=== PATIENT | male | born 1965 | race American Indian/Alaskan Native ===

== ENCOUNTER 2020-08-05 07:06 | Emergency (ER) | payer SELFPAY ==
[2020-08-05 09:08] LABS: Basophils % (Auto) 0.8 % (0.0-1.8); Eosinophils # (Auto) 0.3 K/mm3 (0.0-0.4); Eosinophils % (Auto) 5.3 % (0.0-4.3); Hematocrit 32.5 % (35.5-45.6); Hemoglobin 11.1 gm/dl (11.8-15.2); Lymphocytes # (Auto) 1.7 K/mm3 (1.2-5.4); Lymphocytes % (Auto) 33.7 % (13.4-35.0); Mean Corpuscular HGB Conc 34 % (32-34); Monocytes # (Auto) 0.8 K/mm3 (0.0-0.8); Monocytes % (Auto) 15.2 % (0.0-7.3); Platelet Count 218 K/mm3 (140-440); Red Blood Count 4.79 M/mm3 (3.65-5.03); Red Cell Distribution Width 16.7 % (13.2-15.2)
[2020-08-05 09:18] LABS: Mean Corpuscular Volume 68 fl (84-94)
[2020-08-05 09:27] LABS: Albumin 2.9 g/dL (3.9-5)
--- NOTE | 2020-08-05 09:40 | Emergency Department Report ---
ED General Adult HPI - General Chief complaint: Dizziness Stated complaint: HIGH BLOOD PRESSURE;ASTHMA Time Seen by Provider: 08/05/20 09:22 Source: patient Mode of arrival: Ambulatory Limitations: No Limitations - History of Present Illness Initial comments: This is a 55-year old man who is here as he states primarily to have his asthma medicine and blood pressure medicine written. He has been out of these medicines for some time. He does not have a primary care physician at this time. He tells me he would like a work excuse for last week. He states that his asthma is not bothering him now nor is he having any difficulty in breathing. Apparently he expressed "apprehension about taking blood pressure medications". The patient asked me how long it would take to get his lab results. He appeared to be very anxious to leave. -: Gradual, week(s) ([place] weak for a week) - Related Data Allergies Allergy/AdvReac Type Severity Reaction Status Date / Time No Known Allergies Allergy Unverified 08/05/20 07:09 ED Review of Systems ROS: Stated complaint: HIGH BLOOD PRESSURE;ASTHMA Other details as noted in HPI ED Past Medical Hx - Past Medical History Hx Hypertension: Yes Hx Asthma: Yes - Surgical History Past Surgical History?: No - Social History Smoking Status: Current Every Day Smoker Substance Use Type: None ED Physical Exam - General Limitations: No Limitations ED Course Vital Signs 08/05/20 08/05/20 07:09 09:14 Temperature 97.9 F Pulse Rate 111 H Respiratory 20 18 Rate Blood Pressure 173/108 O2 Sat by Pulse 96 99 Oximetry - Reevaluation(s) Reevaluation #1: Patient was found to have an elevated creatinine, BUN, low sodium and elevated troponin. He was a bit anemic. The implications of these tests were explained to him. I ordered medication for his blood pressure and to initiate IV fluids. I explained to the patient that admission is strongly recommended in lieu of his multiple laboratory abnormalities. He was told that his troponin was elevated specifically and that this may be secondary to a heart problem. The risk of multiple on stabilized medical conditions was explained to the patient. Despite this, he stated that he wanted to leave. Indeed, even when I explained to him that I would need some time for the nurse to bring him his paperwork as we had just ran a cardiac arrest, he simply left without treatment and signed out AMA. He did not even accept referral to the local primary care clinic. He did once again asked the nurse for a work excuse for 1 week. 08/05/20 10:10 08/05/20 10:13 Patient denied any chest pain pressure or episodic shortness of breath, diaphoresis or anything specifically consistent with acute coronary syndrome. Reevaluation #2: It should be noted that the patient was fully mentally competent to refuse medical care and treatment. 08/05/20 10:14 ED Medical Decision Making - Lab Data Result diagrams: 08/05/20 08:26 08/05/20 08:26 Laboratory Results - last 24 hr 08/05/20 08/05/20 08:26 08:26 WBC 5.1 RBC 4.79 Hgb 11.1 L Hct 32.5 L MCV 68 L MCH 23 L MCHC 34 RDW 16.7 H Plt Count 218 Lymph % (Auto) 33.7 Sherman % (Auto) 15.2 H Eos % (Auto) 5.3 H Baso % (Auto) 0.8 Lymph # (Auto) 1.7 Sherman # (Auto) 0.8 Eos # (Auto) 0.3 Baso # (Auto) 0.0 Seg Neutrophils % 45.0 Seg Neutrophils # 2.3 Sodium 129 L Potassium 3.6 Chloride 97.0 L Carbon Dioxide 24 Anion Gap 12 BUN 42 H Creatinine 2.5 H Estimated GFR 32 BUN/Creatinine Ratio 17 Glucose 119 H Calcium 9.0 Total Bilirubin 0.40 AST 108 H ALT 98 H Alkaline Phosphatase 130 H Troponin T 0.132 H* Total Protein 9.3 H Albumin 2.9 L Albumin/Globulin Ratio 0.5 - EKG Data -: EKG Interpreted by Me EKG shows normal: sinus rhythm, axis, intervals, QRS complexes, ST-T waves Rate: normal - EKG Data Interpretation: nonspecific ST-T wave abhishek, other (Motion artifact. J-point elevation. Intraventricular conduction delay.) Critical care attestation.: If time is entered above; I have spent that time in minutes in the direct care of this critically ill patient, excluding procedure time. ED Disposition Clinical Impression: Uncontrolled hypertension, Hyponatremia, Renal insufficiency, Elevated troponin Disposition: DC-07 LEFT AGAINST MED ADVICE Is pt being admited?: No Does the pt Need Aspirin: No Condition: Stable Instructions: Hypertension (ED) Referrals: PRIMARY CARE, [Primary Care Provider] - 3-5 Days Forms: AMA Form, Work/School Release Form(ED) Time of Disposition: 10:16
[2020-08-05] MEDS ORDERED: SODIUM CHLORIDE 0.9% 1000 ML 1,000 ML IV ONE (09:43)
[2020-08-05] MEDS ORDERED: NITROGLYCERIN 2% OINT 1 GM TP ONE (09:43)
[2020-08-05 09:45] LABS: Chol/HDL Ratio 7.44 %
[2020-08-05 11:03] LABS: Creatine Kinase MB 10.4 ng/mL (0.0-4.0)
[2020-08-05 11:57] VITALS: BP 146/104
== END 2020-08-05 09:55 | disposition left against medical advice (07) ==
LOC: ED 07:06
DX: I10 Essential (primary) hypertension (principal); E87.1 Hypo-osmolality and hyponatremia; N28.9 Disorder of kidney and ureter, unspecified; R74.8 Abnormal levels of other serum enzymes; E11.9 Type 2 diabetes mellitus without complications; Z79.899 Other long term (current) drug therapy
CPT/HCPCS: 36415; 80053; 80061; 82550; 82553; 83735; 83880; 84484; 85025; 93005; 99283

== ENCOUNTER 2021-04-01 11:29 | Inpatient (IN) | payer SELFPAY ==
[2021-04-01] MEDS ORDERED: ASPIRIN 81 MG TAB CHEW PO ONE (12:12)
--- NOTE | 2021-04-01 12:17 | Emergency Department Report ---
ED Shortness of Breath HPI - General Chief Complaint: Dyspnea/Respdistress Stated Complaint: CHEST ACHE/SOB Time Seen by Provider: 04/01/21 12:03 Source: patient Mode of arrival: Ambulatory Limitations: No Limitations - History of Present Illness Initial Comments: Patient presents with shortness of breath. He states that for the last 3 weeks, he has had exertional dyspnea. He has to stop multiple times when walking from his home to the store. He states that he has been so short of breath he has not really left his house. He gets short of breath when he gets up and walks from the bedroom to the bathroom. Over the last couple of days it has gotten worse. He decided to come here for evaluation. Patient states that he had had similar symptoms back in July. He came here. He states that the physician that he saw scared him and he did not come back. Patient states that he has not followed up since that time. He is not having chest pain. He has had a cough but that seems to be minimal. He states that he has been wheezing at home as well. He actually does describe orthopnea in addition and describes PND as well. He has not noticed significant edema in the feet. - Related Data Allergies Allergy/AdvReac Type Severity Reaction Status Date / Time No Known Allergies Allergy Unverified 08/05/20 07:09 ED Review of Systems ROS: Stated complaint: CHEST ACHE/SOB Other details as noted in HPI Comment: All other systems reviewed and negative Constitutional: denies: fever Eyes: denies: eye pain ENT: denies: throat pain Respiratory: no symptoms reported Cardiovascular: other ( He does report occasional palpitations.). denies: chest pain Endocrine: denies: unexplained weight loss Gastrointestinal: denies: abdominal pain Genitourinary: denies: dysuria Musculoskeletal: denies: back pain Skin: denies: rash Neurological: denies: headache Hematological/Lymphatic: denies: easy bruising ED Past Medical Hx - Past Medical History Previous Medical History?: Yes Hx Hypertension: Yes Hx Asthma: Yes - Surgical History Past Surgical History?: No - Family History Family history: hypertension - Social History Smoking Status: Current Every Day Smoker Substance Use Type: Alcohol, Marijuana, Other ( We discussed tobacco cessation x3 minutes) ED Physical Exam - General Limitations: No Limitations ( pulse ox was noted and normal. Patient is not hypoxic.) General appearance: alert, in no apparent distress - Head Head exam: Present: atraumatic, normocephalic, normal inspection - Eye Eye exam: Present: normal appearance, EOMI. Absent: scleral icterus - ENT ENT exam: Present: normal exam, normal external ear exam - Neck Neck exam: Absent: meningismus - Respiratory Respiratory exam: Present: rales ( Bibasilar). Absent: respiratory distress - Cardiovascular Cardiovascular Exam: Present: tachycardia, irregular rhythm - GI/Abdominal GI/Abdominal exam: Present: soft. Absent: tenderness - Extremities Exam Extremities exam: Present: normal capillary refill. Absent: pedal edema - Back Exam Back exam: Absent: CVA tenderness (R), CVA tenderness (L) - Neurological Exam Neurological exam: Present: alert, oriented X3, CN II-XII intact, reflexes normal. Absent: motor sensory deficit - Psychiatric Psychiatric exam: Present: normal affect, anxious - Skin Skin exam: Present: warm, dry ED Course Vital Signs 04/01/21 11:49 Temperature 97.6 F Pulse Rate 116 H Respiratory 22 Rate Blood Pressure 153/124 O2 Sat by Pulse 99 Oximetry - Reevaluation(s) Reevaluation #1: 04/01/21 12:17 IV labs were ordered. EKG has been ordered. Reevaluation #2: 04/01/21 13:19 Labs have been noted. These have been discussed with the patient. I do believe admission is indicated. Dr. Pate agrees. He will admit. Bed has been requested. ED Medical Decision Making - Lab Data Result diagrams: 04/01/21 12:04 04/01/21 12:04 - EKG Data -: EKG Interpreted by Me Rate: tachycardia - EKG Data 04/01/21 13:19 EKG shows a sinus tachycardia 122 with occasional ectopy. These are PVCs. QRS is normal at 89. QT corrected is normal at 1475. There is no ST elevation suggest STEMI. There is no ST depression suggestive of ischemia. There is no old EKG currently for comparison. - Medical Decision Making Patient presented secondary to exertional dyspnea. He does have evidence of NSTEMI with congestive heart failure. He does not have STEMI. There is no pulse deficit suggestive of aortic dissection. He does not have pneumonia or pneumothorax radiographically. Patient was admitted for further management. He is currently pain-free and resting. Critical Care Time: No Critical care attestation.: If time is entered above; I have spent that time in minutes in the direct care of this critically ill patient, excluding procedure time. ED Disposition Clinical Impression: NSTEMI (non-ST elevated myocardial infarction), Exertional dyspnea, Acute kidney injury Disposition: 09 ADMITTED INPATIENT Is pt being admited?: Yes Does the pt Need Aspirin: No Condition: Stable Referrals: PRIMARY CARE, [Primary Care Provider] - 3-5 Days
--- NOTE | 2021-04-01 12:42 | XRay Report ---
CHEST 1 VIEW INDICATION / CLINICAL INFORMATION: chest pain. COMPARISON: None available. FINDINGS: SUPPORT DEVICES: None. HEART / MEDIASTINUM: No significant abnormality. LUNGS / PLEURA: Airspace opacity involving the medial basilar region of the right lung. Left lung is clear. No pneumothorax. ADDITIONAL FINDINGS: No significant additional findings. IMPRESSION: Focal pneumonia involving the right basilar lung. Signer Name: Marquise Mariscal MD Signed: 04/01/2021 12:38 PM Workstation Name: [id number]
[2021-04-01 12:46] LABS: Hematocrit 31.4 % (35.5-45.6); Mean Corpuscular HGB Conc 32 % (32-34); Platelet Count 205 K/mm3 (140-440); Red Blood Count 4.56 M/mm3 (3.65-5.03); Red Cell Distribution Width 18.6 % (13.2-15.2)
[2021-04-01 12:51] LABS: Albumin 3.3 g/dL (3.9-5)
[2021-04-01 13:01] LABS: Mean Corpuscular Volume 69 fl (84-94)
[2021-04-01 13:20] LABS: Chol/HDL Ratio 4.85 %
[2021-04-01 16:46] LABS: Band Neutrophils # (Manual) 0.3 K/mm3; Total Cells Counted 100
[2021-04-01 16:47] LABS: Target Cells Few
[2021-04-01 16:48] LABS: Anisocytosis 2+; Hypochromasia 2+
[2021-04-01] MEDS ORDERED: ACETAMINOPHEN 325 MG TAB PO PRN ×2 (17:45→18:38)
[2021-04-01] MEDS ORDERED: ONDANSETRON 4 MG/2 ML INJ IV PRN ×2 (17:45→18:38)
--- NOTE | 2021-04-01 17:45 | History and Physical Report ---
History of Present Illness Date of examination: 04/01/21 Date of admission: 04/01/21 14:58 Chief complaint: Shortness of breath and chest pain for 1 week History of present illness: 55-year-old male with history of tension comes in for exertional dyspnea. Duration. Patient has to stop multiple times from home to the patient and discharged on regular walking to the bathroom. Also chest pain intermittent he gets short of breath and walk Lungs. Patient states that he had similar symptoms back pain.. Patient was evaluated in the emergency room and was sent home. Patient also stated in using and has orthopnea. Patient has class IV NYHA symptoms. Also intermittent chest pain. His ultrasound. No diaphoresis. No palpitations. No radiation. ED course evaluation and IV Lasix was given. - Past Medical History --Previous Medical History?: Yes --Hypertension: Yes --Asthma: Yes - Surgical History --Past Surgical History?: No - Family History --Hypertension - Social History --Smoking Status: Current Every Day Smoker --Substance Use Type: Alcohol, Marijuana, Other ( We discussed tobacco cessation x3 minutes) -Review of Systems ROS: Stated complaint: CHEST ACHE/SOB Other details as noted in HPI Comment: All other systems reviewed and negative Constitutional: denies: fever Eyes: denies: eye pain ENT: denies: throat pain Respiratory: no symptoms reported Cardiovascular: other ( He does report occasional palpitations.). denies: chest pain Endocrine: denies: unexplained weight loss Gastrointestinal: denies: abdominal pain Genitourinary: denies: dysuria Musculoskeletal: denies: back pain Skin: denies: rash Neurological: denies: headache Hematological/Lymphatic: denies: easy bruising Medications and Allergies Allergies Allergy/AdvReac Type Severity Reaction Status Date / Time No Known Allergies Allergy Verified 04/01/21 18:43 Home Medications Medication Instructions Recorded Confirmed Last Taken Type No Known Home Medications [No 04/01/21 04/01/21 Unknown History Reported Home Medications] Active Meds: Active Medications Pseudoephedrine/Acetam/Chlorphenir (Guaifenesin/Codeine 100-10mg Oral Liqd 5 Ml) 10 ml PO Q4H PRN PRN Reason: Cough Exam - Constitutional Vitals: Temp Pulse Resp BP Pulse Ox 97.6 F 116 H 13 173/112 97 04/01/21 11:49 04/01/21 15:45 04/01/21 15:45 04/01/21 15:45 04/01/21 15:51 General appearance: Present: mild distress, well-nourished - EENT Eyes: Present: PERRL ENT: hearing intact, clear oral mucosa - Neck Neck: Present: supple, normal ROM - Respiratory Respiratory effort: normal Respiratory: bilateral: CTA - Cardiovascular Heart rate: 120 (pvc's) Rhythm: regular Heart Sounds: Present: S1 & S2. Absent: rub, click - Extremities Extremities: no ischemia, pulses symmetrical, No edema Extremity abnormal: other (Mild ankle swelling present.) Peripheral Pulses: within normal limits - Abdominal General gastrointestinal: Present: soft, non-tender, non-distended, normal bowel sounds Male genitourinary: Present: normal - Integumentary Integumentary: Present: clear, warm, dry - Musculoskeletal Musculoskeletal: gait normal, strength equal bilaterally - Psychiatric Psychiatric: appropriate mood/affect, intact judgment & insight - Neurologic Neurologic: CNII-XII intact, moves all extremities - Allied Health Allied health notes reviewed: nursing, case management HEART Score - HEART Score History: Highly suspicious Age: 45-65 Risk factors: 1-2 risk factors Troponin: Troponin T 0.379 ng/mL (0.00-0.029) H* 04/01/21 12:04 Troponin: 1-3x normal limit - Critical Actions Critical Actions: 4-6 pts:12-16.6% risk of adverse cardiac event. Should be admitted Results - Labs CBC & Chem 7: 04/02/21 05:32 04/02/21 05:32 Labs: Laboratory Last Values WBC 6.1 K/mm3 (4.5-11.0) 04/01/21 12:04 RBC 4.56 M/mm3 (3.65-5.03) 04/01/21 12:04 Hgb 10.0 gm/dl (11.8-15.2) L 04/01/21 12:04 Hct 31.4 % (35.5-45.6) L 04/01/21 12:04 MCV 69 fl (84-94) L 04/01/21 12:04 MCH 22 pg (28-32) L 04/01/21 12:04 MCHC 32 % (32-34) 04/01/21 12:04 RDW 18.6 % (13.2-15.2) H 04/01/21 12:04 Plt Count 205 K/mm3 (140-440) 04/01/21 12:04 Lymph % (Auto) Tankroom Tender 04/01/21 12:04 [place] % (Auto) [place]room Tender 04/01/21 12:04 Eos % (Auto) [place]room Tender 04/01/21 12:04 Baso % (Auto) [place] Tender 04/01/21 12:04 Lymph # (Auto) [place] Tender 04/01/21 12:04 [place] # (Auto) [place]room Tender 04/01/21 12:04 Eos # (Auto) [place]room Tender 04/01/21 12:04 Baso # (Auto) [place]room Tender 04/01/21 12:04 Add Manual Diff Complete 04/01/21 12:04 Total Counted 100 04/01/21 12:04 Seg Neutrophils % Tankroom Tender 04/01/21 12:04 Seg Neuts % (Manual) 41.0 % (40.0-70.0) 04/01/21 12:04 Band Neutrophils % 5.0 % 04/01/21 12:04 Lymphocytes % (Manual) 29.0 % (13.4-35.0) 04/01/21 12:04 Monocytes % (Manual) 12.0 % (0.0-7.3) H 04/01/21 12:04 Eosinophils % (Manual) 12.0 % (0.0-4.3) H 04/01/21 12:04 Basophils % (Manual) 1.0 % (0.0-1.8) 04/01/21 12:04 Nucleated RBC % Not Reportable 04/01/21 12:04 Seg Neutrophils # [place]room Tender 04/01/21 12:04 Seg Neutrophils # Man 2.5 K/mm3 (1.8-7.7) 04/01/21 12:04 Band Neutrophils # 0.3 K/mm3 04/01/21 12:04 Lymphocytes # (Manual) 1.8 K/mm3 (1.2-5.4) 04/01/21 12:04 Abs React Lymphs (Man) 0.0 K/mm3 04/01/21 12:04 Monocytes # (Manual) 0.7 K/mm3 (0.0-0.8) 04/01/21 12:04 Eosinophils # (Manual) 0.7 K/mm3 (0.0-0.4) H 04/01/21 12:04 Basophils # (Manual) 0.1 K/mm3 (0.0-0.1) 04/01/21 12:04 Metamyelocytes # 0.0 K/mm3 04/01/21 12:04 Myelocytes # 0.0 K/mm3 04/01/21 12:04 Promyelocytes # 0.0 K/mm3 04/01/21 12:04 Blast Cells # 0.0 K/mm3 04/01/21 12:04 WBC Morphology Not Reportable 04/01/21 12:04 WBC Morphology TNR 04/01/21 12:04 Hypersegmented Neuts Not Reportable 04/01/21 12:04 Hyposegmented Neuts Not Reportable 04/01/21 12:04 Hypogranular Neuts Not Reportable 04/01/21 12:04 Smudge Cells Not Reportable 04/01/21 12:04 Toxic Granulation Not Reportable 04/01/21 12:04 Toxic Vacuolation Not Reportable 04/01/21 12:04 Dohle Bodies Not Reportable 04/01/21 12:04 Pelger-Huet Anomaly Not Reportable 04/01/21 12:04 Marianne Rods Not Reportable 04/01/21 12:04 Platelet Estimate Not Reportable 04/01/21 12:04 Clumped Platelets Not Reportable 04/01/21 12:04 Plt Clumps, EDTA Not Reportable 04/01/21 12:04 Large Platelets Not Reportable 04/01/21 12:04 Giant Platelets Not Reportable 04/01/21 12:04 Platelet Satelliting Not Reportable 04/01/21 12:04 Plt Morphology Comment Not Reportable 04/01/21 12:04 RBC Morphology Not Reportable 04/01/21 12:04 Dimorphic RBCs Not Reportable 04/01/21 12:04 Polychromasia Not Reportable 04/01/21 12:04 Hypochromasia 2+ 04/01/21 12:04 Poikilocytosis Not Reportable 04/01/21 12:04 Anisocytosis 2+ 04/01/21 12:04 Microcytosis 2+ 04/01/21 12:04 Macrocytosis Not Reportable 04/01/21 12:04 Spherocytes Not Reportable 04/01/21 12:04 Pappenheimer Bodies Not Reportable 04/01/21 12:04 Sickle Cells Not Reportable 04/01/21 12:04 Target Cells Few 04/01/21 12:04 Tear Drop Cells Not Reportable 04/01/21 12:04 Ovalocytes Not Reportable 04/01/21 12:04 Helmet Cells Not Reportable 04/01/21 12:04 [place] Bodies Not Reportable 04/01/21 12:04 Fouke Rings Not Reportable 04/01/21 12:04 Carrie Cells Not Reportable 04/01/21 12:04 Bite Cells Not Reportable 04/01/21 12:04 Crenated Cell Not Reportable 04/01/21 12:04 Elliptocytes Not Reportable 04/01/21 12:04 Acanthocytes (Spur) Not Reportable 04/01/21 12:04 Rouleaux Not Reportable 04/01/21 12:04 Hemoglobin C Crystals Not Reportable 04/01/21 12:04 Schistocytes Not Reportable 04/01/21 12:04 Malaria parasites Not Reportable 04/01/21 12:04 Maurisio Bodies Not Reportable 04/01/21 12:04 Hem Pathologist Commnt No 04/01/21 12:04 Sodium 131 mmol/L (137-145) L 04/01/21 12:04 Potassium 4.1 mmol/L (3.6-5.0) 04/01/21 12:04 Chloride 101.8 mmol/L (98-107) 04/01/21 12:04 Carbon Dioxide 16 mmol/L (22-30) L 04/01/21 12:04 Anion Gap 17 mmol/L 04/01/21 12:04 BUN 52 mg/dL (9-20) H 04/01/21 12:04 Creatinine 4.6 mg/dL (0.8-1.3) H 04/01/21 12:04 Estimated GFR 16 ml/min 04/01/21 12:04 BUN/Creatinine Ratio 11 % 04/01/21 12:04 Glucose 102 mg/dL (75-100) H 04/01/21 12:04 Calcium 9.0 mg/dL (8.4-10.2) 04/01/21 12:04 Total Bilirubin 1.10 mg/dL (0.1-1.2) 04/01/21 12:04 AST 26 units/L (5-40) 04/01/21 12:04 ALT 20 units/L (7-56) 04/01/21 12:04 Alkaline Phosphatase 106 units/L (35-129) 04/01/21 12:04 Troponin T 0.379 ng/mL (0.00-0.029) H* 04/01/21 12:04 NT-Pro-B Natriuret Pep 94866 pg/mL (0-900) H 04/01/21 12:04 Total Protein 9.6 g/dL (6.3-8.2) H 04/01/21 12:04 Albumin 3.3 g/dL (3.9-5) L 04/01/21 12:04 Albumin/Globulin Ratio 0.5 % 04/01/21 12:04 Triglycerides 126 mg/dL (2-149) 04/01/21 12:04 Cholesterol 131 mg/dL (50-199) 04/01/21 12:04 LDL Cholesterol Direct 74 mg/dL (50-130) 04/01/21 12:04 HDL Cholesterol 27 mg/dL (40-59) L 04/01/21 12:04 Cholesterol/HDL Ratio 4.85 % 04/01/21 12:04 Short CBC 04/01/21 Range/Units 12:04 WBC 6.1 (4.5-11.0) K/mm3 Hgb 10.0 L (11.8-15.2) gm/dl Hct 31.4 L (35.5-45.6) % Plt Count 205 (140-440) K/mm3 BMP 04/01/21 12:04 Sodium 131 L Potassium 4.1 Chloride 101.8 Carbon Dioxide 16 L BUN 52 H Creatinine 4.6 H Glucose 102 H Calcium 9.0 Cardiac Enzymes 04/01/21 Range/Units 12:04 Troponin T 0.379 H* (0.00-0.029) ng/mL Liver Function 04/01/21 Range/Units 12:04 Total Bilirubin 1.10 (0.1-1.2) mg/dL AST 26 (5-40) units/L ALT 20 (7-56) units/L Alkaline Phosphatase 106 (35-129) units/L Albumin 3.3 L (3.9-5) g/dL Short CBC 04/01/21 04/02/21 Range/Units 12:04 05:32 WBC 6.1 4.6 (4.5-11.0) K/mm3 Hgb 10.0 L 10.1 L (11.8-15.2) gm/dl Hct 31.4 L 31.3 L (35.5-45.6) % Plt Count 205 192 (140-440) K/mm3 BMP 04/01/21 04/02/21 12:04 05:32 Sodium 131 L 134 L Potassium 4.1 4.5 Chloride 101.8 103.8 Carbon Dioxide 16 L 17 L BUN 52 H 54 H Creatinine 4.6 H 4.7 H Glucose 102 H 93 Calcium 9.0 9.2 Cardiac Enzymes 04/01/21 04/01/21 Range/Units 12:04 19:39 Troponin T 0.379 H* 0.379 H* (0.00-0.029) ng/mL Liver Function 04/01/21 04/02/21 Range/Units 12:04 05:32 Total Bilirubin 1.10 1.00 (0.1-1.2) mg/dL AST 26 28 (5-40) units/L ALT 20 20 (7-56) units/L Alkaline Phosphatase 106 109 (35-129) units/L Albumin 3.3 L 3.4 L (3.9-5) g/dL - Imaging and Cardiology EKG: report reviewed (Sinus tachycardia, frequent PVCs, no acute ST-T wave changes) Assessment and Plan Advance Directives: Yes (Full code) VTE prophylaxis?: Chemical Plan of care discussed with patient/family: Yes - Patient Problems (1) NSTEMI (non-ST elevated myocardial infarction) Current Visit: Yes Status: Acute Plan to address problem: In favor of troponin leak and CHF IV heparin drip was not started Defer to cardiology (2) Hypertensive emergency Current Visit: Yes Status: Acute Plan to address problem: Patient initiated on multiple antihypertensive dose and IV hydralazine. Cardene drip if necessary. (3) Acute exacerbation of CHF (congestive heart failure) Current Visit: Yes Status: Acute Qualifiers: Heart failure type: diastolic Qualified Code(s): I50.33 - Acute on chronic diastolic (congestive) heart failure Plan to address problem: Patient initiated on IV Lasix and potassium. Echocardiogram for ejection fraction. Cardiology consult requested. (4) Acute coronary syndrome Current Visit: Yes Status: Acute Plan to address problem: Troponins are elevated Possible troponin leak We will get Lexiscan. No heparin drip. (5) Acute kidney injury Current Visit: Yes Status: Acute Plan to address problem: Will defer to nephrology. Patient is on IV Lasix which may increase his creatinine levels (6) Ventricular premature complexes Current Visit: Yes Status: Acute (7) Anemia Current Visit: Yes Status: Chronic Qualifiers: Anemia type: iron deficiency Plan to address problem: Microcytic anemia We will check iron levels folic acid and B12 levels Can be secondary to CKD (8) Hyponatremia Current Visit: Yes Status: Acute Plan to address problem: Mild (9) Malnutrition Current Visit: Yes Status: Chronic Qualifiers: Protein-calorie malnutrition severity: mild Plan to address problem: Dietary supplements initiated (10) DVT prophylaxis Current Visit: Yes Status: Acute Plan to address problem: IV heparin and GI prophylaxis. (11) Premature ventricular contractions (PVCs) (VPCs) Current Visit: Yes Status: Acute Plan to address problem: Will defer to cardiology
[2021-04-01] MEDS ORDERED: METOCLOPRAMIDE 10 MG/2 ML INJ IV PRN (18:25)
[2021-04-01] MEDS ORDERED: oxyCODONE /ACETAMINOPHEN 5-325MG TAB PO PRN (18:25)
[2021-04-01] MEDS ORDERED: FUROSEMIDE 40 MG/4 ML INJ IV ONE (21:14)
[2021-04-01] MEDS: POTASSIUM CHLORIDE ER 20 MEQ TAB PO SCH (21:19)
[2021-04-01] MEDS: HEPARIN 5,000 UNIT/1 ML VIAL SUB-Q SCH (23:31)
[2021-04-01] MEDS: FAMOTIDINE 20 MG TAB PO SCH (23:32)
[2021-04-02 05:49] LABS: Hematocrit 31.3 % (35.5-45.6); Hemoglobin 10.1 gm/dl (11.8-15.2); Mean Corpuscular HGB Conc 32 % (32-34); Platelet Count 192 K/mm3 (140-440); Red Blood Count 4.52 M/mm3 (3.65-5.03); Red Cell Distribution Width 18.2 % (13.2-15.2)
[2021-04-02 05:56] LABS: Mean Corpuscular Volume 69 fl (84-94)
[2021-04-02] MEDS ORDERED: FUROSEMIDE 40 MG/4 ML INJ IV SCH ×2 (06:00→14:00)
[2021-04-02 06:14] LABS: Albumin 3.4 g/dL (3.9-5); Calcium 9.2 mg/dL (8.4-10.2)
[2021-04-02] MEDS: POTASSIUM CHLORIDE ER 20 MEQ TAB PO SCH (06:38)
[2021-04-02 07:13] LABS: Band Neutrophils # (Manual) 0.5 K/mm3; Myelocytes # (Manual) 0.1 K/mm3; Total Cells Counted 100
[2021-04-02 07:28] LABS: Target Cells 2+
[2021-04-02 07:29] LABS: Schistocytes Rare; Spherocytes 1+
[2021-04-02 07:30] LABS: Anisocytosis 2+; Hypochromasia 2+; Platelet Estimate Consistent w Auto; Poikilocytosis 2+
[2021-04-02 08:21] LABS: % Iron Saturation 11.15 %
--- NOTE | 2021-04-02 09:43 | Consultation ---
History of Present Illness - Reason for Consult Consult date: 04/02/21 acute renal failure, chronic renal failure - History of Present Illness 55 year old M with hx of CKD admitted with SHOB worse on exertion. Pt has also had orthopnea and chest pain. He currently denies diaphoresis or palpitations. He has been found to have ROMAN on CKD. His CXR is also congested and he has been given lasix in the ER. ROS: As in HPI otherwise 12 point review of systems -ve . Medications and Allergies Allergies Allergy/AdvReac Type Severity Reaction Status Date / Time No Known Allergies Allergy Verified 04/01/21 18:43 Home Medications Medication Instructions Recorded Confirmed Last Taken Type No Known Home Medications [No 04/01/21 04/01/21 Unknown History Reported Home Medications] Active Meds: Active Medications Acetaminophen (Acetaminophen 325 Mg Tab) 650 mg PO Q4H PRN PRN Reason: Pain MILD(1-3)/Fever >100.5/GRANDE Famotidine (Famotidine 20 Mg Tab) 20 mg PO BID ON LICENSE OF [facility] Last Admin: 04/01/21 23:32 Dose: 20 mg Documented by: Furosemide (Furosemide 40 Mg/4 Ml Inj) 40 mg IV 0600,1800 ON LICENSE OF [facility] Last Admin: 04/02/21 06:38 Dose: 40 mg Documented by: Heparin Sodium (Porcine) (Heparin 5,000 Unit/1 Ml Vial) 5,000 unit SUB-Q Q12HR ON LICENSE OF [facility] Last Admin: 04/01/21 23:31 Dose: 5,000 unit Documented by: Hydromorphone HCl (Hydromorphone 1 Mg/1 Ml Inj) 0.5 mg IV Q3H PRN PRN Reason: Pain , Severe (7-10) Metoclopramide HCl (Metoclopramide 10 Mg/2 Ml Inj) 10 mg IV Q6H PRN PRN Reason: Nausea And Vomiting Ondansetron HCl (Ondansetron 4 Mg/2 Ml Inj) 4 mg IV Q8H PRN PRN Reason: Nausea And Vomiting Oxycodone/Acetaminophen (Oxycodone /Acetaminophen 5-325mg Tab) 1 tab PO Q6H PRN PRN Reason: Pain, Moderate (4-6) Potassium Chloride (Potassium Chloride Er 20 Meq Tab) 20 meq PO Q12H ON LICENSE OF [facility] Last Admin: 04/02/21 06:38 Dose: 20 meq Documented by: Pseudoephedrine/Acetam/Chlorphenir (Guaifenesin/Codeine 100-10mg Oral Liqd 5 Ml) 10 ml PO Q4H PRN PRN Reason: Cough Sodium Chloride (Sodium Chloride 0.9% 10 Ml Flush Syringe) 10 ml IV BID [facility] Last Admin: 04/02/21 01:12 Dose: 10 ml Documented by: Sodium Chloride (Sodium Chloride 0.9% 10 Ml Flush Syringe) 10 ml IV PRN PRN PRN Reason: LINE FLUSH Exam - Vital Signs Vital signs: Vital Signs Temp Pulse Resp BP Pulse Ox 97.6 F 116 H 22 153/124 99 04/01/21 11:49 04/01/21 11:49 04/01/21 11:49 04/01/21 11:49 04/01/21 11:49 - Physical Exam Narrative exam: General appearance: Present: mild distress, well-nourished - EENT Eyes: Present: PERRL ENT: hearing intact, clear oral mucosa - Neck Neck: Present: supple, normal ROM - Respiratory Respiratory effort: normal Respiratory: bilateral: CTA - Cardiovascular Heart rate: 120 (pvc's) Rhythm: regular Heart Sounds: Present: S1 & S2. Absent: rub, click - Extremities Extremities: no ischemia, pulses symmetrical, No edema Extremity abnormal: other (Mild ankle swelling present.) Peripheral Pulses: within normal limits - Abdominal General gastrointestinal: Present: soft, non-tender, non-distended, normal bowel sounds Male genitourinary: Present: normal - Integumentary Integumentary: Present: clear, warm, dry - Musculoskeletal Musculoskeletal: gait normal, strength equal bilaterally - Psychiatric Psychiatric: appropriate mood/affect, intact judgment & insight - Neurologic Neurologic: CNII-XII intact, moves all extremities - Allied Health Allied health notes reviewed: nursing, case management Results - Lab Results 04/02/21 05:32 04/02/21 05:32 Most recent lab results Calcium 9.2 mg/dL (8.4-10.2) 04/02/21 05:32 Assessment and Plan Acute Kidney injury on top of CKD: Chest pain: Elevated troponin: HTN: Anemia: -Check Urine studies, CK level, Renal US -CXR congested. Inc lasix to 40 mg TID IV -Stop KCL, he is at risk for hyperkalemia due to renal disease, check repeat BMP for K, Low K diet -Check Bladder Scan -Strict I/Os -Renally dose all meds -Avoid Nephrotoxic meds -Check PTH
--- NOTE | 2021-04-02 10:22 | XRay Report ---
CHEST 1 VIEW 04/02/2021 9:08 AM INDICATION / CLINICAL INFORMATION: congestion. COMPARISON: 04/01/21 FINDINGS: SUPPORT DEVICES: None. HEART / MEDIASTINUM: Heart is mildly enlarged but stable. LUNGS / PLEURA: Right basilar airspace disease is unchanged. No pneumothorax. ADDITIONAL FINDINGS: No significant additional findings. IMPRESSION: 1. No significant change. Signer Name: Shayne Logan MD Signed: 04/02/2021 10:18 AM Workstation Name: [id number]
[2021-04-02] MEDS: FAMOTIDINE 20 MG TAB PO SCH ×2 (12:11→22:33)
[2021-04-02] MEDS: HEPARIN 5,000 UNIT/1 ML VIAL SUB-Q SCH ×2 (12:12→22:36)
--- NOTE | 2021-04-02 12:12 | Consultation ---
History of Present Illness Consult date: 04/02/21 Consult reason: elevated troponin History of present illness: 55-year-old male with past medical history of CKD, hypertension, and asthma is admitted with exertional dyspnea. He was noted to have elevated troponin for which cardiology was consulted. He was previously seen in the ED at this facility in July 2020 and found to have elevated creatinine (2.5) and troponin elevation (0.132). Unfortunately, he left AMA. He has since been lost to follow-up and notes that he has not seen any doctors during that time. He presents today with worsening dyspnea on exertion over the last 1 month. He notes he is unable to walk more than one half block. He reports worsening abdominal swelling but no significant leg swelling. No chest pain. Past History Past Medical History: anemia, hypertension Medications and Allergies Allergies Allergy/AdvReac Type Severity Reaction Status Date / Time No Known Allergies Allergy Verified 04/01/21 18:43 Home Medications Medication Instructions Recorded Confirmed Last Taken Type No Known Home Medications [No 04/01/21 04/01/21 Unknown History Reported Home Medications] Active Meds: Active Medications Acetaminophen (Acetaminophen 325 Mg Tab) 650 mg PO Q4H PRN PRN Reason: Pain MILD(1-3)/Fever >100.5/GRANDE Famotidine (Famotidine 20 Mg Tab) 20 mg PO BID [facility] Last Admin: 04/01/21 23:32 Dose: 20 mg Documented by: Furosemide (Furosemide 40 Mg/4 Ml Inj) 40 mg IV 0600,1800 [facility] Last Admin: 04/02/21 06:38 Dose: 40 mg Documented by: Heparin Sodium (Porcine) (Heparin 5,000 Unit/1 Ml Vial) 5,000 unit SUB-Q Q12HR [facility] Last Admin: 04/01/21 23:31 Dose: 5,000 unit Documented by: Hydromorphone HCl (Hydromorphone 1 Mg/1 Ml Inj) 0.5 mg IV Q3H PRN PRN Reason: Pain , Severe (7-10) Metoclopramide HCl (Metoclopramide 10 Mg/2 Ml Inj) 10 mg IV Q6H PRN PRN Reason: Nausea And Vomiting Ondansetron HCl (Ondansetron 4 Mg/2 Ml Inj) 4 mg IV Q8H PRN PRN Reason: Nausea And Vomiting Oxycodone/Acetaminophen (Oxycodone /Acetaminophen 5-325mg Tab) 1 tab PO Q6H PRN PRN Reason: Pain, Moderate (4-6) Potassium Chloride (Potassium Chloride Er 20 Meq Tab) 20 meq PO Q12H [facility] Last Admin: 04/02/21 06:38 Dose: 20 meq Documented by: Pseudoephedrine/Acetam/Chlorphenir (Guaifenesin/Codeine 100-10mg Oral Liqd 5 Ml) 10 ml PO Q4H PRN PRN Reason: Cough Sodium Chloride (Sodium Chloride 0.9% 10 Ml Flush Syringe) 10 ml IV BID [facility] Last Admin: 04/02/21 01:12 Dose: 10 ml Documented by: Sodium Chloride (Sodium Chloride 0.9% 10 Ml Flush Syringe) 10 ml IV PRN PRN PRN Reason: LINE FLUSH Review of Systems All systems: negative Cardiovascular: shortness of breath, dyspnea on exertion, decreased exercise tolerance, no chest pain Respiratory: shortness of breath Physical Examination Vital Signs Temp Pulse Resp BP Pulse Ox 97.6 F 116 H 22 153/124 99 04/01/21 11:49 04/01/21 11:49 04/01/21 11:49 04/01/21 11:49 04/01/21 11:49 Narrative exam: Gen-NAD, comfortable Neck-supple, no JVD CV-regular rhythm, tachycardic no murmurs Lungs-CTAB, on room air Abd-soft/nt/nd Ext-warm to touch, no edema Neuro-alert and oriented, no gross focal deficits Psych-affect normal Results 04/02/21 05:32 04/02/21 05:32 Cardiac Enzymes 04/01/21 04/01/21 04/01/21 Range/Units 12:04 12:04 12:04 WBC 6.1 (4.5-11.0) K/mm3 RBC 4.56 (3.65-5.03) M/mm3 Hgb 10.0 L (11.8-15.2) gm/dl Hct 31.4 L (35.5-45.6) % MCV 69 L (84-94) fl MCH 22 L (28-32) pg MCHC 32 (32-34) % RDW 18.6 H (13.2-15.2) % Plt Count 205 (140-440) K/mm3 Lymph % (Auto) Dentist Private [facility] Teller % (Auto) Dentist Private [facility] Eos % (Auto) [facility]ist [facility] Baso % (Auto) Dentist Private [facility] Lymph # (Auto) Dentist Private [facility] Teller # (Auto) Dentist Private [facility] Eos # (Auto) Dentist Private [facility] Baso # (Auto) Dentist Private [facility] Add Manual Diff Complete Total Counted 100 Seg Neutrophils % Dentist Private [facility] Seg Neuts % (Manual) 41.0 (40.0-70.0) % Band Neutrophils % 5.0 % Lymphocytes % (Manual) 29.0 (13.4-35.0) % Monocytes % (Manual) 12.0 H (0.0-7.3) % Eosinophils % (Manual) 12.0 H (0.0-4.3) % Basophils % (Manual) 1.0 (0.0-1.8) % Metamyelocytes % % Myelocytes % % Nucleated RBC % Not Reportable Seg Neutrophils # Dentist Private Practice Seg Neutrophils # Man 2.5 (1.8-7.7) K/mm3 Band Neutrophils # 0.3 K/mm3 Lymphocytes # (Manual) 1.8 (1.2-5.4) K/mm3 Abs React Lymphs (Man) 0.0 K/mm3 Monocytes # (Manual) 0.7 (0.0-0.8) K/mm3 Eosinophils # (Manual) 0.7 H (0.0-0.4) K/mm3 Basophils # (Manual) 0.1 (0.0-0.1) K/mm3 Metamyelocytes # 0.0 K/mm3 Myelocytes # 0.0 K/mm3 Promyelocytes # 0.0 K/mm3 Blast Cells # 0.0 K/mm3 WBC Morphology Not Reportable TNR Hypersegmented Neuts Not Reportable Hyposegmented Neuts Not Reportable Hypogranular Neuts Not Reportable Smudge Cells Not Reportable Toxic Granulation Not Reportable Toxic Vacuolation Not Reportable Dohle Bodies Not Reportable Pelger-Huet Anomaly Not Reportable Marianne Rods Not Reportable Platelet Estimate Not Reportable Clumped Platelets Not Reportable Plt Clumps, EDTA Not Reportable Large Platelets Not Reportable Giant Platelets Not Reportable Platelet Satelliting Not Reportable Plt Morphology Comment Not Reportable RBC Morphology Not Reportable Dimorphic RBCs Not Reportable Polychromasia Not Reportable Hypochromasia 2+ Poikilocytosis Not Reportable Anisocytosis 2+ Microcytosis 2+ Macrocytosis Not Reportable Spherocytes Not Reportable Pappenheimer Bodies Not Reportable Sickle Cells Not Reportable Target Cells Few Tear Drop Cells Not Reportable Ovalocytes Not Reportable Helmet Cells Not Reportable [place]app[place] Bodies Not Reportable [place] Rings Not Reportable Carrie Cells Not Reportable Bite Cells Not Reportable Crenated Cell Not Reportable Elliptocytes Not Reportable Acanthocytes (Spur) Not Reportable Rouleaux Not Reportable Hemoglobin C Crystals Not Reportable Schistocytes Not Reportable Malaria parasites Not Reportable Maurisio Bodies Not Reportable Hem Pathologist Commnt No Sodium 131 L (137-145) mmol/L Potassium 4.1 (3.6-5.0) mmol/L Chloride 101.8 (98-107) mmol/L Carbon Dioxide 16 L (22-30) mmol/L Anion Gap 17 mmol/L BUN 52 H (9-20) mg/dL Creatinine 4.6 H (0.8-1.3) mg/dL Estimated GFR 16 ml/min BUN/Creatinine Ratio 11 % Glucose 102 H (75-100) mg/dL Hemoglobin A1c (4-6) % Calcium 9.0 (8.4-10.2) mg/dL Iron (49-181) ug/dL TIBC (250-450) mcg/dL % Saturation % Transferrin (180-329) mg/dl Total Bilirubin 1.10 (0.1-1.2) mg/dL AST 26 (5-40) units/L ALT 20 (7-56) units/L Alkaline Phosphatase 106 (35-129) units/L Total Creatine Kinase (55-170) units/L Troponin T 0.379 H* (0.00-0.029) ng/mL NT-Pro-B Natriuret Pep 08960 H (0-900) pg/mL Total Protein 9.6 H (6.3-8.2) g/dL Albumin 3.3 L (3.9-5) g/dL Albumin/Globulin Ratio 0.5 % Triglycerides 126 (2-149) mg/dL Cholesterol 131 (50-199) mg/dL LDL Cholesterol Direct 74 (50-130) mg/dL HDL Cholesterol 27 L (40-59) mg/dL Cholesterol/HDL Ratio 4.85 % Vitamin B12 (211-911) pg/mL 09/25/21 09/25/21 09/26/21 Range/Units 19:39 19:39 05:32 WBC 4.6 (4.5-11.0) K/mm3 RBC 4.52 (3.65-5.03) M/mm3 Hgb 10.1 L (11.8-15.2) gm/dl Hct 31.3 L (35.5-45.6) % MCV 69 L (84-94) fl MCH 22 L (28-32) pg MCHC 32 (32-34) % RDW 18.2 H (13.2-15.2) % Plt Count 192 (140-440) K/mm3 Lymph % (Auto) Dentist Private Practice Teller % (Auto) Eos % (Auto) Baso % (Auto) Lymph # (Auto) Teller # (Auto) Eos # (Auto) Baso # (Auto) Add Manual Diff Complete Total Counted 100 Seg Neutrophils % Dentist Private Practice Seg Neuts % (Manual) 22.0 L (40.0-70.0) % Band Neutrophils % 10.0 % Lymphocytes % (Manual) 36.0 H (13.4-35.0) % Monocytes % (Manual) 4.0 (0.0-7.3) % Eosinophils % (Manual) 22.0 H (0.0-4.3) % Basophils % (Manual) 3.0 H (0.0-1.8) % Metamyelocytes % 1.0 % Myelocytes % 2.0 % Nucleated RBC % Not Reportable Seg Neutrophils # Seg Neutrophils # Man 1.0 L (1.8-7.7) K/mm3 Band Neutrophils # 0.5 K/mm3 Lymphocytes # (Manual) 1.7 (1.2-5.4) K/mm3 Abs React Lymphs (Man) 0.0 K/mm3 Monocytes # (Manual) 0.2 (0.0-0.8) K/mm3 Eosinophils # (Manual) 1.0 H (0.0-0.4) K/mm3 Basophils # (Manual) 0.1 (0.0-0.1) K/mm3 Metamyelocytes # 0.0 K/mm3 Myelocytes # 0.1 K/mm3 Promyelocytes # 0.0 K/mm3 Blast Cells # 0.0 K/mm3 WBC Morphology Not Reportable Hypersegmented Neuts Not Reportable Hyposegmented Neuts Not Reportable Hypogranular Neuts Not Reportable Smudge Cells Not Reportable Toxic Granulation Not Reportable Toxic Vacuolation Not Reportable Dohle Bodies Not Reportable Pelger-Huet Anomaly 2+ Marianne Rods Not Reportable Platelet Estimate Consistent w auto Clumped Platelets Not Reportable Plt Clumps, EDTA Not Reportable Large Platelets Not Reportable Giant Platelets Not Reportable Platelet Satelliting Not Reportable Plt Morphology Comment Not Reportable RBC Morphology Not Reportable Dimorphic RBCs Not Reportable Polychromasia Not Reportable Hypochromasia 2+ Poikilocytosis 2+ Anisocytosis 2+ Microcytosis 2+ Macrocytosis Not Reportable Spherocytes 1+ Pappenheimer Bodies Not Reportable Sickle Cells Not Reportable Target Cells 2+ Tear Drop Cells Not Reportable Ovalocytes Not Reportable Helmet Cells Not Reportable [place]app[place] Bodies Not Reportable [place] Rings Not Reportable [place] Cells Not Reportable Bite Cells Not Reportable Crenated Cell Not Reportable Elliptocytes Not Reportable Acanthocytes (Spur) Not Reportable Rouleaux Not Reportable Hemoglobin C Crystals Not Reportable Schistocytes Rare Malaria parasites Not Reportable Maurisio Bodies Not Reportable Hem Pathologist Commnt No Sodium (137-145) mmol/L Potassium (3.6-5.0) mmol/L Chloride (98-107) mmol/L Carbon Dioxide (22-30) mmol/L Anion Gap mmol/L BUN (9-20) mg/dL Creatinine (0.8-1.3) mg/dL Estimated GFR ml/min BUN/Creatinine Ratio % Glucose (75-100) mg/dL Hemoglobin A1c 5.6 (4-6) % Calcium (8.4-10.2) mg/dL Iron (49-181) ug/dL TIBC (250-450) mcg/dL % Saturation % Transferrin (180-329) mg/dl Total Bilirubin (0.1-1.2) mg/dL AST (5-40) units/L ALT (7-56) units/L Alkaline Phosphatase (35-129) units/L Total Creatine Kinase (55-170) units/L Troponin T 0.379 H* (0.00-0.029) ng/mL NT-Pro-B Natriuret Pep (0-900) pg/mL Total Protein (6.3-8.2) g/dL Albumin (3.9-5) g/dL Albumin/Globulin Ratio % Triglycerides (2-149) mg/dL Cholesterol (50-199) mg/dL LDL Cholesterol Direct (50-130) mg/dL HDL Cholesterol (40-59) mg/dL Cholesterol/HDL Ratio % Vitamin B12 (211-911) pg/mL 04/02/21 04/02/21 04/02/21 Range/Units 05:32 05:32 06:50 WBC (4.5-11.0) K/mm3 RBC (3.65-5.03) M/mm3 Hgb (11.8-15.2) gm/dl Hct (35.5-45.6) % MCV (84-94) fl MCH (28-32) pg MCHC (32-34) % RDW (13.2-15.2) % Plt Count (140-440) K/mm3 Lymph % (Auto) Teller % (Auto) Eos % (Auto) Baso % (Auto) Lymph # (Auto) Teller # (Auto) Eos # (Auto) Baso # (Auto) Add Manual Diff Total Counted Seg Neutrophils % Seg Neuts % (Manual) (40.0-70.0) % Band Neutrophils % % Lymphocytes % (Manual) (13.4-35.0) % Monocytes % (Manual) (0.0-7.3) % Eosinophils % (Manual) (0.0-4.3) % Basophils % (Manual) (0.0-1.8) % Metamyelocytes % % Myelocytes % % Nucleated RBC % Seg Neutrophils # Seg Neutrophils # Man (1.8-7.7) K/mm3 Band Neutrophils # K/mm3 Lymphocytes # (Manual) (1.2-5.4) K/mm3 Abs React Lymphs (Man) K/mm3 Monocytes # (Manual) (0.0-0.8) K/mm3 Eosinophils # (Manual) (0.0-0.4) K/mm3 Basophils # (Manual) (0.0-0.1) K/mm3 Metamyelocytes # K/mm3 Myelocytes # K/mm3 Promyelocytes # K/mm3 Blast Cells # K/mm3 WBC Morphology Hypersegmented Neuts Hyposegmented Neuts Hypogranular Neuts Smudge Cells Toxic Granulation Toxic Vacuolation Dohle Bodies Pelger-Huet Anomaly Marianne Rods Platelet Estimate Clumped Platelets Plt Clumps, EDTA Large Platelets Giant Platelets Platelet Satelliting Plt Morphology Comment RBC Morphology Dimorphic RBCs Polychromasia Hypochromasia Poikilocytosis Anisocytosis Microcytosis Macrocytosis Spherocytes Pappenheimer Bodies Sickle Cells Target Cells Tear Drop Cells Ovalocytes Helmet Cells [place]app[place] Bodies [place] Rings [place] Cells Bite Cells Crenated Cell Elliptocytes Acanthocytes (Spur) Rouleaux Hemoglobin C Crystals Schistocytes Malaria parasites Maurisio Bodies Hem Pathologist Commnt Sodium 134 L (137-145) mmol/L Potassium 4.5 (3.6-5.0) mmol/L Chloride 103.8 (98-107) mmol/L Carbon Dioxide 17 L (22-30) mmol/L Anion Gap 18 mmol/L BUN 54 H (9-20) mg/dL Creatinine 4.7 H (0.8-1.3) mg/dL Estimated GFR 16 ml/min BUN/Creatinine Ratio 11 % Glucose 93 (75-100) mg/dL Hemoglobin A1c (4-6) % Calcium 9.2 (8.4-10.2) mg/dL Iron 31 L (49-181) ug/dL TIBC 278 (250-450) mcg/dL % Saturation 11.15 % Transferrin 232 (180-329) mg/dl Total Bilirubin 1.00 (0.1-1.2) mg/dL AST 28 (5-40) units/L ALT 20 (7-56) units/L Alkaline Phosphatase 109 (35-129) units/L Total Creatine Kinase (55-170) units/L Troponin T 0.385 H* (0.00-0.029) ng/mL NT-Pro-B Natriuret Pep (0-900) pg/mL Total Protein 9.4 H (6.3-8.2) g/dL Albumin 3.4 L (3.9-5) g/dL Albumin/Globulin Ratio 0.6 % Triglycerides (2-149) mg/dL Cholesterol (50-199) mg/dL LDL Cholesterol Direct (50-130) mg/dL HDL Cholesterol (40-59) mg/dL Cholesterol/HDL Ratio % Vitamin B12 (211-911) pg/mL 04/02/21 04/02/21 04/02/21 Range/Units 06:50 09:57 09:57 WBC (4.5-11.0) K/mm3 RBC (3.65-5.03) M/mm3 Hgb (11.8-15.2) gm/dl Hct (35.5-45.6) % MCV (84-94) fl MCH (28-32) pg MCHC (32-34) % RDW (13.2-15.2) % Plt Count (140-440) K/mm3 Lymph % (Auto) Teller % (Auto) Eos % (Auto) Baso % (Auto) Lymph # (Auto) Teller # (Auto) Eos # (Auto) Baso # (Auto) Add Manual Diff Total Counted Seg Neutrophils % Seg Neuts % (Manual) (40.0-70.0) % Band Neutrophils % % Lymphocytes % (Manual) (13.4-35.0) % Monocytes % (Manual) (0.0-7.3) % Eosinophils % (Manual) (0.0-4.3) % Basophils % (Manual) (0.0-1.8) % Metamyelocytes % % Myelocytes % % Nucleated RBC % Seg Neutrophils # Seg Neutrophils # Man (1.8-7.7) K/mm3 Band Neutrophils # K/mm3 Lymphocytes # (Manual) (1.2-5.4) K/mm3 Abs React Lymphs (Man) K/mm3 Monocytes # (Manual) (0.0-0.8) K/mm3 Eosinophils # (Manual) (0.0-0.4) K/mm3 Basophils # (Manual) (0.0-0.1) K/mm3 Metamyelocytes # K/mm3 Myelocytes # K/mm3 Promyelocytes # K/mm3 Blast Cells # K/mm3 WBC Morphology Hypersegmented Neuts Hyposegmented Neuts Hypogranular Neuts Smudge Cells Toxic Granulation Toxic Vacuolation Dohle Bodies Pelger-Huet Anomaly Marianne Rods Platelet Estimate Clumped Platelets Plt Clumps, EDTA Large Platelets Giant Platelets Platelet Satelliting Plt Morphology Comment RBC Morphology Dimorphic RBCs Polychromasia Hypochromasia Poikilocytosis Anisocytosis Microcytosis Macrocytosis Spherocytes Pappenheimer Bodies Sickle Cells Target Cells Tear Drop Cells Ovalocytes Helmet Cells [place]app[place] Bodies [place] Rings Carrie Cells Bite Cells Crenated Cell Elliptocytes Acanthocytes (Spur) Rouleaux Hemoglobin C Crystals Schistocytes Malaria parasites Maurisio Bodies Hem Pathologist Commnt Sodium (137-145) mmol/L Potassium (3.6-5.0) mmol/L Chloride (98-107) mmol/L Carbon Dioxide (22-30) mmol/L Anion Gap mmol/L BUN (9-20) mg/dL Creatinine (0.8-1.3) mg/dL Estimated GFR ml/min BUN/Creatinine Ratio % Glucose (75-100) mg/dL Hemoglobin A1c (4-6) % Calcium (8.4-10.2) mg/dL Iron (49-181) ug/dL TIBC (250-450) mcg/dL % Saturation % Transferrin (180-329) mg/dl Total Bilirubin (0.1-1.2) mg/dL AST (5-40) units/L ALT (7-56) units/L Alkaline Phosphatase (35-129) units/L Total Creatine Kinase 248 H (55-170) units/L Troponin T (0.00-0.029) ng/mL NT-Pro-B Natriuret Pep 40952 H (0-900) pg/mL Total Protein (6.3-8.2) g/dL Albumin (3.9-5) g/dL Albumin/Globulin Ratio % Triglycerides (2-149) mg/dL Cholesterol (50-199) mg/dL LDL Cholesterol Direct (50-130) mg/dL HDL Cholesterol (40-59) mg/dL Cholesterol/HDL Ratio % Vitamin B12 384.0 (211-911) pg/mL Lipids 04/01/21 Range/Units 12:04 Triglycerides 126 (2-149) mg/dL Cholesterol 131 (50-199) mg/dL HDL Cholesterol 27 L (40-59) mg/dL Cholesterol/HDL Ratio 4.85 % CBC 04/01/21 04/02/21 Range/Units 12:04 05:32 WBC 6.1 4.6 (4.5-11.0) K/mm3 RBC 4.56 4.52 (3.65-5.03) M/mm3 Hgb 10.0 L 10.1 L (11.8-15.2) gm/dl Hct 31.4 L 31.3 L (35.5-45.6) % Plt Count 205 192 (140-440) K/mm3 Lymph # (Auto) Dentist Private Practice Teller # (Auto) Dentist Private Practice Eos # (Auto) Dentist Private [facility] Baso # (Auto) Dentist Private Practice Comprehensive Metabolic Panel 04/01/21 04/02/21 Range/Units 12:04 05:32 Sodium 131 L 134 L (137-145) mmol/L Potassium 4.1 4.5 (3.6-5.0) mmol/L Chloride 101.8 103.8 (98-107) mmol/L Carbon Dioxide 16 L 17 L (22-30) mmol/L BUN 52 H 54 H (9-20) mg/dL Creatinine 4.6 H 4.7 H (0.8-1.3) mg/dL Glucose 102 H 93 (75-100) mg/dL Calcium 9.0 9.2 (8.4-10.2) mg/dL AST 26 28 (5-40) units/L ALT 20 20 (7-56) units/L Alkaline Phosphatase 106 109 (35-129) units/L Total Protein 9.6 H 9.4 H (6.3-8.2) g/dL Albumin 3.3 L 3.4 L (3.9-5) g/dL 04/01/2021 EKGsinus tachycardia at 122 bpm, right axis deviation, occasional PVC, possible anteroseptal NE Assessment and Plan #Elevated troponin, likely NSTEMI type II in setting of renal dysfunction and elevated blood pressure #ROMAN on CKD #Hypertension #Anemia #Noncompliance No need to further check troponin. We will obtain echo for further evaluation of cardiac status. Pending findings, will consider further cardiac work-up. IV diuresis per nephrology.
[2021-04-02 14:32] LABS: Creatinine,Urine 54.8 mg/dL (0.1-20.0)
[2021-04-02 14:45] LABS: Protein/Creatinine Ratio,Urine TNR
[2021-04-02 14:53] LABS: Bilirubin,Urine NEG (Negative); Blood,Urine MOD (Negative); Color,Urine Yellow (Yellow); Mucus,Urine FEW /HPF; Urobilinogen,Urine < 2.0 mg/dL (<2.0)
[2021-04-02 16:04] LABS: Calcium 9.2 mg/dL (8.4-10.2)
--- NOTE | 2021-04-02 16:57 | Progress Note ---
Assessment and Plan Assessment and plan: 55-year-old male with past medical history of CKD, hypertension, and asthma is admitted with exertional dyspnea. #NSTEMI #Acute coronary syndrome -Troponin 0.37, 0.37, 0.38; likely type II troponin leak. No need to continue trending troponins -IV heparin drip not started in ED -Status post IV Lasix 40 mg x 1, ASA 325 mg x 1 -Cardiology consulted; appreciate recs -Lexiscan (stress test) ordered; pending results. Will likely be performed on 04/03/2021. #Likely acute on chronic heart failure exacerbation -Pro [id number] -Chest x-ray (04/01/2021) revealing cephalization and increased interstitial markings consistent with likely pulmonary edema -Pending TTE; therefore, unable to determine if heart failure is systolic versus diastolic -Status post IV Lasix 40 mg x 1 in the ED; continue IV Lasix 40 mg twice daily -Ordering strict I's/O, daily weights, and fluid restriction of 1.5 L/day #ROMAN versus ROMAN on CKD -Creatinine 4.7 (baseline unknown) -Less likely to be prerenal given BUN to creatinine ratio and more likely to be secondary to chronic disease (uncontrolled hypertension) -Nephrology consulted; appreciate recs -Renally dosing medications and avoiding nephrotoxic drugs -Pending urine electrolytes, renal ultrasound, and bladder scan -We will continue to monitor #Tachycardia -HR 120+ -Patient endorses prolonged history of tachycardia -Pending TSH -Less likely to be secondary to depleted volume status -We will continue to monitor #Ventricular premature complexes -Likely secondary to acute heart failure exacerbation and will likely improve with further diuresis -Continue to monitor #Uncontrolled hypertension -Patient endorses being aware of hypertension approximately 2 years ago but currently does not follow-up with PCP -Unsure of home medications -Starting metoprolol tartrate 25 mg twice daily and nifedipine 30 mg daily. Unable to start ALBERTO inhibitor or ARB in the setting of acute renal failure. -Will continue to monitor #Nongap metabolic acidosis -Bicarb 17 -Possible etiology of acute renal failure -We will continue to monitor #Microcytic anemia -Hemoglobin 10 -Pending iron studies and ferritin and vitamin B12 and folic acid -Could possibly be secondary to CKD #Hyponatremia-resolved -Na 134 #Mild protein calorie malnutrition -Dietary supplements initiated -Consulted nutrition; pending recs #DVT prophylaxis -Continue subcutaneous heparin 5000 units every 8 hours #Tobacco dependence -Counseled patient about the importance of smoking cessation given current medical conditions. Patient expressed understanding. -Time: +15 minutes Disposition Plan: Continue medical management Total Time Spent with Patient (Minutes): 45 History Interval history: No acute events overnight Hospitalist Physical - Constitutional Vitals: Temp Pulse Resp BP Pulse Ox 98.2 F 120 H 17 130/102 99 04/02/21 13:00 04/02/21 15:45 04/02/21 15:45 04/02/21 15:45 04/02/21 15:45 General appearance: Present: mild distress, well-nourished - EENT Eyes: Present: PERRL, EOM intact ENT: hearing intact, clear oral mucosa, dentition normal - Neck Neck: Present: supple, normal ROM - Respiratory Respiratory effort: normal Respiratory: bilateral: diminished - Cardiovascular Heart rate: 124 Rhythm: regular Heart Sounds: Present: S1 & S2 - Extremities Extremities: no ischemia, pulses intact, pulses symmetrical, No edema, normal temperature, normal color Peripheral Pulses: within normal limits - Abdominal General gastrointestinal: soft, non-tender, non-distended, normal bowel sounds - Integumentary Integumentary: Present: clear, warm, dry - Psychiatric Psychiatric: appropriate mood/affect, intact judgment & insight, memory intact, cooperative - Neurologic Neurologic: CNII-XII intact, moves all extremities - Allied Health Allied health notes reviewed: nursing HEART Score - HEART Score Age: 45-65 Risk factors: 1-2 risk factors Troponin: Troponin T 0.385 ng/mL (0.00-0.029) H* 04/02/21 05:32 Troponin: 1-3x normal limit - Critical Actions Critical Actions: 4-6 pts:12-16.6% risk of adverse cardiac event. Should be admitted Results - Labs CBC & Chem 7: 04/02/21 05:32 04/02/21 14:44 Labs: Laboratory Last Values WBC 4.6 K/mm3 (4.5-11.0) 04/02/21 05:32 RBC 4.52 M/mm3 (3.65-5.03) 04/02/21 05:32 Hgb 10.1 gm/dl (11.8-15.2) L 04/02/21 05:32 Hct 31.3 % (35.5-45.6) L 04/02/21 05:32 MCV 69 fl (84-94) L 04/02/21 05:32 MCH 22 pg (28-32) L 04/02/21 05:32 MCHC 32 % (32-34) 04/02/21 05:32 RDW 18.2 % (13.2-15.2) H 04/02/21 05:32 Plt Count 192 K/mm3 (140-440) 04/02/21 05:32 Lymph % (Auto) Shoe Cementer 04/02/21 05:32 Jones % (Auto) Shoe Cementer 04/01/21 12:04 Eos % (Auto) Shoe Cementer 04/01/21 12:04 Baso % (Auto) Shoe Cementer 04/01/21 12:04 Lymph # (Auto) Shoe Cementer 04/01/21 12:04 Jones # (Auto) Shoe Cementer 04/01/21 12:04 Eos # (Auto) Shoe Cementer 04/01/21 12:04 Baso # (Auto) Shoe Cementer 04/01/21 12:04 Add Manual Diff Complete 04/02/21 05:32 Total Counted 100 04/02/21 05:32 Seg Neutrophils % Shoe Cementer 04/02/21 05:32 Seg Neuts % (Manual) 22.0 % (40.0-70.0) L 04/02/21 05:32 Band Neutrophils % 10.0 % 04/02/21 05:32 Lymphocytes % (Manual) 36.0 % (13.4-35.0) H 04/02/21 05:32 Monocytes % (Manual) 4.0 % (0.0-7.3) 04/02/21 05:32 Eosinophils % (Manual) 22.0 % (0.0-4.3) H 04/02/21 05:32 Basophils % (Manual) 3.0 % (0.0-1.8) H 04/02/21 05:32 Metamyelocytes % 1.0 % 04/02/21 05:32 Myelocytes % 2.0 % 04/02/21 05:32 Nucleated RBC % Not Reportable 04/02/21 05:32 Seg Neutrophils # Shoe Cementer 04/01/21 12:04 Seg Neutrophils # Man 1.0 K/mm3 (1.8-7.7) L 04/02/21 05:32 Band Neutrophils # 0.5 K/mm3 04/02/21 05:32 Lymphocytes # (Manual) 1.7 K/mm3 (1.2-5.4) 04/02/21 05:32 Abs React Lymphs (Man) 0.0 K/mm3 04/02/21 05:32 Monocytes # (Manual) 0.2 K/mm3 (0.0-0.8) 04/02/21 05:32 Eosinophils # (Manual) 1.0 K/mm3 (0.0-0.4) H 04/02/21 05:32 Basophils # (Manual) 0.1 K/mm3 (0.0-0.1) 04/02/21 05:32 Metamyelocytes # 0.0 K/mm3 04/02/21 05:32 Myelocytes # 0.1 K/mm3 04/02/21 05:32 Promyelocytes # 0.0 K/mm3 04/02/21 05:32 Blast Cells # 0.0 K/mm3 04/02/21 05:32 WBC Morphology Not Reportable 04/02/21 05:32 Hypersegmented Neuts Not Reportable 04/02/21 05:32 Hyposegmented Neuts Not Reportable 04/02/21 05:32 Hypogranular Neuts Not Reportable 04/02/21 05:32 Smudge Cells Not Reportable 04/02/21 05:32 Toxic Granulation Not Reportable 04/02/21 05:32 Toxic Vacuolation Not Reportable 04/02/21 05:32 Dohle Bodies Not Reportable 04/02/21 05:32 Pelger-Huet Anomaly 2+ 04/02/21 05:32 Marianne Rods Not Reportable 04/02/21 05:32 Platelet Estimate Consistent w auto 04/02/21 05:32 Clumped Platelets Not Reportable 04/02/21 05:32 Plt Clumps, EDTA Not Reportable 04/02/21 05:32 Large Platelets Not Reportable 04/02/21 05:32 Giant Platelets Not Reportable 04/02/21 05:32 Platelet Satelliting Not Reportable 04/02/21 05:32 Plt Morphology Comment Not Reportable 04/02/21 05:32 RBC Morphology Not Reportable 04/02/21 05:32 Dimorphic RBCs Not Reportable 04/02/21 05:32 Polychromasia Not Reportable 04/02/21 05:32 Hypochromasia 2+ 04/02/21 05:32 Poikilocytosis 2+ 04/02/21 05:32 Anisocytosis 2+ 04/02/21 05:32 Microcytosis 2+ 04/02/21 05:32 Macrocytosis Not Reportable 04/02/21 05:32 Spherocytes 1+ 04/02/21 05:32 Pappenheimer Bodies Not Reportable 04/02/21 05:32 Sickle Cells Not Reportable 04/02/21 05:32 Target Cells 2+ 04/02/21 05:32 Tear Drop Cells Not Reportable 04/02/21 05:32 Ovalocytes Not Reportable 04/02/21 05:32 Helmet Cells Not Reportable 04/02/21 05:32 [place] Bodies Not Reportable 04/02/21 05:32 [place] Rings Not Reportable 04/02/21 05:32 Carrie Cells Not Reportable 04/02/21 05:32 Bite Cells Not Reportable 04/02/21 05:32 Crenated Cell Not Reportable 04/02/21 05:32 Elliptocytes Not Reportable 04/02/21 05:32 Acanthocytes (Spur) Not Reportable 04/02/21 05:32 Rouleaux Not Reportable 04/02/21 05:32 Hemoglobin C Crystals Not Reportable 04/02/21 05:32 Schistocytes Rare 04/02/21 05:32 Malaria parasites Not Reportable 04/02/21 05:32 Maurisio Bodies Not Reportable 04/02/21 05:32 Hem Pathologist Commnt No 04/02/21 05:32 Sodium 133 mmol/L (137-145) L 04/02/21 14:44 Potassium 4.5 mmol/L (3.6-5.0) 04/02/21 14:44 Chloride 103.8 mmol/L (98-107) 04/02/21 14:44 Carbon Dioxide 17 mmol/L (22-30) L 04/02/21 14:44 Anion Gap 17 mmol/L 04/02/21 14:44 BUN 56 mg/dL (9-20) H 04/02/21 14:44 Creatinine 5.0 mg/dL (0.8-1.3) H 04/02/21 14:44 Estimated GFR 15 ml/min 04/02/21 14:44 BUN/Creatinine Ratio 11 % 04/02/21 14:44 Glucose 121 mg/dL (75-100) H 04/02/21 14:44 Hemoglobin A1c 5.6 % (4-6) 04/01/21 19:39 Calcium 9.2 mg/dL (8.4-10.2) 04/02/21 14:44 Iron 31 ug/dL (49-181) L 04/02/21 06:50 TIBC 278 mcg/dL (250-450) 04/02/21 06:50 % Saturation 11.15 % 04/02/21 06:50 Transferrin 232 mg/dl (180-329) 04/02/21 06:50 Total Bilirubin 1.00 mg/dL (0.1-1.2) 04/02/21 05:32 AST 28 units/L (5-40) 04/02/21 05:32 ALT 20 units/L (7-56) 04/02/21 05:32 Alkaline Phosphatase 109 units/L (35-129) 04/02/21 05:32 Total Creatine Kinase 248 units/L (55-170) H 04/02/21 09:57 Troponin T 0.385 ng/mL (0.00-0.029) H* 04/02/21 05:32 NT-Pro-B Natriuret Pep 65365 pg/mL (0-900) H 04/02/21 09:57 Total Protein 9.4 g/dL (6.3-8.2) H 04/02/21 05:32 Albumin 3.4 g/dL (3.9-5) L 04/02/21 05:32 Albumin/Globulin Ratio 0.6 % 04/02/21 05:32 Triglycerides 126 mg/dL (2-149) 04/01/21 12:04 Cholesterol 131 mg/dL (50-199) 04/01/21 12:04 LDL Cholesterol Direct 74 mg/dL (50-130) 04/01/21 12:04 HDL Cholesterol 27 mg/dL (40-59) L 04/01/21 12:04 Cholesterol/HDL Ratio 4.85 % 04/01/21 12:04 Vitamin B12 384.0 pg/mL (211-911) 04/02/21 06:50 Urine Color Yellow (Yellow) 04/02/21 14:03 Urine Turbidity Clear (Clear) 04/02/21 14:03 Urine pH 5.0 (5.0-7.0) 04/02/21 14:03 Ur Specific [place] 1.008 (1.003-1.030) 04/02/21 14:03 Urine Protein 30 mg/dl mg/dL (Negative) 04/02/21 14:03 Urine Glucose (UA) Neg mg/dL (Negative) 04/02/21 14:03 Urine Ketones Neg mg/dL (Negative) 04/02/21 14:03 Urine Blood Mod (Negative) 04/02/21 14:03 Urine Nitrite Neg (Negative) 04/02/21 14:03 Urine Bilirubin Neg (Negative) 04/02/21 14:03 Urine Urobilinogen < 2.0 mg/dL (<2.0) 04/02/21 14:03 Ur Leukocyte Esterase Neg (Negative) 04/02/21 14:03 Urine WBC (Auto) 1.0 /HPF (0.0-6.0) 04/02/21 14:03 Urine RBC (Auto) 1.0 /HPF (0.0-6.0) 04/02/21 14:03 U Epithel Cells (Auto) < 1.0 /HPF (0-13.0) 04/02/21 14:03 Urine Mucus Few /HPF 04/02/21 14:03 Urine Eosinophils None seen (None Seen) 04/02/21 14:03 Urine Creatinine 54.8 mg/dL (0.1-20.0) H 04/02/21 14:03 Protein/Creatinin Ratio TNR 04/02/21 14:03 Urine Sodium 96 mmol/L 04/02/21 14:03 Urine Total Protein TNR 04/02/21 14:03 Active Medications - Current Medications Current Medications: Generic Name Dose Route Start Last Admin Trade Name Freq PRN Reason Stop Dose Admin Acetaminophen 650 mg 04/01/21 18:38 Acetaminophen 325 Mg Tab PO Q4H PRN Pain MILD(1-3)/Fever >100.5/GRANDE Famotidine 20 mg 04/01/21 22:00 04/02/21 12:11 Famotidine 20 Mg Tab PO 20 mg BID KOLBY Administration Furosemide 40 mg 04/02/21 22:00 Furosemide 40 Mg/4 Ml Inj IV BID KOLBY Heparin Sodium (Porcine) 5,000 unit 04/01/21 22:00 04/02/21 12:12 Heparin 5,000 Unit/1 Ml Vial SUB-Q Not Given Q12HR [facility] Hydromorphone HCl 0.5 mg 04/01/21 18:25 Hydromorphone 1 Mg/1 Ml Inj IV Q3H PRN Pain , Severe (7-10) Metoclopramide HCl 10 mg 04/01/21 18:25 Metoclopramide 10 Mg/2 Ml Inj IV Q6H PRN Nausea And Vomiting Metoprolol Succinate 25 mg 04/02/21 17:00 Metoprolol Succinate Xl 25 Mg Tab PO QDAY [facility] Nifedipine 30 mg 04/02/21 17:00 Nifedipine Xl 30 Mg Tab PO QDAY [facility] Ondansetron HCl 4 mg 04/01/21 18:38 Ondansetron 4 Mg/2 Ml Inj IV Q8H PRN Nausea And Vomiting Oxycodone/Acetaminophen 1 tab 04/01/21 18:25 Oxycodone /Acetaminophen 5-325mg Tab PO Q6H PRN Pain, Moderate (4-6) Pseudoephedrine/Acetam/Chlorphenir 10 ml 04/01/21 15:49 Guaifenesin/Codeine 100-10mg Oral Liqd 5 Ml PO Q4H PRN Cough Sodium Chloride 10 ml 04/01/21 22:00 04/02/21 12:12 Sodium Chloride 0.9% 10 Ml Flush Syringe IV 10 ml BID KOLBY Administration Sodium Chloride 10 ml 04/01/21 17:45 Sodium Chloride 0.9% 10 Ml Flush Syringe IV PRN PRN LINE FLUSH
[2021-04-02] MEDS ORDERED: METOPROLOL SUCCINATE XL 25 MG TAB PO SCH (17:00)
[2021-04-02] MEDS: METOPROLOL TARTRATE 25 MG TAB PO SCH ×2 (17:08→22:33)
[2021-04-02] MEDS: NIFEdipine XL 30 MG TAB PO SCH (18:27)
[2021-04-02] MEDS: SODIUM BICARBONATE 650 MG TAB PO SCH (22:32)
[2021-04-02] MEDS: FUROSEMIDE 40 MG/4 ML INJ IV SCH (22:33)
[2021-04-02] MEDS: guaiFENesin/CODEINE 100-10MG ORAL LIQD 5 ML PO PRN (23:26)
[2021-04-03 04:48] LABS: Hematocrit 33.3 % (35.5-45.6); Hemoglobin 10.9 gm/dl (11.8-15.2); Mean Corpuscular HGB Conc 33 % (32-34); Mean Corpuscular Volume 69 fl (84-94); Platelet Count 198 K/mm3 (140-440); Red Blood Count 4.81 M/mm3 (3.65-5.03); Red Cell Distribution Width 18.5 % (13.2-15.2)
[2021-04-03 04:55] LABS: Calcium 8.9 mg/dL (8.4-10.2)
[2021-04-03 06:27] LABS: Chloride, Urine 78.5 mmolL (110-250)
[2021-04-03 06:35] LABS: Anisocytosis 1+; Band Neutrophils # (Manual) 0.1 K/mm3; Hypochromasia 2+; Platelet Estimate Consistent w Auto; Total Cells Counted 100
[2021-04-03] MEDS ORDERED: REGADENOSON 0.4 MG/5 ML INJ IV ONE (07:40)
[2021-04-03] MEDS ORDERED: METOCLOPRAMIDE 10 MG/2 ML INJ IV PRN (08:00)
--- NOTE | 2021-04-03 10:32 | Progress Note ---
Assessment and Plan Assessment: Acute Kidney injury on top of CKD: Chest pain: Elevated troponin: Hypertension: Anemia: Hyperkalemia Met. Acidosis Plan: -Renal labs reviewed. Serum creatinine 5.2 today, yesterday's was 5.0, UOP 2400 ml -Serum creatinine was 2.5 on 08/05/20 -On Lasix 40 mg IV BID, will decrease frequency to daily -Urine lytes reviewed, no urine eosinophils -Urine protein and protein/creatinine ratio-pending -Will order GN work-up -Renal ultrasound reviewed-Medical renal Disease. Left simple renal cyst. No Hydronephrosis. -Hyperkalemia- was on potassium supplements, Lokelma 10 gram po x 1 today -Met. Acidosis- On Sodium Bicarbonate 650 mg po TID -May need HD if renal function continue to worsen -Renally dose all medications -Avoid nephrotoxic agents -Strict I/O's daily -Obtain daily weights -Plan of care reviewed by Dr. Santana Subjective Date of service: 04/03/21 Principal diagnosis: CHF, CKD Interval history: Patient seen lying in bed. Reviewed renal labs. Objective - Vital Signs Vital signs: Vital Signs - 12hr 04/02/21 04/02/21 04/02/21 22:33 23:01 23:31 Pulse Rate 110 H 108 H 104 H Pulse Rate [ From Monitor] Respiratory 18 17 Rate Blood Pressure 128/93 132/93 132/93 O2 Sat by Pulse 89 97 Oximetry 04/03/21 04/03/21 04/03/21 00:01 00:31 01:01 Pulse Rate 96 H 100 H 100 H Pulse Rate [ From Monitor] Respiratory 20 19 28 H Rate Blood Pressure 125/94 125/94 O2 Sat by Pulse 99 95 97 Oximetry 04/03/21 04/03/21 04/03/21 01:31 02:00 02:31 Pulse Rate 100 H 102 H 98 H Pulse Rate [ 102 H From Monitor] Respiratory 30 H 22 Rate Blood Pressure 111/91 115/83 115/83 O2 Sat by Pulse 99 99 91 Oximetry 04/03/21 04/03/21 04/03/21 03:01 03:31 04:01 Pulse Rate 100 H 98 H 98 H Pulse Rate [ From Monitor] Respiratory Rate Blood Pressure 115/83 115/83 117/86 O2 Sat by Pulse 98 84 83 L Oximetry 09/04/03/21 04/03/21 04:31 04:45 05:01 Pulse Rate 99 H 99 H 97 H Pulse Rate [ From Monitor] Respiratory Rate Blood Pressure 117/86 117/86 117/86 O2 Sat by Pulse 98 Oximetry 04/03/21 04/03/21 04/03/21 05:23 05:30 05:46 Pulse Rate 98 H 98 H Pulse Rate [ From Monitor] Respiratory 25 H 31 H Rate Blood Pressure 117/86 117/86 118/92 O2 Sat by Pulse 97 98 94 Oximetry 04/03/21 04/03/21 04/03/21 06:00 06:16 06:30 Pulse Rate 98 H 96 H 97 H Pulse Rate [ From Monitor] Respiratory 26 H 18 21 Rate Blood Pressure 118/92 118/92 118/92 O2 Sat by Pulse 95 86 99 Oximetry 04/03/21 04/03/21 07:00 07:20 Pulse Rate 96 H Pulse Rate [ From Monitor] Respiratory 32 H 16 Rate Blood Pressure 124/91 O2 Sat by Pulse 98 100 Oximetry - General Appearance General appearance: well-developed, appears stated age EENT: ATNC, PERRL, hearing intact, vision intact Neck: no JVD, supple Respiratory: Present: Decreased Breath Sounds Cardiology: S1S2 Gastrointestinal: normoactive bowel sounds Integumentary: warm and dry Neurologic: alert and oriented x3 Musculoskeletal: other (No edema) - Lab 04/03/21 04:03 04/03/21 04:03 Most recent lab results Calcium 8.9 mg/dL (8.4-10.2) 04/03/21 04:03 Phosphorus 5.60 mg/dL (2.5-4.5) H 04/03/21 04:03 Magnesium 2.20 mg/dL (1.7-2.3) 04/03/21 04:03 Urine Creatinine 54.8 mg/dL (0.1-20.0) H 04/02/21 14:03 Urine Sodium 58 mmol/L 04/03/21 05:25 Urine Total Protein TNR 04/02/21 14:03 Medications & Allergies - Medications Allergies/Adverse Reactions: Allergies No Known Allergies Allergy (Verified 04/01/21 18:43) Home Medications: Home Medications Medication Instructions Recorded Confirmed Last Taken Type EPINEPHrine [Primatene Mist] 11.7 gm IH QDAY 04/03/21 04/03/21 Unknown History Active Medications: Generic Name Dose Route Start Last Admin Trade Name Freq PRN Reason Stop Dose Admin Acetaminophen 650 mg 04/01/21 18:38 Acetaminophen 325 Mg Tab PO Q4H PRN Pain MILD(1-3)/Fever >100.5/GRANDE Docusate Sodium 100 mg 04/03/21 10:00 Docusate Sodium 100 Mg Cap PO BID [facility] Famotidine 10 mg 04/03/21 10:00 Famotidine 10 Mg Tab PO BID [facility] Furosemide 40 mg 04/02/21 22:00 04/02/21 22:33 Furosemide 40 Mg/4 Ml Inj IV 40 mg BID [facility] Administration Heparin Sodium (Porcine) 5,000 unit 04/01/21 22:00 04/02/21 22:36 Heparin 5,000 Unit/1 Ml Vial SUB-Q Not Given Q12HR [facility] Hydromorphone HCl 0.5 mg 04/01/21 18:25 Hydromorphone 1 Mg/1 Ml Inj IV Q3H PRN Pain , Severe (7-10) Metoclopramide HCl 5 mg 04/03/21 08:00 Metoclopramide 10 Mg/2 Ml Inj IV Q6H PRN Nausea And Vomiting Metoprolol Tartrate 25 mg 04/02/21 17:06 04/02/21 22:33 Metoprolol Tartrate 25 Mg Tab PO 25 mg BID [facility] Administration Nifedipine 30 mg 04/02/21 17:00 04/02/21 18:27 Nifedipine Xl 30 Mg Tab PO 30 mg QDAY [facility] Administration Ondansetron HCl 4 mg 04/01/21 18:38 Ondansetron 4 Mg/2 Ml Inj IV Q8H PRN Nausea And Vomiting Oxycodone/Acetaminophen 1 tab 04/01/21 18:25 Oxycodone /Acetaminophen 5-325mg Tab PO Q6H PRN Pain, Moderate (4-6) Pseudoephedrine/Acetam/Chlorphenir 10 ml 04/01/21 15:49 04/02/21 23:26 Guaifenesin/Codeine 100-10mg Oral Liqd 5 Ml PO 10 ml Q4H PRN Administration Cough Senna/Docusate Sodium 1 tab 04/03/21 22:00 Sennosides/Docusate Sodium 8.6/50 Mg Tab PO QHS KOLBY Sodium Bicarbonate 650 mg 04/02/21 20:00 04/02/21 22:32 Sodium Bicarbonate 650 Mg Tab PO 650 mg TID KOLBY Administration Sodium Chloride 10 ml 04/01/21 22:00 04/02/21 22:33 Sodium Chloride 0.9% 10 Ml Flush Syringe IV 10 ml BID KOLBY Administration Sodium Chloride 10 ml 04/01/21 17:45 Sodium Chloride 0.9% 10 Ml Flush Syringe IV PRN PRN LINE FLUSH
--- NOTE | 2021-04-03 10:37 | Electrocardiograph Report ---
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
[2021-04-03] MEDS ORDERED: FAMOTIDINE 20 MG/2 ML INJ IV ONE (10:41)
--- NOTE | 2021-04-03 10:47 | Ultrasound Report ---
ULTRASOUND RENAL INDICATION / CLINICAL INFORMATION: aminah. COMPARISON: None available. FINDINGS: RIGHT KIDNEY: Length = 10.8 cm. - Echogenicity: Increased. - Cortical Thickness: Normal. - Hydronephrosis: None. - Cyst / Mass: None. - Stones: None seen. LEFT KIDNEY: Length = 10.0 cm. - Echogenicity: Increased. - Cortical Thickness: Normal. - Hydronephrosis: None. - Cyst / Mass: Simple appearing lower pole cyst measuring 1.6 x 1.8 x 1.9 cm. - Stones: None seen. URINARY BLADDER: No significant abnormality. FREE FLUID: Mild ascites noted. ADDITIONAL FINDINGS: Incidental finding of a right pleural effusion. IMPRESSION: 1. Increased cortical echogenicity bilaterally, characteristic of medical renal disease. 2. Left renal cyst. Scribed by: Maddi Leggett RDMS, RVT Scribed: 04/03/2021 9:36 AM I have reviewed the images, agree with this report, and edited this report as needed. Signer Name: Jeronimo Bell MD Signed: 04/03/2021 10:42 AM Workstation Name: [id number]
[2021-04-03] MEDS: METOPROLOL TARTRATE 25 MG TAB PO SCH ×2 (10:48→23:12)
[2021-04-03] MEDS: FUROSEMIDE 40 MG/4 ML INJ IV SCH (10:48)
[2021-04-03] MEDS: DOCUSATE SODIUM 100 MG CAP PO SCH ×2 (10:48→22:00)
[2021-04-03] MEDS: SODIUM BICARBONATE 650 MG TAB PO SCH ×3 (10:48→21:34)
[2021-04-03] MEDS: HEPARIN 5,000 UNIT/1 ML VIAL SUB-Q SCH ×2 (10:54→22:00)
[2021-04-03] MEDS: NIFEdipine XL 30 MG TAB PO SCH (10:59)
[2021-04-03] MEDS: FAMOTIDINE 10 MG TAB PO SCH ×2 (10:59→22:00)
[2021-04-03] MEDS ORDERED: SODIUM POLYSTYRENE 15 GM/60 ML ORAL LIQD PO NR (12:30)
--- NOTE | 2021-04-03 13:59 | Progress Note ---
Assessment and Plan Assessment and plan: 55-year-old male with past medical history of CKD, hypertension, and asthma is admitted with exertional dyspnea. #NSTEMI #Acute coronary syndrome -Troponin 0.37, 0.37, 0.38; likely type II troponin leak. No need to continue trending troponins -IV heparin drip not started in ED -Status post IV Lasix 40 mg x 1, ASA 325 mg x 1 -Cardiology consulted; appreciate recs #Likely acute on chronic heart failure exacerbation-improving -Pro [id number] -Chest x-ray (04/01/2021) revealing cephalization and increased interstitial markings consistent with likely pulmonary edema -Pending TTE; therefore, unable to determine if heart failure is systolic versus diastolic -Status post IV Lasix 40 mg x 1 in the ED; continue IV Lasix 40 mg twice daily -Ordering strict I's/O, daily weights, and fluid restriction of 1.5 L/day #ROMAN versus ROMAN on CKD-worsening -Creatinine 5.2 (baseline unknown) -Less likely to be prerenal given BUN to creatinine ratio and more likely to be secondary to chronic disease (uncontrolled hypertension) -Nephrology consulted; appreciate recs -Pending urine electrolytes; renal ultrasound consistent with chronic kidney disease and bladder scan negative. -Decreasing IV Lasix 40 mg twice daily to daily. Consider transition to p.o. on 04/04/2021 -Renally dosing medications and avoiding nephrotoxic drugs -We will continue to monitor #Tachycardia-resolved -HR 120+ -Patient endorses prolonged history of tachycardia -Pending TSH -Less likely to be secondary to depleted volume status -We will continue to monitor #Ventricular premature complexes-improving -Likely secondary to acute heart failure exacerbation and will likely improve with further diuresis -Continue to monitor #Uncontrolled hypertension-resolved -Patient endorses being aware of hypertension approximately 2 years ago but currently does not follow-up with PCP -Unsure of home medications -Continue metoprolol tartrate 25 mg twice daily and nifedipine 30 mg daily. Unable to start ALBERTO inhibitor or ARB in the setting of acute renal failure. -Will continue to monitor #[place]ong[place] metabolic acidosis -Bicarb 19 -Possible etiology of acute renal failure -We will continue to monitor #Microcytic anemia -Hemoglobin 10 -Pending iron studies and ferritin and vitamin B12 and folic acid -Could possibly be secondary to CKD #Hyponatremia -Na 130, continue to monitor #Mild protein calorie malnutrition -Dietary supplements initiated -Consulted nutrition; pending recs #DVT prophylaxis -Continue subcutaneous heparin 5000 units every 8 hours #Tobacco dependence -Counseled patient about the importance of smoking cessation given current medical conditions. Patient expressed understanding. -Time: +15 minutes Disposition Plan: Continue medical management Total Time Spent with Patient (Minutes): 35 History Interval history: No acute events overnight. Hospitalist Physical - Constitutional Vitals: Temp Pulse Resp BP Pulse Ox 98.2 F 96 H 16 125/93 100 04/02/21 13:00 04/03/21 10:48 04/03/21 07:20 04/03/21 10:51 04/03/21 07:20 General appearance: Present: mild distress, well-nourished - EENT Eyes: Present: PERRL, EOM intact ENT: hearing intact, clear oral mucosa, dentition normal - Neck Neck: Present: supple, normal ROM - Respiratory Respiratory effort: normal Respiratory: negative: diminished, rales, rhonchi - Cardiovascular Rhythm: regular Heart Sounds: Present: S1 & S2 - Extremities Extremities: no ischemia, pulses intact, pulses symmetrical, No edema, normal temperature, normal color Peripheral Pulses: within normal limits - Abdominal General gastrointestinal: soft, non-tender, non-distended, normal bowel sounds - Integumentary Integumentary: Present: clear, warm, dry - Psychiatric Psychiatric: appropriate mood/affect, intact judgment & insight, memory intact, cooperative - Neurologic Neurologic: CNII-XII intact, moves all extremities - Allied Health Allied health notes reviewed: nursing HEART Score - HEART Score Age: 45-65 Risk factors: 1-2 risk factors Troponin: Troponin T 0.385 ng/mL (0.00-0.029) H* 04/02/21 05:32 Troponin: 1-3x normal limit - Critical Actions Critical Actions: 4-6 pts:12-16.6% risk of adverse cardiac event. Should be admitted Results - Labs CBC & Chem 7: 04/03/21 04:03 04/03/21 04:03 Labs: Laboratory Last Values WBC 5.6 K/mm3 (4.5-11.0) 04/03/21 04:03 RBC 4.81 M/mm3 (3.65-5.03) 04/03/21 04:03 Hgb 10.9 gm/dl (11.8-15.2) L 04/03/21 04:03 Hct 33.3 % (35.5-45.6) L 04/03/21 04:03 MCV 69 fl (84-94) L 04/03/21 04:03 MCH 23 pg (28-32) L 04/03/21 04:03 MCHC 33 % (32-34) 04/03/21 04:03 RDW 18.5 % (13.2-15.2) H 04/03/21 04:03 Plt Count 198 K/mm3 (140-440) 04/03/21 04:03 Lymph % (Auto) Community Service Coordinator 04/03/21 04:03 Burnett % (Auto) Community Service Coordinator 04/01/21 12:04 Eos % (Auto) Community Service Coordinator 04/01/21 12:04 Baso % (Auto) Community Service Coordinator 04/01/21 12:04 Lymph # (Auto) Community Service Coordinator 04/01/21 12:04 Burnett # (Auto) Community Service Coordinator 04/01/21 12:04 Eos # (Auto) Community Service Coordinator 04/01/21 12:04 Baso # (Auto) Community Service Coordinator 04/01/21 12:04 Add Manual Diff Complete 04/03/21 04:03 Total Counted 100 04/03/21 04:03 Seg Neutrophils % Community Service Coordinator 04/03/21 04:03 Seg Neuts % (Manual) 35.0 % (40.0-70.0) L 04/03/21 04:03 Band Neutrophils % 2.0 % 04/03/21 04:03 Lymphocytes % (Manual) 44.0 % (13.4-35.0) H 04/03/21 04:03 Monocytes % (Manual) 11.0 % (0.0-7.3) H 04/03/21 04:03 Eosinophils % (Manual) 6.0 % (0.0-4.3) H 04/03/21 04:03 Basophils % (Manual) 1.0 % (0.0-1.8) 04/03/21 04:03 Metamyelocytes % 1.0 % 04/03/21 04:03 Myelocytes % 2.0 % 04/02/21 05:32 Nucleated RBC % Not Reportable 04/03/21 04:03 Seg Neutrophils # Community Service Coordinator 04/01/21 12:04 Seg Neutrophils # Man 2.0 K/mm3 (1.8-7.7) 04/03/21 04:03 Band Neutrophils # 0.1 K/mm3 04/03/21 04:03 Lymphocytes # (Manual) 2.5 K/mm3 (1.2-5.4) 04/03/21 04:03 Abs React Lymphs (Man) 0.0 K/mm3 04/03/21 04:03 Monocytes # (Manual) 0.6 K/mm3 (0.0-0.8) 04/03/21 04:03 Eosinophils # (Manual) 0.3 K/mm3 (0.0-0.4) 04/03/21 04:03 Basophils # (Manual) 0.1 K/mm3 (0.0-0.1) 04/03/21 04:03 Metamyelocytes # 0.1 K/mm3 04/03/21 04:03 Myelocytes # 0.0 K/mm3 04/03/21 04:03 Promyelocytes # 0.0 K/mm3 04/03/21 04:03 Blast Cells # 0.0 K/mm3 04/03/21 04:03 WBC Morphology Not Reportable 04/03/21 04:03 Hypersegmented Neuts Not Reportable 04/03/21 04:03 Hyposegmented Neuts Not Reportable 04/03/21 04:03 Hypogranular Neuts Not Reportable 04/03/21 04:03 Smudge Cells Not Reportable 04/03/21 04:03 Toxic Granulation Not Reportable 04/03/21 04:03 Toxic Vacuolation Not Reportable 04/03/21 04:03 Dohle Bodies Not Reportable 04/03/21 04:03 Pelger-Huet Anomaly Not Reportable 04/03/21 04:03 Marianne Rods Not Reportable 04/03/21 04:03 Platelet Estimate Consistent w auto 04/03/21 04:03 Clumped Platelets Not Reportable 04/03/21 04:03 Plt Clumps, EDTA Not Reportable 04/03/21 04:03 Large Platelets Not Reportable 04/03/21 04:03 Giant Platelets Not Reportable 04/03/21 04:03 Platelet Satelliting Not Reportable 04/03/21 04:03 Plt Morphology Comment Not Reportable 04/03/21 04:03 RBC Morphology Not Reportable 04/03/21 04:03 Dimorphic RBCs Not Reportable 04/03/21 04:03 Polychromasia Not Reportable 04/03/21 04:03 Hypochromasia 2+ 04/03/21 04:03 Poikilocytosis Not Reportable 04/03/21 04:03 Anisocytosis 1+ 04/03/21 04:03 Microcytosis 1+ 04/03/21 04:03 Macrocytosis Not Reportable 04/03/21 04:03 Spherocytes Not Reportable 04/03/21 04:03 Pappenheimer Bodies Not Reportable 04/03/21 04:03 Sickle Cells Not Reportable 04/03/21 04:03 Target Cells Not Reportable 04/03/21 04:03 Tear Drop Cells Not Reportable 04/03/21 04:03 Ovalocytes Not Reportable 04/03/21 04:03 Helmet Cells Not Reportable 04/03/21 04:03 [place] Bodies Not Reportable 04/03/21 04:03 [place] Rings Not Reportable 04/03/21 04:03 [place] Cells Not Reportable 04/03/21 04:03 Bite Cells Not Reportable 04/03/21 04:03 Crenated Cell Not Reportable 04/03/21 04:03 Elliptocytes Not Reportable 04/03/21 04:03 Acanthocytes (Spur) Not Reportable 04/03/21 04:03 Rouleaux Not Reportable 04/03/21 04:03 Hemoglobin C Crystals Not Reportable 04/03/21 04:03 Schistocytes Not Reportable 04/03/21 04:03 Malaria parasites Not Reportable 04/03/21 04:03 Mauris[place] Bodies Not Reportable 04/03/21 04:03 Hem Pathologist Commnt No 04/03/21 04:03 Sodium 130 mmol/L (137-145) L 04/03/21 04:03 Potassium 5.5 mmol/L (3.6-5.0) H D 04/03/21 04:03 Chloride 100.5 mmol/L (98-107) 04/03/21 04:03 Carbon Dioxide 19 mmol/L (22-30) L 04/03/21 04:03 Anion Gap 16 mmol/L 04/03/21 04:03 BUN 60 mg/dL (9-20) H 04/03/21 04:03 Creatinine 5.2 mg/dL (0.8-1.3) H 04/03/21 04:03 Estimated GFR 14 ml/min 04/03/21 04:03 BUN/Creatinine Ratio 12 % 04/03/21 04:03 Glucose 113 mg/dL (75-100) H 04/03/21 04:03 Hemoglobin A1c 5.6 % (4-6) 04/01/21 19:39 Calcium 8.9 mg/dL (8.4-10.2) 04/03/21 04:03 Phosphorus 5.60 mg/dL (2.5-4.5) H 04/03/21 04:03 Magnesium 2.20 mg/dL (1.7-2.3) 04/03/21 04:03 Iron 31 ug/dL (49-181) L 04/02/21 06:50 TIBC 278 mcg/dL (250-450) 04/02/21 06:50 % Saturation 11.15 % 04/02/21 06:50 Transferrin 232 mg/dl (180-329) 04/02/21 06:50 Total Bilirubin 1.00 mg/dL (0.1-1.2) 04/02/21 05:32 AST 28 units/L (5-40) 04/02/21 05:32 ALT 20 units/L (7-56) 04/02/21 05:32 Alkaline Phosphatase 109 units/L (35-129) 04/02/21 05:32 Total Creatine Kinase 248 units/L (55-170) H 04/02/21 09:57 Troponin T 0.385 ng/mL (0.00-0.029) H* 04/02/21 05:32 NT-Pro-B Natriuret Pep 63872 pg/mL (0-900) H 04/02/21 09:57 Total Protein 9.4 g/dL (6.3-8.2) H 04/02/21 05:32 Albumin 3.4 g/dL (3.9-5) L 04/02/21 05:32 Albumin/Globulin Ratio 0.6 % 04/02/21 05:32 Triglycerides 126 mg/dL (2-149) 04/01/21 12:04 Cholesterol 131 mg/dL (50-199) 04/01/21 12:04 LDL Cholesterol Direct 74 mg/dL (50-130) 04/01/21 12:04 HDL Cholesterol 27 mg/dL (40-59) L 04/01/21 12:04 Cholesterol/HDL Ratio 4.85 % 04/01/21 12:04 Vitamin B12 384.0 pg/mL (211-911) 04/02/21 06:50 PTH Intact 129.4 pg/mL (15-65) H 04/03/21 04:03 Urine Color Yellow (Yellow) 04/02/21 14:03 Urine Turbidity Clear (Clear) 04/02/21 14:03 Urine pH 5.0 (5.0-7.0) 04/02/21 14:03 Ur Specific [place] 1.008 (1.003-1.030) 04/02/21 14:03 Urine Protein 30 mg/dl mg/dL (Negative) 04/02/21 14:03 Urine Glucose (UA) Neg mg/dL (Negative) 04/02/21 14:03 Urine Ketones Neg mg/dL (Negative) 04/02/21 14:03 Urine Blood Mod (Negative) 04/02/21 14:03 Urine Nitrite Neg (Negative) 04/02/21 14:03 Urine Bilirubin Neg (Negative) 04/02/21 14:03 Urine Urobilinogen < 2.0 mg/dL (<2.0) 04/02/21 14:03 Ur Leukocyte Esterase Neg (Negative) 04/02/21 14:03 Urine WBC (Auto) 1.0 /HPF (0.0-6.0) 04/02/21 14:03 Urine RBC (Auto) 1.0 /HPF (0.0-6.0) 04/02/21 14:03 U Epithel Cells (Auto) < 1.0 /HPF (0-13.0) 04/02/21 14:03 Urine Mucus Few /HPF 04/02/21 14:03 Urine Eosinophils None seen (None Seen) 04/02/21 14:03 Urine Osmolality 305 Mosm/kg 04/03/21 05:25 Urine Creatinine 54.8 mg/dL (0.1-20.0) H 04/02/21 14:03 Protein/Creatinin Ratio TNR 04/02/21 14:03 Urine Sodium 58 mmol/L 04/03/21 05:25 Urine Potassium 45.63 mmol/L 04/03/21 05:25 Urine Chloride 78.5 mmolL (110-250) L 04/03/21 05:25 Urine Total Protein TNR 04/02/21 14:03 Dang/IV: Voiding Method Urinal Active Medications - Current Medications Current Medications: Generic Name Dose Route Start Last Admin Trade Name Freq PRN Reason Stop Dose Admin Acetaminophen 650 mg 04/01/21 18:38 Acetaminophen 325 Mg Tab PO Q4H PRN Pain MILD(1-3)/Fever >100.5/GRANDE Docusate Sodium 100 mg 04/03/21 10:00 04/03/21 10:48 Docusate Sodium 100 Mg Cap PO 100 mg BID KOLBY Administration Famotidine 10 mg 04/03/21 10:00 04/03/21 10:59 Famotidine 10 Mg Tab PO 10 mg BID KOLBY Administration Furosemide 40 mg 04/04/21 10:00 Furosemide 40 Mg/4 Ml Inj IV DAILY KOLBY Heparin Sodium (Porcine) 5,000 unit 04/01/21 22:00 04/03/21 10:54 Heparin 5,000 Unit/1 Ml Vial SUB-Q Not Given Q12HR KOLBY Hydromorphone HCl 0.5 mg 04/01/21 18:25 Hydromorphone 1 Mg/1 Ml Inj IV Q3H PRN Pain , Severe (7-10) Metoclopramide HCl 5 mg 04/03/21 08:00 Metoclopramide 10 Mg/2 Ml Inj IV Q6H PRN Nausea And Vomiting Metoprolol Tartrate 25 mg 04/02/21 17:06 04/03/21 10:48 Metoprolol Tartrate 25 Mg Tab PO 25 mg BID KOLBY Administration Nifedipine 30 mg 04/02/21 17:00 04/03/21 10:59 Nifedipine Xl 30 Mg Tab PO 30 mg QDAY KOLBY Administration Ondansetron HCl 4 mg 04/01/21 18:38 Ondansetron 4 Mg/2 Ml Inj IV Q8H PRN Nausea And Vomiting Oxycodone/Acetaminophen 1 tab 04/01/21 18:25 Oxycodone /Acetaminophen 5-325mg Tab PO Q6H PRN Pain, Moderate (4-6) Pseudoephedrine/Acetam/Chlorphenir 10 ml 04/01/21 15:49 04/02/21 23:26 Guaifenesin/Codeine 100-10mg Oral Liqd 5 Ml PO 10 ml Q4H PRN Administration Cough Senna/Docusate Sodium 1 tab 04/03/21 22:00 Sennosides/Docusate Sodium 8.6/50 Mg Tab PO QHS KOLBY Sodium Bicarbonate 650 mg 04/02/21 20:00 04/03/21 10:48 Sodium Bicarbonate 650 Mg Tab PO 650 mg TID KOLBY Administration Sodium Chloride 10 ml 04/01/21 22:00 04/03/21 10:59 Sodium Chloride 0.9% 10 Ml Flush Syringe IV 10 ml BID KOLBY Administration Sodium Chloride 10 ml 04/01/21 17:45 Sodium Chloride 0.9% 10 Ml Flush Syringe IV PRN PRN LINE FLUSH Sodium Polystyrene Sulfonate 15 gm 04/03/21 12:30 04/03/21 13:00 Sodium Polystyrene 15 Gm/60 Ml Oral Liqd PO 04/03/21 14:00 15 gm ONCE@1230 NR Administration
--- NOTE | 2021-04-03 14:10 | Progress Note ---
Assessment and Plan - Patient Problems (1) Pneumonia Current Visit: Yes Status: Acute Plan to address problem: Patient admitted with cough and shortness of breath, right lower lobe infiltrate. In addition to management of apparent pneumonia, it would be prudent to obtain a COVID-19 test on the patient. (2) Cardiomegaly Current Visit: Yes Status: Acute Plan to address problem: Cardiomegaly on chest x-ray, will likely represent an underlying cardiomyopathy, we will obtain an echocardiogram for assessment of left ventricular chamber size and systolic function. Further evaluation and management will depend on LV function. He will need ischemic evaluation eventually, but I will cancel the stress test at this time due to the patient's acute pneumonia and end-stage renal failure which are undergoing further evaluation and management at this time. Subjective Date of service: 04/03/21 Principal diagnosis: CHF, CKD Interval history: 55-year-old man admitted to the hospital with cough and shortness of breath, chest x-ray shows a right lower lobe infiltrate. Incidental findings on this admission include worsening renal failure with a creatinine of 5.2, and a marked cardiomegaly on his chest x-ray. There is no interstitial edema or heart failure exacerbation. There is no lower extremity edema. The patient denies any prior cardiac history or prior cardiac work-up. He has not seen a doctor in the outpatient in several years. EKG on this presentation was a sinus tachycardia, occasional PVCs, no acute ST or T wave abnormalities. Objective Vital Signs Pulse Pulse Resp BP Pulse Ox 04/03/21 13:00 115/89 74 L 04/03/21 12:00 98 H 25 H 115/89 100 04/03/21 11:00 94 H 24 125/93 98 04/03/21 10:51 125/93 04/03/21 10:48 96 H 125/93 04/03/21 08:00 98 H 30 H 119/87 96 04/03/21 07:20 16 100 04/03/21 07:00 96 H 32 H 124/91 98 04/03/21 06:30 97 H 21 118/92 99 04/03/21 06:16 96 H 18 118/92 86 04/03/21 06:00 98 H 26 H 118/92 95 04/03/21 05:46 98 H 31 H 118/92 94 04/03/21 05:30 98 H 25 H 117/86 98 04/03/21 05:23 117/86 97 04/03/21 05:01 97 H 117/86 04/03/21 04:45 99 H 117/86 04/03/21 04:31 99 H 117/86 98 04/03/21 04:01 98 H 117/86 83 L 04/03/21 03:31 98 H 115/83 84 04/03/21 03:01 100 H 115/83 98 04/03/21 02:31 98 H 115/83 91 04/03/21 02:00 102 H 102 H 22 115/83 99 04/03/21 01:31 100 H 30 H 111/91 99 04/03/21 01:01 100 H 28 H 97 04/03/21 00:31 100 H 19 125/94 95 04/03/21 00:01 96 H 20 125/94 99 04/02/21 23:31 104 H 17 132/93 97 04/02/21 23:01 108 H 18 132/93 89 04/02/21 22:33 110 H 128/93 04/02/21 22:30 128/93 100 04/02/21 22:01 123/83 98 04/02/21 21:31 137/106 98 04/02/21 21:01 137/106 84 04/02/21 20:33 137/106 97 04/02/21 20:31 137/106 98 04/02/21 20:01 112 H 15 137/106 96 04/02/21 19:31 114 H 32 H 134/91 100 04/02/21 19:01 113 H 17 134/91 100 04/02/21 18:01 116 H 26 H 120/100 98 04/02/21 17:31 117 H 29 H 132/97 98 04/02/21 17:15 116 H 21 125/101 100 04/02/21 17:05 118 H 125/101 04/02/21 17:01 118 H 29 H 132/97 73 L 04/02/21 16:45 120 H 17 132/97 97 04/02/21 16:31 117 H 26 H 98 04/02/21 16:15 116 H 25 H 98 04/02/21 16:01 118 H 21 130/102 99 04/02/21 15:45 120 H 17 130/102 99 04/02/21 15:01 121 H 29 H 100 04/02/21 14:11 21 97 - Physical Examination General: No Apparent Distress Neck: Positive: neck supple Cardiac: Positive: Reg Rate and Rhythm Lungs: Positive: Decreased Breath Sounds Neuro: Positive: Grossly Intact Abdomen: Positive: Soft Skin: Positive: Clear Extremities: Absent: edema - Labs and Meds CBC 04/03/21 Range/Units 04:03 WBC 5.6 (4.5-11.0) K/mm3 RBC 4.81 (3.65-5.03) M/mm3 Hgb 10.9 L (11.8-15.2) gm/dl Hct 33.3 L (35.5-45.6) % Plt Count 198 (140-440) K/mm3 Comprehensive Metabolic Panel 04/02/21 04/03/21 Range/Units 14:44 04:03 Sodium 133 L 130 L (137-145) mmol/L Potassium 4.5 5.5 H D (3.6-5.0) mmol/L Chloride 103.8 100.5 (98-107) mmol/L Carbon Dioxide 17 L 19 L (22-30) mmol/L BUN 56 H 60 H (9-20) mg/dL Creatinine 5.0 H 5.2 H (0.8-1.3) mg/dL Glucose 121 H 113 H (75-100) mg/dL Calcium 9.2 8.9 (8.4-10.2) mg/dL - Imaging and Cardiology EKG: report reviewed (Sinus tachycardia, frequent PVCs, no acute ST-T wave changes)
[2021-04-03] MEDS: SENNOSIDES/DOCUSATE SODIUM 8.6/50 MG TAB PO SCH (22:00)
[2021-04-03] MEDS: guaiFENesin/CODEINE 100-10MG ORAL LIQD 5 ML PO PRN (23:12)
[2021-04-04 06:20] LABS: Hematocrit 32.8 % (35.5-45.6); Hemoglobin 10.6 gm/dl (11.8-15.2); Mean Corpuscular HGB Conc 32 % (32-34); Platelet Count 214 K/mm3 (140-440); Red Blood Count 4.79 M/mm3 (3.65-5.03); Red Cell Distribution Width 18.6 % (13.2-15.2)
[2021-04-04 06:29] LABS: Mean Corpuscular Volume 69 fl (84-94)
[2021-04-04 07:46] LABS: Hepatitis C Virus Antibody Non-Reactive (NonReactive)
[2021-04-04 08:01] LABS: Hepatitis B Surface Antigen Nonreactive (Negative)
--- NOTE | 2021-04-04 08:19 | Progress Note ---
Assessment and Plan Assessment and plan: #Acute on chronic heart failure exacerbation -ELLIOTT showed LVEF of 15% with four-chamber dilated cardiomyopathy -We will hold Lasix 40 IV twice daily, per nephrology recommendations -Strict I/Os, daily weights, fluid restriction of 1.5 L/day #Acute kidney injury versus CKD -Creatinine increased to 5.8 (unknown baseline) -Nephrology consulted recs appreciated -BELTRAN consistent with CKD -Renally adjust medications #NSTEMI -Troponin peaked 0.38, likely type II troponin leak -Cardiology following #Tachycardia -Improved #Hypertension uncontrolled -Resolved #Nong[place] metabolic -Improving, bicarbonate 21 -Likely secondary to acute renal failure -We will continue to monitor #Microcytic anemia -hemoglobin stable at 10.6 -Likely secondary to chronic disease #Hyponatremia -Sodium 133 today -Likely secondary to heart failure #Mild protein calorie malnutrition -Nutrition consult #DVT prophylaxis -SQH 3 times daily Disposition Plan: Home pending improvement Total Time Spent with Patient (Minutes): 20 minutes History Interval history: No acute events overnight. Patient reports improvement in shortness of breath admission. Endorses frequent urination. Hospitalist Physical - Physical exam Narrative exam: GENERAL: Well-developed well-nourished. Lying in bed in no acute distress. CHEST/LUNGS: CTAB on room air HEART/CARDIOVASCULAR: RRR. No murmur, rubs or gallops appreciated. ABDOMEN: +BS. NT/ND. SKIN: No rashes noted. NEURO: No focal motor deficit. Follows all commands and is ambulatory. EXTREMITIES: No cyanosis, clubbing or edema. PSYCH: Cooperative. - Constitutional Vitals: Temp Pulse Resp BP Pulse Ox 98.0 F 91 H 18 105/82 93 04/04/21 07:41 04/04/21 07:41 04/04/21 07:41 04/04/21 07:41 04/04/21 07:41 General appearance: Present: mild distress, well-nourished HEART Score - HEART Score Age: 45-65 Risk factors: 1-2 risk factors Troponin: Troponin T 0.385 ng/mL (0.00-0.029) H* 04/02/21 05:32 Troponin: 1-3x normal limit - Critical Actions Critical Actions: 4-6 pts:12-16.6% risk of adverse cardiac event. Should be admitted Results - Labs CBC & Chem 7: 04/04/21 05:49 04/04/21 05:49 Labs: Laboratory Last Values WBC 5.7 K/mm3 (4.5-11.0) 04/04/21 05:49 RBC 4.79 M/mm3 (3.65-5.03) 04/04/21 05:49 Hgb 10.6 gm/dl (11.8-15.2) L 04/04/21 05:49 Hct 32.8 % (35.5-45.6) L 04/04/21 05:49 MCV 69 fl (84-94) L 04/04/21 05:49 MCH 22 pg (28-32) L 04/04/21 05:49 MCHC 32 % (32-34) 04/04/21 05:49 RDW 18.6 % (13.2-15.2) H 04/04/21 05:49 Plt Count 214 K/mm3 (140-440) 04/04/21 05:49 Lymph % (Auto) Talent Director 04/04/21 05:49 [place] % (Auto) Talent Director 04/01/21 12:04 Eos % (Auto) Talent Director 04/01/21 12:04 Baso % (Auto) Talent Director 04/01/21 12:04 Lymph # (Auto) Talent Director 04/01/21 12:04 [place] # (Auto) Talent Director 04/01/21 12:04 Eos # (Auto) Talent Director 04/01/21 12:04 Baso # (Auto) Talent Director 04/01/21 12:04 Add Manual Diff Complete 04/03/21 04:03 Total Counted 100 04/03/21 04:03 Seg Neutrophils % Talent Director 04/04/21 05:49 Seg Neuts % (Manual) 35.0 % (40.0-70.0) L 04/03/21 04:03 Band Neutrophils % 2.0 % 04/03/21 04:03 Lymphocytes % (Manual) 44.0 % (13.4-35.0) H 04/03/21 04:03 Monocytes % (Manual) 11.0 % (0.0-7.3) H 04/03/21 04:03 Eosinophils % (Manual) 6.0 % (0.0-4.3) H 04/03/21 04:03 Basophils % (Manual) 1.0 % (0.0-1.8) 04/03/21 04:03 Metamyelocytes % 1.0 % 04/03/21 04:03 Myelocytes % 2.0 % 04/02/21 05:32 Nucleated RBC % Not Reportable 04/03/21 04:03 Seg Neutrophils # Talent Director 04/01/21 12:04 Seg Neutrophils # Man 2.0 K/mm3 (1.8-7.7) 04/03/21 04:03 Band Neutrophils # 0.1 K/mm3 04/03/21 04:03 Lymphocytes # (Manual) 2.5 K/mm3 (1.2-5.4) 04/03/21 04:03 Abs React Lymphs (Man) 0.0 K/mm3 04/03/21 04:03 Monocytes # (Manual) 0.6 K/mm3 (0.0-0.8) 04/03/21 04:03 Eosinophils # (Manual) 0.3 K/mm3 (0.0-0.4) 04/03/21 04:03 Basophils # (Manual) 0.1 K/mm3 (0.0-0.1) 04/03/21 04:03 Metamyelocytes # 0.1 K/mm3 04/03/21 04:03 Myelocytes # 0.0 K/mm3 04/03/21 04:03 Promyelocytes # 0.0 K/mm3 04/03/21 04:03 Blast Cells # 0.0 K/mm3 04/03/21 04:03 WBC Morphology Not Reportable 04/03/21 04:03 Hypersegmented Neuts Not Reportable 04/03/21 04:03 Hyposegmented Neuts Not Reportable 04/03/21 04:03 Hypogranular Neuts Not Reportable 04/03/21 04:03 Smudge Cells Not Reportable 04/03/21 04:03 Toxic Granulation Not Reportable 04/03/21 04:03 Toxic Vacuolation Not Reportable 04/03/21 04:03 Dohle Bodies Not Reportable 04/03/21 04:03 Pelger-Huet Anomaly Not Reportable 04/03/21 04:03 Marianne Rods Not Reportable 04/03/21 04:03 Platelet Estimate Consistent w auto 04/03/21 04:03 Clumped Platelets Not Reportable 04/03/21 04:03 Plt Clumps, EDTA Not Reportable 04/03/21 04:03 Large Platelets Not Reportable 04/03/21 04:03 Giant Platelets Not Reportable 04/03/21 04:03 Platelet Satelliting Not Reportable 04/03/21 04:03 Plt Morphology Comment Not Reportable 04/03/21 04:03 RBC Morphology Not Reportable 04/03/21 04:03 Dimorphic RBCs Not Reportable 04/03/21 04:03 Polychromasia Not Reportable 04/03/21 04:03 Hypochromasia 2+ 04/03/21 04:03 Poikilocytosis Not Reportable 04/03/21 04:03 Anisocytosis 1+ 04/03/21 04:03 Microcytosis 1+ 04/03/21 04:03 Macrocytosis Not Reportable 04/03/21 04:03 Spherocytes Not Reportable 04/03/21 04:03 Pappenheimer Bodies Not Reportable 04/03/21 04:03 Sickle Cells Not Reportable 04/03/21 04:03 Target Cells Not Reportable 04/03/21 04:03 Tear Drop Cells Not Reportable 04/03/21 04:03 Ovalocytes Not Reportable 04/03/21 04:03 Helmet Cells Not Reportable 04/03/21 04:03 Sapp-Manzanita Bodies Not Reportable 04/03/21 04:03 [place] Rings Not Reportable 04/03/21 04:03 Carrie Cells Not Reportable 04/03/21 04:03 Bite Cells Not Reportable 04/03/21 04:03 Crenated Cell Not Reportable 04/03/21 04:03 Elliptocytes Not Reportable 04/03/21 04:03 Acanthocytes (Spur) Not Reportable 04/03/21 04:03 Rouleaux Not Reportable 04/03/21 04:03 Hemoglobin C Crystals Not Reportable 04/03/21 04:03 Schistocytes Not Reportable 04/03/21 04:03 Malaria parasites Not Reportable 04/03/21 04:03 Maurisio Bodies Not Reportable 04/03/21 04:03 Hem Pathologist Commnt No 04/03/21 04:03 Sodium 133 mmol/L (137-145) L 04/04/21 05:49 Potassium 4.5 mmol/L (3.6-5.0) 04/04/21 05:49 Chloride 100.6 mmol/L (98-107) 04/04/21 05:49 Carbon Dioxide 21 mmol/L (22-30) L 04/04/21 05:49 Anion Gap 16 mmol/L 04/04/21 05:49 BUN 75 mg/dL (9-20) H 04/04/21 05:49 Creatinine 5.8 mg/dL (0.8-1.3) H 04/04/21 05:49 Estimated GFR 12 ml/min 04/04/21 05:49 BUN/Creatinine Ratio 13 % 04/04/21 05:49 Glucose 102 mg/dL (75-100) H 04/04/21 05:49 Hemoglobin A1c 5.6 % (4-6) 04/01/21 19:39 Calcium 9.0 mg/dL (8.4-10.2) 04/04/21 05:49 Phosphorus 6.00 mg/dL (2.5-4.5) H 04/04/21 05:49 Magnesium 2.00 mg/dL (1.7-2.3) 04/04/21 05:49 Iron 31 ug/dL (49-181) L 04/02/21 06:50 TIBC 278 mcg/dL (250-450) 04/02/21 06:50 % Saturation 11.15 % 04/02/21 06:50 Transferrin 232 mg/dl (180-329) 04/02/21 06:50 Total Bilirubin 1.00 mg/dL (0.1-1.2) 04/02/21 05:32 AST 28 units/L (5-40) 04/02/21 05:32 ALT 20 units/L (7-56) 04/02/21 05:32 Alkaline Phosphatase 109 units/L (35-129) 04/02/21 05:32 Total Creatine Kinase 248 units/L (55-170) H 04/02/21 09:57 Troponin T 0.385 ng/mL (0.00-0.029) H* 04/02/21 05:32 NT-Pro-B Natriuret Pep 17243 pg/mL (0-900) H 04/02/21 09:57 Total Protein 9.4 g/dL (6.3-8.2) H 04/02/21 05:32 Albumin 3.4 g/dL (3.9-5) L 04/02/21 05:32 Albumin/Globulin Ratio 0.6 % 04/02/21 05:32 Triglycerides 126 mg/dL (2-149) 04/01/21 12:04 Cholesterol 131 mg/dL (50-199) 04/01/21 12:04 LDL Cholesterol Direct 74 mg/dL (50-130) 04/01/21 12:04 HDL Cholesterol 27 mg/dL (40-59) L 04/01/21 12:04 Cholesterol/HDL Ratio 4.85 % 04/01/21 12:04 Vitamin B12 384.0 pg/mL (211-911) 04/02/21 06:50 PTH Intact 129.4 pg/mL (15-65) H 04/03/21 04:03 Urine Color Yellow (Yellow) 04/02/21 14:03 Urine Turbidity Clear (Clear) 04/02/21 14:03 Urine pH 5.0 (5.0-7.0) 04/02/21 14:03 Ur Specific [place] 1.008 (1.003-1.030) 04/02/21 14:03 Urine Protein 30 mg/dl mg/dL (Negative) 04/02/21 14:03 Urine Glucose (UA) Neg mg/dL (Negative) 04/02/21 14:03 Urine Ketones Neg mg/dL (Negative) 04/02/21 14:03 Urine Blood Mod (Negative) 04/02/21 14:03 Urine Nitrite Neg (Negative) 04/02/21 14:03 Urine Bilirubin Neg (Negative) 04/02/21 14:03 Urine Urobilinogen < 2.0 mg/dL (<2.0) 04/02/21 14:03 Ur Leukocyte Esterase Neg (Negative) 04/02/21 14:03 Urine WBC (Auto) 1.0 /HPF (0.0-6.0) 04/02/21 14:03 Urine RBC (Auto) 1.0 /HPF (0.0-6.0) 04/02/21 14:03 U Epithel Cells (Auto) < 1.0 /HPF (0-13.0) 04/02/21 14:03 Urine Mucus Few /HPF 04/02/21 14:03 Urine Eosinophils None seen (None Seen) 04/02/21 14:03 Urine Osmolality 305 Mosm/kg 04/03/21 05:25 Urine Creatinine 54.8 mg/dL (0.1-20.0) H 04/02/21 14:03 Protein/Creatinin Ratio TNR 04/02/21 14:03 Urine Sodium 58 mmol/L 04/03/21 05:25 Urine Potassium 45.63 mmol/L 04/03/21 05:25 Urine Chloride 78.5 mmolL (110-250) L 04/03/21 05:25 Urine Total Protein TNR 04/02/21 14:03 Hepatitis A IgM Ab Non-reactive (NonReactive) 04/04/21 05:49 Hep Bs Antigen Nonreactive (Negative) 04/04/21 05:49 Hep B Core IgM Ab Non-reactive (NonReactive) 04/04/21 05:49 Hepatitis C Antibody Non-reactive (NonReactive) 04/04/21 05:49 Dang/IV: Voiding Method Toilet Active Medications - Current Medications Current Medications: Generic Name Dose Route Start Last Admin Trade Name Freq PRN Reason Stop Dose Admin Acetaminophen 650 mg 04/01/21 18:38 Acetaminophen 325 Mg Tab PO Q4H PRN Pain MILD(1-3)/Fever >100.5/GRANDE Docusate Sodium 100 mg 04/03/21 10:00 04/03/21 22:00 Docusate Sodium 100 Mg Cap PO Not Given BID KOLBY Famotidine 10 mg 04/03/21 10:00 04/03/21 22:00 Famotidine 10 Mg Tab PO Not Given BID KOLBY Furosemide 40 mg 04/04/21 10:00 Furosemide 40 Mg/4 Ml Inj IV DAILY [facility] Heparin Sodium (Porcine) 5,000 unit 04/01/21 22:00 04/03/21 22:00 Heparin 5,000 Unit/1 Ml Vial SUB-Q Not Given Q12HR KOLBY Hydromorphone HCl 0.5 mg 04/01/21 18:25 Hydromorphone 1 Mg/1 Ml Inj IV Q3H PRN Pain , Severe (7-10) Metoclopramide HCl 5 mg 04/03/21 08:00 Metoclopramide 10 Mg/2 Ml Inj IV Q6H PRN Nausea And Vomiting Metoprolol Tartrate 25 mg 04/02/21 17:06 04/03/21 23:12 Metoprolol Tartrate 25 Mg Tab PO 25 mg BID [facility] Administration Nifedipine 30 mg 04/02/21 17:00 04/03/21 10:59 Nifedipine Xl 30 Mg Tab PO 30 mg QDAY KOLBY Administration Ondansetron HCl 4 mg 04/01/21 18:38 Ondansetron 4 Mg/2 Ml Inj IV Q8H PRN Nausea And Vomiting Oxycodone/Acetaminophen 1 tab 04/01/21 18:25 Oxycodone /Acetaminophen 5-325mg Tab PO Q6H PRN Pain, Moderate (4-6) Pseudoephedrine/Acetam/Chlorphenir 10 ml 04/01/21 15:49 04/03/21 23:12 Guaifenesin/Codeine 100-10mg Oral Liqd 5 Ml PO 10 ml Q4H PRN Administration Cough Senna/Docusate Sodium 1 tab 04/03/21 22:00 04/03/21 22:00 Sennosides/Docusate Sodium 8.6/50 Mg Tab PO Not Given QHS KOLBY Sodium Bicarbonate 650 mg 04/02/21 20:00 04/03/21 21:34 Sodium Bicarbonate 650 Mg Tab PO Not Given TID KOLBY Sodium Chloride 10 ml 04/01/21 22:00 04/03/21 23:12 Sodium Chloride 0.9% 10 Ml Flush Syringe IV 10 ml BID KOLBY Administration Sodium Chloride 10 ml 04/01/21 17:45 Sodium Chloride 0.9% 10 Ml Flush Syringe IV PRN PRN LINE FLUSH
[2021-04-04] MEDS ORDERED: FUROSEMIDE 40 MG/4 ML INJ IV SCH (10:00)
--- NOTE | 2021-04-04 10:09 | Progress Note ---
Assessment and Plan Elevated troponin, in setting of renal dysfunction Pneumonia CKD Hypertension Noncompliance Cardiomegaly on chest x-ray, will likely represent an underlying cardiomyopathy. Recommendations: Obtain an echocardiogram for assessment of left ventricular chamber size and systolic function. Further evaluation and management will depend on LV function. Subjective Date of service: 04/04/21 Principal diagnosis: CHF, CKD Interval history: Still with cough and active wheezing. No distress noted. Objective Vital Signs Temp Pulse Pulse Resp BP BP Pulse Ox 04/04/21 07:41 98.0 F 91 H 18 105/82 93 04/04/21 03:42 97.8 F 91 H 18 112/86 94 04/04/21 02:49 97 H 18 98 04/03/21 23:40 98.3 F 93 H 18 119/93 98 04/03/21 23:12 92 H 131/93 04/03/21 23:00 97 H 04/03/21 20:37 98.8 F 92 H 16 131/93 100 04/03/21 20:30 131/93 04/03/21 13:00 115/89 74 L 04/03/21 12:00 98 H 25 H 115/89 100 04/03/21 11:00 94 H 24 125/93 98 04/03/21 10:51 125/93 04/03/21 10:48 96 H 125/93 - Physical Examination General: No Apparent Distress HEENT: Positive: PERRL Neck: Positive: neck supple Cardiac: Positive: Reg Rate and Rhythm Lungs: Positive: Decreased Breath Sounds, Wheezes Neuro: Positive: Grossly Intact Extremities: Absent: edema - Labs and Meds CBC 04/04/21 Range/Units 05:49 WBC 5.7 (4.5-11.0) K/mm3 RBC 4.79 (3.65-5.03) M/mm3 Hgb 10.6 L (11.8-15.2) gm/dl Hct 32.8 L (35.5-45.6) % Plt Count 214 (140-440) K/mm3 Comprehensive Metabolic Panel 04/04/21 Range/Units 05:49 Sodium 133 L (137-145) mmol/L Potassium 4.5 (3.6-5.0) mmol/L Chloride 100.6 (98-107) mmol/L Carbon Dioxide 21 L (22-30) mmol/L BUN 75 H (9-20) mg/dL Creatinine 5.8 H (0.8-1.3) mg/dL Glucose 102 H (75-100) mg/dL Calcium 9.0 (8.4-10.2) mg/dL
[2021-04-04] MEDS: HEPARIN 5,000 UNIT/1 ML VIAL SUB-Q SCH ×2 (10:17→22:47)
[2021-04-04] MEDS: FAMOTIDINE 10 MG TAB PO SCH ×2 (10:32→22:44)
[2021-04-04] MEDS: NIFEdipine XL 30 MG TAB PO SCH (10:33)
[2021-04-04] MEDS: METOPROLOL TARTRATE 25 MG TAB PO SCH ×2 (10:33→22:44)
[2021-04-04] MEDS: DOCUSATE SODIUM 100 MG CAP PO SCH ×2 (10:35→22:45)
[2021-04-04] MEDS: SODIUM BICARBONATE 650 MG TAB PO SCH ×3 (10:51→22:44)
--- NOTE | 2021-04-04 11:10 | Progress Note ---
Assessment and Plan Acute Kidney injury on top of CKD: Chest pain: Elevated troponin: Hypertension: Anemia: Hyperkalemia Met. Acidosis Plan: -cont to have rising Cr but with good UOP, no indication for WIRE SPOOLER -will hold lasix for now -Serum creatinine was 2.5 on 08/05/20 -Urine lytes reviewed, no urine eosinophils -Urine protein and protein/creatinine ratio-pending -Will order GN work-up -Renal ultrasound reviewed-Medical renal Disease. Left simple renal cyst. No Hydronephrosis. -Hyperkalemia- y -Met. Acidosis-resolved -May need HD if renal function continue to worsen, likely within 24-48 hours -Renally dose all medications -Avoid nephrotoxic agents -Strict I/O's daily -Obtain daily weights Subjective Date of service: 04/04/21 Principal diagnosis: CHF, CKD Interval history: no acute distress, making urine Objective - Vital Signs Vital signs: Vital Signs - 12hr 04/03/21 04/03/21 04/04/21 23:12 23:40 02:49 Temperature 98.3 F Pulse Rate 92 H 93 H Pulse Rate [ 97 H From Monitor] Respiratory 18 18 Rate Blood Pressure 131/93 119/93 O2 Sat by Pulse 98 98 Oximetry 04/04/21 04/04/21 04/04/21 03:42 07:41 10:33 Temperature 97.8 F 98.0 F Pulse Rate 91 H 91 H 93 H Pulse Rate [ From Monitor] Respiratory 18 18 Rate Blood Pressure 112/86 105/82 O2 Sat by Pulse 94 93 Oximetry - Lab 04/04/21 05:49 04/06/21 05:13 Most recent lab results Calcium 9.0 mg/dL (8.4-10.2) 04/04/21 05:49 Phosphorus 6.00 mg/dL (2.5-4.5) H 04/04/21 05:49 Magnesium 2.00 mg/dL (1.7-2.3) 04/04/21 05:49 Urine Creatinine 54.8 mg/dL (0.1-20.0) H 04/02/21 14:03 Urine Sodium 58 mmol/L 04/03/21 05:25 Urine Total Protein TNR 04/02/21 14:03 Medications & Allergies - Medications Allergies/Adverse Reactions: Allergies No Known Allergies Allergy (Verified 04/01/21 18:43) Home Medications: Home Medications Medication Instructions Recorded Confirmed Last Taken Type EPINEPHrine [Primatene Mist] 11.7 gm IH QDAY 04/03/21 04/03/21 Unknown History Active Medications: Generic Name Dose Route Start Last Admin Trade Name Freq PRN Reason Stop Dose Admin Acetaminophen 650 mg 04/01/21 18:38 Acetaminophen 325 Mg Tab PO Q4H PRN Pain MILD(1-3)/Fever >100.5/GRANDE Docusate Sodium 100 mg 04/03/21 10:00 04/04/21 10:35 Docusate Sodium 100 Mg Cap PO 100 mg BID KOLBY Administration Famotidine 10 mg 04/03/21 10:00 04/04/21 10:32 Famotidine 10 Mg Tab PO 10 mg BID KOLBY Administration Heparin Sodium (Porcine) 5,000 unit 04/01/21 22:00 04/04/21 10:17 Heparin 5,000 Unit/1 Ml Vial SUB-Q Not Given Q12HR KOLBY Hydromorphone HCl 0.5 mg 04/01/21 18:25 Hydromorphone 1 Mg/1 Ml Inj IV Q3H PRN Pain , Severe (7-10) Metoclopramide HCl 5 mg 04/03/21 08:00 Metoclopramide 10 Mg/2 Ml Inj IV Q6H PRN Nausea And Vomiting Metoprolol Tartrate 25 mg 04/02/21 17:06 04/04/21 10:33 Metoprolol Tartrate 25 Mg Tab PO 25 mg BID KOLBY Administration Nifedipine 30 mg 04/02/21 17:00 04/04/21 10:33 Nifedipine Xl 30 Mg Tab PO 30 mg QDAY KOLBY Administration Ondansetron HCl 4 mg 04/01/21 18:38 Ondansetron 4 Mg/2 Ml Inj IV Q8H PRN Nausea And Vomiting Oxycodone/Acetaminophen 1 tab 04/01/21 18:25 Oxycodone /Acetaminophen 5-325mg Tab PO Q6H PRN Pain, Moderate (4-6) Pseudoephedrine/Acetam/Chlorphenir 10 ml 04/01/21 15:49 04/03/21 23:12 Guaifenesin/Codeine 100-10mg Oral Liqd 5 Ml PO 10 ml Q4H PRN Administration Cough Senna/Docusate Sodium 1 tab 04/03/21 22:00 04/03/21 22:00 Sennosides/Docusate Sodium 8.6/50 Mg Tab PO Not Given QHS KOLBY Sodium Bicarbonate 650 mg 04/02/21 20:00 04/04/21 10:51 Sodium Bicarbonate 650 Mg Tab PO 650 mg TID KOLBY Administration Sodium Chloride 10 ml 04/01/21 22:00 04/04/21 10:36 Sodium Chloride 0.9% 10 Ml Flush Syringe IV 10 ml BID KOLBY Administration Sodium Chloride 10 ml 04/01/21 17:45 Sodium Chloride 0.9% 10 Ml Flush Syringe IV PRN PRN LINE FLUSH
[2021-04-04 12:22] LABS: Anisocytosis 1+; Band Neutrophils # (Manual) 0.1 K/mm3; Hypochromasia 1+; Platelet Estimate Consistent w Auto; Total Cells Counted 100
[2021-04-04] MEDS: SENNOSIDES/DOCUSATE SODIUM 8.6/50 MG TAB PO SCH (22:52)
[2021-04-05 09:55] LABS: Calcium 8.3 mg/dL (8.4-10.2)
[2021-04-05] MEDS: METOPROLOL TARTRATE 25 MG TAB PO SCH (11:00)
[2021-04-05] MEDS: NIFEdipine XL 30 MG TAB PO SCH (11:03)
[2021-04-05] MEDS: DOCUSATE SODIUM 100 MG CAP PO SCH ×2 (11:03→21:30)
[2021-04-05] MEDS: HEPARIN 5,000 UNIT/1 ML VIAL SUB-Q SCH ×2 (11:03→21:31)
[2021-04-05] MEDS: FAMOTIDINE 10 MG TAB PO SCH ×2 (11:03→21:30)
[2021-04-05] MEDS: guaiFENesin/CODEINE 100-10MG ORAL LIQD 5 ML PO PRN ×2 (11:06→17:22)
--- NOTE | 2021-04-05 12:01 | Progress Note ---
Assessment and Plan Dilated cardiomyopathy, uncertain duration an echo shows 4 chamber dilated cardiomyopathy with severe dilation of the right heart chambers, EG 15%. Elevated troponin, in setting of renal dysfunction Pneumonia CKD Hypertension Noncompliance Recommendations: Low sodium diet and fluid restriction. Medical therapy for dilated cardiomyopathy and systolic heart failure as tolerated. Further non-invasive ischemic evaluation with a Lexiscan will be done before discharge. Subjective Date of service: 04/05/21 Principal diagnosis: CHF, CKD Interval history: No interval cardiac changes. No distress noted. Objective Vital Signs Temp Pulse Pulse Resp BP Pulse Ox 04/05/21 08:02 98.9 F 89 18 107/78 96 04/05/21 03:37 98.0 F 85 16 109/77 93 04/04/21 23:35 96 04/04/21 22:41 97.6 F 89 16 107/73 92 04/04/21 20:50 89 04/04/21 19:16 97.5 F L 92 H 18 112/87 98 04/04/21 16:34 97.6 F 90 18 113/77 95 04/04/21 15:00 91 H 97 H 18 98 - Physical Examination General: No Apparent Distress HEENT: Positive: PERRL Neck: Positive: neck supple Cardiac: Positive: Reg Rate and Rhythm Lungs: Positive: Decreased Breath Sounds, Wheezes Neuro: Positive: Grossly Intact Extremities: Absent: edema - Labs and Meds Comprehensive Metabolic Panel 04/05/21 Range/Units 09:11 Sodium 133 L (137-145) mmol/L Potassium 3.4 L D (3.6-5.0) mmol/L Chloride 99.1 (98-107) mmol/L Carbon Dioxide 23 (22-30) mmol/L BUN 71 H (9-20) mg/dL Creatinine 5.2 H (0.8-1.3) mg/dL Glucose 115 H (75-100) mg/dL Calcium 8.3 L (8.4-10.2) mg/dL
--- NOTE | 2021-04-05 12:08 | Progress Note ---
Assessment and Plan Assessment: Acute Kidney injury on top of CKD: Chest pain: Elevated troponin: Hypertension: Anemia: Hyperkalemia, Resolved Met. Acidosis, Improving Hypokalemia, Mild Plan: -Renal labs reviewed. Serum creatinine 5.2 today with GFR 14 ml/min, so far no significant improvement in renal function -Had long discussion with patient today about our recommendation for he modialysis initiation given his advanced renal renal failure with no recovery so far coupled with CHF exacerbation requiring dependency on diuretics for volume control. LVEF is 15%. Risks and benefits of hemodialysis were also explained to patient along with procedural logistics to include perm-catheter placement. -Patient states he wants to think about it and that we should give him until Saturday to make a decision and states this is overwhelming for him. Reassurance provided and also advised patient that we will recheck with him tomorrow for a decision, also informed him that should he need dialysis upon discharge we will need to get social work professor involved to make outpatient HD arrangements as soon as possible. -Will restart Lasix 40 mg IV daily -Urine lytes reviewed, no urine eosinophils -Urine protein and protein/creatinine ratio-pending -GN [id number] -Hepatitis panel-negative -Renal ultrasound reviewed-Medical renal Disease. Left simple renal cyst. No Hydronephrosis. -Met. Acidosis, Improving- On Sodium Bicarbonate 650 mg po TID -Potassium level was high on 04/03/21 and was treated, now mildly low at 3.4, monitor in light of advanced renal disease -Renally dose all medications -Avoid nephrotoxic agents -Strict I/O's daily -Obtain daily weights -Plan of care reviewed by Dr. Santana Subjective Date of service: 03/27/21 Principal diagnosis: CHF, CKD Interval history: Patient seen lying in bed. Reviewed renal labs. Discussed hemodialysis recommendation with patient today. He states he wants to think about it and that i should given him until Saturday to make a decision. Informed patient that he needs dialysis as soon as possible and that we will recheck with him tomorrow for a decision. Objective - Vital Signs Vital signs: Vital Signs - 12hr 04/05/21 04/05/21 03:37 08:02 Temperature 98.0 F 98.9 F Pulse Rate 85 89 Respiratory 16 18 Rate Blood Pressure 109/77 107/78 O2 Sat by Pulse 93 96 Oximetry - General Appearance General appearance: well-developed, appears stated age EENT: ATNC Neck: no JVD, supple Respiratory: Present: Decreased Breath Sounds Cardiology: S1S2 Gastrointestinal: normoactive bowel sounds Integumentary: warm and dry Neurologic: alert and oriented x3 Musculoskeletal: other (mild edema to BLE) - Lab 04/04/21 05:49 04/05/21 09:11 Most recent lab results Calcium 8.3 mg/dL (8.4-10.2) L 04/05/21 09:11 Phosphorus 6.00 mg/dL (2.5-4.5) H 04/04/21 05:49 Magnesium 2.00 mg/dL (1.7-2.3) 04/04/21 05:49 Urine Creatinine 54.8 mg/dL (0.1-20.0) H 04/02/21 14:03 Urine Sodium 58 mmol/L 04/03/21 05:25 Urine Total Protein TNR 04/02/21 14:03 Medications & Allergies - Medications Allergies/Adverse Reactions: Allergies No Known Allergies Allergy (Verified 04/01/21 18:43) Home Medications: Home Medications Medication Instructions Recorded Confirmed Last Taken Type EPINEPHrine [Primatene Mist] 11.7 gm IH QDAY 04/03/21 04/03/21 Unknown History Active Medications: Generic Name Dose Route Start Last Admin Trade Name Freq PRN Reason Stop Dose Admin Acetaminophen 650 mg 04/01/21 18:38 Acetaminophen 325 Mg Tab PO Q4H PRN Pain MILD(1-3)/Fever >100.5/GRANDE Docusate Sodium 100 mg 04/03/21 10:00 04/05/21 11:03 Docusate Sodium 100 Mg Cap PO 100 mg BID KOLBY Administration Famotidine 10 mg 04/03/21 10:00 04/05/21 11:03 Famotidine 10 Mg Tab PO 10 mg BID KOLBY Administration Heparin Sodium (Porcine) 5,000 unit 04/01/21 22:00 04/05/21 11:03 Heparin 5,000 Unit/1 Ml Vial SUB-Q Not Given Q12HR KOLBY Hydromorphone HCl 0.5 mg 04/01/21 18:25 Hydromorphone 1 Mg/1 Ml Inj IV Q3H PRN Pain , Severe (7-10) Metoclopramide HCl 5 mg 04/03/21 08:00 Metoclopramide 10 Mg/2 Ml Inj IV Q6H PRN Nausea And Vomiting Metoprolol Tartrate 25 mg 04/02/21 17:06 04/04/21 22:44 Metoprolol Tartrate 25 Mg Tab PO 25 mg BID KOLBY Administration Nifedipine 30 mg 04/02/21 17:00 04/05/21 11:03 Nifedipine Xl 30 Mg Tab PO 30 mg QDAY KOLBY Administration Ondansetron HCl 4 mg 04/01/21 18:38 Ondansetron 4 Mg/2 Ml Inj IV Q8H PRN Nausea And Vomiting Oxycodone/Acetaminophen 1 tab 04/01/21 18:25 04/05/21 11:02 Oxycodone /Acetaminophen 5-325mg Tab PO 1 tab Q6H PRN Administration Pain, Moderate (4-6) Pseudoephedrine/Acetam/Chlorphenir 10 ml 04/01/21 15:49 04/05/21 11:06 Guaifenesin/Codeine 100-10mg Oral Liqd 5 Ml PO 10 ml Q4H PRN Administration Cough Senna/Docusate Sodium 1 tab 04/03/21 22:00 04/04/21 22:52 Sennosides/Docusate Sodium 8.6/50 Mg Tab PO Not Given QHS KOLBY Sodium Bicarbonate 650 mg 04/02/21 20:00 04/04/21 22:44 Sodium Bicarbonate 650 Mg Tab PO 650 mg TID KOLBY Administration Sodium Chloride 10 ml 04/01/21 22:00 04/04/21 22:52 Sodium Chloride 0.9% 10 Ml Flush Syringe IV 10 ml BID KOLBY Administration Sodium Chloride 10 ml 04/01/21 17:45 Sodium Chloride 0.9% 10 Ml Flush Syringe IV PRN PRN LINE FLUSH
[2021-04-05] MEDS: SODIUM BICARBONATE 650 MG TAB PO SCH ×2 (13:57→19:53)
--- NOTE | 2021-04-05 14:51 | Progress Note ---
Assessment and Plan Assessment and plan: #Acute on chronic heart failure exacerbation -ELLIOTT showed LVEF of 15% with four-chamber dilated cardiomyopathy -continue to hold lasix -Strict I/Os, daily weights, fluid restriction of 1.5 L/day -stress test tomorrow per Cardiology #Acute kidney injury versus CKD -Creatinine 5.4 (unknown baseline) -Nephrology following, recs appreciated -BELTRAN consistent with CKD -Renally adjust medications -Nephrology discussed with patient possibility for need for hemodialysis, contemplative at this time #NSTEMI -Troponin peaked 0.38, likely type II troponin leak -Cardiology following #Tachycardia -Improved #Hypertension uncontrolled -Resolved #[place]ong[place] metabolic acidosis -Likely secondary to acute renal failure -We will continue to monitor #Microcytic anemia -hemoglobin stable -Likely secondary to chronic disease #Hyponatremia -Likely secondary to heart failure #Mild protein calorie malnutrition -Nutrition consult #DVT prophylaxis -SQH 3 times daily Disposition Plan: Continued medical management Total Time Spent with Patient (Minutes): 20 minutes History Interval history: No acute events overnight. Patient reports improvement in shortness of breath admission. Endorses frequent urination. Hospitalist Physical - Physical exam Narrative exam: GENERAL: Well-developed well-nourished. Lying in bed in no acute distress. CHEST/LUNGS: CTAB on room air HEART/CARDIOVASCULAR: RRR. No murmur, rubs or gallops appreciated. ABDOMEN: +BS. NT/ND. SKIN: No rashes noted. NEURO: No focal motor deficit. Follows all commands and is ambulatory. EXTREMITIES: No cyanosis, clubbing or edema. PSYCH: Cooperative. - Constitutional Vitals: Temp Pulse Resp BP Pulse Ox 98.9 F 89 18 107/78 96 04/05/21 08:02 04/05/21 08:02 04/05/21 08:02 04/05/21 08:02 04/05/21 08:02 General appearance: Present: mild distress, well-nourished HEART Score - HEART Score Age: 45-65 Risk factors: 1-2 risk factors Troponin: Troponin T 0.385 ng/mL (0.00-0.029) H* 04/02/21 05:32 Troponin: 1-3x normal limit - Critical Actions Critical Actions: 4-6 pts:12-16.6% risk of adverse cardiac event. Should be admitted Results - Labs CBC & Chem 7: 04/04/21 05:49 04/05/21 09:11 Labs: Laboratory Last Values WBC 5.7 K/mm3 (4.5-11.0) 04/04/21 05:49 RBC 4.79 M/mm3 (3.65-5.03) 04/04/21 05:49 Hgb 10.6 gm/dl (11.8-15.2) L 04/04/21 05:49 Hct 32.8 % (35.5-45.6) L 04/04/21 05:49 MCV 69 fl (84-94) L 04/04/21 05:49 MCH 22 pg (28-32) L 04/04/21 05:49 MCHC 32 % (32-34) 04/04/21 05:49 RDW 18.6 % (13.2-15.2) H 04/04/21 05:49 Plt Count 214 K/mm3 (140-440) 04/04/21 05:49 Lymph % (Auto) Photoengraving Helper 04/04/21 05:49 [place] % (Auto) Photoengraving Helper 04/01/21 12:04 Eos % (Auto) [employer]engraving Helper 04/01/21 12:04 Baso % (Auto) [employer]engraving Helper 04/01/21 12:04 Lymph # (Auto) [employer]engraving Helper 04/01/21 12:04 [place] # (Auto) Photoengraving Helper 04/01/21 12:04 Eos # (Auto) Photoengraving Helper 04/01/21 12:04 Baso # (Auto) Photoengraving Helper 04/01/21 12:04 Add Manual Diff Complete 04/04/21 05:49 Total Counted 100 04/04/21 05:49 Seg Neutrophils % Photoengraving Helper 04/04/21 05:49 Seg Neuts % (Manual) 36.0 % (40.0-70.0) L 04/04/21 05:49 Band Neutrophils % 1.0 % 04/04/21 05:49 Lymphocytes % (Manual) 44.0 % (13.4-35.0) H 04/04/21 05:49 Reactive Lymphs % (Man) 2.0 % 04/04/21 05:49 Monocytes % (Manual) 7.0 % (0.0-7.3) 04/04/21 05:49 Eosinophils % (Manual) 10.0 % (0.0-4.3) H 04/04/21 05:49 Basophils % (Manual) 1.0 % (0.0-1.8) 04/03/21 04:03 Metamyelocytes % 1.0 % 04/03/21 04:03 Myelocytes % 2.0 % 04/02/21 05:32 Nucleated RBC % 1.0 % (0.0-0.9) H 04/04/21 05:49 Seg Neutrophils # Photoengraving Helper 04/01/21 12:04 Seg Neutrophils # Man 2.1 K/mm3 (1.8-7.7) 04/04/21 05:49 Band Neutrophils # 0.1 K/mm3 04/04/21 05:49 Lymphocytes # (Manual) 2.5 K/mm3 (1.2-5.4) 04/04/21 05:49 Abs React Lymphs (Man) 0.1 K/mm3 04/04/21 05:49 Monocytes # (Manual) 0.4 K/mm3 (0.0-0.8) 04/04/21 05:49 Eosinophils # (Manual) 0.6 K/mm3 (0.0-0.4) H 04/04/21 05:49 Basophils # (Manual) 0.0 K/mm3 (0.0-0.1) 04/04/21 05:49 Metamyelocytes # 0.0 K/mm3 04/04/21 05:49 Myelocytes # 0.0 K/mm3 04/04/21 05:49 Promyelocytes # 0.0 K/mm3 04/04/21 05:49 Blast Cells # 0.0 K/mm3 04/04/21 05:49 WBC Morphology Not Reportable 04/04/21 05:49 Hypersegmented Neuts Not Reportable 04/04/21 05:49 Hyposegmented Neuts Not Reportable 04/04/21 05:49 Hypogranular Neuts Not Reportable 04/04/21 05:49 Smudge Cells Not Reportable 04/04/21 05:49 Toxic Granulation Not Reportable 04/04/21 05:49 Toxic Vacuolation Not Reportable 04/04/21 05:49 Dohle Bodies Not Reportable 04/04/21 05:49 Pelger-Huet Anomaly Not Reportable 04/04/21 05:49 Marianne Rods Not Reportable 04/04/21 05:49 Platelet Estimate Consistent w auto 04/04/21 05:49 Clumped Platelets Not Reportable 04/04/21 05:49 Plt Clumps, EDTA Not Reportable 04/04/21 05:49 Large Platelets Not Reportable 04/04/21 05:49 Giant Platelets Not Reportable 04/04/21 05:49 Platelet Satelliting Not Reportable 04/04/21 05:49 Plt Morphology Comment Not Reportable 04/04/21 05:49 RBC Morphology Not Reportable 04/04/21 05:49 Dimorphic RBCs Not Reportable 04/04/21 05:49 Polychromasia Not Reportable 04/04/21 05:49 Hypochromasia 1+ 04/04/21 05:49 Poikilocytosis Not Reportable 04/04/21 05:49 Anisocytosis 1+ 04/04/21 05:49 Microcytosis Not Reportable 04/04/21 05:49 Macrocytosis Not Reportable 04/04/21 05:49 Spherocytes Not Reportable 04/04/21 05:49 Pappenheimer Bodies Not Reportable 04/04/21 05:49 Sickle Cells Not Reportable 04/04/21 05:49 Target Cells Not Reportable 04/04/21 05:49 Tear Drop Cells Not Reportable 04/04/21 05:49 Ovalocytes Not Reportable 04/04/21 05:49 Helmet Cells Not Reportable 04/04/21 05:49 Sapp-[place] Bodies Not Reportable 04/04/21 05:49 [place] Rings Not Reportable 04/04/21 05:49 [place] Cells Not Reportable 04/04/21 05:49 Bite Cells Not Reportable 04/04/21 05:49 Crenated Cell Not Reportable 04/04/21 05:49 Elliptocytes Not Reportable 04/04/21 05:49 Acanthocytes (Spur) Not Reportable 04/04/21 05:49 Rouleaux Not Reportable 04/04/21 05:49 Hemoglobin C Crystals Not Reportable 04/04/21 05:49 Schistocytes Not Reportable 04/04/21 05:49 Malaria parasites Not Reportable 04/04/21 05:49 Maurisio Bodies Not Reportable 04/04/21 05:49 Hem Pathologist Commnt No 04/04/21 05:49 Sodium 133 mmol/L (137-145) L 04/05/21 09:11 Potassium 3.4 mmol/L (3.6-5.0) L D 04/05/21 09:11 Chloride 99.1 mmol/L (98-107) 04/05/21 09:11 Carbon Dioxide 23 mmol/L (22-30) 04/05/21 09:11 Anion Gap 14 mmol/L 04/05/21 09:11 BUN 71 mg/dL (9-20) H 04/05/21 09:11 Creatinine 5.2 mg/dL (0.8-1.3) H 04/05/21 09:11 Estimated GFR 14 ml/min 04/05/21 09:11 BUN/Creatinine Ratio 14 % 04/05/21 09:11 Glucose 115 mg/dL (75-100) H 04/05/21 09:11 Hemoglobin A1c 5.6 % (4-6) 04/01/21 19:39 Calcium 8.3 mg/dL (8.4-10.2) L 04/05/21 09:11 Phosphorus 6.00 mg/dL (2.5-4.5) H 04/04/21 05:49 Magnesium 2.00 mg/dL (1.7-2.3) 04/04/21 05:49 Iron 31 ug/dL (49-181) L 04/02/21 06:50 TIBC 278 mcg/dL (250-450) 04/02/21 06:50 % Saturation 11.15 % 04/02/21 06:50 Transferrin 232 mg/dl (180-329) 04/02/21 06:50 Total Bilirubin 1.00 mg/dL (0.1-1.2) 04/02/21 05:32 AST 28 units/L (5-40) 04/02/21 05:32 ALT 20 units/L (7-56) 04/02/21 05:32 Alkaline Phosphatase 109 units/L (35-129) 04/02/21 05:32 Total Creatine Kinase 248 units/L (55-170) H 04/02/21 09:57 Troponin T 0.385 ng/mL (0.00-0.029) H* 04/02/21 05:32 NT-Pro-B Natriuret Pep 71991 pg/mL (0-900) H 04/02/21 09:57 Total Protein 9.4 g/dL (6.3-8.2) H 04/02/21 05:32 Albumin 3.4 g/dL (3.9-5) L 04/02/21 05:32 Albumin/Globulin Ratio 0.6 % 04/02/21 05:32 Triglycerides 126 mg/dL (2-149) 04/01/21 12:04 Cholesterol 131 mg/dL (50-199) 04/01/21 12:04 LDL Cholesterol Direct 74 mg/dL (50-130) 04/01/21 12:04 HDL Cholesterol 27 mg/dL (40-59) L 04/01/21 12:04 Cholesterol/HDL Ratio 4.85 % 04/01/21 12:04 Vitamin B12 384.0 pg/mL (211-911) 04/02/21 06:50 PTH Intact 129.4 pg/mL (15-65) H 04/03/21 04:03 Urine Color Yellow (Yellow) 04/02/21 14:03 Urine Turbidity Clear (Clear) 04/02/21 14:03 Urine pH 5.0 (5.0-7.0) 04/02/21 14:03 Ur Specific [place] 1.008 (1.003-1.030) 04/02/21 14:03 Urine Protein 30 mg/dl mg/dL (Negative) 04/02/21 14:03 Urine Glucose (UA) Neg mg/dL (Negative) 04/02/21 14:03 Urine Ketones Neg mg/dL (Negative) 04/02/21 14:03 Urine Blood Mod (Negative) 04/02/21 14:03 Urine Nitrite Neg (Negative) 04/02/21 14:03 Urine Bilirubin Neg (Negative) 04/02/21 14:03 Urine Urobilinogen < 2.0 mg/dL (<2.0) 04/02/21 14:03 Ur Leukocyte Esterase Neg (Negative) 04/02/21 14:03 Urine WBC (Auto) 1.0 /HPF (0.0-6.0) 04/02/21 14:03 Urine RBC (Auto) 1.0 /HPF (0.0-6.0) 04/02/21 14:03 U Epithel Cells (Auto) < 1.0 /HPF (0-13.0) 04/02/21 14:03 Urine Mucus Few /HPF 04/02/21 14:03 Urine Eosinophils None seen (None Seen) 04/02/21 14:03 Urine Osmolality 305 Mosm/kg 04/03/21 05:25 Urine Creatinine 54.8 mg/dL (0.1-20.0) H 04/02/21 14:03 Protein/Creatinin Ratio TNR 04/02/21 14:03 Urine Sodium 58 mmol/L 04/03/21 05:25 Urine Potassium 45.63 mmol/L 04/03/21 05:25 Urine Chloride 78.5 mmolL (110-250) L 04/03/21 05:25 Urine Total Protein TNR 04/02/21 14:03 Hepatitis A IgM Ab Non-reactive (NonReactive) 04/04/21 05:49 Hep Bs Antigen Nonreactive (Negative) 04/04/21 05:49 Hep B Core IgM Ab Non-reactive (NonReactive) 04/04/21 05:49 Hepatitis C Antibody Non-reactive (NonReactive) 04/04/21 05:49 Dang/IV: Voiding Method Toilet Active Medications - Current Medications Current Medications: Generic Name Dose Route Start Last Admin Trade Name Freq PRN Reason Stop Dose Admin Acetaminophen 650 mg 04/01/21 18:38 Acetaminophen 325 Mg Tab PO Q4H PRN Pain MILD(1-3)/Fever >100.5/GRANDE Aspirin 81 mg 04/05/21 15:00 Aspirin Ec 81 Mg Tab PO QDAY KOLBY Carvedilol 6.25 mg 04/05/21 15:00 Carvedilol 6.25 Mg Tab PO BID KOLBY Docusate Sodium 100 mg 04/03/21 10:00 04/05/21 11:03 Docusate Sodium 100 Mg Cap PO 100 mg BID KOLBY Administration Famotidine 10 mg 04/03/21 10:00 04/05/21 11:03 Famotidine 10 Mg Tab PO 10 mg BID KOLBY Administration Heparin Sodium (Porcine) 5,000 unit 04/01/21 22:00 04/05/21 11:03 Heparin 5,000 Unit/1 Ml Vial SUB-Q Not Given Q12HR KOLBY Hydromorphone HCl 0.5 mg 04/01/21 18:25 Hydromorphone 1 Mg/1 Ml Inj IV Q3H PRN Pain , Severe (7-10) Isosorbide Dinitrate/Hydralazine 1 each 04/05/21 14:30 Isosorb Dinit/Hydralazine 20-37.5mg Tab PO Q8HR KOLBY Metoclopramide HCl 5 mg 04/03/21 08:00 Metoclopramide 10 Mg/2 Ml Inj IV Q6H PRN Nausea And Vomiting Ondansetron HCl 4 mg 04/01/21 18:38 Ondansetron 4 Mg/2 Ml Inj IV Q8H PRN Nausea And Vomiting Oxycodone/Acetaminophen 1 tab 04/01/21 18:25 04/05/21 11:02 Oxycodone /Acetaminophen 5-325mg Tab PO 1 tab Q6H PRN Administration Pain, Moderate (4-6) Pseudoephedrine/Acetam/Chlorphenir 10 ml 04/01/21 15:49 04/05/21 11:06 Guaifenesin/Codeine 100-10mg Oral Liqd 5 Ml PO 10 ml Q4H PRN Administration Cough Senna/Docusate Sodium 1 tab 04/03/21 22:00 04/04/21 22:52 Sennosides/Docusate Sodium 8.6/50 Mg Tab PO Not Given QHS KOLBY Sodium Bicarbonate 650 mg 04/02/21 20:00 04/05/21 13:57 Sodium Bicarbonate 650 Mg Tab PO 650 mg TID KOLBY Administration Sodium Chloride 10 ml 04/01/21 22:00 04/05/21 13:56 Sodium Chloride 0.9% 10 Ml Flush Syringe IV 10 ml BID KOLBY Administration Sodium Chloride 10 ml 04/01/21 17:45 Sodium Chloride 0.9% 10 Ml Flush Syringe IV PRN PRN LINE FLUSH
[2021-04-05] MEDS ORDERED: POTASSIUM CHLORIDE ER 20 MEQ TAB PO NR (16:00)
[2021-04-05] MEDS: ASPIRIN EC 81 MG TAB PO SCH (17:16)
[2021-04-05] MEDS: ISOSORB DINIT/HYDRALAZINE 20-37.5MG TAB PO SCH ×2 (17:16→21:30)
[2021-04-05] MEDS: carvediloL 6.25 MG TAB PO SCH ×2 (17:17→21:30)
[2021-04-05] MEDS: SENNOSIDES/DOCUSATE SODIUM 8.6/50 MG TAB PO SCH (21:30)
[2021-04-06] MEDS: ISOSORB DINIT/HYDRALAZINE 20-37.5MG TAB PO SCH ×3 (05:09→21:13)
[2021-04-06 06:25] LABS: Calcium 8.4 mg/dL (8.4-10.2)
[2021-04-06] MEDS ORDERED: REGADENOSON 0.4 MG/5 ML INJ IV ONE ×2 (06:38→06:40)
--- NOTE | 2021-04-06 08:37 | Progress Note ---
Assessment and Plan Assessment and plan: #Acute on chronic heart failure exacerbation -ELLIOTT showed LVEF of 15% with four-chamber dilated cardiomyopathy -lasix 40mg IV qday started -Strict I/Os, daily weights, fluid restriction of 1.5 L/day -stress test tomorrow per Cardiology #Acute kidney injury versus CKD -Creatinine 5.0 (unknown baseline) -Nephrology following, recs appreciated -BELTRAN consistent with CKD -Renally adjust medications -Nephrology discussed with patient possibility for need for hemodialysis, contemplative at this time -If creatinine remains stable over the next day, will discharge home with nephrology follow-up #NSTEMI -Troponin peaked 0.38, likely type II troponin leak -Cardiology following #Tachycardia -Improved #Hypertension uncontrolled -Resolved #[place] metabolic acidosis -Likely secondary to acute renal failure -We will continue to monitor #Microcytic anemia -hemoglobin stable -Likely secondary to chronic disease #Hyponatremia -Likely secondary to heart failure #Mild protein calorie malnutrition -Nutrition consult #DVT prophylaxis -SQH 3 times daily Disposition Plan: Home after medical clearance Total Time Spent with Patient (Minutes): 20 minutes History Interval history: No acute events overnight. Patient returned from stress test. No complaints at this time. Hospitalist Physical - Physical exam Narrative exam: GENERAL: Well-developed well-nourished. Lying in bed in no acute distress. CHEST/LUNGS: CTAB on room air HEART/CARDIOVASCULAR: RRR. No murmur, rubs or gallops appreciated. ABDOMEN: +BS. NT/ND. EXTREMITIES: No cyanosis, clubbing or edema. PSYCH: Cooperative. - Constitutional Vitals: Temp Pulse Resp BP Pulse Ox 97.8 F 85 20 139/104 99 04/06/21 07:47 04/06/21 07:47 04/06/21 07:47 04/06/21 07:47 04/06/21 07:47 General appearance: Present: mild distress, well-nourished HEART Score - HEART Score Age: 45-65 Risk factors: 1-2 risk factors Troponin: Troponin T 0.385 ng/mL (0.00-0.029) H* 04/02/21 05:32 Troponin: 1-3x normal limit - Critical Actions Critical Actions: 4-6 pts:12-16.6% risk of adverse cardiac event. Should be admitted Results - Labs CBC & Chem 7: 04/04/21 05:49 04/06/21 05:13 Labs: Laboratory Last Values WBC 5.7 K/mm3 (4.5-11.0) 04/04/21 05:49 RBC 4.79 M/mm3 (3.65-5.03) 04/04/21 05:49 Hgb 10.6 gm/dl (11.8-15.2) L 04/04/21 05:49 Hct 32.8 % (35.5-45.6) L 04/04/21 05:49 MCV 69 fl (84-94) L 04/04/21 05:49 MCH 22 pg (28-32) L 04/04/21 05:49 MCHC 32 % (32-34) 04/04/21 05:49 RDW 18.6 % (13.2-15.2) H 04/04/21 05:49 Plt Count 214 K/mm3 (140-440) 04/04/21 05:49 Lymph % (Auto) Relocation Director 04/04/21 05:49 [place] % (Auto) Relocation Director 04/01/21 12:04 Eos % (Auto) Relocation Director 04/01/21 12:04 Baso % (Auto) Relocation Director 04/01/21 12:04 Lymph # (Auto) Relocation Director 04/01/21 12:04 [place] # (Auto) Relocation Director 04/01/21 12:04 Eos # (Auto) Relocation Director 04/01/21 12:04 Baso # (Auto) Relocation Director 04/01/21 12:04 Add Manual Diff Complete 04/04/21 05:49 Total Counted 100 04/04/21 05:49 Seg Neutrophils % Relocation Director 04/04/21 05:49 Seg Neuts % (Manual) 36.0 % (40.0-70.0) L 04/04/21 05:49 Band Neutrophils % 1.0 % 04/04/21 05:49 Lymphocytes % (Manual) 44.0 % (13.4-35.0) H 04/04/21 05:49 Reactive Lymphs % (Man) 2.0 % 04/04/21 05:49 Monocytes % (Manual) 7.0 % (0.0-7.3) 04/04/21 05:49 Eosinophils % (Manual) 10.0 % (0.0-4.3) H 04/04/21 05:49 Basophils % (Manual) 1.0 % (0.0-1.8) 04/03/21 04:03 Metamyelocytes % 1.0 % 04/03/21 04:03 Myelocytes % 2.0 % 04/02/21 05:32 Nucleated RBC % 1.0 % (0.0-0.9) H 04/04/21 05:49 Seg Neutrophils # Relocation Director 04/01/21 12:04 Seg Neutrophils # Man 2.1 K/mm3 (1.8-7.7) 04/04/21 05:49 Band Neutrophils # 0.1 K/mm3 04/04/21 05:49 Lymphocytes # (Manual) 2.5 K/mm3 (1.2-5.4) 04/04/21 05:49 Abs React Lymphs (Man) 0.1 K/mm3 04/04/21 05:49 Monocytes # (Manual) 0.4 K/mm3 (0.0-0.8) 04/04/21 05:49 Eosinophils # (Manual) 0.6 K/mm3 (0.0-0.4) H 04/04/21 05:49 Basophils # (Manual) 0.0 K/mm3 (0.0-0.1) 04/04/21 05:49 Metamyelocytes # 0.0 K/mm3 04/04/21 05:49 Myelocytes # 0.0 K/mm3 04/04/21 05:49 Promyelocytes # 0.0 K/mm3 04/04/21 05:49 Blast Cells # 0.0 K/mm3 04/04/21 05:49 WBC Morphology Not Reportable 04/04/21 05:49 Hypersegmented Neuts Not Reportable 04/04/21 05:49 Hyposegmented Neuts Not Reportable 04/04/21 05:49 Hypogranular Neuts Not Reportable 04/04/21 05:49 Smudge Cells Not Reportable 04/04/21 05:49 Toxic Granulation Not Reportable 04/04/21 05:49 Toxic Vacuolation Not Reportable 04/04/21 05:49 Dohle Bodies Not Reportable 04/04/21 05:49 Pelger-Huet Anomaly Not Reportable 04/04/21 05:49 Marianne Rods Not Reportable 04/04/21 05:49 Platelet Estimate Consistent w auto 04/04/21 05:49 Clumped Platelets Not Reportable 04/04/21 05:49 Plt Clumps, EDTA Not Reportable 04/04/21 05:49 Large Platelets Not Reportable 04/04/21 05:49 Giant Platelets Not Reportable 04/04/21 05:49 Platelet Satelliting Not Reportable 04/04/21 05:49 Plt Morphology Comment Not Reportable 04/04/21 05:49 RBC Morphology Not Reportable 04/04/21 05:49 Dimorphic RBCs Not Reportable 04/04/21 05:49 Polychromasia Not Reportable 04/04/21 05:49 Hypochromasia 1+ 04/04/21 05:49 Poikilocytosis Not Reportable 04/04/21 05:49 Anisocytosis 1+ 04/04/21 05:49 Microcytosis Not Reportable 04/04/21 05:49 Macrocytosis Not Reportable 04/04/21 05:49 Spherocytes Not Reportable 04/04/21 05:49 Pappenheimer Bodies Not Reportable 04/04/21 05:49 Sickle Cells Not Reportable 04/04/21 05:49 Target Cells Not Reportable 04/04/21 05:49 Tear Drop Cells Not Reportable 04/04/21 05:49 Ovalocytes Not Reportable 04/04/21 05:49 Helmet Cells Not Reportable 04/04/21 05:49 Sapp-[place] Bodies Not Reportable 04/04/21 05:49 [place] Rings Not Reportable 04/04/21 05:49 Max Cells Not Reportable 04/04/21 05:49 Bite Cells Not Reportable 04/04/21 05:49 Crenated Cell Not Reportable 04/04/21 05:49 Elliptocytes Not Reportable 04/04/21 05:49 Acanthocytes (Spur) Not Reportable 04/04/21 05:49 Rouleaux Not Reportable 04/04/21 05:49 Hemoglobin C Crystals Not Reportable 04/04/21 05:49 Schistocytes Not Reportable 04/04/21 05:49 Malaria parasites Not Reportable 04/04/21 05:49 Maurisio Bodies Not Reportable 04/04/21 05:49 Hem Pathologist Commnt No 04/04/21 05:49 Sodium 135 mmol/L (137-145) L 04/06/21 05:13 Potassium 3.9 mmol/L (3.6-5.0) 04/06/21 05:13 Chloride 103.3 mmol/L (98-107) 04/06/21 05:13 Carbon Dioxide 23 mmol/L (22-30) 04/06/21 05:13 Anion Gap 13 mmol/L 04/06/21 05:13 BUN 72 mg/dL (9-20) H 04/06/21 05:13 Creatinine 5.0 mg/dL (0.8-1.3) H 04/06/21 05:13 Estimated GFR 15 ml/min 04/06/21 05:13 BUN/Creatinine Ratio 14 % 04/06/21 05:13 Glucose 92 mg/dL (75-100) 04/06/21 05:13 Hemoglobin A1c 5.6 % (4-6) 04/01/21 19:39 Calcium 8.4 mg/dL (8.4-10.2) 04/06/21 05:13 Phosphorus 6.00 mg/dL (2.5-4.5) H 04/04/21 05:49 Magnesium 2.00 mg/dL (1.7-2.3) 04/04/21 05:49 Iron 31 ug/dL (49-181) L 04/02/21 06:50 TIBC 278 mcg/dL (250-450) 04/02/21 06:50 % Saturation 11.15 % 04/02/21 06:50 Transferrin 232 mg/dl (180-329) 04/02/21 06:50 Total Bilirubin 1.00 mg/dL (0.1-1.2) 04/02/21 05:32 AST 28 units/L (5-40) 04/02/21 05:32 ALT 20 units/L (7-56) 04/02/21 05:32 Alkaline Phosphatase 109 units/L (35-129) 04/02/21 05:32 Total Creatine Kinase 248 units/L (55-170) H 04/02/21 09:57 Troponin T 0.385 ng/mL (0.00-0.029) H* 04/02/21 05:32 NT-Pro-B Natriuret Pep 15011 pg/mL (0-900) H 04/02/21 09:57 Total Protein 9.4 g/dL (6.3-8.2) H 04/02/21 05:32 Albumin 3.4 g/dL (3.9-5) L 04/02/21 05:32 Albumin/Globulin Ratio 0.6 % 04/02/21 05:32 Triglycerides 126 mg/dL (2-149) 04/01/21 12:04 Cholesterol 131 mg/dL (50-199) 04/01/21 12:04 LDL Cholesterol Direct 74 mg/dL (50-130) 04/01/21 12:04 HDL Cholesterol 27 mg/dL (40-59) L 04/01/21 12:04 Cholesterol/HDL Ratio 4.85 % 04/01/21 12:04 Vitamin B12 384.0 pg/mL (211-911) 04/02/21 06:50 PTH Intact 129.4 pg/mL (15-65) H 04/03/21 04:03 Urine Color Yellow (Yellow) 04/02/21 14:03 Urine Turbidity Clear (Clear) 04/02/21 14:03 Urine pH 5.0 (5.0-7.0) 04/02/21 14:03 Ur Specific [place] 1.008 (1.003-1.030) 04/02/21 14:03 Urine Protein 30 mg/dl mg/dL (Negative) 04/02/21 14:03 Urine Glucose (UA) Neg mg/dL (Negative) 04/02/21 14:03 Urine Ketones Neg mg/dL (Negative) 04/02/21 14:03 Urine Blood Mod (Negative) 04/02/21 14:03 Urine Nitrite Neg (Negative) 04/02/21 14:03 Urine Bilirubin Neg (Negative) 04/02/21 14:03 Urine Urobilinogen < 2.0 mg/dL (<2.0) 04/02/21 14:03 Ur Leukocyte Esterase Neg (Negative) 04/02/21 14:03 Urine WBC (Auto) 1.0 /HPF (0.0-6.0) 04/02/21 14:03 Urine RBC (Auto) 1.0 /HPF (0.0-6.0) 04/02/21 14:03 U Epithel Cells (Auto) < 1.0 /HPF (0-13.0) 04/02/21 14:03 Urine Mucus Few /HPF 04/02/21 14:03 Urine Eosinophils None seen (None Seen) 04/02/21 14:03 Urine Osmolality 305 Mosm/kg 04/03/21 05:25 Urine Creatinine 54.8 mg/dL (0.1-20.0) H 04/02/21 14:03 Protein/Creatinin Ratio TNR 04/02/21 14:03 Urine Sodium 58 mmol/L 04/03/21 05:25 Urine Potassium 45.63 mmol/L 04/03/21 05:25 Urine Chloride 78.5 mmolL (110-250) L 04/03/21 05:25 Urine Total Protein TNR 04/02/21 14:03 Hepatitis A IgM Ab Non-reactive (NonReactive) 04/04/21 05:49 Hep Bs Antigen Nonreactive (Negative) 04/04/21 05:49 Hep B Core IgM Ab Non-reactive (NonReactive) 04/04/21 05:49 Hepatitis C Antibody Non-reactive (NonReactive) 04/04/21 05:49 Dang/IV: Voiding Method Toilet Active Medications - Current Medications Current Medications: Generic Name Dose Route Start Last Admin Trade Name Freq PRN Reason Stop Dose Admin Acetaminophen 650 mg 04/01/21 18:38 Acetaminophen 325 Mg Tab PO Q4H PRN Pain MILD(1-3)/Fever >100.5/GRANDE Aspirin 81 mg 04/05/21 15:00 04/05/21 17:16 Aspirin Ec 81 Mg Tab PO 81 mg QDAY KOLBY Administration Carvedilol 6.25 mg 04/05/21 15:00 04/05/21 21:30 Carvedilol 6.25 Mg Tab PO 6.25 mg BID KOLBY Administration Docusate Sodium 100 mg 04/03/21 10:00 04/05/21 21:30 Docusate Sodium 100 Mg Cap PO 100 mg BID KOLBY Administration Famotidine 10 mg 04/03/21 10:00 04/05/21 21:30 Famotidine 10 Mg Tab PO 10 mg BID KOLBY Administration Furosemide 40 mg 04/06/21 10:00 Furosemide 40 Mg/4 Ml Inj IV QDAY KOLBY Heparin Sodium (Porcine) 5,000 unit 04/01/21 22:00 04/05/21 21:31 Heparin 5,000 Unit/1 Ml Vial SUB-Q Not Given Q12HR KOLBY Hydromorphone HCl 0.5 mg 04/01/21 18:25 Hydromorphone 1 Mg/1 Ml Inj IV Q3H PRN Pain , Severe (7-10) Isosorbide Dinitrate/Hydralazine 1 each 04/05/21 14:30 04/06/21 05:09 Isosorb Dinit/Hydralazine 20-37.5mg Tab PO Not Given Q8HR KOLBY Metoclopramide HCl 5 mg 04/03/21 08:00 Metoclopramide 10 Mg/2 Ml Inj IV Q6H PRN Nausea And Vomiting Ondansetron HCl 4 mg 04/01/21 18:38 Ondansetron 4 Mg/2 Ml Inj IV Q8H PRN Nausea And Vomiting Oxycodone/Acetaminophen 1 tab 04/01/21 18:25 04/05/21 11:02 Oxycodone /Acetaminophen 5-325mg Tab PO 1 tab Q6H PRN Administration Pain, Moderate (4-6) Pseudoephedrine/Acetam/Chlorphenir 10 ml 04/01/21 15:49 04/05/21 17:22 Guaifenesin/Codeine 100-10mg Oral Liqd 5 Ml PO 10 ml Q4H PRN Administration Cough Senna/Docusate Sodium 1 tab 04/03/21 22:00 04/05/21 21:30 Sennosides/Docusate Sodium 8.6/50 Mg Tab PO 1 tab QHS KOLBY Administration Sodium Bicarbonate 650 mg 04/02/21 20:00 04/05/21 19:53 Sodium Bicarbonate 650 Mg Tab PO 650 mg TID KOLBY Administration Sodium Chloride 10 ml 04/01/21 22:00 04/05/21 21:31 Sodium Chloride 0.9% 10 Ml Flush Syringe IV 10 ml BID KOLBY Administration Sodium Chloride 10 ml 04/01/21 17:45 Sodium Chloride 0.9% 10 Ml Flush Syringe IV PRN PRN LINE FLUSH
--- NOTE | 2021-04-06 11:23 | Progress Note ---
Assessment and Plan Acute Kidney injury on top of CKD: Chest pain: Elevated troponin: Hypertension: Anemia: Hyperkalemia Met. Acidosis Plan: -stable Cr since yesterday, noted to hasve decreased UOP, but according to patient he has not been using the urinal and his urine output has been about the same -will check 24 hours Cr clearance -if remains stable by tomorrow, [facility] and to be followed as an outpatient -ordered GN work-up, peding -Renal ultrasound reviewed-Medical renal Disease. Left simple renal cyst. No Hydronephrosis. -Met. Acidosis-resolved -Renally dose all medications -Avoid nephrotoxic agents -Strict I/O's daily -Obtain daily weights Subjective Date of service: 04/06/21 Principal diagnosis: CHF, CKD Interval history: no acute distress, making urine, denies acute issues Objective - Vital Signs Vital signs: Vital Signs - 12hr 04/05/21 04/06/21 04/06/21 23:50 03:37 05:09 Temperature 98.6 F Pulse Rate 85 85 Respiratory 16 Rate Blood Pressure 91/51 91/51 O2 Sat by Pulse 94 98 Oximetry 04/06/21 07:47 Temperature 97.8 F Pulse Rate 85 Respiratory 20 Rate Blood Pressure 139/104 O2 Sat by Pulse 99 Oximetry - General Appearance General appearance: well-developed, well-nourished, appears stated age EENT: ATNC, PERRL, mucous membranes moist Neck: no JVD Respiratory: Present: Clear to Ascultation Cardiology: regular, S1S2 Gastrointestinal: normoactive bowel sounds Integumentary: no rash, warm and dry Neurologic: no focal deficit, no asterixis, alert and oriented x3 - Lab 04/04/21 05:49 04/06/21 05:13 Most recent lab results Calcium 8.4 mg/dL (8.4-10.2) 04/06/21 05:13 Phosphorus 6.00 mg/dL (2.5-4.5) H 04/04/21 05:49 Magnesium 2.00 mg/dL (1.7-2.3) 04/04/21 05:49 Urine Creatinine 54.8 mg/dL (0.1-20.0) H 04/02/21 14:03 Urine Sodium 58 mmol/L 04/03/21 05:25 Urine Total Protein TNR 04/02/21 14:03 Medications & Allergies - Medications Allergies/Adverse Reactions: Allergies No Known Allergies Allergy (Verified 04/01/21 18:43) Home Medications: Home Medications Medication Instructions Recorded Confirmed Last Taken Type EPINEPHrine [Primatene Mist] 11.7 gm IH QDAY 04/03/21 04/03/21 Unknown History Active Medications: Generic Name Dose Route Start Last Admin Trade Name Freq PRN Reason Stop Dose Admin Acetaminophen 650 mg 04/01/21 18:38 Acetaminophen 325 Mg Tab PO Q4H PRN Pain MILD(1-3)/Fever >100.5/GRANDE Aspirin 81 mg 04/05/21 15:00 04/05/21 17:16 Aspirin Ec 81 Mg Tab PO 81 mg QDAY KOLBY Administration Carvedilol 6.25 mg 04/05/21 15:00 04/05/21 21:30 Carvedilol 6.25 Mg Tab PO 6.25 mg BID KOLBY Administration Docusate Sodium 100 mg 04/03/21 10:00 04/05/21 21:30 Docusate Sodium 100 Mg Cap PO 100 mg BID KOLBY Administration Famotidine 10 mg 04/03/21 10:00 04/05/21 21:30 Famotidine 10 Mg Tab PO 10 mg BID KOLBY Administration Furosemide 40 mg 04/06/21 10:00 Furosemide 40 Mg/4 Ml Inj IV QDAY [facility] Heparin Sodium (Porcine) 5,000 unit 04/01/21 22:00 04/05/21 21:31 Heparin 5,000 Unit/1 Ml Vial SUB-Q Not Given Q12HR [facility] Hydromorphone HCl 0.5 mg 04/01/21 18:25 Hydromorphone 1 Mg/1 Ml Inj IV Q3H PRN Pain , Severe (7-10) Isosorbide Dinitrate/Hydralazine 1 each 04/05/21 14:30 04/06/21 05:09 Isosorb Dinit/Hydralazine 20-37.5mg Tab PO Not Given Q8HR [facility] Metoclopramide HCl 5 mg 04/03/21 08:00 Metoclopramide 10 Mg/2 Ml Inj IV Q6H PRN Nausea And Vomiting Ondansetron HCl 4 mg 04/01/21 18:38 Ondansetron 4 Mg/2 Ml Inj IV Q8H PRN Nausea And Vomiting Oxycodone/Acetaminophen 1 tab 04/01/21 18:25 04/05/21 11:02 Oxycodone /Acetaminophen 5-325mg Tab PO 1 tab Q6H PRN Administration Pain, Moderate (4-6) Pseudoephedrine/Acetam/Chlorphenir 10 ml 04/01/21 15:49 04/05/21 17:22 Guaifenesin/Codeine 100-10mg Oral Liqd 5 Ml PO 10 ml Q4H PRN Administration Cough Senna/Docusate Sodium 1 tab 04/03/21 22:00 04/05/21 21:30 Sennosides/Docusate Sodium 8.6/50 Mg Tab PO 1 tab QHS KOLBY Administration Sodium Bicarbonate 650 mg 04/02/21 20:00 04/05/21 19:53 Sodium Bicarbonate 650 Mg Tab PO 650 mg TID KOLBY Administration Sodium Chloride 10 ml 04/01/21 22:00 04/05/21 21:31 Sodium Chloride 0.9% 10 Ml Flush Syringe IV 10 ml BID KOLBY Administration Sodium Chloride 10 ml 04/01/21 17:45 Sodium Chloride 0.9% 10 Ml Flush Syringe IV PRN PRN LINE FLUSH
[2021-04-06] MEDS: ASPIRIN EC 81 MG TAB PO SCH (13:16)
[2021-04-06] MEDS: SODIUM BICARBONATE 650 MG TAB PO SCH ×3 (13:16→21:14)
[2021-04-06] MEDS: FUROSEMIDE 40 MG/4 ML INJ IV SCH (13:16)
[2021-04-06] MEDS: FAMOTIDINE 10 MG TAB PO SCH ×2 (13:16→21:14)
[2021-04-06] MEDS: HEPARIN 5,000 UNIT/1 ML VIAL SUB-Q SCH ×2 (13:17→22:34)
[2021-04-06] MEDS: carvediloL 6.25 MG TAB PO SCH ×2 (13:17→21:14)
[2021-04-06] MEDS: guaiFENesin/CODEINE 100-10MG ORAL LIQD 5 ML PO PRN ×2 (13:24→21:14)
[2021-04-06] MEDS: DOCUSATE SODIUM 100 MG CAP PO SCH ×2 (13:24→21:13)
--- NOTE | 2021-04-06 14:51 | Nuclear Medicine Report ---
APPROVED REPORT Exam: Nuclear Stress Test Indication: Chest pain Patient Location: [address] [place] [address] Room #: 476 Ht: 6 ft 1 in Wt: 168 lbs BSA: 2.00 m2 HR: 89 bpmBP: 145/112 mmHgBMI: 22.16 Stress Test Details Stress Test: Pharmacologic stress testing performed using 0.4 mg of regadenoson per 5 mL given IV over 10 seconds. Reason for pharmacologic stress test: physical limitation. HR Resting HR: 89 bpm Max HR Achieved: 97 bpm Max Heart Rate (APMHR): 164 bpm Target HR (85% APMHR): 139 bpm % of APMHR: 59 Recovery HR: 96 bpm BP Resting BP: 145/112 mmHg Max BP: 150/110 mmHg Recovery BP: 144/107 mmHg ECG Resting ECG: SINUS RHYTHM, MODERATE RIHGT AXIS DEVIATION, SEPTAL INFART Stress ECG: Sinus Rhythm ST Change: None Arrhythmia: None Recovery ECG: Sinus Rhythm Recovery ST Change: None Recovery Arrhythmia: None Clinical Reason for Termination: Completed protocol Stress Symptoms: None Stress ECG Conclusion No chest pain and no ST changes of ischemia with pharmacologic stress, myocardial perfusion images are pending for final test interpretation. NM EXAM: Myocardial Perfusion REST/STRESS Resting Data Rest SPECT myocardial perfusion imaging was performed in supine position 45 minutes following the intravenous injection of 10 mCi of Tc-99m Myoview. Time of rest injection: 0700 Pharmacologic Stress Pharmacologic stress test was performed by injecting Regadenoson 0.4 mg IV push followed by the intravenous injection of 28 mCi of Tc-99m Myoview. Time of stress injection: 1215 Gated Stress SPECT was performed 30 minutes after stress injection. The images were gated to evaluate regional wall motion and calculate left ventricular ejection fraction. Study Quality Study: excellent Lung Uptake: Normal Study Data TID = 1.08. Perfusion Wall Motion The left ventricle is moderately to severely dilated on both rest and stress images. There is severe, diffuse hypokinesis with left ventricular ejection fraction calculated at 19%. Nuclear Conclusion ECG Findings: negative for ischemia Clinical Findings: negative for ischemia Nuclear Findings: negative for ischemia Left Ventricular Function: abnormal Risk Study: moderate Study demonstrates a dilated cardiomyopathy, severe left ventricular systolic dysfunction, with a normal perfusion on rest and stress images. This appears suggestive of a nonischemic cardiomyopathy. Clinical correlation is recommended. Conclusion No chest pain and no ST changes of ischemia with pharmacologic stress, myocardial perfusion images are pending for final test interpretation.
--- NOTE | 2021-04-06 18:08 | Event Note ---
Date: 04/06/21 Patient completed a Lexiscan thallium stress test, which shows a severe dilated cardiomyopathy, but normal myocardial perfusion, suggestive of a nonischemic cardiomyopathy. Continue guideline directed medical therapy as previously outlined.
[2021-04-06] MEDS: SENNOSIDES/DOCUSATE SODIUM 8.6/50 MG TAB PO SCH (21:14)
[2021-04-06 23:31] LABS: ANA Screen, IFA Negative (Negative)
[2021-04-07 04:28] LABS: Albumin 3.2 g/dL (3.8-4.8)
[2021-04-07 06:22] LABS: Calcium 8.4 mg/dL (8.4-10.2)
[2021-04-07] MEDS: ISOSORB DINIT/HYDRALAZINE 20-37.5MG TAB PO SCH ×2 (06:35→15:56)
[2021-04-07] MEDS: HYDROmorphone 1 MG/1 ML INJ IV PRN ×2 (09:00→14:20)
[2021-04-07] MEDS: ASPIRIN EC 81 MG TAB PO SCH (09:42)
[2021-04-07] MEDS: SODIUM BICARBONATE 650 MG TAB PO SCH ×2 (09:42→15:57)
[2021-04-07] MEDS: carvediloL 6.25 MG TAB PO SCH (09:43)
[2021-04-07] MEDS: DOCUSATE SODIUM 100 MG CAP PO SCH (09:43)
[2021-04-07] MEDS: HEPARIN 5,000 UNIT/1 ML VIAL SUB-Q SCH ×2 (09:43→09:46)
[2021-04-07] MEDS: FUROSEMIDE 40 MG/4 ML INJ IV SCH (09:43)
[2021-04-07] MEDS: FAMOTIDINE 10 MG TAB PO SCH (09:43)
--- NOTE | 2021-04-07 10:28 | Progress Note ---
Assessment and Plan Acute Kidney injury on top of CKD: Chest pain: Elevated troponin: Hypertension: Anemia: Hyperkalemia Met. Acidosis Plan: -cont to ahve satble kidney function -no indication for HD, can be discharged from renal standpoint, he will be followd with labs as an outpatient -Renal ultrasound reviewed-Medical renal Disease. Left simple renal cyst. No Hydronephrosis. -Met. Acidosis-resolved -Renally dose all medications -Avoid nephrotoxic agents -Strict I/O's daily -Obtain daily weights Subjective Date of service: 04/07/21 Principal diagnosis: CHF, CKD Interval history: no overnight events Objective - Vital Signs Vital signs: Vital Signs - 12hr 04/06/21 04/07/21 04/07/21 23:53 03:42 06:35 Temperature 98.0 F 98.2 F Pulse Rate 91 H 90 90 Respiratory 18 18 Rate Blood Pressure 123/81 118/83 118/83 O2 Sat by Pulse 98 96 Oximetry - Lab 04/04/21 05:49 04/07/21 05:14 Most recent lab results Calcium 8.4 mg/dL (8.4-10.2) 04/07/21 05:14 Phosphorus 6.00 mg/dL (2.5-4.5) H 04/04/21 05:49 Magnesium 2.00 mg/dL (1.7-2.3) 04/04/21 05:49 Urine Creatinine 54.8 mg/dL (0.1-20.0) H 04/02/21 14:03 Urine Sodium 58 mmol/L 04/03/21 05:25 Urine Total Protein TNR 04/02/21 14:03 Medications & Allergies - Medications Allergies/Adverse Reactions: Allergies No Known Allergies Allergy (Verified 04/01/21 18:43) Home Medications: Home Medications Medication Instructions Recorded Confirmed Last Taken Type EPINEPHrine [Primatene Mist] 11.7 gm IH QDAY 04/03/21 04/03/21 Unknown History Active Medications: Generic Name Dose Route Start Last Admin Trade Name Freq PRN Reason Stop Dose Admin Acetaminophen 650 mg 04/01/21 18:38 Acetaminophen 325 Mg Tab PO Q4H PRN Pain MILD(1-3)/Fever >100.5/GRANDE Aspirin 81 mg 04/05/21 15:00 04/07/21 09:42 Aspirin Ec 81 Mg Tab PO 81 mg QDAY KOLBY Administration Carvedilol 6.25 mg 04/05/21 15:00 04/07/21 09:43 Carvedilol 6.25 Mg Tab PO 6.25 mg BID KOLBY Administration Docusate Sodium 100 mg 04/03/21 10:00 04/07/21 09:43 Docusate Sodium 100 Mg Cap PO 100 mg BID KOLBY Administration Famotidine 10 mg 04/03/21 10:00 04/07/21 09:43 Famotidine 10 Mg Tab PO 10 mg BID KOLBY Administration Furosemide 40 mg 04/06/21 10:00 04/07/21 09:43 Furosemide 40 Mg/4 Ml Inj IV 40 mg QDAY KOLBY Administration Heparin Sodium (Porcine) 5,000 unit 04/01/21 22:00 04/07/21 09:46 Heparin 5,000 Unit/1 Ml Vial SUB-Q Not Given Q12HR [facility] Hydromorphone HCl 0.5 mg 04/01/21 18:25 04/07/21 09:00 Hydromorphone 1 Mg/1 Ml Inj IV 0.5 mg Q3H PRN Administration Pain , Severe (7-10) Isosorbide Dinitrate/Hydralazine 1 each 04/05/21 14:30 04/07/21 06:35 Isosorb Dinit/Hydralazine 20-37.5mg Tab PO 1 each Q8HR KOLBY Administration Metoclopramide HCl 5 mg 04/03/21 08:00 Metoclopramide 10 Mg/2 Ml Inj IV Q6H PRN Nausea And Vomiting Ondansetron HCl 4 mg 04/01/21 18:38 Ondansetron 4 Mg/2 Ml Inj IV Q8H PRN Nausea And Vomiting Oxycodone/Acetaminophen 1 tab 04/01/21 18:25 04/05/21 11:02 Oxycodone /Acetaminophen 5-325mg Tab PO 1 tab Q6H PRN Administration Pain, Moderate (4-6) Pseudoephedrine/Acetam/Chlorphenir 10 ml 04/01/21 15:49 04/06/21 21:14 Guaifenesin/Codeine 100-10mg Oral Liqd 5 Ml PO 10 ml Q4H PRN Administration Cough Senna/Docusate Sodium 1 tab 04/03/21 22:00 04/06/21 21:14 Sennosides/Docusate Sodium 8.6/50 Mg Tab PO 1 tab QHS KOLBY Administration Sodium Bicarbonate 650 mg 04/02/21 20:00 04/07/21 09:42 Sodium Bicarbonate 650 Mg Tab PO 650 mg TID KOLBY Administration Sodium Chloride 10 ml 04/01/21 22:00 04/07/21 09:44 Sodium Chloride 0.9% 10 Ml Flush Syringe IV 10 ml BID KOLBY Administration Sodium Chloride 10 ml 04/01/21 17:45 Sodium Chloride 0.9% 10 Ml Flush Syringe IV PRN PRN LINE FLUSH
--- NOTE | 2021-04-07 12:10 | Discharge Summary ---
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 Adhere to a low-salt and fluid restricted diet. Follow-up with Nephrology and Cardiology outpatient. Assessment: Volume status improved. Patient maintaining stable renal function with a creatinine of 5.1. Found to have nonischemic cardiomyopathy. Will be discharged with prescriptions for goal-directed medical therapy. We will follow-up with cardiology outpatient. Follow up with: OSCAR MILLER MD [Primary Care Provider] - 7 Days DOMINIQUE SOTO MD [Staff Physician] - 14 Days MAG AUSTIN MD [Staff Physician] - 14 Days Prescriptions: Isosorb Dinit/Hydralazine [Bidil 20/37.5MG] 1 each PO TID 30 Days #90 tablet carvediloL [Coreg] 6.25 mg PO BID 30 Days #60 tablet Aspirin EC [Halfprin EC] 81 mg PO QDAY 30 Days #30 tablet Isosorbide Dinitrate [Isordil] 20 mg PO TID 30 Days #90 tablet Sodium Bicarbonate 650 mg PO TID 30 Days #90 tablet
[2021-04-07 12:56] VITALS: BP 144/105
[2021-04-07 17:13] LABS: Creatinine,Urine 50.8 mg/dL (0.1-20.0)
[2021-04-07 17:16] LABS: Creatinine 24 Hour,Urine 1.4 (0.8-2.8)
[2021-04-09 10:28] LABS: HIV-1 Antibody Differentiation SEE SCANNED RESULT; HIV-2 Antibody Differentiation SEE SCANNED RESULT
[2021-04-10 22:23] LABS: Myeloperoxidase Antibody <1.0 AI (<1.0)
== END 2021-04-07 19:11 | disposition home or self-care (01) | DRG 280 ==
LOC: ED 11:29 → 4A 14:58
PROVIDERS: ADMIT Internal Medicine; ATTEND Student in an Organized Health Care Education/Training Program
DX: I13.0 Hypertensive heart and chronic kidney disease with heart failure and stage 1 through stage 4 chronic kidney disease, or unspecified chronic kidney disease (principal); I50.33 Acute on chronic diastolic (congestive) heart failure; I21.A1 Myocardial infarction type 2; I16.1 Hypertensive emergency; E87.1 Hypo-osmolality and hyponatremia; E44.1 Mild protein-calorie malnutrition; E87.2 Acidosis; N17.9 Acute kidney failure, unspecified; D50.9 Iron deficiency anemia, unspecified; Z68.23 Body mass index [BMI] 23.0-23.9, adult; F17.200 Nicotine dependence, unspecified, uncomplicated; Z82.49 Family history of ischemic heart disease and other diseases of the circulatory system; D64.9 Anemia, unspecified; Z91.19 Patient's noncompliance with other medical treatment and regimen; E87.5 Hyperkalemia
CPT/HCPCS: 36415; 71045; 71046; 76770; 78452; 80048; 80053; 80061; 80074; 81001; 82436; 82550; 82570; 82607; 82747; 83036; 83520; 83550; 83735; 83880; 83935; 83970; 84100; 84133; 84165; 84300; 84484; 85007; 85025; 86021; 86038; 86160; 86162; 86225; 86689; 89050; 93005; 93017; 93306; G0378; A9502; J1170; J1644; J1940; J2785

== ENCOUNTER 2021-04-30 17:14 | Emergency (ER) | payer SELFPAY ==
[2021-04-30 17:43] VITALS: BP 158/118
--- NOTE | 2021-04-30 18:35 | Emergency Department Report ---
ED Shortness of Breath HPI - General Chief Complaint: Dyspnea/Respdistress Stated Complaint: SOB Time Seen by Provider: 04/30/21 17:50 Source: patient Mode of arrival: Ambulatory Limitations: No Limitations - History of Present Illness Initial Comments: Chief complaint: "Shortness of breath. I am a drinker." HPI: This is a 56-year-old male with recent diagnosis of congestive heart failure and chronic kidney disease who presents with shortness of breath. He was discharged after 1 week hospitalization on April 07. He has admittedly been noncompliant with fluid restriction. He has drank copious amount of beer for his birthday and 2 other social outings. He has been taking medication but not adhering to low-salt diet. He was scheduled to see specialist on Saturday. He did not keep this appointment. He denies any pain. He denies chest pain, headache, abdominal pain. He denies the leg swelling. He was referred to Dr. Austin business analyst consultant. And rattan worker Dr. Russ He is comfortable at rest. He has shortness of breath when laying flat and with exertion. Echocardiogram obtained 04/02/2021 revealed ejection fraction 15% MD Complaint: shortness of breath -: Gradual, days(s) (Several days) Severity: mild Consistency: intermittent Improves With: rest Worsens With: lying flat, exertion Known History Of: congestive heart failure Context: other (Noncompliance with fluid restriction) Associated Symptoms: denies other symptoms - Related Data Previous Rx's Medication Instructions Recorded Last Taken Type Aspirin EC [Halfprin EC] 81 mg PO QDAY 30 Days #30 tablet 04/07/21 Unknown Rx Furosemide [Lasix TAB] 40 mg PO QDAY 30 Days #30 tablet 04/07/21 Unknown Rx Isosorb Dinit/Hydralazine [Bidil 1 each PO TID 30 Days #90 tablet 04/07/21 Unknown Rx 20/37.5MG] Isosorbide Dinitrate [Isordil] 20 mg PO TID 30 Days #90 tablet 04/07/21 Unknown Rx Sodium Bicarbonate 650 mg PO TID 30 Days #90 tablet 04/07/21 Unknown Rx carvediloL [Coreg] 6.25 mg PO BID 30 Days #60 tablet 04/07/21 Unknown Rx hydrALAZINE [Apresoline TAB] 25 mg PO Q8HR 30 Days #90 tab 04/12/21 Unknown Rx Allergies Allergy/AdvReac Type Severity Reaction Status Date / Time No Known Allergies Allergy Verified 04/01/21 18:43 ED Review of Systems ROS: Stated complaint: SOB Other details as noted in HPI Comment: All other systems reviewed and negative Constitutional: denies: chills Respiratory: shortness of breath. denies: cough, wheezing Cardiovascular: denies: chest pain Gastrointestinal: denies: abdominal pain, nausea, vomiting ED Past Medical Hx - Past Medical History Previous Medical History?: Yes Hx Hypertension: Yes Hx Congestive Heart Failure: Yes Hx Diabetes: No Hx Asthma: Yes Hx COPD: No - Surgical History Past Surgical History?: No - Social History Smoking Status: Former Smoker Substance Use Type: Alcohol - Medications Home Medications: Home Medications Medication Instructions Recorded Confirmed Last Taken Type Aspirin EC [Halfprin EC] 81 mg PO QDAY 30 Days #30 tablet 04/07/21 Unknown Rx Furosemide [Lasix TAB] 40 mg PO QDAY 30 Days #30 tablet 04/07/21 Unknown Rx Isosorb Dinit/Hydralazine [Bidil 1 each PO TID 30 Days #90 tablet 04/07/21 Unknown Rx 20/37.5MG] Isosorbide Dinitrate [Isordil] 20 mg PO TID 30 Days #90 tablet 04/07/21 Unknown Rx Sodium Bicarbonate 650 mg PO TID 30 Days #90 tablet 04/07/21 Unknown Rx carvediloL [Coreg] 6.25 mg PO BID 30 Days #60 tablet 04/07/21 Unknown Rx hydrALAZINE [Apresoline TAB] 25 mg PO Q8HR 30 Days #90 tab 04/12/21 Unknown Rx ED Physical Exam - General Limitations: No Limitations General appearance: alert, in no apparent distress - Head Head exam: Present: atraumatic, normocephalic - Eye Eye exam: Present: normal appearance - ENT ENT exam: Present: mucous membranes moist - Neck Neck exam: Present: normal inspection, full ROM - Respiratory Respiratory exam: Present: normal lung sounds bilaterally. Absent: respiratory distress, wheezes, rales, rhonchi, stridor - Cardiovascular Cardiovascular Exam: Present: regular rate, normal rhythm, normal heart sounds. Absent: systolic murmur, diastolic murmur, rubs, gallop - GI/Abdominal GI/Abdominal exam: Present: soft, normal bowel sounds. Absent: distended, guarding, rebound - Rectal Rectal exam: Present: deferred - Extremities Exam Extremities exam: Present: normal inspection - Neurological Exam Neurological exam: Present: alert, oriented X3 - Psychiatric Psychiatric exam: Present: normal affect, normal mood - Skin Skin exam: Present: warm, dry, intact, normal color. Absent: rash ED Course Vital Signs 04/30/21 17:42 Temperature 98.5 F Pulse Rate 106 H Respiratory 20 Rate Blood Pressure 158/118 [Right] O2 Sat by Pulse 98 Oximetry ED Medical Decision Making - Radiology Data Radiology results: report reviewed Patient Name: TREVOR ALVAREZ Gender: Male Date of : 1965 Referring Provider: RANJANA VICENTE Organization: [facility] Accession Number: [id number] Requested Date: April 30, 2021 18:17 Report Status: Final Requested Procedure: 1 Procedure Description: XR chest routine 2V Modality: XR Findings Reporting MD: Garrett Posey Dictation Time: April 30, 2021 17:45 Dredge Pump Operator: Not available Sash Clamp Operator Date: CHEST 2 VIEWS INDICATION / CLINICAL INFORMATION: Shortness of breath history of CHF. COMPARISON: None available. FINDINGS: SUPPORT DEVICES: None. HEART / MEDIASTINUM: No significant abnormality. LUNGS / PLEURA: Mild chronic elevation right hemidiaphragm. Right lower lobe pulmonary nodule again noted. No significant pulmonary or pleural abnormality. No pneumothorax. ADDITIONAL FINDINGS: No significant additional findings. IMPRESSION: 1. Persistent right lower lobe pulmonary nodule. Recommend follow-up chest CT. 2. Chronic elevation right hemidiaphragm Signer Name: Garrett Posey MD - Medical Decision Making Mr. Alvarez is a 56-year-old male with new diagnosis of congestive heart failure. He did not quite understand that medical management would be optimized in the outpatient setting. He admittedly is noncompliant with fluid restriction however he is compliant with medication. I encouraged him to double his Lasix doses over the next 3 days. Encourage fluid restriction. Strongly encouraged to outpatient follow-up with both rattan worker Dr. Russ business analyst consultant Dr. Trudi Robledo No pulmonary edema seen on chest radiograph. Incidental lung nodule. Patient is aware. Critical care attestation.: If time is entered above; I have spent that time in minutes in the direct care of this critically ill patient, excluding procedure time. ED Disposition Clinical Impression: Lung nodule, Congestive heart failure Disposition: 01 HOME / SELF CARE / HOMELESS Is pt being admited?: No Does the pt Need Aspirin: No Instructions: Pulmonary Nodule, Heart Failure Action Plan, Heart Failure Exacerbation, Living With Heart Failure, Heart Failure Eating Plan Referrals: MAG AUSTIN MD [Staff Physician] - 3-5 Days DOMINIQUE RUSS MD [Staff Physician] - 3-5 Days
--- NOTE | 2021-04-30 18:49 | XRay Report ---
CHEST 2 VIEWS INDICATION / CLINICAL INFORMATION: Shortness of breath history of CHF. COMPARISON: None available. FINDINGS: SUPPORT DEVICES: None. HEART / MEDIASTINUM: No significant abnormality. LUNGS / PLEURA: Mild chronic elevation right hemidiaphragm. Right lower lobe pulmonary nodule again n oted. No significant pulmonary or pleural abnormality. No pneumothorax. ADDITIONAL FINDINGS: No significant additional findings. IMPRESSION: 1. Persistent right lower lobe pulmonary nodule. Recommend follow-up chest CT. 2. Chronic elevation right hemidiaphragm Signer Name: Garrett Posey MD Signed: 04/30/2021 6:45 PM Workstation Name: [id number]
== END 2021-04-30 21:33 | disposition home or self-care (01) ==
LOC: ED 17:14
DX: I11.0 Hypertensive heart disease with heart failure (principal); I50.9 Heart failure, unspecified; R91.1 Solitary pulmonary nodule; J45.909 Unspecified asthma, uncomplicated; Z79.899 Other long term (current) drug therapy
CPT/HCPCS: 71046; 99283

== ENCOUNTER 2021-06-16 09:08 | Inpatient (IN) | payer SELFPAY ==
[2021-06-16] MEDS ORDERED: ASPIRIN 81 MG TAB CHEW PO ONE (09:35)
--- NOTE | 2021-06-16 09:35 | Emergency Department Report ---
ED General Adult HPI - General Chief complaint: Dyspnea/Respdistress Stated complaint: Shortness of breath PUI?: No Time Seen by Provider: 06/16/21 09:30 Source: patient, EMS ( EMS documentation not available at time of chart dictation ), RN notes reviewed, old records reviewed Mode of arrival: Stretcher Limitations: Physical Limitation - History of Present Illness Initial comments: The patient is a 56-year-old gentleman, with a history of cardiomyopathy, EF of 15%, and renal insufficiency. 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 He presents to the ER with a complaint of painless shortness of breath. He reports that he has not taken his medications. In the emergency room, he is initially dyspneic, tripoding, markedly hypertensive, and diaphoretic. He denies physical pain. He is started on BiPAP, as well as nitroglycerin drip, and endorses marked improvement in symptoms. Denies travel, surgery, immobilization. -: Gradual, days(s) Severity scale (0 -10): 4 Consistency: constant Improves with: none Worsens with: other (Physical exertion. Laying flat.) - Related Data Previous Rx's Medication Instructions Recorded Last Taken Type Aspirin EC [Halfprin EC] 81 mg PO QDAY 30 Days #30 tablet 04/07/21 Unknown Rx Furosemide [Lasix TAB] 40 mg PO QDAY 30 Days #30 tablet 04/07/21 Unknown Rx Isosorb Dinit/Hydralazine [Bidil 1 each PO TID 30 Days #90 tablet 04/07/21 Unknown Rx 20/37.5MG] Isosorbide Dinitrate [Isordil] 20 mg PO TID 30 Days #90 tablet 04/07/21 Unknown Rx Sodium Bicarbonate 650 mg PO TID 30 Days #90 tablet 04/07/21 Unknown Rx carvediloL [Coreg] 6.25 mg PO BID 30 Days #60 tablet 04/07/21 Unknown Rx hydrALAZINE [Apresoline TAB] 25 mg PO Q8HR 30 Days #90 tab 04/12/21 Unknown Rx Allergies Allergy/AdvReac Type Severity Reaction Status Date / Time No Known Allergies Allergy Verified 04/01/21 18:43 ED Review of Systems ROS: Stated complaint: CHEST PAIN Other details as noted in HPI Comment: Unobtainable due to pts medical conditions Constitutional: malaise, weakness. denies: fever Eyes: denies: eye discharge Respiratory: shortness of breath Cardiovascular: orthopnea, edema. denies: chest pain Gastrointestinal: denies: nausea, vomiting, diarrhea Neurological: weakness Psychiatric: anxiety Hematological/Lymphatic: denies: easy bleeding ED Past Medical Hx - Past Medical History Hx Hypertension: Yes Hx Congestive Heart Failure: Yes Hx Diabetes: No Hx Asthma: Yes Hx COPD: No - Social History Smoking Status: Former Smoker Substance Use Type: Alcohol - Medications Home Medications: Home Medications Medication Instructions Recorded Confirmed Last Taken Type Aspirin EC [Halfprin EC] 81 mg PO QDAY 30 Days #30 tablet 04/07/21 Unknown Rx Furosemide [Lasix TAB] 40 mg PO QDAY 30 Days #30 tablet 04/07/21 Unknown Rx Isosorb Dinit/Hydralazine [Bidil 1 each PO TID 30 Days #90 tablet 04/07/21 Unknown Rx 20/37.5MG] Isosorbide Dinitrate [Isordil] 20 mg PO TID 30 Days #90 tablet 04/07/21 Unknown Rx Sodium Bicarbonate 650 mg PO TID 30 Days #90 tablet 04/07/21 Unknown Rx carvediloL [Coreg] 6.25 mg PO BID 30 Days #60 tablet 04/07/21 Unknown Rx hydrALAZINE [Apresoline TAB] 25 mg PO Q8HR 30 Days #90 tab 04/12/21 Unknown Rx ED Physical Exam - General Limitations: Physical Limitation General appearance: alert, anxious, in distress - Head Head exam: Present: atraumatic, normocephalic - Eye Eye exam: Present: normal appearance, EOMI. Absent: nystagmus - ENT ENT exam: Present: normal exam, normal orophraynx, mucous membranes moist, no rmal external ear exam - Neck Neck exam: Present: normal inspection, full ROM. Absent: tenderness, meningismus - Respiratory Respiratory exam: Present: respiratory distress, rales, accessory muscle use - Cardiovascular Cardiovascular Exam: Present: normal rhythm, tachycardia, normal heart sounds, JVD. Absent: bradycardia, irregular rhythm, systolic murmur, diastolic murmur, rubs, gallop - GI/Abdominal GI/Abdominal exam: Present: soft. Absent: distended, tenderness, guarding, rebound, rigid, pulsatile mass - Rectal Rectal exam: Present: deferred - Extremities Exam Extremities exam: Present: normal inspection, full ROM, pedal edema (3+ edema in the bilateral lower extremities), other (2+ pulses noted in the bilateral upper and lower extremities. There is no palpable cord. negative Homans sign. Muscular compartments are soft. The pelvis is stable.). Absent: calf tenderness - Back Exam Back exam: Present: normal inspection, full ROM. Absent: tenderness, CVA tenderness (R), CVA tenderness (L), paraspinal tenderness, vertebral tenderness - Neurological Exam Neurological exam: Present: alert, other (No facial droop. Tongue midline. Extraocular movements intact bilaterally. Facial sensation intact to light touch in V1, V2, V3 distribution bilaterally. 5 and a 5 strength in 4 extremities. Sensation intact to light touch in 4 extremities.). Absent: motor sensory deficit - Psychiatric Psychiatric exam: Present: anxious - Skin Skin exam: Present: warm, dry, intact, normal color. Absent: rash ED Course Vital Signs 06/16/21 06/16/21 06/16/21 09:32 09:33 09:46 Temperature 97.9 F Pulse Rate 117 H 115 H 127 H Respiratory 31 H 32 H 34 H Rate Blood Pressure 197/141 185/116 Blood Pressure 197/141 [Left] O2 Sat by Pulse 98 98 94 Oximetry 06/16/21 06/16/21 10:12 10:16 Temperature Pulse Rate Respiratory Rate Blood Pressure 185/116 185/116 Blood Pressure [Left] O2 Sat by Pulse 100 100 Oximetry - Reevaluation(s) Reevaluation #1: 06/16/21 11:05 Differential diagnosis, including but not limited to: Cardiorenal syndrome with renal failure, hyperkalemia, azotemia, metabolic acidosis, congestive heart failure, hypertensive emergency Assessment and plan: 56-year-old gentleman, who is tachypneic, diaphoretic, hypertensive and tachycardic, history and physical examination are suggestive of cardiorenal syndrome, with acute decompensated congestive heart failure, and hypertensive emergency. He is also found to have hyperkalemia. He felt much improved with initiation of BiPAP therapy, and nitroglycerin therapy. He denies physical pain to myself. He has a chronically elevated troponin, which is likely a type II troponin leak. Contacted nephrology on-call, Dr. Welch. Discussed history, physical, laboratory studies and imaging studies and overall clinical impression. The nephrology group will consultation, the anticipate the need for hemodialysis. He has requested critical care evaluation for possible hemodialysis catheter placement, and he also reports that he will discuss this with the critical care physician on-call. Patient is agreeable to admission hospitalization. We will discuss with the hospitalist physician to arrange admission to the intensive care unit. Reevaluation #2: 06/16/21 11:22 Hospital physician, Dr. Thrasher, to admit patient to the medical service. Critical care physician, Dr Casey to follow in consultation ED Medical Decision Making - Lab Data Result diagrams: 06/16/21 09:38 06/16/21 09:38 Vital Signs 06/16/21 06/16/21 06/16/21 09:32 09:33 09:46 Temperature 97.9 F Pulse Rate 117 H 115 H 127 H Respiratory 31 H 32 H 34 H Rate Blood Pressure 197/141 185/116 Blood Pressure 197/141 [Left] O2 Sat by Pulse 98 98 94 Oximetry 06/16/21 06/16/21 10:12 10:16 Temperature Pulse Rate Respiratory Rate Blood Pressure 185/116 185/116 Blood Pressure [Left] O2 Sat by Pulse 100 100 Oximetry Lab Results 06/16/21 06/16/21 06/16/21 Range/Units 09:38 09:38 09:38 PT 14.3 (12.2-14.9) Sec. INR 1.00 (0.87-1.13) Sodium 127 L (137-145) mmol/L Potassium 6.5 H* (3.6-5.0) mmol/L Chloride 97.7 L (98-107) mmol/L Carbon Dioxide 17 L (22-30) mmol/L Anion Gap 19 mmol/L BUN 69 H (9-20) mg/dL Creatinine 6.1 H (0.8-1.3) mg/dL Estimated GFR 12 ml/min BUN/Creatinine Ratio 11 % Glucose 152 H (75-100) mg/dL POC Glucose (70-105) mg/dL Calcium 9.1 (8.4-10.2) mg/dL Magnesium 2.00 (1.7-2.3) mg/dL Total Bilirubin 0.70 (0.1-1.2) mg/dL AST 36 (5-40) units/L ALT 21 (7-56) units/L Alkaline Phosphatase 84 (35-129) units/L Troponin T 0.601 H* (0.00-0.029) ng/mL NT-Pro-B Natriuret Pep 91445 H (0-900) pg/mL Total Protein 11.2 H (6.3-8.2) g/dL Albumin 3.8 L (3.9-5) g/dL Albumin/Globulin Ratio 0.5 % Triglycerides 222 H (2-149) mg/dL Cholesterol 179 (50-199) mg/dL LDL Cholesterol Direct 102 (50-130) mg/dL HDL Cholesterol 35 L (40-59) mg/dL Cholesterol/HDL Ratio 5.11 % 06/16/21 Range/Units 10:44 PT (12.2-14.9) Sec. INR (0.87-1.13) Sodium (137-145) mmol/L Potassium (3.6-5.0) mmol/L Chloride (98-107) mmol/L Carbon Dioxide (22-30) mmol/L Anion Gap mmol/L BUN (9-20) mg/dL Creatinine (0.8-1.3) mg/dL Estimated GFR ml/min BUN/Creatinine Ratio % Glucose (75-100) mg/dL POC Glucose 142 H (70-105) mg/dL Calcium (8.4-10.2) mg/dL Magnesium (1.7-2.3) mg/dL Total Bilirubin (0.1-1.2) mg/dL AST (5-40) units/L ALT (7-56) units/L Alkaline Phosphatase (35-129) units/L Troponin T (0.00-0.029) ng/mL NT-Pro-B Natriuret Pep (0-900) pg/mL Total Protein (6.3-8.2) g/dL Albumin (3.9-5) g/dL Albumin/Globulin Ratio % Triglycerides (2-149) mg/dL Cholesterol (50-199) mg/dL LDL Cholesterol Direct (50-130) mg/dL HDL Cholesterol (40-59) mg/dL Cholesterol/HDL Ratio % - EKG Data -: EKG Interpreted by [place] EKG shows normal: sinus rhythm - EKG Data Interpretation: unchanged when compared t (Appears unchanged when compared to prior EKG from April 2021) 06/16/21 11:04 The EKG is interpreted at 10: 07 Sinus rhythm, tachycardia, QTC 459 ms. Motion artifact, or R wave progression. Abnormal EKG. Not a STEMI. - Radiology Data Radiology results: pending, report reviewed, image reviewed CHEST 1 VIEW 06/16/2021 9:42 AM INDICATION / CLINICAL INFORMATION: Dyspnea. COMPARISON: 04/30/21 FINDINGS: SUPPORT DEVICES: None. HEART / MEDIASTINUM: Mild cardiomegaly. LUNGS / PLEURA: Mild perihilar interstitial edema with Donita B-lines in the lung bases. No pneumothorax. ADDITIONAL FINDINGS: Right lung base nodule on the previous study is in a different location and may represent nipple shadow. IMPRESSION: 1. Mild congestive heart failure. Signer Name: Shayne Logan MD Signed: 06/16/2021 9:05 AM Workstation Name: [id number] Critical Care Time: Yes Critical care time in (mins) excluding proc time.: 45 Critical care attestation.: If time is entered above; I have spent that time in minutes in the direct care of this critically ill patient, excluding procedure time. ED Disposition Clinical Impression: Hypertensive emergency, Cardiorenal syndrome with renal failure, Hyperkalemia, Metabolic acidosis Disposition: ADMITTED INPATIENT Is pt being admited?: Yes Does the pt Need Aspirin: Yes Condition: Critical Instructions: Hypertension (ED) Referrals: PRIMARY CARE, [Primary Care Provider] - 3-5 Days
--- NOTE | 2021-06-16 10:10 | XRay Report ---
CHEST 1 VIEW 06/16/2021 9:42 AM INDICATION / CLINICAL INFORMATION: Dyspnea. COMPARISON: 04/30/21 FINDINGS: SUPPORT DEVICES: None. HEART / MEDIASTINUM: Mild cardiomegaly. LUNGS / PLEURA: Mild perihilar interstitial edema with Donita B-lines in the lung bases. No pneumotho rax. ADDITIONAL FINDINGS: Right lung base nodule on the previous study is in a different location and may represent nipple shadow. IMPRESSION: 1. Mild congestive heart failure. Signer Name: Shayne Logan MD Signed: 06/16/2021 10:05 AM Workstation Name: [id number]
[2021-06-16 10:22] LABS: Albumin 3.8 g/dL (3.9-5); Calcium 9.1 mg/dL (8.4-10.2)
[2021-06-16] MEDS: NITROGLYCERIN DRIP 50 MG/250 ML BOTTLE IV SCH ×2 (10:26→21:13)
[2021-06-16] MEDS ORDERED: SODIUM BICARB 8.4% 50 MEQ/50 ML SYRINGE IV ONE (10:37)
[2021-06-16] MEDS ORDERED: DEXTROSE 50% IN WATER (25GM) 50 ML SYRINGE IV ONE (10:37)
[2021-06-16] MEDS ORDERED: FUROSEMIDE 100 MG/10 ML INJ IV ONE (10:37)
[2021-06-16] MEDS ORDERED: DEXTROSE 50% IN WATER (25GM) 50 ML SYRINGE IV PRN (10:37)
[2021-06-16 10:39] LABS: Chol/HDL Ratio 5.11 %
[2021-06-16] MEDS: INSULIN REGULAR, HUMAN 100 UNITS/1 ML IV ONE ×2 (10:59→12:00)
[2021-06-16 11:14] LABS: Hemoglobin 11.2 gm/dl (11.8-15.2)
[2021-06-16 11:15] LABS: Hematocrit 36.2 % (35.5-45.6); Mean Corpuscular HGB Conc 31 % (32-34); Mean Corpuscular Volume 63 fl (84-94); Platelet Count 161 K/mm3 (140-440)
--- NOTE | 2021-06-16 12:18 | History and Physical Report ---
History of Present Illness Chief complaint: I am short of breath History of present illness: 56 YO Male with Systolic CHF(EF 15%), HTN, CKD, Medication Noncompliance, Asthma presents to ED for evaluation. Patient reports "I am short of breath". Patient speaks in short and incomplete sentences due to shortness of breath. Patient knowledges shortness of breath over the past 1 week with worsening symptoms over the past few days. EMS was notified and upon arrival the patient was found to be in distress and subsequently transported to [facility] for further care and evaluation of the aforementioned symptoms. The patient was seen and evaluated in the emergency department. All lab and imaging studies reviewed. The patient was found to be using accessory muscles to breathe, unable to speak in complete sentences, tripoding, with a pulse oximetry of 86% on room air which is consistent with acute hypoxemic respiratory failure. Patient also found to have clinical symptoms consistent with congestive heart failure, cardiorenal syndrome, acidosis, hyponatremia. Patient admitted to IMCU due to increased risk of worsening symptoms. Patient placed on supplemental oxygen with improvement in symptoms and was subsequently initiated on noninvasive positive pressure ventilation with mild improvement in symptoms. No reports of fever, chills, chest pain, palpitation, skin rash, recent ill contacts, and known exposure to COVID-19. Prior admission on 04/01/2021 reviewed. All medication listed at time of admission has been reconciled. Advanced care planning conducted in ED. Past History Past Medical History: heart failure, hypertension, renal failure, other (See HPI) Past Surgical History: No surgical history, Other (Reviewed) Social history: single. denies: smoking, alcohol abuse, prescription drug abuse Family history: diabetes, hypertension Medications and Allergies Allergies Allergy/AdvReac Type Severity Reaction Status Date / Time No Known Allergies Allergy Verified 04/01/21 18:43 Home Medications Medication Instructions Recorded Confirmed Last Taken Type Aspirin EC [Halfprin EC] 81 mg PO QDAY 30 Days #30 tablet 04/07/21 Unknown Rx Furosemide [Lasix TAB] 40 mg PO QDAY 30 Days #30 tablet 04/07/21 Unknown Rx Isosorb Dinit/Hydralazine [Bidil 1 each PO TID 30 Days #90 tablet 04/07/21 Unk nown Rx 20/37.5MG] Isosorbide Dinitrate [Isordil] 20 mg PO TID 30 Days #90 tablet 04/07/21 Unknown Rx Sodium Bicarbonate 650 mg PO TID 30 Days #90 tablet 04/07/21 Unknown Rx carvediloL [Coreg] 6.25 mg PO BID 30 Days #60 tablet 04/07/21 Unknown Rx hydrALAZINE [Apresoline TAB] 25 mg PO Q8HR 30 Days #90 tab 04/12/21 Unknown Rx Active Meds: Active Medications Dextrose (Dextrose 50% In Water (25gm) 50 Ml Syringe) 50 ml IV Q30MIN PRN; Protocol PRN Reason: Hypoglycemia Last Admin: 06/16/21 11:58 Dose: 50 ml Documented by: Nitroglycerin/Dextrose (Tridil Drip 50mg/250ml) 50 mg in 250 mls @ 3 mls/hr IV TITR KOLBY; Protocol Last Admin: 06/16/21 10:26 Dose: 100 mcg/min, 30 mls/hr Documented by: Review of Systems Ears, nose, mouth and throat: no ear pain, no tinnitis, no nose pain, no nasal discharge Cardiovascular: orthopnea, edema, dyspnea on exertion, paroxysmal nocturnal d yspnea, decreased exercise tolerance, no chest pain, no rapid/irregular heart beat, no syncope, no lightheadedness Respiratory: shortness of breath Gastrointestinal: no nausea, no vomiting, no constipation, no hematemesis Genitourinary Male: no hematuria, no flank pain, no urinary hesitancy Rectal: no pain, no incontinence, no bleeding Musculoskeletal: no neck stiffness, no shooting arm pain, no shooting leg pain Integumentary: no rash, no redness, no wounds, no boils Neurological: no paralysis, no parathesias, no tingling, no syncope Psychiatric: no anxiety, no change in sleep habits, no insomnia, no hypersomnia, no change in libido Endocrine: no cold intolerance, no heat intolerance, no excessive thirst, no polyuria, no nocturia, no excessive sweating Hematologic/Lymphatic: no easy bruising, no easy bleeding, no lymphedema Allergic/Immunologic: no allergic rhinitis, no wheezing Exam - Constitutional Vitals: Temp Pulse Resp BP Pulse Ox 97.9 F 127 H 34 H 185/116 100 06/16/21 09:33 06/16/21 09:46 06/16/21 09:46 06/16/21 10:16 06/16/21 10:16 General appearance: Present: severe distress - EENT Eyes: Present: PERRL ENT: hearing intact, clear oral mucosa - Neck Neck: Present: supple, masses or JVD - Respiratory Respiratory effort: labored, accessory muscle use, stridor Respiratory: bilateral: diminished, rhonchi - Cardiovascular Rhythm: other (Tachycardia) Heart Sounds: Present: S1 & S2. Absent: rub, click - Extremities Extremities: pulses symmetrical, No edema Peripheral Pulses: within normal limits - Abdominal General gastrointestinal: Present: soft, non-tender, non-distended, normal bowel sounds Male genitourinary: Present: normal - Integumentary Integumentary: Present: clear, warm, dry - Musculoskeletal Musculoskeletal: generalized weakness - Psychiatric Psychiatric: appropriate mood/affect, intact judgment & insight, agitated - Neurologic Neurologic: CNII-XII intact, moves all extremities HEART Score - HEART Score Troponin: Troponin T 0.601 ng/mL (0.00-0.029) H* 06/16/21 09:38 Results - Labs CBC & Chem 7: 06/16/21 15:40 06/16/21 15:40 Labs: Abnormal lab results 06/16/21 06/16/21 06/16/21 Range/Units 09:38 09:38 09:38 RBC 5.70 H (3.65-5.03) M/mm3 Hgb 11.2 L (11.8-15.2) gm/dl MCV 63 L (84-94) fl MCH 20 L (28-32) pg MCHC 31 L (32-34) % RDW 19.0 H (13.2-15.2) % Sodium 127 L (137-145) mmol/L Potassium 6.5 H* (3.6-5.0) mmol/L Chloride 97.7 L (98-107) mmol/L Carbon Dioxide 17 L (22-30) mmol/L BUN 69 H (9-20) mg/dL Creatinine 6.1 H (0.8-1.3) mg/dL Glucose 152 H (75-100) mg/dL POC Glucose (70-105) mg/dL Troponin T 0.601 H* (0.00-0.029) ng/mL NT-Pro-B Natriuret Pep 64813 H (0-900) pg/mL Total Protein 11.2 H (6.3-8.2) g/dL Albumin 3.8 L (3.9-5) g/dL Triglycerides 222 H (2-149) mg/dL HDL Cholesterol 35 L (40-59) mg/dL 06/16/21 Range/Units 10:44 RBC (3.65-5.03) M/mm3 Hgb (11.8-15.2) gm/dl MCV (84-94) fl MCH (28-32) pg MCHC (32-34) % RDW (13.2-15.2) % Sodium (137-145) mmol/L Potassium (3.6-5.0) mmol/L Chloride (98-107) mmol/L Carbon Dioxide (22-30) mmol/L BUN (9-20) mg/dL Creatinine (0.8-1.3) mg/dL Glucose (75-100) mg/dL POC Glucose 142 H (70-105) mg/dL Troponin T (0.00-0.029) ng/mL NT-Pro-B Natriuret Pep (0-900) pg/mL Total Protein (6.3-8.2) g/dL Albumin (3.9-5) g/dL Triglycerides (2-149) mg/dL HDL Cholesterol (40-59) mg/dL Assessment and Plan - Patient Problems (1) Acute hypoxemic respiratory failure Current Visit: Yes Status: Acute Plan to address problem: Chest x-ray, supplemental oxygen, pulse oximetry, nebulizer therapy, noninvasive positive pressure ventilation, supportive care. (2) Hyponatremia Current Visit: Yes Status: Acute Plan to address problem: IV fluid resuscitation therapy, repeat BMP, repeat BMP in a.m. (3) Malnutrition Current Visit: Yes Status: Acute Qualifiers: Malnutrition type: protein-calorie malnutrition Plan to address problem: Increase protein intake, supportive care, dietary supplementation. (4) Acute exacerbation of CHF (congestive heart failure) Current Visit: Yes Status: Acute Qualifiers: Heart failure type: systolic Qualified Code(s): I50.23 - Acute on chronic systolic (congestive) heart failure Plan to address problem: CHF protocol: Chest x-ray, supplemental oxygen, pulse oximetry, strict I's/O, monitor urine output every shift, daily weight, afterload reduction, blood pressure control, echocardiogram reviewed. Cardiology team consulted. (5) Cardiorenal syndrome with renal failure Current Visit: Yes Status: Acute Plan to address problem: Nephrology team consulted, continue medical management, supportive care, (6) Hypertensive emergency Current Visit: Yes Status: Acute Plan to address problem: Monitor blood pressure every shift, continue medical management, IV hydralazine every 6 hours as needed for systolic blood pressure in the nuclear 155 mmHg (7) Metabolic acidosis Current Visit: Yes Status: Acute Plan to address problem: IV fluid resuscitation therapy, repeat BMP in a.m., supportive care. (8) DVT prophylaxis Current Visit: Yes Status: Acute Plan to address problem: SCD to bilateral lower extremities while in bed (9) Advance care planning Current Visit: Yes Status: Acute Plan to address problem: Disease education conducted, care plan discussed, prognosis discussed, patient is full code, patient acknowledges understanding agreement with care plan, +30 minutes
[2021-06-16] MEDS ORDERED: HYDROmorphone 1 MG/1 ML INJ IV PRN (12:30)
[2021-06-16] MEDS ORDERED: ACETAMINOPHEN 325 MG TAB PO PRN (13:00)
--- NOTE | 2021-06-16 13:01 | Electrocardiograph Report ---
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
[2021-06-16] MEDS ORDERED: ISOSORBIDE DINITRATE 20 MG TAB PO SCH (14:00)
[2021-06-16] MEDS ORDERED: ISOSORB DINIT/HYDRALAZINE 20-37.5MG TAB PO SCH (14:00)
--- NOTE | 2021-06-16 14:15 | Event Note ---
Date: 06/16/21 Consulted for Vascath placement. I have discussed with offset printer and timing of vascath placement is being evaluated patient is making clean urine with diuretic challenge and is tolerating some time off BIPAP - follow serum K+ & correct - not a candidate for ICU acutely - please re-consult as needed
[2021-06-16] MEDS: SODIUM BICARBONATE 650 MG TAB PO SCH ×2 (14:20→21:36)
[2021-06-16 16:03] LABS: Basophils % (Auto) 0.6 % (0.0-1.8); Eosinophils % (Auto) 0.1 % (0.0-4.3); Hematocrit 33.7 % (35.5-45.6); Hemoglobin 10.4 gm/dl (11.8-15.2); Lymphocytes # (Auto) 1.6 K/mm3 (1.2-5.4); Lymphocytes % (Auto) 30.9 % (13.4-35.0); Mean Corpuscular HGB Conc 31 % (32-34); Monocytes # (Auto) 0.2 K/mm3 (0.0-0.8); Monocytes % (Auto) 3.7 % (0.0-7.3); Red Blood Count 5.43 M/mm3 (3.65-5.03); Red Cell Distribution Width 18.4 % (13.2-15.2)
[2021-06-16 16:16] LABS: Mean Corpuscular Volume 62 fl (84-94)
[2021-06-16 16:26] LABS: Albumin 3.6 g/dL (3.9-5); Calcium 9.2 mg/dL (8.4-10.2)
[2021-06-16 17:04] LABS: Band Neutrophils # (Manual) 0.8 K/mm3; Hypochromasia 2+; Myelocytes # (Manual) 0.4 K/mm3; Promyelocytes # (Manual) 0.2 K/mm3; Total Cells Counted 100
[2021-06-16 17:05] LABS: Anisocytosis 1+; Platelet Estimate Consistent w Auto
[2021-06-16 17:16] LABS: Platelet Count 151 K/mm3 (140-440)
--- NOTE | 2021-06-16 17:21 | Consultation ---
History of Present Illness - Reason for Consult Consult date: 06/16/21 chronic renal failure, hyperkalemia, metabolic acidosis - History of Present Illness The patient is a 56-year-old man with a history of cardiomyopathy, EF of 15%, and likely CKD who presents with dyspnea. 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 Was planning to see doctors after his insurance starts in 2021. Of note, he was admitted in March 2021 for similar concern, seen on consult by Rolo Kuhn, but did not follow up for CKD as noted due to lack of insurance. In ED, started on BiPAP, as well as nitroglycerin drip with improvement in symptoms. Notes good urine output after getting medicine. He denies edema. Denies uremic symptoms. Past History Past Medical History: diabetes, heart failure, hypertension, renal failure Past Surgical History: No surgical history Social history: no significant social history Family history: no significant family history Medications and Allergies Allergies Allergy/AdvReac Type Severity Reaction Status Date / Time No Known Allergies Allergy Verified 04/01/21 18:43 Home Medications Medication Instructions Recorded Confirmed Last Taken Type Aspirin EC [Halfprin EC] 81 mg PO QDAY 30 Days #30 tablet 04/07/21 Unknown Rx Furosemide [Lasix TAB] 40 mg PO QDAY 30 Days #30 tablet 04/07/21 Unknown Rx Isosorb Dinit/Hydralazine [Bidil 1 each PO TID 30 Days #90 tablet 04/07/21 Unknown Rx 20/37.5MG] Isosorbide Dinitrate [Isordil] 20 mg PO TID 30 Days #90 tablet 04/07/21 Unknown Rx Sodium Bicarbonate 650 mg PO TID 30 Days #90 tablet 04/07/21 Unknown Rx carvediloL [Coreg] 6.25 mg PO BID 30 Days #60 tablet 04/07/21 Unknown Rx hydrALAZINE [Apresoline TAB] 25 mg PO Q8HR 30 Days #90 tab 04/12/21 Unknown Rx Active Meds: Active Medications Acetaminophen (Acetaminophen 325 Mg Tab) 650 mg PO Q6H PRN PRN Reason: Pain MILD(1-3)/Fever >100.5/GRANDE Aspirin (Aspirin Ec 81 Mg Tab) 81 mg PO QDAY KOLBY Carvedilol (Carvedilol 6.25 Mg Tab) 6.25 mg PO BID KOLBY Dextrose (Dextrose 50% In Water (25gm) 50 Ml Syringe) 50 ml IV Q30MIN PRN; Protocol PRN Reason: Hypoglycemia Last Admin: 06/16/21 11:58 Dose: 50 ml Documented by: Furosemide (Furosemide 40 Mg/4 Ml Inj) 100 mg IV 0600,1800 KOLBY Hydromorphone HCl (Hydromorphone 1 Mg/1 Ml Inj) 0.5 mg IV Q8H PRN PRN Reason: Pain , Severe (7-10) Nitroglycerin/Dextrose (Tridil Drip 50mg/250ml) 50 mg in 250 mls @ 3 mls/hr IV TITR KOLBY; Protocol Last Admin: 06/16/21 10:26 Dose: 100 mcg/min, 30 mls/hr Documented by: Oxycodone/Acetaminophen (Oxycodone /Acetaminophen 5-325mg Tab) 1 tab PO Q16H PRN PRN Reason: Pain, Moderate (4-6) Sodium Bicarbonate (Sodium Bicarbonate 650 Mg Tab) 650 mg PO TID KOLBY Last Admin: 06/16/21 14:20 Dose: 650 mg Documented by: Sodium Chloride (Sodium Chloride 0.9% 10 Ml Flush Syringe) 10 ml IV BID KOLBY Sodium Chloride (Sodium Chloride 0.9% 10 Ml Flush Syringe) 10 ml IV PRN PRN PRN Reason: LINE FLUSH Sodium Polystyrene Sulfonate (Sodium Polystyrene 15 Gm/60 Ml Oral Liqd) 30 gm PO DAILY KOLBY Review of Systems All systems: negative (as per HPI) Exam - Vital Signs Vital signs: Vital Signs Pulse Resp BP Pulse Ox 117 H 31 H 197/141 98 06/16/21 09:32 06/16/21 09:32 06/16/21 09:32 06/16/21 09:32 - General Appearance General appearance: well-developed, well-nourished, appears stated age EENT: PERRL, mucous membranes moist Neck: Present: neck supple Respiratory: Decreased Breath Sounds Heart: regular, S1S2 Gastrointestinal: Present: normoactive bowel sounds Integumentary: no rash, warm and dry Neurologic: no focal deficit, no asterixis, alert and oriented x3, CN 3-12 intact Psychiatric: mood/affect appropriate Results - Lab Results 06/16/21 15:40 06/16/21 15:40 Most recent lab results Calcium 9.2 mg/dL (8.4-10.2) 06/16/21 15:40 Magnesium 2.00 mg/dL (1.7-2.3) 06/16/21 09:38 Assessment and Plan # ROMAN on CKD: suspect advanced CKD/ESKD at baseline with cardiorenal physiology. Prior creatinine around 5, now at 6.0-6.2. Reviewed prior workup with serologies, imaging, urine studies - continue aggressive diuretic challenge Lasix 100mg IV BID for now - given ROMAN workup in 03/2021, no need to recheck - avoid nephrotoxins - renally dose medications - strict Is/Os - save arm precautions - medical management for now, but suspect he will need to initiate renal replacement therapy this admission pending volume, hyperkalemia, acidosis # Hyperkalemia: lasix as above, start daily Kayexylate, NaHCO3 # Metabolic Acidosis: NaHCO3 po for now, consider HCO3 gtt if not improving # CHF: Bipap prn, diuretic challenge as noted, plan for dialysis if volume status not improving # Hyponatremia: likely in setting of volume overload, diurese as above # HTN: BP reasonable currently # Secondary Hyperparathyroidism in CKD: PTH in 03/2021 ~130, check phos (was 6.0 in 03/2021) # Anemia in CKD: microcytic anemia, iron panel reasonable in 03/2021, no immediate need for ESAs
[2021-06-16] MEDS: FUROSEMIDE 100 MG/10 ML INJ IV SCH (17:40)
[2021-06-16] MEDS ORDERED: FUROSEMIDE 40 MG/4 ML INJ IV SCH ×2 (18:00)
[2021-06-16] MEDS: carvediloL 6.25 MG TAB PO SCH (21:33)
[2021-06-16] MEDS: SODIUM POLYSTYRENE 15 GM/60 ML ORAL LIQD PO SCH (21:34)
[2021-06-17 04:46] LABS: Basophils % (Auto) 0.3 % (0.0-1.8); Lymphocytes # (Auto) 2.9 K/mm3 (1.2-5.4); Lymphocytes % (Auto) 48.7 % (13.4-35.0); Mean Corpuscular HGB Conc 30 % (32-34); Monocytes # (Auto) 0.6 K/mm3 (0.0-0.8); Red Blood Count 5.35 M/mm3 (3.65-5.03); Red Cell Distribution Width 18.3 % (13.2-15.2)
[2021-06-17 04:53] LABS: Hematocrit 33.1 % (35.5-45.6); Mean Corpuscular Volume 62 fl (84-94); Platelet Count 166 K/mm3 (140-440)
[2021-06-17 05:12] LABS: Albumin 3.7 g/dL (3.9-5); Calcium 9.1 mg/dL (8.4-10.2)
[2021-06-17] MEDS: FUROSEMIDE 100 MG/10 ML INJ IV SCH ×2 (07:21→17:13)
[2021-06-17] MEDS: ASPIRIN EC 81 MG TAB PO SCH (09:56)
[2021-06-17] MEDS: SODIUM POLYSTYRENE 15 GM/60 ML ORAL LIQD PO SCH (09:56)
[2021-06-17] MEDS: carvediloL 6.25 MG TAB PO SCH ×2 (09:56→22:45)
[2021-06-17] MEDS: SODIUM BICARBONATE 650 MG TAB PO SCH ×3 (09:56→22:45)
--- NOTE | 2021-06-17 12:24 | Progress Note ---
Assessment and Plan Assessment and plan: #Heart failure with reduced ejection fraction #Acute CHF exacerbation -EF 15% per TTE in March -NT proBNP 10,359 -will continue beta-teddy, currently on nitroglycerin drip isosorbide held -Continue Lasix 100 mg IV twice daily -Strict I's/O's, fluid restriction to less than 1.5 L #Acute hypoxic respiratory failure -Patient currently on BiPAP -CXR showed cardiomegaly and mild interstitial edema -Will wean to room air as tolerated -Continue diuresis #NSTEMI type II -Troponin 0.601, repeat ordered -EKG without acute ST changes -Likely secondary to ESRD #ROMAN on CKD -Baseline creatinine 5, 6.8 today -Likely secondary to vasomotor nephropathy/cardiorenal -Nephrology consulted, assistance appreciated -Patient does not want to proceed with hemodialysis at this time despite medcial need -Refused Vas-Cath placement -sodium bicarbonate for acidosis -will continue to monitor #Hypertension -will continue to monitor -will add hydralazine if continues to be elevated #Microcytic anemia -Baseline hemoglobin 10 -Likely secondary to ESRD -will transfuse for hemoglobin less than 7 #Hyponatremia -Likely hypervolemic hyponatremia secondary to CHF vs CKD -should improve with continued diuresis #Hyperkalemia -Improving -continue medical management -will continue to monitor Disposition Plan: continue medical management History Interval history: No acute events overnight. Patient reports shortness of breath with BiPAP removal. Wants to continue to use BiPAP. No complaints at this time. Hospitalist Physical - Physical exam Narrative exam: GENERAL: Well-developed well-nourished. Lying in bed, bed in no acute distress. HEENT: BiPAP in place. CHEST/LUNGS: Expiratory crackles bilaterally. HEART/CARDIOVASCULAR: Mild tachycardia. No murmur, rubs or gallops appreciated. ABDOMEN: +BS. NT/ND. NEURO: No focal motor deficit. Follows all commands. EXTREMITIES: No cyanosis, clubbing or edema. PSYCH: Cooperative. - Constitutional Vitals: Temp Pulse Resp BP Pulse Ox 98.2 F 109 H 24 155/107 97 06/17/21 08:00 06/17/21 12:00 06/17/21 12:00 06/17/21 12:00 06/17/21 12:00 General appearance: Present: severe distress HEART Score - HEART Score Troponin: Troponin T 0.601 ng/mL (0.00-0.029) H* 06/16/21 09:38 Results - Labs CBC & Chem 7: 06/17/21 03:52 06/17/21 03:52 Labs: Laboratory Last Values WBC 6.0 K/mm3 (4.5-11.0) 06/17/21 03:52 RBC 5.35 M/mm3 (3.65-5.03) H 06/17/21 03:52 Hgb 10.0 gm/dl (11.8-15.2) L 06/17/21 03:52 Hct 33.1 % (35.5-45.6) L 06/17/21 03:52 MCV 62 fl (84-94) L 06/17/21 03:52 MCH 19 pg (28-32) L 06/17/21 03:52 MCHC 30 % (32-34) L 06/17/21 03:52 RDW 18.3 % (13.2-15.2) H 06/17/21 03:52 Plt Count 166 K/mm3 (140-440) 06/17/21 03:52 Lymph % (Auto) 48.7 % (13.4-35.0) H 06/17/21 03:52 [place] % (Auto) 10.0 % (0.0-7.3) H 06/17/21 03:52 Eos % (Auto) 0.0 % (0.0-4.3) 06/17/21 03:52 Baso % (Auto) 0.3 % (0.0-1.8) 06/17/21 03:52 Lymph # (Auto) 2.9 K/mm3 (1.2-5.4) 06/17/21 03:52 [place] # (Auto) 0.6 K/mm3 (0.0-0.8) 06/17/21 03:52 Eos # (Auto) 0.0 K/mm3 (0.0-0.4) 06/17/21 03:52 Baso # (Auto) 0.0 K/mm3 (0.0-0.1) 06/17/21 03:52 Add Manual Diff Complete 06/16/21 09:38 Total Counted 100 06/16/21 09:38 Seg Neutrophils % 41.0 % (40.0-70.0) 06/17/21 03:52 Seg Neuts % (Manual) 48.0 % (40.0-70.0) 06/16/21 09:38 Band Neutrophils % 8.0 % 06/16/21 09:38 Lymphocytes % (Manual) 28.0 % (13.4-35.0) 06/16/21 09:38 Reactive Lymphs % (Man) 2.0 % 06/16/21 09:38 Monocytes % (Manual) 2.0 % (0.0-7.3) 06/16/21 09:38 Eosinophils % (Manual) 2.0 % (0.0-4.3) 06/16/21 09:38 Metamyelocytes % 4.0 % 06/16/21 09:38 Myelocytes % 4.0 % 06/16/21 09:38 Promyelocytes % 2.0 % 06/16/21 09:38 Nucleated RBC % Not Reportable 06/16/21 09:38 Seg Neutrophils # 2.4 K/mm3 (1.8-7.7) 06/17/21 03:52 Seg Neutrophils # Man 4.8 K/mm3 (1.8-7.7) 06/16/21 09:38 Band Neutrophils # 0.8 K/mm3 06/16/21 09:38 Lymphocytes # (Manual) 2.8 K/mm3 (1.2-5.4) 06/16/21 09:38 Abs React Lymphs (Man) 0.2 K/mm3 06/16/21 09:38 Monocytes # (Manual) 0.2 K/mm3 (0.0-0.8) 06/16/21 09:38 Eosinophils # (Manual) 0.2 K/mm3 (0.0-0.4) 06/16/21 09:38 Basophils # (Manual) 0.0 K/mm3 (0.0-0.1) 06/16/21 09:38 Metamyelocytes # 0.4 K/mm3 06/16/21 09:38 Myelocytes # 0.4 K/mm3 06/16/21 09:38 Promyelocytes # 0.2 K/mm3 06/16/21 09:38 Blast Cells # 0.0 K/mm3 06/16/21 09:38 WBC Morphology Not Reportable 06/16/21 09:38 Hypersegmented Neuts Not Reportable 06/16/21 09:38 Hyposegmented Neuts Not Reportable 06/16/21 09:38 Hypogranular Neuts Not Reportable 06/16/21 09:38 Smudge Cells Not Reportable 06/16/21 09:38 Toxic Granulation Not Reportable 06/16/21 09:38 Toxic Vacuolation Not Reportable 06/16/21 09:38 Dohle Bodies Not Reportable 06/16/21 09:38 Pelger-Huet Anomaly Not Reportable 06/16/21 09:38 Marianne Rods Not Reportable 06/16/21 09:38 Platelet Estimate Consistent w auto 06/16/21 09:38 Clumped Platelets Not Reportable 06/16/21 09:38 Plt Clumps, EDTA Not Reportable 06/16/21 09:38 Large Platelets Not Reportable 06/16/21 09:38 Giant Platelets Not Reportable 06/16/21 09:38 Platelet Satelliting Not Reportable 06/16/21 09:38 Plt Morphology Comment Not Reportable 06/16/21 09:38 RBC Morphology Not Reportable 06/16/21 09:38 Dimorphic RBCs Not Reportable 06/16/21 09:38 Polychromasia Not Reportable 06/16/21 09:38 Hypochromasia 2+ 06/16/21 09:38 Poikilocytosis Not Reportable 06/16/21 09:38 Anisocytosis 1+ 06/16/21 09:38 Microcytosis 2+ 06/16/21 09:38 Macrocytosis Not Reportable 06/16/21 09:38 Spherocytes Not Reportable 06/16/21 09:38 Pappenheimer Bodies Not Reportable 06/16/21 09:38 Sickle Cells Not Reportable 06/16/21 09:38 Target Cells Not Reportable 06/16/21 09:38 Tear Drop Cells Not Reportable 06/16/21 09:38 Ovalocytes Not Reportable 06/16/21 09:38 Helmet Cells Not Reportable 06/16/21 09:38 Sapp-Lathrop Bodies Not Reportable 06/16/21 09:38 Allen Rings Not Reportable 06/16/21 09:38 Buhl Cells Not Reportable 06/16/21 09:38 Bite Cells Not Reportable 06/16/21 09:38 Crenated Cell Not Reportable 06/16/21 09:38 Elliptocytes Not Reportable 06/16/21 09:38 Acanthocytes (Spur) Not Reportable 06/16/21 09:38 Rouleaux Not Reportable 06/16/21 09:38 Hemoglobin C Crystals Not Reportable 06/16/21 09:38 Schistocytes Not Reportable 06/16/21 09:38 Malaria parasites Not Reportable 06/16/21 09:38 Maurisio Bodies Not Reportable 06/16/21 09:38 Hem Pathologist Commnt No 06/16/21 09:38 PT 14.3 Sec. (12.2-14.9) 06/16/21 09:38 INR 1.00 (0.87-1.13) 06/16/21 09:38 Sodium 131 mmol/L (137-145) L 06/17/21 03:52 Potassium 5.3 mmol/L (3.6-5.0) H 06/17/21 03:52 Chloride 97.0 mmol/L (98-107) L 06/17/21 03:52 Carbon Dioxide 18 mmol/L (22-30) L 06/17/21 03:52 Anion Gap 21 mmol/L 06/17/21 03:52 BUN 83 mg/dL (9-20) H 06/17/21 03:52 Creatinine 6.8 mg/dL (0.8-1.3) H 06/17/21 03:52 Estimated GFR 10 ml/min 06/17/21 03:52 BUN/Creatinine Ratio 12 % 06/17/21 03:52 Glucose 128 mg/dL (75-100) H 06/17/21 03:52 POC Glucose 142 mg/dL (70-105) H 06/16/21 10:44 Calcium 9.1 mg/dL (8.4-10.2) 06/17/21 03:52 Magnesium 2.00 mg/dL (1.7-2.3) 06/16/21 09:38 Total Bilirubin 0.60 mg/dL (0.1-1.2) 06/17/21 03:52 AST 28 units/L (5-40) 06/17/21 03:52 ALT 16 units/L (7-56) 06/17/21 03:52 Alkaline Phosphatase 73 units/L (35-129) 06/17/21 03:52 Troponin T 0.601 ng/mL (0.00-0.029) H* 06/16/21 09:38 NT-Pro-B Natriuret Pep 53684 pg/mL (0-900) H 06/16/21 09:38 Total Protein 10.4 g/dL (6.3-8.2) H 06/17/21 03:52 Albumin 3.7 g/dL (3.9-5) L 06/17/21 03:52 Albumin/Globulin Ratio 0.6 % 06/17/21 03:52 Triglycerides 222 mg/dL (2-149) H 06/16/21 09:38 Cholesterol 179 mg/dL (50-199) 06/16/21 09:38 LDL Cholesterol Direct 102 mg/dL (50-130) 06/16/21 09:38 HDL Cholesterol 35 mg/dL (40-59) L 06/16/21 09:38 Cholesterol/HDL Ratio 5.11 % 06/16/21 09:38 Dang/IV: Voiding Method Urinal Active Medications - Current Medications Current Medications: Generic Name Dose Route Start Last Admin Trade Name Freq PRN Reason Stop Dose Admin Acetaminophen 650 mg 06/16/21 13:00 Acetaminophen 325 Mg Tab PO Q6H PRN Pain MILD(1-3)/Fever >100.5/GRANDE Aspirin 81 mg 06/17/21 10:00 06/17/21 09:56 Aspirin Ec 81 Mg Tab PO 81 mg QDAY KOLBY Administration Carvedilol 6.25 mg 06/16/21 22:00 06/17/21 09:56 Carvedilol 6.25 Mg Tab PO 6.25 mg BID KOLBY Administration Dextrose 50 ml 06/16/21 10:37 06/16/21 11:58 Dextrose 50% In Water (25gm) 50 Ml Syringe IV 50 ml Q30MIN PRN Administration Hypoglycemia Protocol Furosemide 100 mg 06/16/21 18:00 06/17/21 07:21 Furosemide 100 Mg/10 Ml Inj IV 100 mg 0600,1800 KOLBY Administration Hydromorphone HCl 0.5 mg 06/16/21 12:30 Hydromorphone 1 Mg/1 Ml Inj IV Q8H PRN Pain , Severe (7-10) Nitroglycerin/Dextrose 50 mg in 250 mls @ 3 mls/hr 06/16/21 10:00 06/17/21 07:28 Tridil Drip 50mg/250ml IV 0 mcg/min TITR KOLBY 0 mls/hr Titration Protocol 10 MCG/MIN Oxycodone/Acetaminophen 1 tab 06/16/21 13:00 Oxycodone /Acetaminophen 5-325mg Tab PO Q16H PRN Pain, Moderate (4-6) Sodium Bicarbonate 650 mg 06/16/21 14:00 06/17/21 09:56 Sodium Bicarbonate 650 Mg Tab PO 650 mg TID KOLBY Administration Sodium Chloride 10 ml 06/16/21 22:00 06/17/21 09:57 Sodium Chloride 0.9% 10 Ml Flush Syringe IV 10 ml BID KOLBY Administration Sodium Chloride 10 ml 06/16/21 12:30 Sodium Chloride 0.9% 10 Ml Flush Syringe IV PRN PRN LINE FLUSH Sodium Polystyrene Sulfonate 30 gm 06/16/21 18:00 06/17/21 09:56 Sodium Polystyrene 15 Gm/60 Ml Oral Liqd PO 30 gm DAILY KOLBY Administration Nutrition/Malnutrition Assess - Dietary Evaluation Nutrition/Malnutrition Findings: Nutrition Notes Start: 06/17/21 09:45 Freq: Status: Active Protocol: Document 06/17/21 09:45 FLOR (Rec: 06/17/21 09:51 FLOR [id number]) Nutrition Notes Need for Assessment generated from: supervisor doping,MST Initial or Follow up Assessment Current Diagnosis Acute Kidney Injury,CKD(stage I-IV),Hypertension,Heart Failure,Respiratory Failure Other Pertinent Diagnosis CHF exacerbation, Hypertensive emergency Current Diet NPO Labs/Tests Na 131 K 5.3 CO2 - 18 BUN 83 Cr 6.8 Pertinent Medications Lasix, Nitroglycerin gtt, Na bicarb, Kionex Height 6 ft 1 in Weight 70.3 kg [place] Body Weight (kg) 83.63 BMI 20.4 Weight Status Appropriate Subjective/Other Information Pt screened for malnutrition risk. Pt c/o PARIS upon admission. He has a hx of medication noncompliance; currently on BiPap support. He may need renal replacement therapy. Burn Absent Trauma Absent Minimum of two criteria No #1 Nutrition Diagnosis Inadequate oral intake Etiology PARIS As Evidenced by Signs and Symptoms pt NPO Is patient on ventilator? No Is Patient Ambulatory and/or Out of Bed No REE-([facility]-confined to bed) 1901.876 Calculation Used for Recommendations Paul Kelly Additional Notes Pro needs 0.6-1.2g/k-84g/ day Fluid needs 1-1.5L/day Nutrition Intervention Change Diet Order: Advance diet when medically feasible Goal #1 Diet advancement to meet nutrient needs Anticipated Discharge Needs: None identified at this time Follow-Up By: 06/19/21 Additional Comments F/U: diet advancement, MST assessment
[2021-06-17] MEDS ORDERED: SODIUM CHLORIDE 0.9% 100 ML IV PRN (12:29)
--- NOTE | 2021-06-17 12:29 | Progress Note ---
Assessment and Plan ROMAN on CKD: suspect advanced CKD/ESKD at baseline with cardiorenal physiology. Prior creatinine around 5, now at 6.0-6.2. Reviewed prior workup with serologies, imaging, urine studies -Inadequate response to Lasix challenge of 100 mg twice a day. Patient is currently on a BiPAP mask with 30% FiO2. Need to initiate renal replacement therapy. Discussed with patient at length . He has agreed to start dialysis. Discussed with ICU team regarding Vas-Cath placement. Initiate dialysis after access - avoid nephrotoxins - renally dose medications - strict Is/Os - save arm precautions # Hyperkalemia: Did improve some with medical therapy. Hopefully dialysis will correct the remainder of his hyperkalemia # Metabolic Acidosis: # CHF: Patient is currently on BiPAP. Remove fluid as tolerated with dialysis .inadequate response to large dose loop diuretic # Hyponatremia: likely in setting of volume overload, diurese as above # HTN: BP reasonable currently # Secondary Hyperparathyroidism in CKD: PTH in 03/2021 ~130, check phos (was 6.0 in 03/2021) # Anemia in CKD: microcytic anemia, iron panel reasonable in 03/2021, no immediate need for ESAs Subjective Date of service: 06/17/21 Interval history: Patient is currently on a BiPAP mask. Still having some shortness of breath. Oxygen saturation is 99%. Objective - Vital Signs Vital signs: Vital Signs - 12hr 06/17/21 06/17/21 06/17/21 00:30 00:40 00:50 Temperature Pulse Rate 99 H 111 H 103 H Pulse Rate [ From Monitor] Respiratory 27 H 30 H 28 H Rate Blood Pressure 179/121 145/109 137/103 O2 Sat by Pulse 98 98 98 Oximetry 06/17/21 06/17/21 06/17/21 01:00 01:10 01:20 Temperature Pulse Rate 107 H 108 H 107 H Pulse Rate [ From Monitor] Respiratory 26 H 25 H 26 H Rate Blood Pressure 143/93 143/93 138/88 O2 Sat by Pulse 98 97 Oximetry 06/17/21 06/17/21 06/17/21 01:30 01:40 01:50 Temperature Pulse Rate 109 H 111 H 111 H Pulse Rate [ From Monitor] Respiratory 28 H 23 26 H Rate Blood Pressure 135/84 135/84 130/93 O2 Sat by Pulse 97 98 98 Oximetry 06/17/21 06/17/21 06/17/21 02:00 02:10 02:20 Temperature Pulse Rate 105 H 99 H 99 H Pulse Rate [ From Monitor] Respiratory 25 H 28 H 25 H Rate Blood Pressure 126/84 126/84 143/73 O2 Sat by Pulse 99 98 97 Oximetry 06/17/21 06/17/21 06/17/21 02:30 02:40 02:50 Temperature Pulse Rate 103 H 103 H 109 H Pulse Rate [ From Monitor] Respiratory 28 H 25 H 24 Rate Blood Pressure 130/78 130/78 116/84 O2 Sat by Pulse 95 98 98 Oximetry 06/17/21 06/17/21 06/17/21 03:00 03:10 03:20 Temperature Pulse Rate 106 H 97 H 100 H Pulse Rate [ From Monitor] Respiratory 33 H 24 26 H Rate Blood Pressure 116/84 146/83 140/81 O2 Sat by Pulse 100 100 100 Oximetry 06/17/21 06/17/21 06/17/21 03:30 03:40 03:50 Temperature Pulse Rate 103 H 111 H 105 H Pulse Rate [ From Monitor] Respiratory 30 H 35 H 27 H Rate Blood Pressure 134/76 134/76 131/93 O2 Sat by Pulse 97 100 99 Oximetry 06/17/21 06/17/21 06/17/21 04:00 04:10 04:20 Temperature 98.3 F Pulse Rate 101 H 100 H 101 H Pulse Rate [ 109 H From Monitor] Respiratory 30 H 27 H 18 Rate Blood Pressure 132/99 132/99 140/99 O2 Sat by Pulse 99 100 98 Oximetry 06/17/21 06/17/21 06/17/21 04:30 04:40 04:50 Temperature Pulse Rate 100 H 103 H 101 H Pulse Rate [ From Monitor] Respiratory 23 26 H 20 Rate Blood Pressure 134/87 134/87 135/84 O2 Sat by Pulse 94 97 98 Oximetry 06/17/21 06/17/21 06/17/21 05:00 05:10 05:20 Temperature Pulse Rate 101 H 102 H 95 H Pulse Rate [ From Monitor] Respiratory 21 23 22 Rate Blood Pressure 135/84 109/65 133/83 O2 Sat by Pulse 99 98 98 Oximetry 06/17/21 06/17/21 06/17/21 05:30 05:40 05:50 Temperature Pulse Rate 97 H 97 H 94 H Pulse Rate [ From Monitor] Respiratory 28 H 24 22 Rate Blood Pressure 120/71 120/71 110/79 O2 Sat by Pulse 96 99 98 Oximetry 06/17/21 06/17/21 06/17/21 06:00 06:10 06:20 Temperature Pulse Rate 87 87 87 Pulse Rate [ From Monitor] Respiratory 22 22 22 Rate Blood Pressure 111/78 111/78 123/83 O2 Sat by Pulse 95 98 98 Oximetry 06/17/21 06/17/21 06/17/21 06:30 06:40 06:50 Temperature Pulse Rate 86 86 89 Pulse Rate [ From Monitor] Respiratory 21 24 Rate Blood Pressure 112/78 112/78 134/95 O2 Sat by Pulse 99 97 98 Oximetry 06/17/21 06/17/21 06/17/21 07:00 07:10 07:20 Temperature Pulse Rate 83 84 96 H Pulse Rate [ From Monitor] Respiratory 23 19 26 H Rate Blood Pressure 125/87 125/87 140/98 O2 Sat by Pulse 100 98 99 Oximetry 06/17/21 06/17/21 06/17/21 07:30 07:40 07:50 Temperature Pulse Rate 96 H 93 H 101 H Pulse Rate [ From Monitor] Respiratory 27 H 26 H 29 H Rate Blood Pressure 146/104 146/104 152/104 O2 Sat by Pulse 99 100 99 Oximetry 06/17/21 06/17/21 06/17/21 08:00 08:10 08:20 Temperature 98.2 F Pulse Rate 92 H 94 H 96 H Pulse Rate [ From Monitor] Respiratory 25 H 28 H 28 H Rate Blood Pressure 147/106 147/106 146/99 O2 Sat by Pulse 99 99 99 Oximetry 06/17/21 06/17/21 06/17/21 08:30 08:40 08:50 Temperature Pulse Rate 97 H 100 H 98 H Pulse Rate [ From Monitor] Respiratory 28 H 29 H 24 Rate Blood Pressure 154/110 154/110 149/112 O2 Sat by Pulse 99 100 98 Oximetry 06/17/21 06/17/21 06/17/21 09:00 09:10 09:20 Temperature Pulse Rate 100 H 98 H 101 H Pulse Rate [ From Monitor] Respiratory 28 H 29 H 29 H Rate Blood Pressure 153/103 153/103 162/112 O2 Sat by Pulse 96 100 99 Oximetry 06/17/21 06/17/21 06/17/21 09:30 09:34 09:40 Temperature Pulse Rate 104 H 101 H 106 H Pulse Rate [ From Monitor] Respiratory 26 H 27 H 28 H Rate Blood Pressure 160/112 160/112 160/112 O2 Sat by Pulse 98 99 99 Oximetry 06/17/21 06/17/21 06/17/21 09:50 09:56 10:00 Temperature Pulse Rate 99 H 100 H 99 H Pulse Rate [ From Monitor] Respiratory 27 H 21 Rate Blood Pressure 173/116 162/95 170/117 O2 Sat by Pulse 99 98 Oximetry 06/17/21 06/17/21 06/17/21 10:10 10:20 10:30 Temperature Pulse Rate 94 H 92 H 90 Pulse Rate [ From Monitor] Respiratory 25 H 22 23 Rate Blood Pressure 170/117 163/105 146/92 O2 Sat by Pulse 99 98 95 Oximetry 06/17/21 06/17/21 06/17/21 10:40 10:50 11:00 Temperature Pulse Rate 91 H 92 H 89 Pulse Rate [ From Monitor] Respiratory 22 22 22 Rate Blood Pressure 146/92 133/83 130/84 O2 Sat by Pulse 97 97 96 Oximetry 06/17/21 06/17/21 06/17/21 11:10 11:20 11:30 Temperature Pulse Rate 91 H 94 H 105 H Pulse Rate [ From Monitor] Respiratory 22 17 26 H Rate Blood Pressure 130/84 135/83 135/83 O2 Sat by Pulse 97 99 99 Oximetry 06/17/21 06/17/21 06/17/21 11:40 11:50 12:00 Temperature Pulse Rate 105 H 111 H 109 H Pulse Rate [ From Monitor] Respiratory 22 30 H 24 Rate Blood Pressure 167/134 167/134 155/107 O2 Sat by Pulse 98 100 97 Oximetry - General Appearance General appearance: well-developed, well-nourished, appears stated age EENT: PERRL, mucous membranes moist Neck: no JVD, no thyromegaly Respiratory: Present: Rales (Bibasal crackles) Cardiology: regular, normal heart rate Gastrointestinal: normal, normoactive bowel sounds Integumentary: no rash, other (No edema) - Lab 06/17/21 03:52 06/17/21 03:52 Most recent lab results Calcium 9.1 mg/dL (8.4-10.2) 06/17/21 03:52 Magnesium 2.00 mg/dL (1.7-2.3) 06/16/21 09:38 Medications & Allergies - Medications Allergies/Adverse Reactions: Allergies No Known Allergies Allergy (Verified 06/16/21 23:14) Home Medications: Home Medications Medication Instructions Recorded Confirmed Last Taken Type Aspirin EC [Halfprin EC] 81 mg PO QDAY 30 Days #30 tablet 04/07/21 06/17/21 Unknown Rx Furosemide [Lasix TAB] 40 mg PO QDAY 30 Days #30 tablet 04/07/21 06/17/21 Unknown Rx Isosorb Dinit/Hydralazine [Bidil 1 each PO TID 30 Days #90 tablet 04/07/21 06/17/21 Unknown Rx 20/37.5MG] Isosorbide Dinitrate [Isordil] 20 mg PO TID 30 Days #90 tablet 04/07/21 06/17/21 Unknown Rx Sodium Bicarbonate 650 mg PO TID 30 Days #90 tablet 04/07/21 06/17/21 Unknown Rx carvediloL [Coreg] 6.25 mg PO BID 30 Days #60 tablet 04/07/21 06/17/21 Unknown Rx hydrALAZINE [Apresoline TAB] 25 mg PO Q8HR 30 Days #90 tab 04/12/21 06/17/21 Unknown Rx Active Medications: Generic Name Dose Route Start Last Admin Trade Name Freq PRN Reason Stop Dose Admin Acetaminophen 650 mg 06/16/21 13:00 Acetaminophen 325 Mg Tab PO Q6H PRN Pain MILD(1-3)/Fever >100.5/GRANDE Aspirin 81 mg 06/17/21 10:00 06/17/21 09:56 Aspirin Ec 81 Mg Tab PO 81 mg QDAY KOLBY Administration Carvedilol 6.25 mg 06/16/21 22:00 06/17/21 09:56 Carvedilol 6.25 Mg Tab PO 6.25 mg BID KOLBY Administration Dextrose 50 ml 06/16/21 10:37 06/16/21 11:58 Dextrose 50% In Water (25gm) 50 Ml Syringe IV 50 ml Q30MIN PRN Administration Hypoglycemia Protocol Furosemide 100 mg 06/16/21 18:00 06/17/21 07:21 Furosemide 100 Mg/10 Ml Inj IV 100 mg 0600,1800 KOLBY Administration Hydromorphone HCl 0.5 mg 06/16/21 12:30 Hydromorphone 1 Mg/1 Ml Inj IV Q8H PRN Pain , Severe (7-10) Nitroglycerin/Dextrose 50 mg in 250 mls @ 3 mls/hr 06/16/21 10:00 06/17/21 07:28 Tridil Drip 50mg/250ml IV 0 mcg/min TITR KOLBY 0 mls/hr Titration Protocol 10 MCG/MIN Oxycodone/Acetaminophen 1 tab 06/16/21 13:00 Oxycodone /Acetaminophen 5-325mg Tab PO Q16H PRN Pain, Moderate (4-6) Sodium Bicarbonate 650 mg 06/16/21 14:00 06/17/21 09:56 Sodium Bicarbonate 650 Mg Tab PO 650 mg TID KOLBY Administration Sodium Chloride 10 ml 06/16/21 22:00 06/17/21 09:57 Sodium Chloride 0.9% 10 Ml Flush Syringe IV 10 ml BID KOLBY Administration Sodium Chloride 10 ml 06/16/21 12:30 Sodium Chloride 0.9% 10 Ml Flush Syringe IV PRN PRN LINE FLUSH Sodium Polystyrene Sulfonate 30 gm 06/16/21 18:00 06/17/21 09:56 Sodium Polystyrene 15 Gm/60 Ml Oral Liqd PO 30 gm DAILY KOLBY Administration
--- NOTE | 2021-06-17 12:52 | Event Note ---
Date: 06/17/[address] Vascath per ladies suit operator's request Patient states that he would rather wait and has decided against procedure at th is time - please re-consult as necessary
[2021-06-17 14:34] LABS: Hepatitis C Virus Antibody Non-Reactive (NonReactive)
[2021-06-17 14:38] LABS: Hepatitis B Surface Antigen Nonreactive (Negative)
[2021-06-18] MEDS: FUROSEMIDE 100 MG/10 ML INJ IV SCH ×2 (06:25→18:07)
[2021-06-18 08:12] LABS: Calcium 8.4 mg/dL (8.4-10.2)
[2021-06-18] MEDS ORDERED: hydrALAZINE 25 MG TAB PO SCH (09:00)
[2021-06-18] MEDS: SODIUM POLYSTYRENE 15 GM/60 ML ORAL LIQD PO SCH (09:57)
[2021-06-18] MEDS: ASPIRIN EC 81 MG TAB PO SCH (09:58)
[2021-06-18] MEDS: ISOSORB DINIT/HYDRALAZINE 20-37.5MG TAB PO SCH ×3 (09:58→22:16)
[2021-06-18] MEDS: carvediloL 6.25 MG TAB PO SCH ×2 (09:59→22:17)
[2021-06-18] MEDS: SODIUM BICARBONATE 650 MG TAB PO SCH ×3 (09:59→22:16)
--- NOTE | 2021-06-18 12:26 | Progress Note ---
Assessment and Plan Assessment and plan: #Heart failure with reduced ejection fraction #Acute CHF exacerbation -EF 15% per TTE in March -NT proBNP 10,359 -will continue beta-teddy, nitro drip d/c -bidil restarted -Continue Lasix 100 mg IV twice daily -Strict I's/O's, fluid restriction to less than 1.5 L #Acute hypoxic respiratory failure -Patient currently on BiPAP, will wean to NC; BiPAP at night -CXR showed cardiomegaly and mild interstitial edema -Continue diuresis #NSTEMI type II -Troponin 0.601 -> 0.5 -EKG without acute ST changes -Likely secondary to ESRD #ROMAN on CKD -Baseline creatinine 5, 7.1 today -Likely secondary to vasomotor nephropathy/cardiorenal -Nephrology consulted, assistance appreciated -Patient does not want to proceed with hemodialysis at this time despite medical need -Refused Vas-Cath placement -sodium bicarbonate for acidosis -will continue to monitor #Hypertension -will continue to monitor -will add hydralazine if continues to be elevated #Microcytic anemia -Baseline hemoglobin 10 -Likely secondary to ESRD -will transfuse for hemoglobin less than 7 #Hyponatremia -Likely hypervolemic hyponatremia secondary to CHF vs CKD -should improve with continued diuresis #Hyperkalemia -Improving -continue medical management -will continue to monitor Disposition Plan: continue medical management History Interval history: No acute events overnight. Discussed the need for HD to patient. Continues to decline at this moment. Wants to continue to use BiPAP. No complaints at this time. Hospitalist Physical - Physical exam Narrative exam: GENERAL: Well-developed well-nourished. Lying in bed, bed in no acute distress. HEENT: BiPAP in place. CHEST/LUNGS: Expiratory crackles bilaterally. HEART/CARDIOVASCULAR: RRR. No murmur, rubs or gallops appreciated. ABDOMEN: +BS. NT/ND. NEURO: No focal motor deficit. Follows all commands. EXTREMITIES: No cyanosis, clubbing or edema. PSYCH: Cooperative. - Constitutional Vitals: Temp Pulse Resp BP Pulse Ox 98.4 F 96 H 20 130/96 99 06/18/21 08:47 06/18/21 09:59 06/18/21 08:47 06/18/21 08:47 06/18/21 08:47 General appearance: Present: severe distress HEART Score - HEART Score Troponin: Troponin T 0.562 ng/mL (0.00-0.029) H* 06/17/21 13:58 Results - Labs CBC & Chem 7: 06/17/21 03:52 06/18/21 06:57 Labs: Laboratory Last Values WBC 6.0 K/mm3 (4.5-11.0) 06/17/21 03:52 RBC 5.35 M/mm3 (3.65-5.03) H 06/17/21 03:52 Hgb 10.0 gm/dl (11.8-15.2) L 06/17/21 03:52 Hct 33.1 % (35.5-45.6) L 06/17/21 03:52 MCV 62 fl (84-94) L 06/17/21 03:52 MCH 19 pg (28-32) L 06/17/21 03:52 MCHC 30 % (32-34) L 06/17/21 03:52 RDW 18.3 % (13.2-15.2) H 06/17/21 03:52 Plt Count 166 K/mm3 (140-440) 06/17/21 03:52 Lymph % (Auto) 48.7 % (13.4-35.0) H 06/17/21 03:52 Andrew % (Auto) 10.0 % (0.0-7.3) H 06/17/21 03:52 Eos % (Auto) 0.0 % (0.0-4.3) 06/17/21 03:52 Baso % (Auto) 0.3 % (0.0-1.8) 06/17/21 03:52 Lymph # (Auto) 2.9 K/mm3 (1.2-5.4) 06/17/21 03:52 Andrew # (Auto) 0.6 K/mm3 (0.0-0.8) 06/17/21 03:52 Eos # (Auto) 0.0 K/mm3 (0.0-0.4) 06/17/21 03:52 Baso # (Auto) 0.0 K/mm3 (0.0-0.1) 06/17/21 03:52 Add Manual Diff Complete 06/16/21 09:38 Total Counted 100 06/16/21 09:38 Seg Neutrophils % 41.0 % (40.0-70.0) 06/17/21 03:52 Seg Neuts % (Manual) 48.0 % (40.0-70.0) 06/16/21 09:38 Band Neutrophils % 8.0 % 06/16/21 09:38 Lymphocytes % (Manual) 28.0 % (13.4-35.0) 06/16/21 09:38 Reactive Lymphs % (Man) 2.0 % 06/16/21 09:38 Monocytes % (Manual) 2.0 % (0.0-7.3) 06/16/21 09:38 Eosinophils % (Manual) 2.0 % (0.0-4.3) 06/16/21 09:38 Metamyelocytes % 4.0 % 06/16/21 09:38 Myelocytes % 4.0 % 06/16/21 09:38 Promyelocytes % 2.0 % 06/16/21 09:38 Nucleated RBC % Not Reportable 06/16/21 09:38 Seg Neutrophils # 2.4 K/mm3 (1.8-7.7) 06/17/21 03:52 Seg Neutrophils # Man 4.8 K/mm3 (1.8-7.7) 06/16/21 09:38 Band Neutrophils # 0.8 K/mm3 06/16/21 09:38 Lymphocytes # (Manual) 2.8 K/mm3 (1.2-5.4) 06/16/21 09:38 Abs React Lymphs (Man) 0.2 K/mm3 06/16/21 09:38 Monocytes # (Manual) 0.2 K/mm3 (0.0-0.8) 06/16/21 09:38 Eosinophils # (Manual) 0.2 K/mm3 (0.0-0.4) 06/16/21 09:38 Basophils # (Manual) 0.0 K/mm3 (0.0-0.1) 06/16/21 09:38 Metamyelocytes # 0.4 K/mm3 06/16/21 09:38 Myelocytes # 0.4 K/mm3 06/16/21 09:38 Promyelocytes # 0.2 K/mm3 06/16/21 09:38 Blast Cells # 0.0 K/mm3 06/16/21 09:38 WBC Morphology Not Reportable 06/16/21 09:38 Hypersegmented Neuts Not Reportable 06/16/21 09:38 Hyposegmented Neuts Not Reportable 06/16/21 09:38 Hypogranular Neuts Not Reportable 06/16/21 09:38 Smudge Cells Not Reportable 06/16/21 09:38 Toxic Granulation Not Reportable 06/16/21 09:38 Toxic Vacuolation Not Reportable 06/16/21 09:38 Dohle Bodies Not Reportable 06/16/21 09:38 Pelger-Huet Anomaly Not Reportable 06/16/21 09:38 Marianne Rods Not Reportable 06/16/21 09:38 Platelet Estimate Consistent w auto 06/16/21 09:38 Clumped Platelets Not Reportable 06/16/21 09:38 Plt Clumps, EDTA Not Reportable 06/16/21 09:38 Large Platelets Not Reportable 06/16/21 09:38 Giant Platelets Not Reportable 06/16/21 09:38 Platelet Satelliting Not Reportable 06/16/21 09:38 Plt Morphology Comment Not Reportable 06/16/21 09:38 RBC Morphology Not Reportable 06/16/21 09:38 Dimorphic RBCs Not Reportable 06/16/21 09:38 Polychromasia Not Reportable 06/16/21 09:38 Hypochromasia 2+ 06/16/21 09:38 Poikilocytosis Not Reportable 06/16/21 09:38 Anisocytosis 1+ 06/16/21 09:38 Microcytosis 2+ 06/16/21 09:38 Macrocytosis Not Reportable 06/16/21 09:38 Spherocytes Not Reportable 06/16/21 09:38 Pappenheimer Bodies Not Reportable 06/16/21 09:38 Sickle Cells Not Reportable 06/16/21 09:38 Target Cells Not Reportable 06/16/21 09:38 Tear Drop Cells Not Reportable 06/16/21 09:38 Ovalocytes Not Reportable 06/16/21 09:38 Helmet Cells Not Reportable 06/16/21 09:38 [place] Bodies Not Reportable 06/16/21 09:38 [place] Rings Not Reportable 06/16/21 09:38 [place] Cells Not Reportable 06/16/21 09:38 Bite Cells Not Reportable 06/16/21 09:38 Crenated Cell Not Reportable 06/16/21 09:38 Elliptocytes Not Reportable 06/16/21 09:38 Acanthocytes (Spur) Not Reportable 06/16/21 09:38 Rouleaux Not Reportable 06/16/21 09:38 Hemoglobin C Crystals Not Reportable 06/16/21 09:38 Schistocytes Not Reportable 06/16/21 09:38 Malaria parasites Not Reportable 06/16/21 09:38 Maurisio Bodies Not Reportable 06/16/21 09:38 Hem Pathologist Commnt No 06/16/21 09:38 PT 14.3 Sec. (12.2-14.9) 06/16/21 09:38 INR 1.00 (0.87-1.13) 06/16/21 09:38 Sodium 130 mmol/L (137-145) L 06/18/21 06:57 Potassium 3.9 mmol/L (3.6-5.0) D 06/18/21 06:57 Chloride 90.7 mmol/L (98-107) L 06/18/21 06:57 Carbon Dioxide 22 mmol/L (22-30) 06/18/21 06:57 Anion Gap 21 mmol/L 06/18/21 06:57 BUN 95 mg/dL (9-20) H 06/18/21 06:57 Creatinine 7.1 mg/dL (0.8-1.3) H 06/18/21 06:57 Estimated GFR 10 ml/min 06/18/21 06:57 BUN/Creatinine Ratio 13 % 06/18/21 06:57 Glucose 105 mg/dL (75-100) H 06/18/21 06:57 POC Glucose 142 mg/dL (70-105) H 06/16/21 10:44 Calcium 8.4 mg/dL (8.4-10.2) 06/18/21 06:57 Magnesium 2.00 mg/dL (1.7-2.3) 06/16/21 09:38 Total Bilirubin 0.60 mg/dL (0.1-1.2) 06/17/21 03:52 AST 28 units/L (5-40) 06/17/21 03:52 ALT 16 units/L (7-56) 06/17/21 03:52 Alkaline Phosphatase 73 units/L (35-129) 06/17/21 03:52 Troponin T 0.562 ng/mL (0.00-0.029) H* 06/17/21 13:58 NT-Pro-B Natriuret Pep 54821 pg/mL (0-900) H 06/16/21 09:38 Total Protein 10.4 g/dL (6.3-8.2) H 06/17/21 03:52 Albumin 3.7 g/dL (3.9-5) L 06/17/21 03:52 Albumin/Globulin Ratio 0.6 % 06/17/21 03:52 Triglycerides 222 mg/dL (2-149) H 06/16/21 09:38 Cholesterol 179 mg/dL (50-199) 06/16/21 09:38 LDL Cholesterol Direct 102 mg/dL (50-130) 06/16/21 09:38 HDL Cholesterol 35 mg/dL (40-59) L 06/16/21 09:38 Cholesterol/HDL Ratio 5.11 % 06/16/21 09:38 Hepatitis A IgM Ab Non-reactive (NonReactive) 06/17/21 13:42 Hep Bs Antigen Nonreactive (Negative) 06/17/21 13:42 Hep B Core IgM Ab Non-reactive (NonReactive) 06/17/21 13:42 Hepatitis C Antibody Non-reactive (NonReactive) 06/17/21 13:42 Dang/IV: Voiding Method Urinal Active Medications - Current Medications Current Medications: Generic Name Dose Route Start Last Admin Trade Name Freq PRN Reason Stop Dose Admin Acetaminophen 650 mg 06/16/21 13:00 06/18/21 01:32 Acetaminophen 325 Mg Tab PO 650 mg Q6H PRN Administration Pain MILD(1-3)/Fever >100.5/GRANDE Aspirin 81 mg 06/17/21 10:00 06/18/21 09:58 Aspirin Ec 81 Mg Tab PO 81 mg QDAY KOLBY Administration Carvedilol 6.25 mg 06/16/21 22:00 06/18/21 09:59 Carvedilol 6.25 Mg Tab PO 6.25 mg BID KOLBY Administration Dextrose 50 ml 06/16/21 10:37 06/16/21 11:58 Dextrose 50% In Water (25gm) 50 Ml Syringe IV 50 ml Q30MIN PRN Administration Hypoglycemia Protocol Furosemide 100 mg 12/10/21 18:00 06/18/21 06:25 Furosemide 100 Mg/10 Ml Inj IV 100 mg 0600,1800 KOLBY Administration Hydromorphone HCl 0.5 mg 06/16/21 12:30 Hydromorphone 1 Mg/1 Ml Inj IV Q8H PRN Pain , Severe (7-10) Sodium Chloride 100 mls @ 999 mls/hr 06/17/21 12:29 Nacl 0.9% IV RALPH PRN Hypotension Isosorbide Dinitrate/Hydralazine 1 each 06/18/21 09:00 06/18/21 09:58 Isosorb Dinit/Hydralazine 20-37.5mg Tab PO 1 each Q8HR KOLBY Administration Oxycodone/Acetaminophen 1 tab 06/16/21 13:00 Oxycodone /Acetaminophen 5-325mg Tab PO Q16H PRN Pain, Moderate (4-6) Sodium Bicarbonate 650 mg 06/16/21 14:00 06/18/21 09:59 Sodium Bicarbonate 650 Mg Tab PO 650 mg TID KOLBY Administration Sodium Chloride 10 ml 06/16/21 22:00 06/18/21 10:03 Sodium Chloride 0.9% 10 Ml Flush Syringe IV 10 ml BID KOLBY Administration Sodium Chloride 10 ml 06/16/21 12:30 Sodium Chloride 0.9% 10 Ml Flush Syringe IV PRN PRN LINE FLUSH Sodium Polystyrene Sulfonate 30 gm 06/16/21 18:00 06/18/21 09:57 Sodium Polystyrene 15 Gm/60 Ml Oral Liqd PO 30 gm DAILY KOLBY Administration Nutrition/Malnutrition Assess - Dietary Evaluation Nutrition/Malnutrition Findings: Nutrition Notes Start: 06/17/21 09:45 Freq: Status: Active Protocol: Document 06/17/21 09:45 FLOR (Rec: 06/17/21 09:51 FLOR [id number]) Nutrition Notes Need for Assessment generated from: conduit installer,MST Initial or Follow up Assessment Current Diagnosis Acute Kidney Injury,CKD(stage I-IV),Hypertension,Heart Failure,Respiratory Failure Other Pertinent Diagnosis CHF exacerbation, Hypertensive emergency Current Diet NPO Labs/Tests Na 131 K 5.3 CO2 - 18 BUN 83 Cr 6.8 Pertinent Medications Lasix, Nitroglycerin gtt, Na bicarb, Kionex Height 6 ft 1 in Weight 70.3 kg [place] Body Weight (kg) 83.63 BMI 20.4 Weight Status Appropriate Subjective/Other Information Pt screened for malnutrition risk. Pt c/o PARIS upon admission. He has a hx of medication noncompliance; currently on BiPap support. He may need renal replacement therapy. Burn Absent Trauma Absent Minimum of two criteria No #1 Nutrition Diagnosis Inadequate oral intake Etiology PARIS As Evidenced by Signs and Symptoms pt NPO Is patient on ventilator? No Is Patient Ambulatory and/or Out of Bed No REE-([facility]-confined to bed) [phone] Calculation Used for Recommendations [facility] Additional Notes Pro needs 0.6-1.2g/k-84g/ day Fluid needs 1-1.5L/day Nutrition Intervention Change Diet Order: Advance diet when medically feasible Goal #1 Diet advancement to meet nutrient needs Anticipated Discharge Needs: None identified at this time Follow-Up By: 06/19/21 Additional Comments F/U: diet advancement, MST assessment
--- NOTE | 2021-06-18 14:06 | Progress Note ---
Assessment and Plan ROMAN on CKD: suspect advanced CKD/ESKD at baseline with cardiorenal physiology. Prior creatinine around 5, now at 6.0-6.2. Reviewed prior workup with serologies, imaging, urine studies -Inadequate response to Lasix challenge of 100 mg twice a day. Oxygen level has however improved. He is currently on nasal cannula 3 L/min. Need to initiate renal replacement therapy. He had refused Vas-Cath placement yesterday. He is now willing to proceed with a PermCath tomorrow Consult vascular surgery for PermCath placement in a.m. Keep him n.p.o. from midnight. - avoid nephrotoxins - renally dose medications - strict Is/Os - save arm precautions # Hyperkalemia: Did improve some with medical therapy. Hopefully dialysis will correct the remainder of his hyperkalemia # Metabolic Acidosis: # CHF: Patient is currently on BiPAP. Remove fluid as tolerated with dialysis .inadequate response to large dose loop diuretic # Hyponatremia: likely in setting of volume overload, diurese as above # HTN: BP reasonable currently # Secondary Hyperparathyroidism in CKD: PTH in 03/2021 ~130, check phos (was 6.0 in 03/2021) # Anemia in CKD: microcytic anemia, iron panel reasonable in 03/2021, no immediate need for ESAs Subjective Date of service: 06/18/21 Interval history: Patient refused to have Vas-Cath placed yesterday. Refusing it today as well. However he has agreed to have the procedure done tomorrow. His shortness of breath is better. He is currently out of the ICU. Currently on oxygen via nasal cannula at 3 L/min. Objective - Vital Signs Vital signs: Vital Signs - 12hr 06/18/21 06/18/21 06/18/21 03:59 06:21 08:47 Temperature 99.5 F 98.4 F Pulse Rate 94 H 98 H Respiratory 23 20 Rate Blood Pressure 132/85 130/96 O2 Sat by Pulse 98 98 99 Oximetry 06/18/21 06/18/21 06/18/21 09:58 09:59 12:25 Temperature 98.3 F Pulse Rate 96 H 96 H 108 H Respiratory 20 Rate Blood Pressure 105/57 O2 Sat by Pulse 94 Oximetry - General Appearance General appearance: well-developed, well-nourished, appears stated age EENT: PERRL, mucous membranes moist Neck: no JVD, no thyromegaly, no carotid bruit, supple Respiratory: Present: Rales (Bibasal crackles) Cardiology: regular, normal heart rate Gastrointestinal: normal, normoactive bowel sounds Integumentary: no rash, other (No edema) - Lab 06/17/21 03:52 06/18/21 06:57 Most recent lab results Calcium 8.4 mg/dL (8.4-10.2) 06/18/21 06:57 Magnesium 2.00 mg/dL (1.7-2.3) 06/16/21 09:38 Medications & Allergies - Medications Allergies/Adverse Reactions: Allergies No Known Allergies Allergy (Verified 06/16/21 23:14) Home Medications: Home Medications Medication Instructions Recorded Confirmed Last Taken Type Aspirin EC [Halfprin EC] 81 mg PO QDAY 30 Days #30 tablet 04/07/21 06/17/21 Unknown Rx Furosemide [Lasix TAB] 40 mg PO QDAY 30 Days #30 tablet 04/07/21 06/17/21 Unknown Rx Isosorb Dinit/Hydralazine [Bidil 1 each PO TID 30 Days #90 tablet 04/07/21 06/17/21 Unknown Rx 20/37.5MG] Isosorbide Dinitrate [Isordil] 20 mg PO TID 30 Days #90 tablet 04/07/21 06/17/21 Unknown Rx Sodium Bicarbonate 650 mg PO TID 30 Days #90 tablet 04/07/21 06/17/21 Unknown Rx carvediloL [Coreg] 6.25 mg PO BID 30 Days #60 tablet 04/07/21 06/17/21 Unknown Rx hydrALAZINE [Apresoline TAB] 25 mg PO Q8HR 30 Days #90 tab 04/12/21 06/17/21 Unknown Rx Active Medications: Generic Name Dose Route Start Last Admin Trade Name Freq PRN Reason Stop Dose Admin Acetaminophen 650 mg 06/16/21 13:00 06/18/21 01:32 Acetaminophen 325 Mg Tab PO 650 mg Q6H PRN Administration Pain MILD(1-3)/Fever >100.5/GRANDE Aspirin 81 mg 06/17/21 10:00 06/18/21 09:58 Aspirin Ec 81 Mg Tab PO 81 mg QDAY KOLBY Administration Carvedilol 6.25 mg 06/16/21 22:00 06/18/21 09:59 Carvedilol 6.25 Mg Tab PO 6.25 mg BID KOLBY Administration Dextrose 50 ml 06/16/21 10:37 06/16/21 11:58 Dextrose 50% In Water (25gm) 50 Ml Syringe IV 50 ml Q30MIN PRN Administration Hypoglycemia Protocol Furosemide 100 mg 06/16/21 18:00 06/18/21 06:25 Furosemide 100 Mg/10 Ml Inj IV 100 mg 0600,1800 KOLBY Administration Hydromorphone HCl 0.5 mg 06/16/21 12:30 Hydromorphone 1 Mg/1 Ml Inj IV Q8H PRN Pain , Severe (7-10) Sodium Chloride 100 mls @ 999 mls/hr 06/17/21 12:29 Nacl 0.9% IV RALPH PRN Hypotension Isosorbide Dinitrate/Hydralazine 1 each 06/18/21 09:00 06/18/21 09:58 Isosorb Dinit/Hydralazine 20-37.5mg Tab PO 1 each Q8HR KOLBY Administration Oxycodone/Acetaminophen 1 tab 06/16/21 13:00 Oxycodone /Acetaminophen 5-325mg Tab PO Q16H PRN Pain, Moderate (4-6) Sodium Bicarbonate 650 mg 06/16/21 14:00 06/18/21 09:59 Sodium Bicarbonate 650 Mg Tab PO 650 mg TID KOLBY Administration Sodium Chloride 10 ml 06/16/21 22:00 06/18/21 10:03 Sodium Chloride 0.9% 10 Ml Flush Syringe IV 10 ml BID KOLBY Administration Sodium Chloride 10 ml 06/16/21 12:30 Sodium Chloride 0.9% 10 Ml Flush Syringe IV PRN PRN LINE FLUSH Sodium Polystyrene Sulfonate 30 gm 06/16/21 18:00 06/18/21 09:57 Sodium Polystyrene 15 Gm/60 Ml Oral Liqd PO 30 gm DAILY KOLBY Administration
--- NOTE | 2021-06-18 17:22 | Progress Note ---
Assessment and Plan 56 YO Male with Systolic CHF(EF 15%), HTN, CKD, Medication Noncompliance, Asthma presents to ED for evaluation. Patient reports "I am short of breath". Patient speaks in short and incomplete sentences due to shortness of breath. Patient knowledges shortness of breath over the past 1 week with worsening symptoms over the past few days. EMS was notified and upon arrival the patient was found to be in distress and subsequently transported to [facility] for further care and evaluation of the aforementioned symptoms. The patient was seen and evaluated in the emergency department. All lab and imaging studies reviewed. The patient was found to be using accessory muscles to breathe, unable to speak in complete sentences, tripoding, with a pulse oximetry of 86% on room air which is consistent with acute hypoxemic respiratory failure. Patient also found to have clinical symptoms consistent with congestive heart failure, cardiorenal sy ndrome, acidosis, hyponatremia. Patient admitted to IMCU due to increased risk of worsening symptoms. Patient placed on supplemental oxygen with improvement in symptoms and was subsequently initiated on noninvasive positive pressure ventilation with mild improvement in symptoms. No reports of fever, chills, chest pain, palpitation, skin rash, recent ill contacts, and known exposure to COVID-19. Patient has history of smoking. 4 cigaretts a day x 16 years. Drinks alcohol. Denies drug abuse. Worked in [employer]. Not and has two children. No known drug allergies Patient alert, awake. Resting on 3 litres O2 . O2 saturation 96% Still complaining, shortness of breath and cough. Chest pain with cough. BIPAP 24/12,rate 22,FIO2 30% stand by in the room. Patient afebrile. No leukocytosis. Blood pressure 125/91, Pulse 106, respirations 20. Chest xray done 06/16/21 reported mild congestive heart failure. Patient is on Lasix. Recommend DVT and GI prophylaxis. I spent critical care time of 35 minutes, obtaining history, review the chart, Examine the patient, review chest xray and labs, talking to the nursing staff and respiratory therapy and work up plan of treatment with this patient with respiratory failure and CHF. - Patient Problems (1) Acute hypoxemic respiratory failure Current Visit: Yes Status: Acute Plan to address problem: O2 3 litres via nasal canula. BIPAP 24/12, rate 22, FIO2 30% stand by in the room. Recommend DVT and GI Prophylaxis. Recommend xopenex inhaler 2 puffs q 8 hours prn for shortness of breath. ABGs on room air. (2) Acute exacerbation of CHF (congestive heart failure) Current Visit: Yes Status: Acute Qualifiers: Heart failure type: systolic Qualified Code(s): I50.23 - Acute on chronic systolic (congestive) heart failure Plan to address problem: Patient is on lasix, Aspirin and Coreg, Bidil. Management as per cardiology. (3) Acute kidney injury Current Visit: No Status: Acute Plan to address problem: Management as per nephrology. (4) Hypertensive emergency Current Visit: Yes Status: Acute Plan to address problem: Management as per primary care and cardiology. (5) Tobacco use disorder Current Visit: Yes Status: Acute Plan to address problem: Counseled to stop smoking. PFTs as out patient. Subjective Date of service: 06/18/21 Interval history: 56 YO Male with Systolic CHF(EF 15%), HTN, CKD, Medication Noncompliance, Asthma presents to ED for evaluation. Patient reports "I am short of breath". Patient speaks in short and incomplete sentences due to shortness of breath. Patient knowledges shortness of breath over the past 1 week with worsening symptoms over the past few days. EMS was notified and upon arrival the patient was found to be in distress and subsequently transported to [facility] for further care and evaluation of the aforementioned symptoms. The patient was seen and evaluated in the emergency department. All lab and imaging studies reviewed. The patient was found to be using accessory muscles to breathe, unable to speak in complete sentences, tripoding, with a pulse oximetry of 86% on room air which is consistent with acute hypoxemic respiratory failure. Patient also found to have clinical symptoms consistent with congestive heart failure, cardiorenal syndrome, acidosis, hyponatremia. Patient admitted to IMCU due to increased risk of worsening symptoms. Patient placed on supplemental oxygen with improvement in symptoms and was subsequently initiated on noninvasive positive p ressure ventilation with mild improvement in symptoms. No reports of fever, chills, chest pain, palpitation, skin rash, recent ill contacts, and known exposure to COVID-19. Patient has history of smoking. 4 cigaretts a day x 16 years. Drinks alcohol. Denies drug abuse. Worked in [employer] house. Not and has two children. No known drug allergies Patient alert, awake. Resting on 3 litres O2 . O2 saturation 96% Still complaining, shortness of breath and cough. Chest pain with cough. BIPAP / ,rate 22,FIO2 30% stand by in the room. Patient afebrile. No leukocytosis. Blood pressure 125/91, Pulse 106, respirations 20. Chest xray done 06/16/21 reported mild congestive heart failure. Patient is on Lasix. Recommend DVT and GI prophylaxis. Objective Vital Signs - 12hr 06/18/21 06/18/21 06/18/21 06:21 08:00 08:13 Temperature 99.5 F Pulse Rate 94 H 96 H 99 H Respiratory 23 24 Rate Blood Pressure 132/85 O2 Sat by Pulse 98 99 Oximetry 06/18/21 06/18/21 06/18/21 08:40 08:47 09:58 Temperature 98.4 F Pulse Rate 98 H 96 H Respiratory 20 Rate Blood Pressure 130/96 O2 Sat by Pulse 97 99 Oximetry 06/18/21 06/18/21 06/18/21 09:59 12:00 12:25 Temperature 98.3 F Pulse Rate 96 H 114 H 108 H Respiratory 20 Rate Blood Pressure 105/57 O2 Sat by Pulse 94 Oximetry 06/18/21 14:30 Temperature Pulse Rate Respiratory Rate Blood Pressure 105/57 O2 Sat by Pulse Oximetry Constitutional: no acute distress, alert Eyes: non-icteric ENT: oropharynx moist Neck: supple, no lymphadenopathy Effort: mildly labored Ascultation: Bilateral: rales Cardiovascular: other (Tachycardia.) Gastrointestinal: normoactive bowel sounds, soft, non-tender Integumentary: normal Extremities: no cyanosis, no edema Neurologic: non-focal exam, pupils equal and round, CN II-XII normal Psychiatric: other (Irritable.) CBC and BMP: 06/17/21 03:52 06/18/21 06:57 ABG, PT/INR, D-dimer: PT/INR, D-dimer PT 14.3 Sec. (12.2-14.9) 06/16/21 09:38 INR 1.00 (0.87-1.13) 06/16/21 09:38 Abnormal lab findings: Abnormal Labs 06/16/21 06/16/21 06/16/21 09:38 09:38 09:38 RBC 5.70 H Hgb 11.2 L Hct MCV 63 L MCH 20 L MCHC 31 L RDW 19.0 H Lymph % (Auto) [place] % (Auto) Sodium 127 L Potassium 6.5 H* Chloride 97.7 L Carbon Dioxide 17 L BUN 69 H Creatinine 6.1 H Glucose 152 H POC Glucose Troponin T 0.601 H* NT-Pro-B Natriuret Pep 02410 H Total Protein 11.2 H Albumin 3.8 L Triglycerides 222 H HDL Cholesterol 35 L 06/16/21 06/16/21 06/16/21 10:44 15:40 15:40 RBC 5.43 H Hgb 10.4 L Hct 33.7 L MCV 62 L MCH 19 L MCHC 31 L RDW 18.4 H Lymph % (Auto) [place] % (Auto) Sodium 126 L Potassium 6.2 H* Chloride 96.4 L Carbon Dioxide 15 L BUN 71 H Creatinine 6.2 H Glucose 148 H POC Glucose 142 H Troponin T NT-Pro-B Natriuret Pep Total Protein 11.1 H Albumin 3.6 L Triglycerides HDL Cholesterol 06/17/21 06/17/21 06/17/21 03:52 03:52 13:58 RBC 5.35 H Hgb 10.0 L Hct 33.1 L MCV 62 L MCH 19 L MCHC 30 L RDW 18.3 H Lymph % (Auto) 48.7 H [place] % (Auto) 10.0 H Sodium 131 L Potassium 5.3 H Chloride 97.0 L Carbon Dioxide 18 L BUN 83 H Creatinine 6.8 H Glucose 128 H POC Glucose Troponin T 0.562 H* NT-Pro-B Natriuret Pep Total Protein 10.4 H Albumin 3.7 L Triglycerides HDL Cholesterol 06/18/21 06:57 RBC Hgb Hct MCV MCH MCHC RDW Lymph % (Auto) [place] % (Auto) Sodium 130 L Potassium Chloride 90.7 L Carbon Dioxide BUN 95 H Creatinine 7.1 H Glucose 105 H POC Glucose Troponin T NT-Pro-B Natriuret Pep Total Protein Albumin Triglycerides HDL Cholesterol Chest x-ray: report reviewed, image reviewed Additional Studies: CHEST 1 VIEW 06/16/2021 9:42 AM INDICATION / CLINICAL INFORMATION: Dyspnea. COMPARISON: 04/30/21 FINDINGS: SUPPORT DEVICES: None. HEART / MEDIASTINUM: Mild cardiomegaly. LUNGS / PLEURA: Mild perihilar interstitial edema with Donita B-lines in the lung bases. No pneumothorax. ADDITIONAL FINDINGS: Right lung base nodule on the previous study is in a different location and may represent nipple shadow. IMPRESSION: 1. Mild congestive heart failure.
[2021-06-18] MEDS: oxyCODONE /ACETAMINOPHEN 5-325MG TAB PO PRN (22:20)
--- NOTE | 2021-06-18 23:27 | Event Note ---
Date: 06/18/21 56 year old male who progressed to ESRD requiring hemodialysis. NPO after MN except sips of water with meds. Permcath tomorrow.
[2021-06-19] MEDS: FUROSEMIDE 100 MG/10 ML INJ IV SCH ×2 (05:44→19:53)
[2021-06-19] MEDS: ISOSORB DINIT/HYDRALAZINE 20-37.5MG TAB PO SCH ×3 (05:45→22:30)
[2021-06-19 06:26] LABS: Hematocrit 32.3 % (35.5-45.6); Hemoglobin 10.1 gm/dl (11.8-15.2); Mean Corpuscular HGB Conc 31 % (32-34); Red Cell Distribution Width 18.2 % (13.2-15.2)
[2021-06-19 06:37] LABS: Mean Corpuscular Volume 62 fl (84-94)
[2021-06-19 06:43] LABS: Calcium 8.4 mg/dL (8.4-10.2)
[2021-06-19] MEDS: SODIUM BICARBONATE 650 MG TAB PO SCH ×3 (08:00→22:29)
--- NOTE | 2021-06-19 09:48 | Progress Note ---
Subjective Interval history: Patient was seen today for follow-up of multiple renal related issues around 1:30 PM, Patient did get permacath placed, he is willing to proceed with hemodialysis treatment Interdisciplinary notes that also reviewed Events of 24 hours vitals labs intake output medications were reviewed Past medical history: Reviewed Family history: Reviewed Social history: Reviewed Allergies: Reviewed Physical examination: Vitals: Reviewed HEENT: No pallor or icterus oral mucosa moist Neck: Supple no JVD no thyromegaly Chest: Bilateral rales wheezes Heart: Regular rate and rhythm S1-S2 heard no S3-S4 Abdomen: Soft nontender no voluntary guarding rigidity rebound Extremity: Dry skin less than 1+ peripheral edema Psychiatric: No evidence of agitation and aggression noted Dermatology: No petechial rashes Labs and x-rays: Reviewed from today Assessment and plan #End-stage kidney disease currently requiring renal placement therapy patient does have history of congestive heart failure respiratory failure metabolic ac idosis and hyperkalemia, has been refusing to treat Currently pending permacath placement subsequent to which she will need to be initiated on renal replacement therapy he is aware that without that his prognosis is very poor and mortality risk is very high he is willing to proceed with dialysis and hence orders will be placed for next 2-3 days depending on his tolerance, #Bone mineral disorder and secondary hyperparathyroidism: To monitor and follow PTH was in 130 range phosphorus was 6.0 in March #Anemia in chronic kidney disease, continue to monitor, iron panel was satisfactory March 2021 #Hypertension and volume: Noted to be in congestive heart failure with respiratory failure on BiPAP, Hemodialysis ultrafiltration required #Overall prognosis remains guarded, he wants to follow-up with our group in his dialysis can be arranged at [facility] or [facility] dialysis clinic where he can continue to follow and receive care from our group Patient was adequately counseled and educated regarding all the renal related issues Laboratory studies, have been explained to the patient All questions were answered and simple German We'll continue to follow and make recommendation for renal standpoint Objective - Vital Signs Vital signs: Vital Signs - 12hr 06/18/21 06/18/21 06/18/21 22:04 22:16 22:17 Temperature Pulse Rate 106 H 106 H Respiratory 17 Rate Blood Pressure 125/91 125/91 O2 Sat by Pulse 96 Oximetry 06/19/21 06/19/21 06/19/21 00:29 05:45 07:47 Temperature 98.8 F 99.4 F 98.4 F Pulse Rate 54 L 98 H 99 H Respiratory 18 20 18 Rate Blood Pressure 108/62 118/58 119/66 O2 Sat by Pulse 96 97 95 Oximetry - Lab 06/19/21 05:32 06/19/21 05:32 Most recent lab results Calcium 8.4 mg/dL (8.4-10.2) 06/19/21 05:32 Magnesium 2.00 mg/dL (1.7-2.3) 06/16/21 09:38 Medications & Allergies - Medications Allergies/Adverse Reactions: Allergies No Known Allergies Allergy (Verified 06/16/21 23:14) Home Medications: Home Medications Medication Instructions Recorded Confirmed Last Taken Type Aspirin EC [Halfprin EC] 81 mg PO QDAY 30 Days #30 tablet 04/07/21 06/17/21 Unknown Rx Furosemide [Lasix TAB] 40 mg PO QDAY 30 Days #30 tablet 04/07/21 06/17/21 Unknown Rx Isosorb Dinit/Hydralazine [Bidil 1 each PO TID 30 Days #90 tablet 04/07/21 06/17/21 Unknown Rx 20/37.5MG] Isosorbide Dinitrate [Isordil] 20 mg PO TID 30 Days #90 tablet 04/07/21 06/17/21 Unknown Rx Sodium Bicarbonate 650 mg PO TID 30 Days #90 tablet 04/07/21 06/17/21 Unknown Rx carvediloL [Coreg] 6.25 mg PO BID 30 Days #60 tablet 04/07/21 06/17/21 Unknown Rx hydrALAZINE [Apresoline TAB] 25 mg PO Q8HR 30 Days #90 tab 04/12/21 06/17/21 Unknown Rx Active Medications: Generic Name Dose Route Start Last Admin Trade Name Freq PRN Reason Stop Dose Admin Acetaminophen 650 mg 06/16/21 13:00 06/18/21 01:32 Acetaminophen 325 Mg Tab PO 650 mg Q6H PRN Administration Pain MILD(1-3)/Fever >100.5/GRANDE Aspirin 81 mg 06/17/21 10:00 06/18/21 09:58 Aspirin Ec 81 Mg Tab PO 81 mg QDAY KOLBY Administration Carvedilol 6.25 mg 06/16/21 22:00 06/18/21 22:17 Carvedilol 6.25 Mg Tab PO 6.25 mg BID KOLBY Administration Dextrose 50 ml 06/16/21 10:37 06/16/21 11:58 Dextrose 50% In Water (25gm) 50 Ml Syringe IV 50 ml Q30MIN PRN Administration Hypoglycemia Protocol Furosemide 100 mg 06/16/21 18:00 06/19/21 05:44 Furosemide 100 Mg/10 Ml Inj IV 100 mg 0600,1800 KOLBY Administration Hydromorphone HCl 0.5 mg 06/16/21 12:30 Hydromorphone 1 Mg/1 Ml Inj IV Q8H PRN Pain , Severe (7-10) Sodium Chloride 100 mls @ 999 mls/hr 06/17/21 12:29 Nacl 0.9% IV RALPH PRN Hypotension Isosorbide Dinitrate/Hydralazine 1 each 06/18/21 09:00 06/19/21 05:45 Isosorb Dinit/Hydralazine 20-37.5mg Tab PO 1 each Q8HR KOLBY Administration Oxycodone/Acetaminophen 1 tab 06/16/21 13:00 06/18/21 22:20 Oxycodone /Acetaminophen 5-325mg Tab PO 1 tab Q16H PRN Administration Pain, Moderate (4-6) Sodium Bicarbonate 650 mg 06/16/21 14:00 06/18/21 22:16 Sodium Bicarbonate 650 Mg Tab PO 650 mg TID KOLBY Administration Sodium Chloride 10 ml 06/16/21 22:00 06/18/21 22:17 Sodium Chloride 0.9% 10 Ml Flush Syringe IV 10 ml BID KOLBY Administration Sodium Chloride 10 ml 06/16/21 12:30 Sodium Chloride 0.9% 10 Ml Flush Syringe IV PRN PRN LINE FLUSH Sodium Polystyrene Sulfonate 30 gm 06/16/21 18:00 06/18/21 09:57 Sodium Polystyrene 15 Gm/60 Ml Oral Liqd PO 30 gm DAILY KOLBY Administration
[2021-06-19] MEDS: carvediloL 6.25 MG TAB PO SCH ×2 (11:00→22:29)
[2021-06-19 11:09] LABS: ABG Base Excess 1.2 mmol/L (-2.0-3.0); ABG HCO3 26.5 mmol/L (20.0-26.0); ABG Methemoglobin 0.4 % (0.0-1.5); ABG Oxygen Saturation 85.5 % (95.0-99.0); ABG PCO2 45.4 mm Hg; ABG PH 7.383 pH Units (7.350-7.450); ABG PO2 52.9 mm Hg (80.0-90.0)
[2021-06-19] MEDS ORDERED: fentaNYL 100 MCG/2 ML INJ ONE (11:57)
[2021-06-19] MEDS ORDERED: MIDAZOLAM 2 MG/2 ML INJ ONE (11:57)
[2021-06-19] MEDS ORDERED: LIDOCAINE (2%) 20 MG/1 ML VIAL 20 ML MDV INFILTRATI ONE ×2 (11:58→11:59)
[2021-06-19] MEDS ORDERED: HEPARIN/NS 5000 UNIT/500ML 500 ML IR ONE (12:00)
[2021-06-19] MEDS ORDERED: HEPARIN 10,000 UNITS/10 ML VIAL ONE (12:00)
[2021-06-19] MEDS ORDERED: LIDOCAINE 1%/EPINEPHRINE 1:100,000 VIAL (20 ML) INFILTRATI ONE ×2 (12:02→12:32)
[2021-06-19] MEDS ORDERED: ceFAZolin/Water 2 GM/20 ML 2 GM/20 ML SYRINGE IV ONE (12:05)
[2021-06-19] MEDS ORDERED: diphenhydrAMINE 50 MG/ML VIAL ONE (12:05)
[2021-06-19] MEDS ORDERED: SODIUM CHLORIDE 0.9% 250ML 250 ML ONE (12:07)
[2021-06-19] MEDS ORDERED: diphenhydrAMINE 50 MG/ML VIAL IV ONE (12:29)
[2021-06-19] MEDS ORDERED: ceFAZolin/STERILE WATER 2 GM/20 ML SYRINGE IV ONE (12:32)
[2021-06-19] MEDS ORDERED: HEPARIN 10,000 UNITS/10 ML VIAL IV ONE (12:45)
--- NOTE | 2021-06-19 13:37 | Consultation ---
Past History Past Medical History: diabetes, heart failure, hypertension, renal failure Past Surgical History: No surgical history Social history: no significant social history Family history: no significant family history Medications and Allergies Allergies Allergy/AdvReac Type Severity Reaction Status Date / Time No Known Allergies Allergy Verified 06/16/21 23:14 Home Medications Medication Instructions Recorded Confirmed Last Taken Type Aspirin EC [Halfprin EC] 81 mg PO QDAY 30 Days #30 tablet 04/07/21 06/17/21 Unknown Rx Furosemide [Lasix TAB] 40 mg PO QDAY 30 Days #30 tablet 04/07/21 06/17/21 Unknown Rx Isosorb Dinit/Hydralazine [Bidil 1 each PO TID 30 Days #90 tablet 04/07/21 06/17/21 Unknown Rx 20/37.5MG] Isosorbide Dinitrate [Isordil] 20 mg PO TID 30 Days #90 tablet 04/07/21 06/17/21 Unknown Rx Sodium Bicarbonate 650 mg PO TID 30 Days #90 tablet 04/07/21 06/17/21 Unknown Rx carvediloL [Coreg] 6.25 mg PO BID 30 Days #60 tablet 04/07/21 06/17/21 Unknown Rx hydrALAZINE [Apresoline TAB] 25 mg PO Q8HR 30 Days #90 tab 04/12/21 06/17/21 Unknown Rx Active Meds: Active Medications Acetaminophen (Acetaminophen 325 Mg Tab) 650 mg PO Q6H PRN PRN Reason: Pain MILD(1-3)/Fever >100.5/GRANDE Last Admin: 06/18/21 01:32 Dose: 650 mg Documented by: Aspirin (Aspirin Ec 81 Mg Tab) 81 mg PO QDAY [facility] Last Admin: 06/18/21 09:58 Dose: 81 mg Documented by: Carvedilol (Carvedilol 6.25 Mg Tab) 6.25 mg PO BID [facility] Last Admin: 06/18/21 22:17 Dose: 6.25 mg Documented by: Dextrose (Dextrose 50% In Water (25gm) 50 Ml Syringe) 50 ml IV Q30MIN PRN; Protocol PRN Reason: Hypoglycemia Last Admin: 06/16/21 11:58 Dose: 50 ml Documented by: Furosemide (Furosemide 100 Mg/10 Ml Inj) 100 mg IV 0600,1800 [facility] Last Admin: 06/19/21 05:44 Dose: 100 mg Documented by: Hydromorphone HCl (Hydromorphone 1 Mg/1 Ml Inj) 0.5 mg IV Q8H PRN PRN Reason: Pain , Severe (7-10) Sodium Chloride (Nacl 0.9%) 100 mls @ 999 mls/hr IV RALPH PRN PRN Reason: Hypotension Isosorbide Dinitrate/Hydralazine (Isosorb Dinit/Hydralazine 20-37.5mg Tab) 1 each PO Q8HR [facility] Last Admin: 06/19/21 05:45 Dose: 1 each Documented by: Oxycodone/Acetaminophen (Oxycodone /Acetaminophen 5-325mg Tab) 1 tab PO Q16H PRN PRN Reason: Pain, Moderate (4-6) Last Admin: 06/18/21 22:20 Dose: 1 tab Documented by: Sodium Bicarbonate (Sodium Bicarbonate 650 Mg Tab) 650 mg PO TID [facility] Last Admin: 06/18/21 22:16 Dose: 650 mg Documented by: Sodium Chloride (Sodium Chloride 0.9% 10 Ml Flush Syringe) 10 ml IV BID [facility] Last Admin: 06/18/21 22:17 Dose: 10 ml Documented by: Sodium Chloride (Sodium Chloride 0.9% 10 Ml Flush Syringe) 10 ml IV PRN PRN PRN Reason: LINE FLUSH Exam - Constitutional Vitals: Temp Pulse Resp BP Pulse Ox 98.4 F 99 H 18 119/66 98 06/19/21 07:47 06/19/21 07:47 06/19/21 07:47 06/19/21 07:47 06/19/21 11:00 Results - Labs CBC & Chem 7: 06/19/21 05:32 06/19/21 05:32 Labs: Abnormal lab results 06/19/21 06/19/21 06/19/21 Range/Units 05:32 05:32 10:50 WBC 11.4 H (4.5-11.0) K/mm3 RBC 5.20 H (3.65-5.03) M/mm3 Hgb 10.1 L (11.8-15.2) gm/dl Hct 32.3 L (35.5-45.6) % MCV 62 L (84-94) fl MCH 19 L (28-32) pg MCHC 31 L (32-34) % RDW 18.2 H (13.2-15.2) % ABG pO2 52.9 L (80.0-90.0) mm Hg ABG HCO3 26.5 H (20.0-26.0) mmol/L ABG O2 Saturation 85.5 L (95.0-99.0) % ABG Hemoglobin 8.5 L (14.0-18.0) gm/dl Oxyhemoglobin 83.8 L (95.0-99.0) % Sodium 130 L (137-145) mmol/L Potassium 3.4 L (3.6-5.0) mmol/L Chloride 88.6 L (98-107) mmol/L BUN 99 H (9-20) mg/dL Creatinine 6.9 H (0.8-1.3) mg/dL
--- NOTE | 2021-06-19 13:38 | Operative Report ---
Operative Report Operative Report: EXAM: 1. Ultrasound-guided puncture of the right internal jugular vein 2. Fluoroscopic-guided placement of a right internal jugular tunneled cuffed hemodialysis catheter. DATE: 06/19/2021 INDICATION: CKD progressing to end-stage renal disease MEDICATIONS: Please see nursing report for full details. DEVICES: 27 cm tip to cuff 15 Fr dual lumen hemodialysis catheter ASBESTOS HANDLER: ALEX BENITO MD CONTRAST: None PROCEDURE: The risks, benefits, and alternatives were discussed and informed consent was obtained. The patient was transported to the angiography suite in satisfactory/stable condition and was transported onto the angiography table. The patient's right internal jugular vein was assessed with ultrasound and determined to be patent prior to procedure. The patient was prepped and draped in a sterile fashion. The puncture site was anesthetized. Under sonographic guidance, the right internal jugular vein was punctured with a 21-gauge micropuncture needle and a 0.018 inch wire was advanced into the inferior vena cava. The micropuncture needle was exchanged for a transitional dilator and the wire was retracted into the right atrium to stewart intravascular distance. The wire and inner dilator were removed. 0.035 inch wire was advanced through the transitional dilator into the inferior vena cava. A suitable exit site was identified on the patient's chest inferior and lateral to the venotomy. The site was anesthetized with local anesthetic and the track was anesthetized. Dermatotomy was made. The PermCath was attached to the tunneling device and tunneled between the dermatotomy to the venotomy. Over the 0.035 inch wire, serial dilatation was performed with ultimate placement of a peel-away sheath. The catheter was advanced through the peel- away sheath after the wire was removed and positioned centrally under fluoroscopic guidance. The peel-away sheath was removed. 3-0 Vicryl suture was used to close the venotomy and Dermabond was then applied. 2-0 Ethilon suture was used to secure the catheter at the dermatotomy. The catheter was charged with heparin 1000 units/mL of space. Sterile dressing and Biopatch applied. The patient was transferred from the angiography suite back to the floor in stable condition. FINDINGS: 1. Excellent flow was obtained through the dialysis catheter with 20 mL syringes. 2. The catheter tip is in the right atrium. IMPRESSION: 1. Successful ultrasound and fluoroscopically guided placement of a right i nternal jugular tunneled cuffed hemodialysis catheter.
[2021-06-19] MEDS ORDERED: SODIUM CHLORIDE 0.9% 100 ML IV PRN (14:00)
--- NOTE | 2021-06-19 14:19 | Progress Note ---
Assessment and Plan Assessment and plan: #Heart failure with reduced ejection fraction #Acute CHF exacerbation -EF 15% per TTE in March -NT proBNP 10,359 -will continue beta-teddy, bidil -Continue Lasix 100 mg IV twice daily -Strict I's/O's, fluid restriction to less than 1.5 L #Acute hypoxic respiratory failure -stable on nasal cannula, will wean to RA as tolerated -CXR showed cardiomegaly and mild interstitial edema -Continue diuresis #NSTEMI type II -Troponin 0.601 -> 0.5 -EKG without acute ST changes -Likely secondary to ESRD #ROMAN on CKD -Scr 6.9 today -Likely secondary to vasomotor nephropathy/cardiorenal -Nephrology consulted, assistance appreciated -Permcath placement today by Vascular Surgery, plan for HD -sodium bicarbonate for acidosis -will continue to monitor #Hypertension -controlled -will continue to monitor #Microcytic anemia -Baseline hemoglobin 10 -Likely secondary to ESRD -will transfuse for hemoglobin less than 7 #Hyponatremia -Likely hypervolemic hyponatremia secondary to CHF vs CKD -should improve with continued diuresis #Hyperkalemia-resolved -will continue to monitor Disposition Plan: Continue medical management History Interval history: No acute events overnight. Patient decided to proceed with permacath placement. Stable with nasal cannula at 3 L. Complains of chest pain with cough. No other complaints at this time. Hospitalist Physical - Physical exam Narrative exam: GENERAL: Well-developed well-nourished. Lying in bed, bed in no acute distress. HEENT: Nasal cannula at 3 L/min. CHEST/LUNGS: Expiratory crackles bilaterally. HEART/CARDIOVASCULAR: RRR. No murmur, rubs or gallops appreciated. ABDOMEN: +BS. NT/ND. NEURO: No focal motor deficit. Follows all commands. EXTREMITIES: No cyanosis, clubbing or edema. PSYCH: Cooperative. - Constitutional Vitals: Temp Pulse Resp BP Pulse Ox 98.4 F 99 H 18 119/66 98 06/19/21 07:47 06/19/21 07:47 06/19/21 07:47 06/19/21 07:47 06/19/21 11:00 General appearance: Present: severe distress HEART Score - HEART Score Troponin: Troponin T 0.562 ng/mL (0.00-0.029) H* 06/17/21 13:58 Results - Labs CBC & Chem 7: 06/19/21 05:32 06/19/21 05:32 Labs: Laboratory Last Values WBC 11.4 K/mm3 (4.5-11.0) H 06/19/21 05:32 RBC 5.20 M/mm3 (3.65-5.03) H 06/19/21 05:32 Hgb 10.1 gm/dl (11.8-15.2) L 06/19/21 05:32 Hct 32.3 % (35.5-45.6) L 06/19/21 05:32 MCV 62 fl (84-94) L 06/19/21 05:32 MCH 19 pg (28-32) L 06/19/21 05:32 MCHC 31 % (32-34) L 06/19/21 05:32 RDW 18.2 % (13.2-15.2) H 06/19/21 05:32 Plt Count 166 K/mm3 (140-440) 06/17/21 03:52 Lymph % (Auto) 48.7 % (13.4-35.0) H 06/17/21 03:52 [place] % (Auto) 10.0 % (0.0-7.3) H 06/17/21 03:52 Eos % (Auto) 0.0 % (0.0-4.3) 06/17/21 03:52 Baso % (Auto) 0.3 % (0.0-1.8) 06/17/21 03:52 Lymph # (Auto) Instrument Sterilizer 06/19/21 05:32 [place] # (Auto) 0.6 K/mm3 (0.0-0.8) 06/17/21 03:52 Eos # (Auto) 0.0 K/mm3 (0.0-0.4) 06/17/21 03:52 Baso # (Auto) 0.0 K/mm3 (0.0-0.1) 06/17/21 03:52 Add Manual Diff Complete 06/16/21 09:38 Total Counted 100 06/16/21 09:38 Seg Neutrophils % 41.0 % (40.0-70.0) 06/17/21 03:52 Seg Neuts % (Manual) 48.0 % (40.0-70.0) 06/16/21 09:38 Band Neutrophils % 8.0 % 06/16/21 09:38 Lymphocytes % (Manual) 28.0 % (13.4-35.0) 06/16/21 09:38 Reactive Lymphs % (Man) 2.0 % 06/16/21 09:38 Monocytes % (Manual) 2.0 % (0.0-7.3) 06/16/21 09:38 Eosinophils % (Manual) 2.0 % (0.0-4.3) 06/16/21 09:38 Metamyelocytes % 4.0 % 06/16/21 09:38 Myelocytes % 4.0 % 06/16/21 09:38 Promyelocytes % 2.0 % 06/16/21 09:38 Nucleated RBC % Not Reportable 06/16/21 09:38 Seg Neutrophils # 2.4 K/mm3 (1.8-7.7) 06/17/21 03:52 Seg Neutrophils # Man 4.8 K/mm3 (1.8-7.7) 06/16/21 09:38 Band Neutrophils # 0.8 K/mm3 06/16/21 09:38 Lymphocytes # (Manual) 2.8 K/mm3 (1.2-5.4) 06/16/21 09:38 Abs React Lymphs (Man) 0.2 K/mm3 06/16/21 09:38 Monocytes # (Manual) 0.2 K/mm3 (0.0-0.8) 06/16/21 09:38 Eosinophils # (Manual) 0.2 K/mm3 (0.0-0.4) 06/16/21 09:38 Basophils # (Manual) 0.0 K/mm3 (0.0-0.1) 06/16/21 09:38 Metamyelocytes # 0.4 K/mm3 06/16/21 09:38 Myelocytes # 0.4 K/mm3 06/16/21 09:38 Promyelocytes # 0.2 K/mm3 06/16/21 09:38 Blast Cells # 0.0 K/mm3 06/16/21 09:38 WBC Morphology Not Reportable 06/16/21 09:38 Hypersegmented Neuts Not Reportable 06/16/21 09:38 Hyposegmented Neuts Not Reportable 06/16/21 09:38 Hypogranular Neuts Not Reportable 06/16/21 09:38 Smudge Cells Not Reportable 06/16/21 09:38 Toxic Granulation Not Reportable 06/16/21 09:38 Toxic Vacuolation Not Reportable 06/16/21 09:38 Dohle Bodies Not Reportable 06/16/21 09:38 Pelger-Huet Anomaly Not Reportable 06/16/21 09:38 Marianne Rods Not Reportable 06/16/21 09:38 Platelet Estimate Consistent w auto 06/16/21 09:38 Clumped Platelets Not Reportable 06/16/21 09:38 Plt Clumps, EDTA Not Reportable 06/16/21 09:38 Large Platelets Not Reportable 06/16/21 09:38 Giant Platelets Not Reportable 06/16/21 09:38 Platelet Satelliting Not Reportable 06/16/21 09:38 Plt Morphology Comment Not Reportable 06/16/21 09:38 RBC Morphology Not Reportable 06/16/21 09:38 Dimorphic RBCs Not Reportable 06/16/21 09:38 Polychromasia Not Reportable 06/16/21 09:38 Hypochromasia 2+ 06/16/21 09:38 Poikilocytosis Not Reportable 06/16/21 09:38 Anisocytosis 1+ 06/16/21 09:38 Microcytosis 2+ 06/16/21 09:38 Macrocytosis Not Reportable 06/16/21 09:38 Spherocytes Not Reportable 06/16/21 09:38 Pappenheimer Bodies Not Reportable 06/16/21 09:38 Sickle Cells Not Reportable 06/16/21 09:38 Target Cells Not Reportable 06/16/21 09:38 Tear Drop Cells Not Reportable 06/16/21 09:38 Ovalocytes Not Reportable 06/16/21 09:38 Helmet Cells Not Reportable 06/16/21 09:38 [place] Bodies Not Reportable 06/16/21 09:38 [place] Rings Not Reportable 06/16/21 09:38 Byron Cells Not Reportable 06/16/21 09:38 Bite Cells Not Reportable 06/16/21 09:38 Crenated Cell Not Reportable 06/16/21 09:38 Elliptocytes Not Reportable 06/16/21 09:38 Acanthocytes (Spur) Not Reportable 06/16/21 09:38 Rouleaux Not Reportable 06/16/21 09:38 Hemoglobin C Crystals Not Reportable 06/16/21 09:38 Schistocytes Not Reportable 06/16/21 09:38 Malaria parasites Not Reportable 06/16/21 09:38 Maurisio Bodies Not Reportable 06/16/21 09:38 Hem Pathologist Commnt No 06/16/21 09:38 PT 14.3 Sec. (12.2-14.9) 06/16/21 09:38 INR 1.00 (0.87-1.13) 06/16/21 09:38 ABG pH 7.383 pH Units (7.350-7.450) 06/19/21 10:50 ABG pCO2 45.4 mm Hg 06/19/21 10:50 ABG pO2 52.9 mm Hg (80.0-90.0) L 06/19/21 10:50 ABG HCO3 26.5 mmol/L (20.0-26.0) H 06/19/21 10:50 ABG O2 Saturation 85.5 % (95.0-99.0) L 06/19/21 10:50 ABG O2 Content 10.0 (0.0-44) 06/19/21 10:50 ABG Base Excess 1.2 mmol/L (-2.0-3.0) 06/19/21 10:50 ABG Hemoglobin 8.5 gm/dl (14.0-18.0) L 06/19/21 10:50 ABG Carboxyhemoglobin 1.5 % (0.0-5.0) 06/19/21 10:50 ABG Methemoglobin 0.4 % (0.0-1.5) 06/19/21 10:50 Oxyhemoglobin 83.8 % (95.0-99.0) L 06/19/21 10:50 FiO2 21 % 06/19/21 10:50 Sodium 130 mmol/L (137-145) L 06/19/21 05:32 Potassium 3.4 mmol/L (3.6-5.0) L 06/19/21 05:32 Chloride 88.6 mmol/L (98-107) L 06/19/21 05:32 Carbon Dioxide 25 mmol/L (22-30) 06/19/21 05:32 Anion Gap 20 mmol/L 06/19/21 05:32 BUN 99 mg/dL (9-20) H 06/19/21 05:32 Creatinine 6.9 mg/dL (0.8-1.3) H 06/19/21 05:32 Estimated GFR 10 ml/min 06/19/21 05:32 BUN/Creatinine Ratio 14 % 06/19/21 05:32 Glucose 97 mg/dL (75-100) 06/19/21 05:32 POC Glucose 142 mg/dL (70-105) H 06/16/21 10:44 Calcium 8.4 mg/dL (8.4-10.2) 06/19/21 05:32 Magnesium 2.00 mg/dL (1.7-2.3) 06/16/21 09:38 Total Bilirubin 0.60 mg/dL (0.1-1.2) 06/17/21 03:52 AST 28 units/L (5-40) 06/17/21 03:52 ALT 16 units/L (7-56) 06/17/21 03:52 Alkaline Phosphatase 73 units/L (35-129) 06/17/21 03:52 Troponin T 0.562 ng/mL (0.00-0.029) H* 06/17/21 13:58 NT-Pro-B Natriuret Pep 32025 pg/mL (0-900) H 06/16/21 09:38 Total Protein 10.4 g/dL (6.3-8.2) H 06/17/21 03:52 Albumin 3.7 g/dL (3.9-5) L 06/17/21 03:52 Albumin/Globulin Ratio 0.6 % 06/17/21 03:52 Triglycerides 222 mg/dL (2-149) H 06/16/21 09:38 Cholesterol 179 mg/dL (50-199) 06/16/21 09:38 LDL Cholesterol Direct 102 mg/dL (50-130) 06/16/21 09:38 HDL Cholesterol 35 mg/dL (40-59) L 06/16/21 09:38 Cholesterol/HDL Ratio 5.11 % 06/16/21 09:38 Hepatitis A IgM Ab Non-reactive (NonReactive) 06/17/21 13:42 Hep Bs Antigen Nonreactive (Negative) 06/17/21 13:42 Hep B Core IgM Ab Non-reactive (NonReactive) 06/17/21 13:42 Hepatitis C Antibody Non-reactive (NonReactive) 06/17/21 13:42 Dang/IV: Voiding Method Urinal Active Medications - Current Medications Current Medications: Generic Name Dose Route Start Last Admin Trade Name Freq PRN Reason Stop Dose Admin Acetaminophen 650 mg 06/16/21 13:00 06/18/21 01:32 Acetaminophen 325 Mg Tab PO 650 mg Q6H PRN Administration Pain MILD(1-3)/Fever >100.5/GRANDE Aspirin 81 mg 06/17/21 10:00 06/18/21 09:58 Aspirin Ec 81 Mg Tab PO 81 mg QDAY KOLBY Administration Carvedilol 6.25 mg 06/16/21 22:00 06/18/21 22:17 Carvedilol 6.25 Mg Tab PO 6.25 mg BID KOLBY Administration Dextrose 50 ml 06/16/21 10:37 06/16/21 11:58 Dextrose 50% In Water (25gm) 50 Ml Syringe IV 50 ml Q30MIN PRN Administration Hypoglycemia Protocol Furosemide 100 mg 06/16/21 18:00 06/19/21 05:44 Furosemide 100 Mg/10 Ml Inj IV 100 mg 0600,1800 KOLBY Administration Hydromorphone HCl 0.5 mg 06/16/21 12:30 Hydromorphone 1 Mg/1 Ml Inj IV Q8H PRN Pain , Severe (7-10) Sodium Chloride 100 mls @ 999 mls/hr 06/19/21 14:00 Nacl 0.9% IV RALPH PRN Hypotension Isosorbide Dinitrate/Hydralazine 1 each 06/18/21 09:00 06/19/21 05:45 Isosorb Dinit/Hydralazine 20-37.5mg Tab PO 1 each Q8HR KOLBY Administration Oxycodone/Acetaminophen 1 tab 06/16/21 13:00 06/18/21 22:20 Oxycodone /Acetaminophen 5-325mg Tab PO 1 tab Q16H PRN Administration Pain, Moderate (4-6) Sodium Bicarbonate 650 mg 06/16/21 14:00 06/18/21 22:16 Sodium Bicarbonate 650 Mg Tab PO 650 mg TID KOLBY Administration Sodium Chloride 10 ml 06/16/21 22:00 06/18/21 22:17 Sodium Chloride 0.9% 10 Ml Flush Syringe IV 10 ml BID KOLBY Administration Sodium Chloride 10 ml 06/16/21 12:30 Sodium Chloride 0.9% 10 Ml Flush Syringe IV PRN PRN LINE FLUSH Nutrition/Malnutrition Assess - Dietary Evaluation Nutrition/Malnutrition Findings: Nutrition Notes Start: 06/17/21 09:45 Freq: Status: Active Protocol: Document 06/19/21 12:36 KATHARINA (Rec: 06/19/21 13:04 KATHARINA [id number]) Nutrition Notes Initial or Follow up Reassessment Current Diagnosis Acute Kidney Injury,CKD (stage V CKD),Hypertension,Heart Failure,Respiratory Failure Other Pertinent Diagnosis CKD adv to ESRD+HD, CHF exacerbation, Asthma. Current Diet NPO (since 06/19 00:01). Labs/Tests 06/19: Na 130, K 3.4, Cl 88.6, BUN 99, Crea 6.9. Pertinent Medications 06/19: D50w (25 g) in 50 ml Q 30 min PRN, others nutritionally unremarkable. Height 6 ft 1 in Weight 70.3 kg [place] Body Weight (kg) 83.63 BMI 20.4 Weight change and time frame No body weight change reported . Weight Status Appropriate Subjective/Other Information RD consult for routine F/U on Dietary advancement. Pt was PO on 06/18 with Good ( 100%) intake of meals reported on ADL notes. Pt's CKD progressed to ESRD and will be on HD. Percent of energy/protein needs met: Pt currently on NPO. Burn Absent Trauma Absent GI Symptoms None Food Allergy No Skin Integrity/Comment Clear, warm, dry. Current % PO Good (75-100%) Minimum of two criteria No #1 Nutrition Diagnosis Inadequate oral intake Comments: Pt currently on NPO. Pt was PO on 06/18 with Good ( 100%) intake of meals reported on ADL notes. Diagnosis Progress(for reassessment Improved documentation) Is patient on ventilator? No Is Patient Ambulatory and/or Out of Bed Yes REE-([place]-St. Jeor-ambulatory/OOB) [ [id number] [id number]] Calculation Used for Recommendations [place]-St Jeor Additional Notes Pro needs 0.6-1.2g/k-84g/ day Fluid needs 1-1.5L/day, or as per MD. Nutrition Intervention Change Diet Order: Continue NPO as per MD; when pertinent, advance to Renal Diet. Goal #1 Maintain body weight within +/ -3% of admission BWt during LOS. Goal #2 Reach and maintain acceptable chemistry lab values during LOS. Follow-Up By: 06/21/21 Additional Comments Continue monitoring Hydration, and BM; when pertinent, food tolerance and %PO intake of meals.
[2021-06-19 17:42] LABS: Band Neutrophils # (Manual) 0.8 K/mm3; Total Cells Counted 100
[2021-06-19 17:43] LABS: Anisocytosis 1+; Hypochromasia 2+; Platelet Estimate Consistent w Auto; Target Cells 1+
[2021-06-19 17:52] LABS: Platelet Count 132 K/mm3 (140-440)
--- NOTE | 2021-06-19 18:54 | Progress Note ---
Assessment and Plan 56 YO Male with Systolic CHF(EF 15%), HTN, CKD, Medication Noncompliance, Asthma presents to ED for evaluation. Patient reports "I am short of breath". Patient speaks in short and incomplete sentences due to shortness of breath. Patient knowledges shortness of breath over the past 1 week with worsening symptoms over the past few days. EMS was notified and upon arrival the patient was found to be in distress and subsequently transported to [facility] for further care and evaluation of the aforementioned symptoms. The patient was seen and evaluated in the emergency department. All lab and imaging studies reviewed. The patient was found to be using accessory muscles to breathe, unable to speak in complete sentences, tripoding, with a pulse oximetry of 86% on room air which is consistent with acute hypoxemic respiratory failure. Patient also found to have clinical symptoms consistent with congestive heart failure, cardiorenal sy ndrome, acidosis, hyponatremia. Patient admitted to IMCU due to increased risk of worsening symptoms. Patient placed on supplemental oxygen with improvement in symptoms and was subsequently initiated on noninvasive positive pressure ventilation with mild improvement in symptoms. No reports of fever, chills, chest pain, palpitation, skin rash, recent ill contacts, and known exposure to COVID-19. Patient has history of smoking. 4 cigaretts a day x 16 years. Drinks alcohol. Denies drug abuse. Worked in [employer] Not and has two children. No known drug allergies Patient alert, awake. Resting on 4 litres O2 . O2 saturation 98% Still complaining and cough. Says shortness of breath and chest pain better now. BIPAP 24/12,rate 22,FIO2 30% stand by in the room. ABG done on room air ABG pH 7.383 pH Units (7.350-7.450) 06/19/21 10:50 ABG pCO2 45.4 mm Hg 06/19/21 10:50 ABG pO2 52.9 mm Hg (80.0-90.0) L 06/19/21 10:50 ABG O2 Saturation 85.5 % (95.0-99.0) L 06/19/21 10:50 Patient is candidate for home O2. Recommend home O2 2 to 3 litres via nasal canula. Patient afebrile. has mild leukocytosis. Blood pressure 113/64, Pulse 82, respirations 18. Patient receiving hemodialysis. Chest xray done 06/16/21 reported mild congestive heart failure. Patient is on Lasix. Recommend DVT and GI prophylaxis. Adding Robitussin DM for cough. - Patient Problems (1) Acute hypoxemic respiratory failure Current Visit: Yes Status: Acute Plan to address problem: O2 4 litres via nasal canula. BIPAP /, rate 22, FIO2 30% stand by in the room. Recommend DVT and GI Prophylaxis. Recommend xopenex inhaler 2 puffs q 8 hours prn for shortness of breath. (2) Acute exacerbation of CHF (congestive heart failure) Current Visit: Yes Status: Acute Qualifiers: Heart failure type: systolic Qualified Code(s): I50.23 - Acute on chronic systolic (congestive) heart failure Plan to address problem: Patient is on lasix, Aspirin and Coreg, Bidil. Management as per cardiology. (3) Acute kidney injury Current Visit: No Status: Acute Plan to address problem: Management as per nephrology. (4) Hypertensive emergency Current Visit: Yes Status: Acute Plan to address problem: Management as per primary care and cardiology. (5) Tobacco use disorder Current Visit: Yes Status: Acute Plan to address problem: Counseled to stop smoking. PFTs as out patient. Subjective Date of service: 06/19/21 Interval history: 56 YO Male with Systolic CHF(EF 15%), HTN, CKD, Medication Noncompliance, Asthma presents to ED for evaluation. Patient reports "I am short of breath". Patient speaks in short and incomplete sentences due to shortness of breath. Patient knowledges shortness of breath over the past 1 week with worsening symptoms over the past few days. EMS was notified and upon arrival the patient was found to be in distress and subsequently transported to [facility] for further care and evaluation of the aforementioned symptoms. The patient was seen and evaluated in the emergency department. All lab and imaging studies reviewed. The patient was found to be using accessory muscles to breathe, unable to speak in complete sentences, tripoding, with a pulse oximetry of 86% on room air which is consistent with acute hypoxemic respiratory failure. Patient also found to have clinical symptoms consistent with congestive heart failure, cardiorenal syndrome, acidosis, hyponatremia. Patient admitted to IM due to increased risk of worsening symptoms. Patient placed on supplemental oxygen with improvement in symptoms and was subsequently initiated on noninvasive positive pressure ventilation with mild improvement in symptoms. No reports of fever, chills, chest pain, palpitation, skin rash, recent ill contacts, and known exposure to COVID-19. Patient has history of smoking. 4 cigaretts a day x 16 years. Drinks alcohol. Denies drug abuse. Worked in [employer]. Not and has two children. No known drug allergies Patient alert, awake. Resting on 4 litres O2 . O2 saturation 98% Still complaining and cough. Says shortness of breath and chest pain better now. BIPAP 24/12,rate 22,FIO2 30% stand by in the room. ABG done on room air ABG pH 7.383 pH Units (7.350-7.450) 06/19/21 10:50 ABG pCO2 45.4 mm Hg 06/19/21 10:50 ABG pO2 52.9 mm Hg (80.0-90.0) L 06/19/21 10:50 ABG O2 Saturation 85.5 % (95.0-99.0) L 06/19/21 10:50 Patient is candidate for home O2. Recommend home O2 2 to 3 litres via nasal canula. Patient afebrile. has mild leukocytosis. Blood pressure 113/64, Pulse 82, respirations 18. Patient receiving hemodialysis. Chest xray done 06/16/21 reported mild congestive heart failure. Patient is on Lasix. Recommend DVT and GI prophylaxis. Adding Robitussin DM for cough. Objective Vital Signs - 12hr 06/19/21 06/19/21 06/19/21 07:47 11:00 16:30 Temperature 98.4 F 98.0 F Pulse Rate 99 H Respiratory 18 18 Rate Blood Pressure 119/66 O2 Sat by Pulse 95 98 Oximetry 06/19/21 06/19/21 06/19/21 17:20 17:30 17:45 Temperature Pulse Rate 100 H 110 H 104 H Respiratory Rate Blood Pressure 150/106 146/106 129/110 O2 Sat by Pulse Oximetry 06/19/21 06/19/21 06/19/21 18:00 18:15 18:30 Temperature Pulse Rate 107 H 106 H 106 H Respiratory Rate Blood Pressure 138/100 143/96 136/103 O2 Sat by Pulse Oximetry 06/19/21 18:45 Temperature Pulse Rate 107 H Respiratory Rate Blood Pressure 133/100 O2 Sat by Pulse Oximetry Constitutional: no acute distress, alert Eyes: non-icteric ENT: oropharynx moist Neck: supple, no lymphadenopathy Effort: mildly labored Ascultation: Bilateral: rales Cardiovascular: other (Tachycardia.) Gastrointestinal: normoactive bowel sounds, soft, non-tender Integumentary: normal Extremities: no cyanosis, no edema Neurologic: non-focal exam, pupils equal and round, CN II-XII normal Psychiatric: other (Irritable.) CBC and BMP: 06/19/21 05:32 06/20/21 05:28 ABG, PT/INR, D-dimer: ABG ABG pH 7.383 pH Units (7.350-7.450) 06/19/21 10:50 ABG pCO2 45.4 mm Hg 06/19/21 10:50 ABG pO2 52.9 mm Hg (80.0-90.0) L 06/19/21 10:50 ABG O2 Saturation 85.5 % (95.0-99.0) L 06/19/21 10:50 PT/INR, D-dimer PT 14.3 Sec. (12.2-14.9) 06/16/21 09:38 INR 1.00 (0.87-1.13) 06/16/21 09:38 Abnormal lab findings: Abnormal Labs 06/16/21 06/16/21 06/16/21 09:38 09:38 09:38 WBC RBC 5.70 H Hgb 11.2 L Hct MCV 63 L MCH 20 L MCHC 31 L RDW 19.0 H Plt Count Lymph % (Auto) [place] % (Auto) Seg Neuts % (Manual) Lymphocytes % (Manual) Monocytes % (Manual) Monocytes # (Manual) ABG pO2 ABG HCO3 ABG O2 Saturation ABG Hemoglobin Oxyhemoglobin Sodium 127 L Potassium 6.5 H* Chloride 97.7 L Carbon Dioxide 17 L BUN 69 H Creatinine 6.1 H Glucose 152 H POC Glucose Troponin T 0.601 H* NT-Pro-B Natriuret Pep 11710 H Total Protein 11.2 H Albumin 3.8 L Triglycerides 222 H HDL Cholesterol 35 L 06/16/21 06/16/21 06/16/21 10:44 15:40 15:40 WBC RBC 5.43 H Hgb 10.4 L Hct 33.7 L MCV 62 L MCH 19 L MCHC 31 L RDW 18.4 H Plt Count Lymph % (Auto) [place] % (Auto) Seg Neuts % (Manual) Lymphocytes % (Manual) Monocytes % (Manual) Monocytes # (Manual) ABG pO2 ABG HCO3 ABG O2 Saturation ABG Hemoglobin Oxyhemoglobin Sodium 126 L Potassium 6.2 H* Chloride 96.4 L Carbon Dioxide 15 L BUN 71 H Creatinine 6.2 H Glucose 148 H POC Glucose 142 H Troponin T NT-Pro-B Natriuret Pep Total Protein 11.1 H Albumin 3.6 L Triglycerides HDL Cholesterol 06/17/21 06/17/21 06/17/21 03:52 03:52 13:58 WBC RBC 5.35 H Hgb 10.0 L Hct 33.1 L MCV 62 L MCH 19 L MCHC 30 L RDW 18.3 H Plt Count Lymph % (Auto) 48.7 H [place] % (Auto) 10.0 H Seg Neuts % (Manual) Lymphocytes % (Manual) Monocytes % (Manual) Monocytes # (Manual) ABG pO2 ABG HCO3 ABG O2 Saturation ABG Hemoglobin Oxyhemoglobin Sodium 131 L Potassium 5.3 H Chloride 97.0 L Carbon Dioxide 18 L BUN 83 H Creatinine 6.8 H Glucose 128 H POC Glucose Troponin T 0.562 H* NT-Pro-B Natriuret Pep Total Protein 10.4 H Albumin 3.7 L Triglycerides HDL Cholesterol 06/18/21 06/19/21 06/19/21 06:57 05:32 05:32 WBC 11.4 H RBC 5.20 H Hgb 10.1 L Hct 32.3 L MCV 62 L MCH 19 L MCHC 31 L RDW 18.2 H Plt Count 132 L Lymph % (Auto) [place] % (Auto) Seg Neuts % (Manual) 33.0 L Lymphocytes % (Manual) 45.0 H Monocytes % (Manual) 12.0 H Monocytes # (Manual) 1.4 H ABG pO2 ABG HCO3 ABG O2 Saturation ABG Hemoglobin Oxyhemoglobin Sodium 130 L 130 L Potassium 3.4 L Chloride 90.7 L 88.6 L Carbon Dioxide BUN 95 H 99 H Creatinine 7.1 H 6.9 H Glucose 105 H POC Glucose Troponin T NT-Pro-B Natriuret Pep Total Protein Albumin Triglycerides HDL Cholesterol 06/19/21 10:50 WBC RBC Hgb Hct MCV MCH MCHC RDW Plt Count Lymph % (Auto) [place] % (Auto) Seg Neuts % (Manual) Lymphocytes % (Manual) Monocytes % (Manual) Monocytes # (Manual) ABG pO2 52.9 L ABG HCO3 26.5 H ABG O2 Saturation 85.5 L ABG Hemoglobin 8.5 L Oxyhemoglobin 83.8 L Sodium Potassium Chloride Carbon Dioxide BUN Creatinine Glucose POC Glucose Troponin T NT-Pro-B Natriuret Pep Total Protein Albumin Triglycerides HDL Cholesterol
[2021-06-19] MEDS: oxyCODONE /ACETAMINOPHEN 5-325MG TAB PO PRN (19:14)
[2021-06-19] MEDS: ASPIRIN EC 81 MG TAB PO SCH (19:14)
[2021-06-20 07:00] LABS: Calcium 9.1 mg/dL (8.4-10.2)
[2021-06-20] MEDS: FUROSEMIDE 100 MG/10 ML INJ IV SCH ×2 (07:11→18:16)
[2021-06-20] MEDS: ISOSORB DINIT/HYDRALAZINE 20-37.5MG TAB PO SCH ×2 (07:11→14:15)
[2021-06-20] MEDS: ASPIRIN EC 81 MG TAB PO SCH (10:51)
[2021-06-20] MEDS: carvediloL 6.25 MG TAB PO SCH ×2 (10:51→21:52)
[2021-06-20] MEDS: SODIUM BICARBONATE 650 MG TAB PO SCH ×3 (10:52→21:53)
--- NOTE | 2021-06-20 10:56 | Progress Note ---
Subjective Interval history: Patient was seen today for follow-up of multiple renal related issues around 1:30 PM, has had hemodialysis yesterday felt much better Events of 24 hours vitals labs intake output medications were reviewed Past medical history: Reviewed Family history: Reviewed Social history: Reviewed Allergies: Reviewed Physical examination: Vitals: Reviewed HEENT: No pallor or icterus oral mucosa moist Neck: Supple no JVD no thyromegaly Chest: Bilateral rales wheezes Heart: Regular rate and rhythm S1-S2 heard no S3-S4 Abdomen: Soft nontender no voluntary guarding rigidity rebound Extremity: Dry skin less than 1+ peripheral edema Psychiatric: No evidence of agitation and aggression noted Dermatology: No petechial rashes Labs and x-rays: Reviewed from today Assessment and plan #End-stage kidney disease Patient will receive his second him dialysis treatment today, he tolerated his first treatment fairly well his cough and shortness of breath has markedly improved, feels much better Goal will be to get him a fistula before the discharge vascular surgery will need to arrange this prior to discharge Outpatient dialysis clinic needs to be established at [facility] or [facility] as patient wants to follow-up with our group only #Bone mineral disorder and secondary hyperparathyroidism: To monitor and follow PTH was in 130 range phosphorus was 6.0 in March #Anemia in chronic kidney disease, continue to monitor, iron panel was satisfactory March 2021 #Hypertension and volume: Noted to be in congestive heart failure with respiratory failure on BiPAP, Hemodialysis ultrafiltration required #Overall prognosis remains guarded, he wants to follow-up with our group in his dialysis can be arranged at [facility] or [facility] dialysis clinic where he can continue to follow and receive care from our group We'll continue to follow and make recommendation for renal standpoint Objective - Vital Signs Vital signs: Vital Signs - 12hr 06/19/21 06/20/21 06/20/21 23:10 00:02 04:00 Temperature 98.0 F Pulse Rate 73 110 H 97 H Respiratory 18 18 Rate Blood Pressure 87/55 O2 Sat by Pulse 96 100 Oximetry 06/20/21 06/20/21 06/20/21 05:34 07:11 08:37 Temperature 98.0 F Pulse Rate 95 H 95 H 95 H Respiratory 18 Rate Blood Pressure 111/73 111/73 O2 Sat by Pulse 95 100 Oximetry 06/20/21 10:00 Temperature Pulse Rate Respiratory Rate Blood Pressure O2 Sat by Pulse 96 Oximetry - Lab 06/20/21 11:26 06/20/21 11:26 Most recent lab results ABG pH 7.383 pH Units (7.350-7.450) 06/19/21 10:50 ABG pCO2 45.4 mm Hg 06/19/21 10:50 ABG pO2 52.9 mm Hg (80.0-90.0) L 06/19/21 10:50 ABG HCO3 26.5 mmol/L (20.0-26.0) H 06/19/21 10:50 ABG O2 Saturation 85.5 % (95.0-99.0) L 06/19/21 10:50 Calcium 9.1 mg/dL (8.4-10.2) 06/20/21 05:28 Magnesium 2.00 mg/dL (1.7-2.3) 06/16/21 09:38 Medications & Allergies - Medications Allergies/Adverse Reactions: Allergies No Known Allergies Allergy (Verified 06/16/21 23:14) Home Medications: Home Medications Medication Instructions Recorded Confirmed Last Taken Type Aspirin EC [Halfprin EC] 81 mg PO QDAY 30 Days #30 tablet 04/07/21 06/17/21 06/15/21 Rx Furosemide [Lasix TAB] 40 mg PO QDAY 30 Days #30 tablet 04/07/21 06/17/21 Unknown Rx Isosorbide Dinitrate [Isordil] 20 mg PO TID 30 Days #90 tablet 04/07/21 06/17/21 06/15/21 Rx Sodium Bicarbonate 650 mg PO TID 30 Days #90 tablet 04/07/21 06/17/21 06/15/21 Rx Hydralazine HCl 50 mg PO TID 06/20/21 06/20/21 06/15/21 History Spironolactone [Aldactone] 25 mg PO QDAY 06/20/21 06/20/21 06/15/21 History carvediloL [Coreg] 12.5 mg PO BID 06/20/21 06/20/21 06/15/21 History Active Medications: Generic Name Dose Route Start Last Admin Trade Name Freq PRN Reason Stop Dose Admin Acetaminophen 650 mg 06/16/21 13:00 06/18/21 01:32 Acetaminophen 325 Mg Tab PO 650 mg Q6H PRN Administration Pain MILD(1-3)/Fever >100.5/GRANDE Aspirin 81 mg 06/17/21 10:00 06/20/21 10:51 Aspirin Ec 81 Mg Tab PO 81 mg QDAY KOLBY Administration Carvedilol 6.25 mg 06/16/21 22:00 06/20/21 10:51 Carvedilol 6.25 Mg Tab PO 6.25 mg BID KOLBY Administration Dextrose 50 ml 06/16/21 10:37 06/16/21 11:58 Dextrose 50% In Water (25gm) 50 Ml Syringe IV 50 ml Q30MIN PRN Administration Hypoglycemia Protocol Furosemide 100 mg 06/16/21 18:00 06/20/21 07:11 Furosemide 100 Mg/10 Ml Inj IV 100 mg 0600,1800 KOLBY Administration Guaifenesin 10 ml 06/19/21 19:51 Guaifenesin Dm 200/20 Mg Oral Liqd 10 Ml PO Q4H PRN Cough Hydromorphone HCl 0.5 mg 06/16/21 12:30 Hydromorphone 1 Mg/1 Ml Inj IV Q8H PRN Pain , Severe (7-10) Sodium Chloride 100 mls @ 999 mls/hr 06/19/21 14:00 Nacl 0.9% IV RALPH PRN Hypotension Isosorbide Dinitrate/Hydralazine 1 each 06/18/21 09:00 06/20/21 07:11 Isosorb Dinit/Hydralazine 20-37.5mg Tab PO 1 each Q8HR KOLBY Administration Oxycodone/Acetaminophen 1 tab 06/16/21 13:00 06/19/21 19:14 Oxycodone /Acetaminophen 5-325mg Tab PO 1 tab Q16H PRN Administration Pain, Moderate (4-6) Sodium Bicarbonate 650 mg 06/16/21 14:00 06/20/21 10:52 Sodium Bicarbonate 650 Mg Tab PO 650 mg TID KOLBY Administration Sodium Chloride 10 ml 06/16/21 22:00 06/20/21 10:51 Sodium Chloride 0.9% 10 Ml Flush Syringe IV 10 ml BID KOLBY Administration Sodium Chloride 10 ml 06/16/21 12:30 Sodium Chloride 0.9% 10 Ml Flush Syringe IV PRN PRN LINE FLUSH
--- NOTE | 2021-06-20 10:57 | XRay Report ---
CHEST 1 VIEW INDICATION / CLINICAL INFORMATION: fever. COMPARISON: 06/16/2021. FINDINGS: SUPPORT DEVICES: Interval placement of right sided dialysis catheter. HEART / MEDIASTINUM: No significant abnormality. LUNGS / PLEURA: No significant pulmonary or pleural abnormality. No pneumothorax. ADDITIONAL FINDINGS: No significant additional findings. IMPRESSION: 1. No acute findings. Signer Name: Valentin Carrero MD Signed: 06/20/2021 10:52 AM Workstation Name: [id number]
[2021-06-20 12:28] LABS: Basophils # (Auto) 0.1 K/mm3 (0.0-0.1); Basophils % (Auto) 0.9 % (0.0-1.8); Eosinophils # (Auto) 0.4 K/mm3 (0.0-0.4); Eosinophils % (Auto) 4.8 % (0.0-4.3); Hematocrit 35.2 % (35.5-45.6); Hemoglobin 10.9 gm/dl (11.8-15.2); Lymphocytes # (Auto) 3.9 K/mm3 (1.2-5.4); Lymphocytes % (Auto) 44.2 % (13.4-35.0); Mean Corpuscular HGB Conc 31 % (32-34); Monocytes # (Auto) 1.1 K/mm3 (0.0-0.8); Monocytes % (Auto) 12.6 % (0.0-7.3); Red Blood Count 5.65 M/mm3 (3.65-5.03); Red Cell Distribution Width 18.4 % (13.2-15.2)
[2021-06-20 12:30] LABS: Mean Corpuscular Volume 62 fl (84-94); Platelet Count 123 K/mm3 (140-440)
--- NOTE | 2021-06-20 12:37 | Consultation ---
History of Present Illness - Reason for Consult Consult date: 06/19/21 End-stage renal disease Requesting physician: CHELI WYMAN - History of Present Illness patient is a 56-year-old man with a history of cardiomyopathy, EF of 15%, and likely CKD who presents with dyspnea. 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 Was planning to see doctors after his insurance starts in 2021. In ED, started on BiPAP, as well as nitroglycerin drip with improvement in symptoms. Notes good urine output after getting medicine. He denies edema. Denies uremic symptoms. During his hospitalization, his CKD has advanced end-stage renal disease. He is in need of dialysis access. Explained the difference between fistula and graft to patient. Discussed PermCath with patient. Past History Past Medical History: diabetes, heart failure, hypertension, renal failure Past Surgical History: No surgical history Social history: no significant social history Family history: no significant family history Medications and Allergies Allergies Allergy/AdvReac Type Severity Reaction Status Date / Time No Known Allergies Allergy Verified 06/16/21 23:14 Home Medications Medication Instructions Recorded Confirmed Last Taken Type Aspirin EC [Halfprin EC] 81 mg PO QDAY 30 Days #30 tablet 04/07/21 06/17/21 Unknown Rx Furosemide [Lasix TAB] 40 mg PO QDAY 30 Days #30 tablet 04/07/21 06/17/21 Unknown Rx Isosorb Dinit/Hydralazine [Bidil 1 each PO TID 30 Days #90 tablet 04/07/21 06/17/21 Unknown Rx 20/37.5MG] Isosorbide Dinitrate [Isordil] 20 mg PO TID 30 Days #90 tablet 04/07/21 06/17/21 Unknown Rx Sodium Bicarbonate 650 mg PO TID 30 Days #90 tablet 04/07/21 06/17/21 Unknown Rx carvediloL [Coreg] 6.25 mg PO BID 30 Days #60 tablet 04/07/21 06/17/21 Unknown Rx hydrALAZINE [Apresoline TAB] 25 mg PO Q8HR 30 Days #90 tab 04/12/21 06/17/21 Unknown Rx Active Meds: Active Medications Acetaminophen (Acetaminophen 325 Mg Tab) 650 mg PO Q6H PRN PRN Reason: Pain MILD(1-3)/Fever >100.5/GRANDE Last Admin: 06/18/21 01:32 Dose: 650 mg Documented by: Aspirin (Aspirin Ec 81 Mg Tab) 81 mg PO QDAY [facility] Last Admin: 06/20/21 10:51 Dose: 81 mg Documented by: Carvedilol (Carvedilol 6.25 Mg Tab) 6.25 mg PO BID [facility] Last Admin: 06/20/21 10:51 Dose: 6.25 mg Documented by: Dextrose (Dextrose 50% In Water (25gm) 50 Ml Syringe) 50 ml IV Q30MIN PRN; Protocol PRN Reason: Hypoglycemia Last Admin: 06/16/21 11:58 Dose: 50 ml Documented by: Furosemide (Furosemide 100 Mg/10 Ml Inj) 100 mg IV 0600,1800 [facility] Last Admin: 06/20/21 07:11 Dose: 100 mg Documented by: Guaifenesin (Guaifenesin Dm 200/20 Mg Oral Liqd 10 Ml) 10 ml PO Q4H PRN PRN Reason: Cough Hydromorphone HCl (Hydromorphone 1 Mg/1 Ml Inj) 0.5 mg IV Q8H PRN PRN Reason: Pain , Severe (7-10) Sodium Chloride (Nacl 0.9%) 100 mls @ 999 mls/hr IV RALPH PRN PRN Reason: Hypotension Isosorbide Dinitrate/Hydralazine (Isosorb Dinit/Hydralazine 20-37.5mg Tab) 1 each PO Q8HR [facility] Last Admin: 06/20/21 07:11 Dose: 1 each Documented by: Oxycodone/Acetaminophen (Oxycodone /Acetaminophen 5-325mg Tab) 1 tab PO Q16H PRN PRN Reason: Pain, Moderate (4-6) Last Admin: 06/19/21 19:14 Dose: 1 tab Documented by: Sodium Bicarbonate (Sodium Bicarbonate 650 Mg Tab) 650 mg PO TID [facility] Last Admin: 06/20/21 10:52 Dose: 650 mg Documented by: Sodium Chloride (Sodium Chloride 0.9% 10 Ml Flush Syringe) 10 ml IV BID [facility] Last Admin: 06/20/21 10:51 Dose: 10 ml Documented by: Sodium Chloride (Sodium Chloride 0.9% 10 Ml Flush Syringe) 10 ml IV PRN PRN PRN Reason: LINE FLUSH Review of Systems All systems: negative (see HPI) Exam - Constitutional Vitals: Temp Pulse Resp BP Pulse Ox 98.0 F 95 H 18 111/73 96 06/20/21 05:34 06/20/21 08:37 06/20/21 05:34 06/20/21 07:11 06/20/21 10:00 General appearance: Present: no acute distress - EENT Eyes: Present: EOM intact ENT: hearing intact - Respiratory Respiratory effort: labored - Abdominal General gastrointestinal: Present: soft, non-tender - Psychiatric Psychiatric: appropriate mood/affect, cooperative Results - Labs CBC & Chem 7: 06/20/21 11:26 06/20/21 05:28 Labs: Abnormal lab results 06/19/21 06/20/21 06/20/21 Range/Units 05:32 05:28 11:26 RBC 5.65 H (3.65-5.03) M/mm3 Hgb 10.9 L (11.8-15.2) gm/dl Hct 35.2 L (35.5-45.6) % MCV 62 L (84-94) fl MCH 19 L (28-32) pg MCHC 31 L (32-34) % RDW 18.4 H (13.2-15.2) % Plt Count 132 L 123 L (140-440) K/mm3 Lymph % (Auto) 44.2 H (13.4-35.0) % [place] % (Auto) 12.6 H (0.0-7.3) % Eos % (Auto) 4.8 H (0.0-4.3) % [place] # (Auto) 1.1 H (0.0-0.8) K/mm3 Seg Neutrophils % 37.5 L (40.0-70.0) % Seg Neuts % (Manual) 33.0 L (40.0-70.0) % Lymphocytes % (Manual) 45.0 H (13.4-35.0) % Monocytes % (Manual) 12.0 H (0.0-7.3) % Monocytes # (Manual) 1.4 H (0.0-0.8) K/mm3 Sodium 128 L (137-145) mmol/L Chloride 87.6 L (98-107) mmol/L BUN 84 H (9-20) mg/dL Creatinine 7.4 H (0.8-1.3) mg/dL Glucose 104 H (75-100) mg/dL Assessment and Plan 56-year-old male with congestive heart failure and CKD which is now advanced en d-stage renal disease requiring hemodialysis. Plan for PermCath placement. Risk, benefits, and alternatives discussed. Patient agrees with procedure. Provided card. Told patient to follow-up in 2 weeks. Ordered vein mapping.
--- NOTE | 2021-06-20 12:42 | Progress Note ---
Assessment and Plan 56 YO Male with Systolic CHF(EF 15%), HTN, CKD, Medication Noncompliance, Asthma presents to ED for evaluation. Patient reports "I am short of breath". Patient speaks in short and incomplete sentences due to shortness of breath. Patient knowledges shortness of breath over the past 1 week with worsening symptoms over the past few days. EMS was notified and upon arrival the patient was found to be in distress and subsequently transported to [facility] for further care and evaluation of the aforementioned symptoms. The patient was seen and evaluated in the emergency department. All lab and imaging studies reviewed. The patient was found to be using accessory muscles to breathe, unable to speak in complete sentences, tripoding, with a pulse oximetry of 86% on room air which is consistent with acute hypoxemic respiratory failure. Patient also found to have clinical symptoms consistent with congestive heart failure, cardiorenal sy ndrome, acidosis, hyponatremia. Patient admitted to IMCU due to increased risk of worsening symptoms. Patient placed on supplemental oxygen with improvement in symptoms and was subsequently initiated on noninvasive positive pressure ventilation with mild improvement in symptoms. No reports of fever, chills, chest pain, palpitation, skin rash, recent ill contacts, and known exposure to COVID-19. Patient has history of smoking. 4 cigaretts a day x 16 years. Drinks alcohol. Denies drug abuse. Worked in [employer]. Not and has two children. No known drug allergies Patient alert, awake. Resting on 2 1/2 litres O2 . O2 saturation 97% Still complaining and cough. Says shortness of breath and chest pain better now. BIPAP 24/12,rate 22,FIO2 30% stand by in the room. ABG done on room air ABG pH 7.383 pH Units (7.350-7.450) 06/19/21 10:50 ABG pCO2 45.4 mm Hg 06/19/21 10:50 ABG pO2 52.9 mm Hg (80.0-90.0) L 06/19/21 10:50 ABG O2 Saturation 85.5 % (95.0-99.0) L 06/19/21 10:50 Patient is candidate for home O2. Recommend home O2 2 to 3 litres via nasal canula. Patient afebrile. has mild leukocytosis. Blood pressure 108/69, Pulse 83, respirations 20. Patient receiving hemodialysis. Chest xray done 06/16/21 reported mild congestive heart failure. Chest xray 06/20/21 reported no acute findings. Patient is on Lasix. Recommend DVT and GI prophylaxis. Adding Robitussin DM for cough. - Patient Problems (1) Acute hypoxemic respiratory failure Current Visit: Yes Status: Acute Plan to address problem: O2 2 1/2 litres via nasal canula. BIPAP 24/12, rate 22, FIO2 30% stand by in the room. Recommend DVT and GI Prophylaxis. Recommend xopenex inhaler 2 puffs q 8 hours prn for shortness of breath. (2) Acute exacerbation of CHF (congestive heart failure) Current Visit: Yes Status: Acute Qualifiers: Heart failure type: systolic Qualified Code(s): I50.23 - Acute on chronic systolic (congestive) heart failure Plan to address problem: Patient is on lasix, Aspirin and Coreg, Bidil. Management as per cardiology. (3) Acute kidney injury Current Visit: No Status: Acute Plan to address problem: Management as per nephrology. (4) Hypertensive emergency Current Visit: Yes Status: Acute Plan to address problem: Management as per primary care and cardiology. (5) Tobacco use disorder Current Visit: Yes Status: Acute Plan to address problem: Counseled to stop smoking. PFTs as out patient. Subjective Date of service: 06/20/21 Interval history: 56 YO Male with Systolic CHF(EF 15%), HTN, CKD, Medication Noncompliance, Asthma presents to ED for evaluation. Patient reports "I am short of breath". Patient speaks in short and incomplete sentences due to shortness of breath. Patient knowledges shortness of breath over the past 1 week with worsening symptoms over the past few days. EMS was notified and upon arrival the patient was found to be in distress and subsequently transported to [facility] for further care and evaluation of the aforementioned symptoms. The patient was seen and evaluated in the emergency department. All lab and imaging studies reviewed. The patient was found to be using accessory muscles to breathe, unable to speak in complete sentences, tripoding, with a pulse oximetry of 86% on room air which is consistent with acute hypoxemic respiratory failure. Patient also found to have clinical symptoms consistent with congestive heart failure, cardiorenal syndrome, acidosis, hyponatremia. Patient admitted to [facility] due to increased risk of worsening symptoms. Patient placed on supplemental oxygen with improvement in symptoms and was subsequently initiated on noninvasive positive pressure ventilation with mild improvement in symptoms. No reports of fever, chills, chest pain, palpitation, skin rash, recent ill contacts, and known exposure to COVID-19. Patient has history of smoking. 4 cigaretts a day x 16 years. Drinks alcohol. Denies drug abuse. Worked in [employer]. Not and has two children. No known drug allergies Patient alert, awake. Resting on 2 1/2 litres O2 . O2 saturation 97% Still complaining and cough. Says shortness of breath and chest pain better now. BIPAP 24/12,rate 22,FIO2 30% stand by in the room. ABG done on room air ABG pH 7.383 pH Units (7.350-7.450) 06/19/21 10:50 ABG pCO2 45.4 mm Hg 06/19/21 10:50 ABG pO2 52.9 mm Hg (80.0-90.0) L 06/19/21 10:50 ABG O2 Saturation 85.5 % (95.0-99.0) L 06/19/21 10:50 Patient is candidate for home O2. Recommend home O2 2 to 3 litres via nasal canula. Patient afebrile. has mild leukocytosis. Blood pressure 108/69, Pulse 83, respirations 20. Patient receiving hemodialysis. Chest xray done 06/16/21 reported mild congestive heart failure. Chest xray 06/20/21 reported no acute findings. Patient is on Lasix. Recommend DVT and GI prophylaxis. Adding Robitussin DM for cough. Objective Vital Signs - 12hr 06/20/21 06/20/21 06/20/21 04:00 05:34 07:11 Temperature 98.0 F Pulse Rate 97 H 95 H 95 H Respiratory 18 Rate Blood Pressure 111/73 111/73 O2 Sat by Pulse 95 Oximetry 06/20/21 06/20/21 08:37 10:00 Temperature Pulse Rate 95 H Respiratory Rate Blood Pressure O2 Sat by Pulse 100 96 Oximetry Constitutional: no acute distress, alert Eyes: non-icteric ENT: oropharynx moist Neck: supple, no lymphadenopathy Effort: mildly labored Ascultation: Bilateral: rales Cardiovascular: other (Tachycardia.) Gastrointestinal: normoactive bowel sounds, soft, non-tender Integumentary: normal Extremities: no cyanosis, no edema Neurologic: non-focal exam, pupils equal and round, CN II-XII normal Psychiatric: other (Irritable.) CBC and BMP: 06/20/21 11:26 06/20/21 11:26 ABG, PT/INR, D-dimer: ABG ABG pH 7.383 pH Units (7.350-7.450) 06/19/21 10:50 ABG pCO2 45.4 mm Hg 06/19/21 10:50 ABG pO2 52.9 mm Hg (80.0-90.0) L 06/19/21 10:50 ABG O2 Saturation 85.5 % (95.0-99.0) L 06/19/21 10:50 PT/INR, D-dimer PT 14.3 Sec. (12.2-14.9) 06/16/21 09:38 INR 1.00 (0.87-1.13) 06/16/21 09:38 Abnormal lab findings: Abnormal Labs 06/16/21 06/16/21 06/16/21 09:38 09:38 09:38 WBC RBC 5.70 H Hgb 11.2 L Hct MCV 63 L MCH 20 L MCHC 31 L RDW 19.0 H Plt Count Lymph % (Auto) [place] % (Auto) Eos % (Auto) [place] # (Auto) Seg Neutrophils % Seg Neuts % (Manual) Lymphocytes % (Manual) Monocytes % (Manual) Monocytes # (Manual) ABG pO2 ABG HCO3 ABG O2 Saturation ABG Hemoglobin Oxyhemoglobin Sodium 127 L Potassium 6.5 H* Chloride 97.7 L Carbon Dioxide 17 L BUN 69 H Creatinine 6.1 H Glucose 152 H POC Glucose Troponin T 0.601 H* NT-Pro-B Natriuret Pep 58979 H Total Protein 11.2 H Albumin 3.8 L Triglycerides 222 H HDL Cholesterol 35 L 06/16/21 06/16/21 06/16/21 10:44 15:40 15:40 WBC RBC 5.43 H Hgb 10.4 L Hct 33.7 L MCV 62 L MCH 19 L MCHC 31 L RDW 18.4 H Plt Count Lymph % (Auto) [place] % (Auto) Eos % (Auto) [place] # (Auto) Seg Neutrophils % Seg Neuts % (Manual) Lymphocytes % (Manual) Monocytes % (Manual) Monocytes # (Manual) ABG pO2 ABG HCO3 ABG O2 Saturation ABG Hemoglobin Oxyhemoglobin Sodium 126 L Potassium 6.2 H* Chloride 96.4 L Carbon Dioxide 15 L BUN 71 H Creatinine 6.2 H Glucose 148 H POC Glucose 142 H Troponin T NT-Pro-B Natriuret Pep Total Protein 11.1 H Albumin 3.6 L Triglycerides HDL Cholesterol 06/17/21 06/17/21 06/17/21 03:52 03:52 13:58 WBC RBC 5.35 H Hgb 10.0 L Hct 33.1 L MCV 62 L MCH 19 L MCHC 30 L RDW 18.3 H Plt Count Lymph % (Auto) 48.7 H Wall[place] % (Auto) 10.0 H Eos % (Auto) [place] # (Auto) Seg Neutrophils % Seg Neuts % (Manual) Lymphocytes % (Manual) Monocytes % (Manual) Monocytes # (Manual) ABG pO2 ABG HCO3 ABG O2 Saturation ABG Hemoglobin Oxyhemoglobin Sodium 131 L Potassium 5.3 H Chloride 97.0 L Carbon Dioxide 18 L BUN 83 H Creatinine 6.8 H Glucose 128 H POC Glucose Troponin T 0.562 H* NT-Pro-B Natriuret Pep Total Protein 10.4 H Albumin 3.7 L Triglycerides HDL Cholesterol 06/18/21 06/19/21 06/19/21 06:57 05:32 05:32 WBC 11.4 H RBC 5.20 H Hgb 10.1 L Hct 32.3 L MCV 62 L MCH 19 L MCHC 31 L RDW 18.2 H Plt Count 132 L Lymph % (Auto) [place] % (Auto) Eos % (Auto) [place] # (Auto) Seg Neutrophils % Seg Neuts % (Manual) 33.0 L Lymphocytes % (Manual) 45.0 H Monocytes % (Manual) 12.0 H Monocytes # (Manual) 1.4 H ABG pO2 ABG HCO3 ABG O2 Saturation ABG Hemoglobin Oxyhemoglobin Sodium 130 L 130 L Potassium 3.4 L Chloride 90.7 L 88.6 L Carbon Dioxide BUN 95 H 99 H Creatinine 7.1 H 6.9 H Glucose 105 H POC Glucose Troponin T NT-Pro-B Natriuret Pep Total Protein Albumin Triglycerides HDL Cholesterol 06/19/21 06/20/21 06/20/21 10:50 05:28 11:26 WBC RBC 5.65 H Hgb 10.9 L Hct 35.2 L MCV 62 L MCH 19 L MCHC 31 L RDW 18.4 H Plt Count 123 L Lymph % (Auto) 44.2 H Waller % (Auto) 12.6 H Eos % (Auto) 4.8 H [place] # (Auto) 1.1 H Seg Neutrophils % 37.5 L Seg Neuts % (Manual) Lymphocytes % (Manual) Monocytes % (Manual) Monocytes # (Manual) ABG pO2 52.9 L ABG HCO3 26.5 H ABG O2 Saturation 85.5 L ABG Hemoglobin 8.5 L Oxyhemoglobin 83.8 L Sodium 128 L Potassium Chloride 87.6 L Carbon Dioxide BUN 84 H Creatinine 7.4 H Glucose 104 H POC Glucose Troponin T NT-Pro-B Natriuret Pep Total Protein Albumin Triglycerides HDL Cholesterol Chest x-ray: report reviewed, image reviewed Additional Studies: CHEST 1 VIEW 06/20/21 INDICATION / CLINICAL INFORMATION: fever. COMPARISON: 06/16/2021. FINDINGS: SUPPORT DEVICES: Interval placement of right sided dialysis catheter. HEART / MEDIASTINUM: No significant abnormality. LUNGS / PLEURA: No significant pulmonary or pleural abnormality. No pneumothorax. ADDITIONAL FINDINGS: No significant additional findings. IMPRESSION: 1. No acute findings.
[2021-06-20 13:01] LABS: Albumin 3.7 g/dL (3.9-5)
--- NOTE | 2021-06-20 20:41 | Progress Note ---
Assessment and Plan Assessment and plan: 56 YO Male with Systolic CHF(EF 15%), HTN, CKD, Medication Noncompliance, Asthma presents to ED for evaluation. Patient knowledges shortness of breath over the past 1 week with worsening symptoms over the past few days. The patient was found to be using accessory muscles to breathe, unable to speak in complete sentences, tripoding, with a pulse oximetry of 86% on room air which is consistent with acute hypoxemic respiratory failure. Patient also found to have clinical symptoms consistent with congestive heart failure, cardiorenal syndrome, acidosis, hyponatremia. Patient admitted to IMCU due to increased risk of worsening symptoms. Patient placed on supplemental oxygen with improvement in symptoms and was subsequently initiated on noninvasive positive pressure ventilation with mild improvement in symptoms. No reports of fever, chills, chest pain, palpitation, skin rash, recent ill contacts, and known exposure to COVID-19. #Heart failure with reduced ejection fraction #Acute CHF exacerbation -EF 15% per TTE in March -NT proBNP 10,359 -will continue beta-teddy, bidil -Continue Lasix 100 mg IV twice daily -Strict I's/O's, fluid restriction to less than 1.5 L #Acute hypoxic respiratory failure -stable on nasal cannula, will wean to RA as tolerated -CXR showed cardiomegaly and mild interstitial edema -Continue diuresis #NSTEMI type II -Troponin 0.601 -> 0.5 -EKG without acute ST changes -Likely secondary to ESRD #ROMAN on CKD -Scr 6.9 today -Likely secondary to vasomotor nephropathy/cardiorenal -Nephrology consulted, assistance appreciated -Permcath placement today by Vascular Surgery, plan for HD -sodium bicarbonate for acidosis -will continue to monitor #Hypertension -controlled -will continue to monitor #Microcytic anemia -Baseline hemoglobin 10 -Likely secondary to ESRD -will transfuse for hemoglobin less than 7 #Hyponatremia -Likely hypervolemic hyponatremia secondary to CHF vs CKD -should improve with continued diuresis #Hyperkalemia-resolved -will continue to monitor Hospitalist Physical - Constitutional Vitals: Temp Pulse Resp BP Pulse Ox 97.6 F 94 H 20 97/69 98 06/20/21 15:53 06/20/21 15:53 06/20/21 15:53 06/20/21 15:53 06/20/21 19:26 General appearance: Present: no acute distress HEART Score - HEART Score Troponin: Troponin T 0.562 ng/mL (0.00-0.029) H* 06/17/21 13:58 Results - Labs CBC & Chem 7: 06/20/21 11:26 06/20/21 11:26 Labs: Laboratory Last Values WBC 8.9 K/mm3 (4.5-11.0) 06/20/21 11:26 RBC 5.65 M/mm3 (3.65-5.03) H 06/20/21 11:26 Hgb 10.9 gm/dl (11.8-15.2) L 06/20/21 11:26 Hct 35.2 % (35.5-45.6) L 06/20/21 11:26 MCV 62 fl (84-94) L 06/20/21 11:26 MCH 19 pg (28-32) L 06/20/21 11:26 MCHC 31 % (32-34) L 06/20/21 11:26 RDW 18.4 % (13.2-15.2) H 06/20/21 11:26 Plt Count 123 K/mm3 (140-440) L 06/20/21 11:26 Lymph % (Auto) 44.2 % (13.4-35.0) H 06/20/21 11:26 [place] % (Auto) 12.6 % (0.0-7.3) H 06/20/21 11:26 Eos % (Auto) 4.8 % (0.0-4.3) H 06/20/21 11:26 Baso % (Auto) 0.9 % (0.0-1.8) 06/20/21 11:26 Lymph # (Auto) 3.9 K/mm3 (1.2-5.4) 06/20/21 11:26 [place] # (Auto) 1.1 K/mm3 (0.0-0.8) H 06/20/21 11:26 Eos # (Auto) 0.4 K/mm3 (0.0-0.4) 06/20/21 11:26 Baso # (Auto) 0.1 K/mm3 (0.0-0.1) 06/20/21 11:26 Add Manual Diff Complete 06/19/21 05:32 Total Counted 100 06/19/21 05:32 Seg Neutrophils % 37.5 % (40.0-70.0) L 06/20/21 11:26 Seg Neuts % (Manual) 33.0 % (40.0-70.0) L 06/19/21 05:32 Band Neutrophils % 7.0 % 06/19/21 05:32 Lymphocytes % (Manual) 45.0 % (13.4-35.0) H 06/19/21 05:32 Reactive Lymphs % (Man) 2.0 % 06/16/21 09:38 Monocytes % (Manual) 12.0 % (0.0-7.3) H 06/19/21 05:32 Eosinophils % (Manual) 2.0 % (0.0-4.3) 06/19/21 05:32 Metamyelocytes % 1.0 % 06/19/21 05:32 Myelocytes % 4.0 % 06/16/21 09:38 Promyelocytes % 2.0 % 06/16/21 09:38 Nucleated RBC % Not Reportable 06/19/21 05:32 Seg Neutrophils # 3.3 K/mm3 (1.8-7.7) 06/20/21 11:26 Seg Neutrophils # Man 3.8 K/mm3 (1.8-7.7) 06/19/21 05:32 Band Neutrophils # 0.8 K/mm3 06/19/21 05:32 Lymphocytes # (Manual) 5.1 K/mm3 (1.2-5.4) 06/19/21 05:32 Abs React Lymphs (Man) 0.0 K/mm3 06/19/21 05:32 Monocytes # (Manual) 1.4 K/mm3 (0.0-0.8) H 06/19/21 05:32 Eosinophils # (Manual) 0.2 K/mm3 (0.0-0.4) 06/19/21 05:32 Basophils # (Manual) 0.0 K/mm3 (0.0-0.1) 06/19/21 05:32 Metamyelocytes # 0.1 K/mm3 06/19/21 05:32 Myelocytes # 0.0 K/mm3 06/19/21 05:32 Promyelocytes # 0.0 K/mm3 06/19/21 05:32 Blast Cells # 0.0 K/mm3 06/19/21 05:32 WBC Morphology Not Reportable 06/19/21 05:32 Hypersegmented Neuts Not Reportable 06/19/21 05:32 Hyposegmented Neuts Not Reportable 06/19/21 05:32 Hypogranular Neuts Not Reportable 06/19/21 05:32 Smudge Cells Not Reportable 06/19/21 05:32 Toxic Granulation Not Reportable 06/19/21 05:32 Toxic Vacuolation Not Reportable 06/19/21 05:32 Dohle Bodies Not Reportable 06/19/21 05:32 Pelger-Huet Anomaly Not Reportable 06/19/21 05:32 Marianne Rods Not Reportable 06/19/21 05:32 Platelet Estimate Consistent w auto 06/19/21 05:32 Clumped Platelets Not Reportable 06/19/21 05:32 Plt Clumps, EDTA Not Reportable 06/19/21 05:32 Large Platelets Not Reportable 06/19/21 05:32 Giant Platelets Not Reportable 06/19/21 05:32 Platelet Satelliting Not Reportable 06/19/21 05:32 Plt Morphology Comment Not Reportable 06/19/21 05:32 RBC Morphology Not Reportable 06/19/21 05:32 Dimorphic RBCs Not Reportable 06/19/21 05:32 Polychromasia Not Reportable 06/19/21 05:32 Hypochromasia 2+ 06/19/21 05:32 Poikilocytosis Not Reportable 06/19/21 05:32 Anisocytosis 1+ 06/19/21 05:32 Microcytosis 2+ 06/19/21 05:32 Macrocytosis Not Reportable 06/19/21 05:32 Spherocytes Not Reportable 06/19/21 05:32 Pappenheimer Bodies Not Reportable 06/19/21 05:32 Sickle Cells Not Reportable 06/19/21 05:32 Target Cells 1+ 06/19/21 05:32 Tear Drop Cells Not Reportable 06/19/21 05:32 Ovalocytes Not Reportable 06/19/21 05:32 Helmet Cells Not Reportable 06/19/21 05:32 Sapp-Aucilla Bodies Not Reportable 06/19/21 05:32 [place] Rings Not Reportable 06/19/21 05:32 Carrie Cells Not Reportable 06/19/21 05:32 Bite Cells Not Reportable 06/19/21 05:32 Crenated Cell Not Reportable 06/19/21 05:32 Elliptocytes Not Reportable 06/19/21 05:32 Acanthocytes (Spur) Not Reportable 06/19/21 05:32 Rouleaux Not Reportable 06/19/21 05:32 Hemoglobin C Crystals Not Reportable 06/19/21 05:32 Schistocytes Not Reportable 06/19/21 05:32 Malaria parasites Not Reportable 06/19/21 05:32 Maurisio Bodies Not Reportable 06/19/21 05:32 Hem Pathologist Commnt No 06/19/21 05:32 PT 14.3 Sec. (12.2-14.9) 06/16/21 09:38 INR 1.00 (0.87-1.13) 06/16/21 09:38 ABG pH 7.383 pH Units (7.350-7.450) 06/19/21 10:50 ABG pCO2 45.4 mm Hg 06/19/21 10:50 ABG pO2 52.9 mm Hg (80.0-90.0) L 06/19/21 10:50 ABG HCO3 26.5 mmol/L (20.0-26.0) H 06/19/21 10:50 ABG O2 Saturation 85.5 % (95.0-99.0) L 06/19/21 10:50 ABG O2 Content 10.0 (0.0-44) 06/19/21 10:50 ABG Base Excess 1.2 mmol/L (-2.0-3.0) 06/19/21 10:50 ABG Hemoglobin 8.5 gm/dl (14.0-18.0) L 06/19/21 10:50 ABG Carboxyhemoglobin 1.5 % (0.0-5.0) 06/19/21 10:50 ABG Methemoglobin 0.4 % (0.0-1.5) 06/19/21 10:50 Oxyhemoglobin 83.8 % (95.0-99.0) L 06/19/21 10:50 FiO2 21 % 06/19/21 10:50 Sodium 128 mmol/L (137-145) L 06/20/21 11:26 Potassium 3.5 mmol/L (3.6-5.0) L 06/20/21 11:26 Chloride 86.3 mmol/L (98-107) L 06/20/21 11:26 Carbon Dioxide 25 mmol/L (22-30) 06/20/21 11:26 Anion Gap 20 mmol/L 06/20/21 11:26 BUN 94 mg/dL (9-20) H 06/20/21 11:26 Creatinine 8.1 mg/dL (0.8-1.3) H 06/20/21 11:26 Estimated GFR 8 ml/min 06/20/21 11:26 BUN/Creatinine Ratio 12 % 06/20/21 11:26 Glucose 111 mg/dL (75-100) H 06/20/21 11:26 POC Glucose 142 mg/dL (70-105) H 06/16/21 10:44 Lactic Acid 0.80 mmol/L (0.7-2.0) 06/20/21 11:26 Calcium 9.0 mg/dL (8.4-10.2) 06/20/21 11:26 Magnesium 2.00 mg/dL (1.7-2.3) 06/20/21 11:26 Total Bilirubin 0.70 mg/dL (0.1-1.2) 06/20/21 11:26 AST 19 units/L (5-40) 06/20/21 11:26 ALT 9 units/L (7-56) 06/20/21 11:26 Alkaline Phosphatase 70 units/L (35-129) 06/20/21 11:26 Troponin T 0.562 ng/mL (0.00-0.029) H* 06/17/21 13:58 NT-Pro-B Natriuret Pep 10389 pg/mL (0-900) H 06/16/21 09:38 Total Protein 11.2 g/dL (6.3-8.2) H 06/20/21 11:26 Albumin 3.7 g/dL (3.9-5) L 06/20/21 11:26 Albumin/Globulin Ratio 0.5 % 06/20/21 11:26 Triglycerides 222 mg/dL (2-149) H 06/16/21 09:38 Cholesterol 179 mg/dL (50-199) 06/16/21 09:38 LDL Cholesterol Direct 102 mg/dL (50-130) 06/16/21 09:38 HDL Cholesterol 35 mg/dL (40-59) L 06/16/21 09:38 Cholesterol/HDL Ratio 5.11 % 06/16/21 09:38 Procalcitonin 0.76 ng/mL (<0.15) 06/20/21 11:26 Hepatitis A IgM Ab Non-reactive (NonReactive) 06/17/21 13:42 Hep Bs Antigen Nonreactive (Negative) 06/17/21 13:42 Hep B Core IgM Ab Non-reactive (NonReactive) 06/17/21 13:42 Hepatitis C Antibody Non-reactive (NonReactive) 06/17/21 13:42 Microbiology: Microbiology 06/20/21 11:53 Peripheral/Venous Blood Culture - Preliminary Culture in Progress 06/20/21 11:26 Peripheral/Venous Blood Culture - Preliminary Culture in Progress Dang/IV: Voiding Method Urinal Active Medications - Current Medications Current Medications: Generic Name Dose Route Start Last Admin Trade Name Freq PRN Reason Stop Dose Admin Acetaminophen 650 mg 06/16/21 13:00 06/18/21 01:32 Acetaminophen 325 Mg Tab PO 650 mg Q6H PRN Administration Pain MILD(1-3)/Fever >100.5/GRANDE Aspirin 81 mg 06/17/21 10:00 06/20/21 10:51 Aspirin Ec 81 Mg Tab PO 81 mg QDAY KOLBY Administration Carvedilol 6.25 mg 06/16/21 22:00 06/20/21 10:51 Carvedilol 6.25 Mg Tab PO 6.25 mg BID KOLBY Administration Dextrose 50 ml 06/16/21 10:37 06/16/21 11:58 Dextrose 50% In Water (25gm) 50 Ml Syringe IV 50 ml Q30MIN PRN Administration Hypoglycemia Protocol Furosemide 100 mg 06/16/21 18:00 06/20/21 18:16 Furosemide 100 Mg/10 Ml Inj IV Not Given 0600,1800 KOLBY Guaifenesin 10 ml 06/19/21 19:51 Guaifenesin Dm 200/20 Mg Oral Liqd 10 Ml PO Q4H PRN Cough Hydromorphone HCl 0.5 mg 06/16/21 12:30 Hydromorphone 1 Mg/1 Ml Inj IV Q8H PRN Pain , Severe (7-10) Sodium Chloride 100 mls @ 999 mls/hr 06/19/21 14:00 Nacl 0.9% IV RALPH PRN Hypotension Isosorbide Dinitrate/Hydralazine 1 each 06/18/21 09:00 06/20/21 14:15 Isosorb Dinit/Hydralazine 20-37.5mg Tab PO Not Given Q8HR KOLBY Oxycodone/Acetaminophen 1 tab 06/16/21 13:00 06/19/21 19:14 Oxycodone /Acetaminophen 5-325mg Tab PO 1 tab Q16H PRN Administration Pain, Moderate (4-6) Sodium Bicarbonate 650 mg 06/16/21 14:00 06/20/21 14:15 Sodium Bicarbonate 650 Mg Tab PO Not Given TID KOLBY Sodium Chloride 10 ml 06/16/21 22:00 06/20/21 10:51 Sodium Chloride 0.9% 10 Ml Flush Syringe IV 10 ml BID KOLBY Administration Sodium Chloride 10 ml 06/16/21 12:30 Sodium Chloride 0.9% 10 Ml Flush Syringe IV PRN PRN LINE FLUSH Nutrition/Malnutrition Assess - Dietary Evaluation Nutrition/Malnutrition Findings: Nutrition Notes Start: 06/17/21 09:45 Freq: Status: Active Protocol: Document 06/19/21 12:36 KATHARINA (Rec: 06/19/21 13:04 KATHARINA [id number]) Nutrition Notes Initial or Follow up Reassessment Current Diagnosis Acute Kidney Injury,CKD (stage V CKD),Hypertension,Heart Failure,Respiratory Failure Other Pertinent Diagnosis CKD adv to ESRD+HD, CHF exacerbation, Asthma. Current Diet NPO (since 06/19 00:01). Labs/Tests 06/19: Na 130, K 3.4, Cl 88.6, BUN 99, Crea 6.9. Pertinent Medications 06/19: D50w (25 g) in 50 ml Q 30 min PRN, others nutritionally unremarkable. Height 6 ft 1 in Weight 70.3 kg [place] Body Weight (kg) 83.63 BMI 20.4 Weight change and time frame No body weight change reported . Weight Status Appropriate Subjective/Other Information RD consult for routine F/U on Dietary advancement. Pt was PO on 06/18 with Good ( 100%) intake of meals reported on ADL notes. Pt's CKD progressed to ESRD and will be on HD. Percent of energy/protein needs met: Pt currently on NPO. Burn Absent Trauma Absent GI Symptoms None Food Allergy No Skin Integrity/Comment Clear, warm, dry. Current % PO Good (75-100%) Minimum of two criteria No #1 Nutrition Diagnosis Inadequate oral intake Comments: Pt currently on NPO. Pt was PO on 06/18 with Good ( 100%) intake of meals reported on ADL notes. Diagnosis Progress(for reassessment Improved documentation) Is patient on ventilator? No Is Patient Ambulatory and/or Out of Bed Yes REE-(Sheldon-St. Jeor-ambulatory/OOB) [ [id number] [id number]] Calculation Used for Recommendations Sheldon-St Jeor Additional Notes Pro needs 0.6-1.2g/k-84g/ day Fluid needs 1-1.5L/day, or as per MD. Nutrition Intervention Change Diet Order: Continue NPO as per MD; when pertinent, advance to Renal Diet. Goal #1 Maintain body weight within +/ -3% of admission BWt during LOS. Goal #2 Reach and maintain acceptable chemistry lab values during LOS. Follow-Up By: 06/21/21 Additional Comments Continue monitoring Hydration, and BM; when pertinent, food tolerance and %PO intake of meals.
[2021-06-20] MEDS: oxyCODONE /ACETAMINOPHEN 5-325MG TAB PO PRN (21:53)
[2021-06-20] MEDS: guaiFENesin DM 200/20 MG ORAL LIQD 10 ML PO PRN (21:57)
[2021-06-21] MEDS: guaiFENesin DM 200/20 MG ORAL LIQD 10 ML PO PRN ×2 (08:10→12:41)
--- NOTE | 2021-06-21 09:22 | Progress Note ---
Subjective Interval history: Patient was seen today for follow-up of multiple renal related issues tolerating dialysis treatment fairly well, Shortness of breath markedly improved Past medical history: Reviewed Family history: Reviewed Social history: Reviewed Allergies: Reviewed Physical examination: Vitals: Reviewed HEENT: No pallor or icterus oral mucosa moist Neck: Supple no JVD no thyromegaly Chest: Bilateral rales wheezes Heart: Regular rate and rhythm S1-S2 heard no S3-S4 Abdomen: Soft nontender no voluntary guarding rigidity rebound Extremity: Dry skin less than 1+ peripheral edema Psychiatric: No evidence of agitation and aggression noted Dermatology: No petechial rashes Labs and x-rays: Reviewed from today Assessment and plan #End-stage kidney disease, continue with him dialysis treatment 3 times a week for now he will do his treatment today after which he will be 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 Does this patient require defibrillator, Cardiology to address #we will start him on multivitamin,, Nepro 1 can twice a day #Bone mineral disorder and secondary hyperparathyroidism: To monitor and follow PTH was in 130 range phosphorus was 6.0 in March #Anemia in chronic kidney disease, continue to monitor, iron panel was satisfactory March 2021 #Hypertension and volume, Appears to have improved remarkably time spent in patient care 35 minutes We'll continue to follow and make recommendation for renal standpoint Objective - Vital Signs Vital signs: Vital Signs - 12hr 06/20/21 06/20/21 06/20/21 21:52 22:00 22:07 Temperature 98.2 F Pulse Rate 83 84 Respiratory 20 Rate Blood Pressure 108/69 115/74 O2 Sat by Pulse 98 99 Oximetry 06/20/21 06/21/21 22:11 05:02 Temperature 97.9 F 98.0 F Pulse Rate 90 80 Respiratory 20 18 Rate Blood Pressure 121/71 102/78 O2 Sat by Pulse 100 98 Oximetry - Lab 06/20/21 11:26 06/20/21 11:26 Most recent lab results ABG pH 7.383 pH Units (7.350-7.450) 06/19/21 10:50 ABG pCO2 45.4 mm Hg 06/19/21 10:50 ABG pO2 52.9 mm Hg (80.0-90.0) L 06/19/21 10:50 ABG HCO3 26.5 mmol/L (20.0-26.0) H 06/19/21 10:50 ABG O2 Saturation 85.5 % (95.0-99.0) L 06/19/21 10:50 Calcium 9.0 mg/dL (8.4-10.2) 06/20/21 11:26 Magnesium 2.00 mg/dL (1.7-2.3) 06/20/21 11:26 Medications & Allergies - Medications Allergies/Adverse Reactions: Allergies No Known Allergies Allergy (Verified 06/16/21 23:14) Home Medications: Home Medications Medication Instructions Recorded Confirmed Last Taken Type Aspirin EC [Halfprin EC] 81 mg PO QDAY 30 Days #30 tablet 04/07/21 06/17/21 06/15/21 Rx Furosemide [Lasix TAB] 40 mg PO QDAY 30 Days #30 tablet 04/07/21 06/17/21 Unknown Rx Isosorbide Dinitrate [Isordil] 20 mg PO TID 30 Days #90 tablet 04/07/21 06/17/21 06/15/21 Rx Sodium Bicarbonate 650 mg PO TID 30 Days #90 tablet 04/07/21 06/17/21 06/15/21 Rx Hydralazine HCl 50 mg PO TID 06/20/21 06/20/21 06/15/21 History Spironolactone [Aldactone] 25 mg PO QDAY 06/20/21 06/20/21 06/15/21 History carvediloL [Coreg] 12.5 mg PO BID 06/20/21 06/20/21 06/15/21 History Active Medications: Generic Name Dose Route Start Last Admin Trade Name Freq PRN Reason Stop Dose Admin Acetaminophen 650 mg 06/16/21 13:00 06/18/21 01:32 Acetaminophen 325 Mg Tab PO 650 mg Q6H PRN Administration Pain MILD(1-3)/Fever >100.5/GRANDE Aspirin 81 mg 06/17/21 10:00 06/20/21 10:51 Aspirin Ec 81 Mg Tab PO 81 mg QDAY KOLBY Administration Carvedilol 6.25 mg 06/16/21 22:00 06/20/21 21:52 Carvedilol 6.25 Mg Tab PO Not Given BID KOLBY Dextrose 50 ml 06/16/21 10:37 06/16/21 11:58 Dextrose 50% In Water (25gm) 50 Ml Syringe IV 50 ml Q30MIN PRN Administration Hypoglycemia Protocol Guaifenesin 10 ml 06/19/21 19:51 06/20/21 21:57 Guaifenesin Dm 200/20 Mg Oral Liqd 10 Ml PO 10 ml Q4H PRN Administration Cough Hydromorphone HCl 0.5 mg 06/16/21 12:30 Hydromorphone 1 Mg/1 Ml Inj IV Q8H PRN Pain , Severe (7-10) Sodium Chloride 100 mls @ 999 mls/hr 06/19/21 14:00 Nacl 0.9% IV RALPH PRN Hypotension Isosorbide Mononitrate 30 mg 06/21/21 10:00 Isosorbide Mononitrate Er 30 Mg Tab PO QDAY [facility] Losartan Potassium 25 mg 06/21/21 10:00 Losartan 25 Mg Tab PO QDAY [facility] Multivitamins/Iron 1 each 06/21/21 10:00 Fe Fumarate/Fa/Mv, Min Comb#15 Cap (Hemocyte Plus) PO QDAY [facility] Oxycodone/Acetaminophen 1 tab 06/16/21 13:00 06/20/21 21:53 Oxycodone /Acetaminophen 5-325mg Tab PO 1 tab Q16H PRN Administration Pain, Moderate (4-6) Sodium Chloride 10 ml 06/16/21 22:00 06/20/21 10:51 Sodium Chloride 0.9% 10 Ml Flush Syringe IV 10 ml BID KOLBY Administration Sodium Chloride 10 ml 06/16/21 12:30 Sodium Chloride 0.9% 10 Ml Flush Syringe IV PRN PRN LINE FLUSH
[2021-06-21] MEDS: ASPIRIN EC 81 MG TAB PO SCH (10:00)
[2021-06-21] MEDS: carvediloL 6.25 MG TAB PO SCH ×2 (10:00→23:10)
[2021-06-21] MEDS: FE FUMARATE/FA/MV, MIN COMB#15 CAP (HEMOCYTE PLUS) PO SCH (11:00)
[2021-06-21] MEDS: oxyCODONE /ACETAMINOPHEN 5-325MG TAB PO PRN (12:40)
--- NOTE | 2021-06-21 13:43 | Vascular Lab Report ---
DOPPLER ULTRASOUND UPPER EXTREMITY VENOUS MAPPING, BILATERAL INDICATION / CLINICAL INFORMATION: vein mapping for esrd TECHNIQUE: Grayscale, color and spectral Doppler imaging of the venous system of the right and left upper extrem ities was performed. COMPARISON: None available. FINDINGS: RIGHT UPPER EXTREMITY: Radial Artery (Diameter, in cm): 0.28 Basilic Vein (Diameter, in cm): - Upper Arm: 0.65 - Mid Arm: 0.52 - Lower Arm: 0.42 - Antecubital: 0.29 - Upper Forearm: 0.16 - Mid Forearm: 0.18 - Distal Forearm: 0.17 Cephalic Vein (Diameter, in cm): - Upper Arm: 0.22 - Mid Arm: 0.15 - Lower Arm: 0.13 - Antecubital: 0.28 - Upper Forearm: 0.44 - Mid Forearm: 0.24 - Distal Forearm: 0.25 LEFT UPPER EXTREMITY: Radial Artery (Diameter, in cm): 0.28 Basilic Vein (Diameter, in cm): - Upper Arm: 0.74 - Mid Arm: 0.50 - Lower Arm: 0.58 - Antecubital: 0.45 - Upper Forearm: 0.27 - Mid Forearm: 0.19 - Distal Forearm: 0.24 Cephalic Vein (Diameter, in cm): - Upper Arm: 0.30 - Mid Arm: 0.16 - Lower Arm: 0.15 - Antecubital: 0.22 - Upper Forearm: 0.36 - Mid Forearm: 0.28 - Distal Forearm: 0.24 Additional Findings: None. IMPRESSION: 1. Upper extremity venous mapping as above. Signer Name: Akin Allen MD Signed: 06/21/2021 1:39 PM Workstation Name: [id number]
[2021-06-21] MEDS: LOSARTAN 25 MG TAB PO SCH (17:08)
--- NOTE | 2021-06-21 17:52 | Progress Note ---
Assessment and Plan Assessment and plan: 56 YO Male with Systolic CHF(EF 15%), HTN, CKD, Medication Noncompliance, Asthma presents to ED for evaluation. Patient knowledges shortness of breath over the past 1 week with worsening symptoms over the past few days. The patient was found to be using accessory muscles to breathe, unable to speak in complete sentences, tripoding, with a pulse oximetry of 86% on room air which is consistent with acute hypoxemic respiratory failure. Patient also found to have clinical symptoms consistent with congestive heart failure, cardiorenal syndrome, acidosis, hyponatremia. Patient admitted to IMCU due to increased risk of worsening symptoms. Patient placed on supplemental oxygen with improvement in symptoms and was subsequently initiated on noninvasive positive pressure ventilation with mild improvement in symptoms. No reports of fever, chills, chest pain, palpitation, skin rash, recent ill contacts, and known exposure to COVID-19. #Heart failure with reduced ejection fraction #Acute CHF exacerbation -EF 15% per TTE in March -NT proBNP 10,359 -will continue beta-teddy, bidil -Continue Lasix 100 mg IV twice daily -Strict I's/O's, fluid restriction to less than 1.5 L #Acute hypoxic respiratory failure -stable on nasal cannula, will wean to RA as tolerated -CXR showed cardiomegaly and mild interstitial edema -Continue diuresis #NSTEMI type II -Troponin 0.601 -> 0.5 -EKG without acute ST changes -Likely secondary to ESRD #ROMAN on CKD -Scr 6.9 today -Likely secondary to vasomotor nephropathy/cardiorenal -Nephrology consulted, assistance appreciated -Permcath placement today by Vascular Surgery, plan for HD -sodium bicarbonate for acidosis -will continue to monitor #Hypertension -controlled -will continue to monitor #Microcytic anemia -Baseline hemoglobin 10 -Likely secondary to ESRD -will transfuse for hemoglobin less than 7 #Hyponatremia -Likely hypervolemic hyponatremia secondary to CHF vs CKD -should improve with continued diuresis #Hyperkalemia-resolved -will continue to monitor Hospitalist Physical - Constitutional Vitals: Temp Pulse Resp BP Pulse Ox 98.1 F 91 H 18 140/97 100 06/21/21 11:00 06/21/21 11:00 06/21/21 11:00 06/21/21 11:00 06/21/21 11:00 General appearance: Present: no acute distress HEART Score - HEART Score Troponin: Troponin T 0.562 ng/mL (0.00-0.029) H* 06/17/21 13:58 Results - Labs CBC & Chem 7: 06/20/21 11:26 06/20/21 11:26 Labs: Laboratory Last Values WBC 8.9 K/mm3 (4.5-11.0) 06/20/21 11:26 RBC 5.65 M/mm3 (3.65-5.03) H 06/20/21 11:26 Hgb 10.9 gm/dl (11.8-15.2) L 06/20/21 11:26 Hct 35.2 % (35.5-45.6) L 06/20/21 11:26 MCV 62 fl (84-94) L 06/20/21 11:26 MCH 19 pg (28-32) L 06/20/21 11:26 MCHC 31 % (32-34) L 06/20/21 11:26 RDW 18.4 % (13.2-15.2) H 06/20/21 11:26 Plt Count 123 K/mm3 (140-440) L 06/20/21 11:26 Lymph % (Auto) 44.2 % (13.4-35.0) H 06/20/21 11:26 [place] % (Auto) 12.6 % (0.0-7.3) H 06/20/21 11:26 Eos % (Auto) 4.8 % (0.0-4.3) H 06/20/21 11:26 Baso % (Auto) 0.9 % (0.0-1.8) 06/20/21 11:26 Lymph # (Auto) 3.9 K/mm3 (1.2-5.4) 06/20/21 11:26 [place] # (Auto) 1.1 K/mm3 (0.0-0.8) H 06/20/21 11:26 Eos # (Auto) 0.4 K/mm3 (0.0-0.4) 06/20/21 11:26 Baso # (Auto) 0.1 K/mm3 (0.0-0.1) 06/20/21 11:26 Add Manual Diff Complete 06/19/21 05:32 Total Counted 100 06/19/21 05:32 Seg Neutrophils % 37.5 % (40.0-70.0) L 06/20/21 11:26 Seg Neuts % (Manual) 33.0 % (40.0-70.0) L 06/19/21 05:32 Band Neutrophils % 7.0 % 06/19/21 05:32 Lymphocytes % (Manual) 45.0 % (13.4-35.0) H 06/19/21 05:32 Reactive Lymphs % (Man) 2.0 % 06/16/21 09:38 Monocytes % (Manual) 12.0 % (0.0-7.3) H 06/19/21 05:32 Eosinophils % (Manual) 2.0 % (0.0-4.3) 06/19/21 05:32 Metamyelocytes % 1.0 % 06/19/21 05:32 Myelocytes % 4.0 % 06/16/21 09:38 Promyelocytes % 2.0 % 06/16/21 09:38 Nucleated RBC % Not Reportable 06/19/21 05:32 Seg Neutrophils # 3.3 K/mm3 (1.8-7.7) 06/20/21 11:26 Seg Neutrophils # Man 3.8 K/mm3 (1.8-7.7) 06/19/21 05:32 Band Neutrophils # 0.8 K/mm3 06/19/21 05:32 Lymphocytes # (Manual) 5.1 K/mm3 (1.2-5.4) 06/19/21 05:32 Abs React Lymphs (Man) 0.0 K/mm3 06/19/21 05:32 Monocytes # (Manual) 1.4 K/mm3 (0.0-0.8) H 06/19/21 05:32 Eosinophils # (Manual) 0.2 K/mm3 (0.0-0.4) 06/19/21 05:32 Basophils # (Manual) 0.0 K/mm3 (0.0-0.1) 06/19/21 05:32 Metamyelocytes # 0.1 K/mm3 06/19/21 05:32 Myelocytes # 0.0 K/mm3 06/19/21 05:32 Promyelocytes # 0.0 K/mm3 06/19/21 05:32 Blast Cells # 0.0 K/mm3 06/19/21 05:32 WBC Morphology Not Reportable 06/19/21 05:32 Hypersegmented Neuts Not Reportable 06/19/21 05:32 Hyposegmented Neuts Not Reportable 06/19/21 05:32 Hypogranular Neuts Not Reportable 06/19/21 05:32 Smudge Cells Not Reportable 06/19/21 05:32 Toxic Granulation Not Reportable 06/19/21 05:32 Toxic Vacuolation Not Reportable 06/19/21 05:32 Dohle Bodies Not Reportable 06/19/21 05:32 Pelger-Huet Anomaly Not Reportable 06/19/21 05:32 Marianne Rods Not Reportable 06/19/21 05:32 Platelet Estimate Consistent w auto 06/19/21 05:32 Clumped Platelets Not Reportable 06/19/21 05:32 Plt Clumps, EDTA Not Reportable 06/19/21 05:32 Large Platelets Not Reportable 06/19/21 05:32 Giant Platelets Not Reportable 06/19/21 05:32 Platelet Satelliting Not Reportable 06/19/21 05:32 Plt Morphology Comment Not Reportable 06/19/21 05:32 RBC Morphology Not Reportable 06/19/21 05:32 Dimorphic RBCs Not Reportable 06/19/21 05:32 Polychromasia Not Reportable 06/19/21 05:32 Hypochromasia 2+ 06/19/21 05:32 Poikilocytosis Not Reportable 06/19/21 05:32 Anisocytosis 1+ 06/19/21 05:32 Microcytosis 2+ 06/19/21 05:32 Macrocytosis Not Reportable 06/19/21 05:32 Spherocytes Not Reportable 06/19/21 05:32 Pappenheimer Bodies Not Reportable 06/19/21 05:32 Sickle Cells Not Reportable 06/19/21 05:32 Target Cells 1+ 06/19/21 05:32 Tear Drop Cells Not Reportable 06/19/21 05:32 Ovalocytes Not Reportable 06/19/21 05:32 Helmet Cells Not Reportable 06/19/21 05:32 [place] Bodies Not Reportable 06/19/21 05:32 [place] Rings Not Reportable 06/19/21 05:32 Carrie Cells Not Reportable 06/19/21 05:32 Bite Cells Not Reportable 06/19/21 05:32 Crenated Cell Not Reportable 06/19/21 05:32 Elliptocytes Not Reportable 06/19/21 05:32 Acanthocytes (Spur) Not Reportable 06/19/21 05:32 Rouleaux Not Reportable 06/19/21 05:32 Hemoglobin C Crystals Not Reportable 06/19/21 05:32 Schistocytes Not Reportable 06/19/21 05:32 Malaria parasites Not Reportable 06/19/21 05:32 Maurisio Bodies Not Reportable 06/19/21 05:32 Hem Pathologist Commnt No 06/19/21 05:32 PT 14.3 Sec. (12.2-14.9) 06/16/21 09:38 INR 1.00 (0.87-1.13) 06/16/21 09:38 ABG pH 7.383 pH Units (7.350-7.450) 06/19/21 10:50 ABG pCO2 45.4 mm Hg 06/19/21 10:50 ABG pO2 52.9 mm Hg (80.0-90.0) L 06/19/21 10:50 ABG HCO3 26.5 mmol/L (20.0-26.0) H 06/19/21 10:50 ABG O2 Saturation 85.5 % (95.0-99.0) L 06/19/21 10:50 ABG O2 Content 10.0 (0.0-44) 06/19/21 10:50 ABG Base Excess 1.2 mmol/L (-2.0-3.0) 06/19/21 10:50 ABG Hemoglobin 8.5 gm/dl (14.0-18.0) L 06/19/21 10:50 ABG Carboxyhemoglobin 1.5 % (0.0-5.0) 06/19/21 10:50 ABG Methemoglobin 0.4 % (0.0-1.5) 06/19/21 10:50 Oxyhemoglobin 83.8 % (95.0-99.0) L 06/19/21 10:50 FiO2 21 % 06/19/21 10:50 Sodium 128 mmol/L (137-145) L 06/20/21 11:26 Potassium 3.5 mmol/L (3.6-5.0) L 06/20/21 11:26 Chloride 86.3 mmol/L (98-107) L 06/20/21 11:26 Carbon Dioxide 25 mmol/L (22-30) 06/20/21 11:26 Anion Gap 20 mmol/L 06/20/21 11:26 BUN 94 mg/dL (9-20) H 06/20/21 11:26 Creatinine 8.1 mg/dL (0.8-1.3) H 06/20/21 11:26 Estimated GFR 8 ml/min 06/20/21 11:26 BUN/Creatinine Ratio 12 % 06/20/21 11:26 Glucose 111 mg/dL (75-100) H 06/20/21 11:26 POC Glucose 142 mg/dL (70-105) H 06/16/21 10:44 Lactic Acid 0.80 mmol/L (0.7-2.0) 06/20/21 11:26 Calcium 9.0 mg/dL (8.4-10.2) 06/20/21 11:26 Magnesium 2.00 mg/dL (1.7-2.3) 06/20/21 11:26 Total Bilirubin 0.70 mg/dL (0.1-1.2) 06/20/21 11:26 AST 19 units/L (5-40) 06/20/21 11:26 ALT 9 units/L (7-56) 06/20/21 11:26 Alkaline Phosphatase 70 units/L (35-129) 06/20/21 11:26 Troponin T 0.562 ng/mL (0.00-0.029) H* 06/17/21 13:58 NT-Pro-B Natriuret Pep 12549 pg/mL (0-900) H 06/16/21 09:38 Total Protein 11.2 g/dL (6.3-8.2) H 06/20/21 11:26 Albumin 3.7 g/dL (3.9-5) L 06/20/21 11:26 Albumin/Globulin Ratio 0.5 % 06/20/21 11:26 Triglycerides 222 mg/dL (2-149) H 06/16/21 09:38 Cholesterol 179 mg/dL (50-199) 06/16/21 09:38 LDL Cholesterol Direct 102 mg/dL (50-130) 06/16/21 09:38 HDL Cholesterol 35 mg/dL (40-59) L 06/16/21 09:38 Cholesterol/HDL Ratio 5.11 % 06/16/21 09:38 Procalcitonin 0.76 ng/mL (<0.15) 06/20/21 11:26 Hepatitis A IgM Ab Non-reactive (NonReactive) 06/17/21 13:42 Hep Bs Antigen Nonreactive (Negative) 06/17/21 13:42 Hep B Core IgM Ab Non-reactive (NonReactive) 06/17/21 13:42 Hepatitis C Antibody Non-reactive (NonReactive) 06/17/21 13:42 Microbiology: Microbiology 06/20/21 11:53 Peripheral/Venous Blood Culture - Preliminary NO GROWTH AFTER 24 HOURS 06/20/21 11:26 Peripheral/Venous Blood Culture - Preliminary NO GROWTH AFTER 24 HOURS Dang/IV: Voiding Method Urinal Active Medications - Current Medications Current Medications: Generic Name Dose Route Start Last Admin Trade Name Freq PRN Reason Stop Dose Admin Acetaminophen 650 mg 06/16/21 13:00 06/18/21 01:32 Acetaminophen 325 Mg Tab PO 650 mg Q6H PRN Administration Pain MILD(1-3)/Fever >100.5/GRANDE Aspirin 81 mg 06/17/21 10:00 06/21/21 10:00 Aspirin Ec 81 Mg Tab PO Not Given QDAY [facility] Carvedilol 6.25 mg 06/16/21 22:00 06/21/21 10:00 Carvedilol 6.25 Mg Tab PO Not Given BID [facility] Dextrose 50 ml 06/16/21 10:37 06/16/21 11:58 Dextrose 50% In Water (25gm) 50 Ml Syringe IV 50 ml Q30MIN PRN Administration Hypoglycemia Protocol Guaifenesin 10 ml 06/19/21 19:51 06/21/21 12:41 Guaifenesin Dm 200/20 Mg Oral Liqd 10 Ml PO 10 ml Q4H PRN Administration Cough Hydromorphone HCl 0.5 mg 06/16/21 12:30 Hydromorphone 1 Mg/1 Ml Inj IV Q8H PRN Pain , Severe (7-10) Sodium Chloride 100 mls @ 999 mls/hr 06/19/21 14:00 Nacl 0.9% IV RALPH PRN Hypotension Isosorbide Mononitrate 30 mg 06/21/21 11:00 06/21/21 17:08 Isosorbide Mononitrate Er 30 Mg Tab PO 30 mg QDAY KOLBY Administration Losartan Potassium 25 mg 06/21/21 11:00 06/21/21 17:08 Losartan 25 Mg Tab PO 25 mg QDAY KOLBY Administration Multivitamins/Iron 1 each 06/21/21 11:00 06/21/21 11:00 Fe Fumarate/Fa/Mv, Min Comb#15 Cap (Hemocyte Plus) PO Not Given QDAY KOLBY Oxycodone/Acetaminophen 1 tab 06/16/21 13:00 06/21/21 12:40 Oxycodone /Acetaminophen 5-325mg Tab PO 1 tab Q16H PRN Administration Pain, Moderate (4-6) Sodium Chloride 10 ml 06/16/21 22:00 06/21/21 10:00 Sodium Chloride 0.9% 10 Ml Flush Syringe IV Not Given BID KOLBY Sodium Chloride 10 ml 06/16/21 12:30 Sodium Chloride 0.9% 10 Ml Flush Syringe IV PRN PRN LINE FLUSH Nutrition/Malnutrition Assess - Dietary Evaluation Nutrition/Malnutrition Findings: Nutrition Notes Start: 06/17/21 09:45 Freq: Status: Active Protocol: Document 06/21/21 17:43 KATHARINA (Rec: 06/21/21 17:49 KATHARINA [email or web address]) Nutrition Notes Initial or Follow up Brief Note Current Diagnosis Acute Kidney Injury,CKD (stage V CKD),Hypertension,Heart Failure,Respiratory Failure Other Pertinent Diagnosis CKD adv to ESRD+HD, CHF exacerbation, Asthma. Current Diet Renal (since B 06/19). Height 6 ft 1 in Weight 70.3 kg [place] Body Weight (kg) 83.63 BMI 20.4 Weight change and time frame No body weight change reported . Weight Status Appropriate Subjective/Other Information RD consult for routine F/U on Dietary advancement. Diet advanced to PO and %PO intake of meals is at 100%. Percent of energy/protein needs met: Prescribed Renal Diet provides for energy/protein needs (2, 072 Kcal/77 g) during LOS. Current % PO Good (75-100%) Nutrition Intervention Change Diet Order: Continue Renal Diet. Goal #1 Maintain body weight within +/ -3% of admission BWt during LOS. Goal #2 Reach and maintain acceptable chemistry lab values during LOS. Follow-Up By: 06/28/21 Additional Comments Continue monitoring Hydration, and BM; when pertinent, food tolerance and %PO intake of meals.
--- NOTE | 2021-06-21 19:25 | Progress Note ---
Assessment and Plan 56 YO Male with Systolic CHF(EF 15%), HTN, CKD, Medication Noncompliance, Asthma presents to ED for evaluation. Patient reports "I am short of breath". Patient speaks in short and incomplete sentences due to shortness of breath. Patient knowledges shortness of breath over the past 1 week with worsening symptoms over the past few days. EMS was notified and upon arrival the patient was found to be in distress and subsequently transported to [facility] for further care and evaluation of the aforementioned symptoms. The patient was seen and evaluated in the emergency department. All lab and imaging studies reviewed. The patient was found to be using accessory muscles to breathe, unable to speak in complete sentences, tripoding, with a pulse oximetry of 86% on room air which is consistent with acute hypoxemic respiratory failure. Patient also found to have clinical symptoms consistent with congestive heart failure, cardiorenal sy ndrome, acidosis, hyponatremia. Patient admitted to IMCU due to increased risk of worsening symptoms. Patient placed on supplemental oxygen with improvement in symptoms and was subsequently initiated on noninvasive positive pressure ventilation with mild improvement in symptoms. No reports of fever, chills, chest pain, palpitation, skin rash, recent ill contacts, and known exposure to COVID-19. Patient has history of smoking. 4 cigaretts a day x 16 years. Drinks alcohol. Denies drug abuse. Worked in [employer]. Not and has two children. No known drug allergies Patient alert, awake. Resting on 2 litres O2 . O2 saturation 97% Patient says cough is some what better to day. Says shortness of breath and chest pain better now. BIPAP 24/12,rate 22,FIO2 30% stand by in the room. ABG done on room air ABG pH 7.383 pH Units (7.350-7.450) 06/19/21 10:50 ABG pCO2 45.4 mm Hg 06/19/21 10:50 ABG pO2 52.9 mm Hg (80.0-90.0) L 06/19/21 10:50 ABG O2 Saturation 85.5 % (95.0-99.0) L 06/19/21 10:50 Patient is candidate for home O2. Recommend home O2 2 to 3 litres via nasal canula. Patient afebrile. has mild leukocytosis. Blood pressure 99/73, Pulse 84, respirations 18. Patient receiving hemodialysis. Chest xray done 12/10/21 reported mild congestive heart failure. Chest xray 06/20/21 reported no acute findings. Patient is on Lasix. Recommend DVT and GI prophylaxis. Adding Robitussin DM for cough - Patient Problems (1) Acute hypoxemic respiratory failure Current Visit: Yes Status: Acute Plan to address problem: O2 2 litres via nasal canula. BIPAP 24/12, rate 22, FIO2 30% stand by in the room. Recommend DVT and GI Prophylaxis. Recommend xopenex inhaler 2 puffs q 8 hours prn for shortness of breath. (2) Acute exacerbation of CHF (congestive heart failure) Current Visit: Yes Status: Acute Qualifiers: Heart failure type: systolic Qualified Code(s): I50.23 - Acute on chronic systolic (congestive) heart failure Plan to address problem: Patient is on lasix, Aspirin and Coreg, Bidil. Management as per cardiology. (3) Acute kidney injury Current Visit: No Status: Acute Plan to address problem: Management as per nephrology. (4) Hypertensive emergency Current Visit: Yes Status: Acute Plan to address problem: Management as per primary care and cardiology. (5) Tobacco use disorder Current Visit: Yes Status: Acute Plan to address problem: Counseled to stop smoking. PFTs as out patient. Subjective Date of service: 06/21/21 Interval history: 56 YO Male with Systolic CHF(EF 15%), HTN, CKD, Medication Noncompliance, Asthma presents to ED for evaluation. Patient reports "I am short of breath". Patient speaks in short and incomplete sentences due to shortness of breath. Patient k nowledges shortness of breath over the past 1 week with worsening symptoms over the past few days. EMS was notified and upon arrival the patient was found to be in distress and subsequently transported to [facility] for further care and evaluation of the aforementioned symptoms. The patient was seen and evaluated in the emergency department. All lab and imaging studies reviewed. The patient was found to be using accessory muscles to breathe, unable to speak in complete sentences, tripoding, with a pulse oximetry of 86% on room air which is consistent with acute hypoxemic respiratory failure. Patient also found to have clinical symptoms consistent with congestive heart failure, cardiorenal synd michelle, acidosis, hyponatremia. Patient admitted to [facility] due to increased risk of worsening symptoms. Patient placed on supplemental oxygen with improvement in symptoms and was subsequently initiated on noninvasive positive pressure ventilation with mild improvement in symptoms. No reports of fever, chills, chest pain, palpitation, skin rash, recent ill contacts, and known exposure to COVID-19. Patient has history of smoking. 4 cigaretts a day x 16 years. Drinks alcohol. Denies drug abuse. Worked in [employer]. Not and has two children. No known drug allergies Patient alert, awake. Resting on 2 litres O2 . O2 saturation 97% Patient says cough is some what better to day. Says shortness of breath and chest pain better now. BIPAP 30/06,rate 22,FIO2 30% stand by in the room. ABG done on room air ABG pH 7.383 pH Units (7.350-7.450) 06/19/21 10:50 ABG pCO2 45.4 mm Hg 06/19/21 10:50 ABG pO2 52.9 mm Hg (80.0-90.0) L 06/19/21 10:50 ABG O2 Saturation 85.5 % (95.0-99.0) L 06/19/21 10:50 Patient is candidate for home O2. Recommend home O2 2 to 3 litres via nasal canula. Patient afebrile. has mild leukocytosis. Blood pressure 99/73, Pulse 84, respirations 18. Patient receiving hemodialysis. Chest xray done 06/16/21 reported mild congestive heart failure. Chest xray 06/20/21 reported no acute findings. Patient is on Lasix. Recommend DVT and GI prophylaxis. Adding Robitussin DM for cough. Objective Vital Signs - 12hr 06/21/21 06/21/21 06/21/21 08:00 08:15 08:47 Temperature 98.3 F Pulse Rate 97 H 85 85 Respiratory 15 18 Rate Blood Pressure 123/87 156/100 O2 Sat by Pulse 98 100 Oximetry O2 Sat by Pulse 100 Oximetry [ Anterior Bilateral Throughout] 06/21/21 06/21/21 06/21/21 08:51 09:15 09:30 Temperature Pulse Rate 68 85 83 Respiratory Rate Blood Pressure 131/99 155/99 153/102 O2 Sat by Pulse Oximetry O2 Sat by Pulse Oximetry [ Anterior Bilateral Throughout] 06/21/21 06/21/21 06/21/21 09:45 10:00 10:15 Temperature Pulse Rate 85 86 62 Respiratory Rate Blood Pressure 142/102 140/107 129/103 O2 Sat by Pulse Oximetry O2 Sat by Pulse Oximetry [ Anterior Bilateral Throughout] 06/21/21 06/21/21 06/21/21 10:30 10:51 11:00 Temperature 98.1 F Pulse Rate 95 H 97 H 91 H Respiratory 18 Rate Blood Pressure 130/99 133/105 140/97 O2 Sat by Pulse Oximetry O2 Sat by Pulse 100 Oximetry [ Anterior Bilateral Throughout] Constitutional: no acute distress, alert Eyes: non-icteric ENT: oropharynx moist Neck: supple, no lymphadenopathy Effort: mildly labored Ascultation: Bilateral: rales Cardiovascular: other (Tachycardia.) Gastrointestinal: normoactive bowel sounds, soft, non-tender Integumentary: normal Extremities: no cyanosis, no edema Neurologic: non-focal exam, pupils equal and round, CN II-XII normal Psychiatric: other (Irritable.) CBC and BMP: 06/20/21 11:26 06/20/21 11:26 ABG, PT/INR, D-dimer: ABG ABG pH 7.383 pH Units (7.350-7.450) 06/19/21 10:50 ABG pCO2 45.4 mm Hg 06/19/21 10:50 ABG pO2 52.9 mm Hg (80.0-90.0) L 06/19/21 10:50 ABG O2 Saturation 85.5 % (95.0-99.0) L 06/19/21 10:50 PT/INR, D-dimer PT 14.3 Sec. (12.2-14.9) 06/16/21 09:38 INR 1.00 (0.87-1.13) 06/16/21 09:38 Abnormal lab findings: Abnormal Labs 06/16/21 06/16/21 06/16/21 09:38 09:38 09:38 WBC RBC 5.70 H Hgb 11.2 L Hct MCV 63 L MCH 20 L MCHC 31 L RDW 19.0 H Plt Count Lymph % (Auto) [place] % (Auto) Eos % (Auto) [place] # (Auto) Seg Neutrophils % Seg Neuts % (Manual) Lymphocytes % (Manual) Monocytes % (Manual) Monocytes # (Manual) ABG pO2 ABG HCO3 ABG O2 Saturation ABG Hemoglobin Oxyhemoglobin Sodium 127 L Potassium 6.5 H* Chloride 97.7 L Carbon Dioxide 17 L BUN 69 H Creatinine 6.1 H Glucose 152 H POC Glucose Troponin T 0.601 H* NT-Pro-B Natriuret Pep 57945 H Total Protein 11.2 H Albumin 3.8 L Triglycerides 222 H HDL Cholesterol 35 L 06/16/21 06/16/21 06/16/21 10:44 15:40 15:40 WBC RBC 5.43 H Hgb 10.4 L Hct 33.7 L MCV 62 L MCH 19 L MCHC 31 L RDW 18.4 H Plt Count Lymph % (Auto) [place] % (Auto) Eos % (Auto) [place] # (Auto) Seg Neutrophils % Seg Neuts % (Manual) Lymphocytes % (Manual) Monocytes % (Manual) Monocytes # (Manual) ABG pO2 ABG HCO3 ABG O2 Saturation ABG Hemoglobin Oxyhemoglobin Sodium 126 L Potassium 6.2 H* Chloride 96.4 L Carbon Dioxide 15 L BUN 71 H Creatinine 6.2 H Glucose 148 H POC Glucose 142 H Troponin T NT-Pro-B Natriuret Pep Total Protein 11.1 H Albumin 3.6 L Triglycerides HDL Cholesterol 06/17/21 06/17/21 06/17/21 03:52 03:52 13:58 WBC RBC 5.35 H Hgb 10.0 L Hct 33.1 L MCV 62 L MCH 19 L MCHC 30 L RDW 18.3 H Plt Count Lymph % (Auto) 48.7 H [place] % (Auto) 10.0 H Eos % (Auto) [place] # (Auto) Seg Neutrophils % Seg Neuts % (Manual) Lymphocytes % (Manual) Monocytes % (Manual) Monocytes # (Manual) ABG pO2 ABG HCO3 ABG O2 Saturation ABG Hemoglobin Oxyhemoglobin Sodium 131 L Potassium 5.3 H Chloride 97.0 L Carbon Dioxide 18 L BUN 83 H Creatinine 6.8 H Glucose 128 H POC Glucose Troponin T 0.562 H* NT-Pro-B Natriuret Pep Total Protein 10.4 H Albumin 3.7 L Triglycerides HDL Cholesterol 06/18/21 06/19/21 06/19/21 06:57 05:32 05:32 WBC 11.4 H RBC 5.20 H Hgb 10.1 L Hct 32.3 L MCV 62 L MCH 19 L MCHC 31 L RDW 18.2 H Plt Count 132 L Lymph % (Auto) [place] % (Auto) Eos % (Auto) [place] # (Auto) Seg Neutrophils % Seg Neuts % (Manual) 33.0 L Lymphocytes % (Manual) 45.0 H Monocytes % (Manual) 12.0 H Monocytes # (Manual) 1.4 H ABG pO2 ABG HCO3 ABG O2 Saturation ABG Hemoglobin Oxyhemoglobin Sodium 130 L 130 L Potassium 3.4 L Chloride 90.7 L 88.6 L Carbon Dioxide BUN 95 H 99 H Creatinine 7.1 H 6.9 H Glucose 105 H POC Glucose Troponin T NT-Pro-B Natriuret Pep Total Protein Albumin Triglycerides HDL Cholesterol 06/19/21 06/20/21 06/20/21 10:50 05:28 11:26 WBC RBC 5.65 H Hgb 10.9 L Hct 35.2 L MCV 62 L MCH 19 L MCHC 31 L RDW 18.4 H Plt Count 123 L Lymph % (Auto) 44.2 H [place] % (Auto) 12.6 H Eos % (Auto) 4.8 H [place] # (Auto) 1.1 H Seg Neutrophils % 37.5 L Seg Neuts % (Manual) Lymphocytes % (Manual) Monocytes % (Manual) Monocytes # (Manual) ABG pO2 52.9 L ABG HCO3 26.5 H ABG O2 Saturation 85.5 L ABG Hemoglobin 8.5 L Oxyhemoglobin 83.8 L Sodium 128 L Potassium Chloride 87.6 L Carbon Dioxide BUN 84 H Creatinine 7.4 H Glucose 104 H POC Glucose Troponin T NT-Pro-B Natriuret Pep Total Protein Albumin Triglycerides HDL Cholesterol 06/20/21 11:26 WBC RBC Hgb Hct MCV MCH MCHC RDW Plt Count Lymph % (Auto) [place] % (Auto) Eos % (Auto) [place] # (Auto) Seg Neutrophils % Seg Neuts % (Manual) Lymphocytes % (Manual) Monocytes % (Manual) Monocytes # (Manual) ABG pO2 ABG HCO3 ABG O2 Saturation ABG Hemoglobin Oxyhemoglobin Sodium 128 L Potassium 3.5 L Chloride 86.3 L Carbon Dioxide BUN 94 H Creatinine 8.1 H Glucose 111 H POC Glucose Troponin T NT-Pro-B Natriuret Pep Total Protein 11.2 H Albumin 3.7 L Triglycerides HDL Cholesterol Chest x-ray: report reviewed, image reviewed Additional Studies: DOPPLER ULTRASOUND UPPER EXTREMITY VENOUS MAPPING, BILATERAL 06/20/21 INDICATION / CLINICAL INFORMATION: vein mapping for esrd TECHNIQUE: Grayscale, color and spectral Doppler imaging of the venous system of the right and left upper extremities was performed. COMPARISON: None available. FINDINGS: RIGHT UPPER EXTREMITY: Radial Artery (Diameter, in cm): 0.28 Basilic Vein (Diameter, in cm): - Upper Arm: 0.65 - Mid Arm: 0.52 - Lower Arm: 0.42 - Antecubital: 0.29 - Upper Forearm: 0.16 - Mid Forearm: 0.18 - Distal Forearm: 0.17 Cephalic Vein (Diameter, in cm): - Upper Arm: 0.22 - Mid Arm: 0.15 - Lower Arm: 0.13 - Antecubital: 0.28 - Upper Forearm: 0.44 - Mid Forearm: 0.24 - Distal Forearm: 0.25 LEFT UPPER EXTREMITY: Radial Artery (Diameter, in cm): 0.28 Basilic Vein (Diameter, in cm): - Upper Arm: 0.74 - Mid Arm: 0.50 - Lower Arm: 0.58 - Antecubital: 0.45 - Upper Forearm: 0.27 - Mid Forearm: 0.19 - Distal Forearm: 0.24 Cephalic Vein (Diameter, in cm): - Upper Arm: 0.30 - Mid Arm: 0.16 - Lower Arm: 0.15 - Antecubital: 0.22 - Upper Forearm: 0.36 - Mid Forearm: 0.28 - Distal Forearm: 0.24 Additional Findings: None. IMPRESSION: 1. Upper extremity venous mapping as above.
[2021-06-21] MEDS ORDERED: ALBUTEROL 2.5 MG/3 ML NEBU IH PRN (23:15)
[2021-06-21] MEDS ORDERED: IPRATROPIUM/ALBUTEROL SULFATE 3 ML AMPUL.NEB IH ONE (23:36)
--- NOTE | 2021-06-22 09:57 | Progress Note ---
Subjective Interval history: Patient was seen today for follow-up of multiple renal related issues tolerating dialysis treatment fairly well, Shortness of breath markedly improved Past medical history: Reviewed Family history: Reviewed Social history: Reviewed Allergies: Reviewed Physical examination: Vitals: Reviewed HEENT: No pallor or icterus oral mucosa moist Neck: Supple no JVD no thyromegaly Chest: Bilateral rales wheezes Heart: Regular rate and rhythm S1-S2 heard no S3-S4 Abdomen: Soft nontender no voluntary guarding rigidity rebound Extremity: Dry skin less than 1+ peripheral edema Psychiatric: No evidence of agitation and aggression noted Dermatology: No petechial rashes Labs and x-rays: Reviewed from today Assessment and plan End-stage kidney disease: Patient is currently maintenance of a dialysis, now he will need dialysis 3 times a week, he was initiated on dialysis with difficulty Outpatient dialysis facility [facility] at [facility] or [facility], #Severe cardiomyopathy currently on medications for that, please have cardiology evaluate if patient will benefit from defibrillator #Diet and nutrition currently on Nepro as well as multivitamin #Bone mineral disorder and secondary hyperparathyroidism to monitor and follow PTH was in 130 range satisfactory #Anemia in end-stage kidney disease continue to monitor and follow erythropoietin as needed #Overall pending placement at dialysis facility insurance that starts in July, Can be considered for fistula in July, Check with dialysis facility about acceptance, but patient needs cardiac evaluation prior to discharge We'll continue to follow and make recommendation for renal standpoint Objective - Vital Signs Vital signs: Vital Signs - 12hr 06/21/21 06/21/21 06/22/21 22:00 23:19 00:00 Temperature 97.8 F Pulse Rate 94 H 88 Respiratory 14 Rate Blood Pressure 110/67 O2 Sat by Pulse 96 94 Oximetry 06/22/21 06/22/21 06/22/21 03:16 04:00 07:28 Temperature 99.2 F 98.0 F Pulse Rate 88 94 H 89 Respiratory 16 20 Rate Blood Pressure 94/58 76/48 O2 Sat by Pulse 95 99 Oximetry - Lab 06/20/21 11:26 06/20/21 11:26 Most recent lab results ABG pH 7.383 pH Units (7.350-7.450) 06/19/21 10:50 ABG pCO2 45.4 mm Hg 06/19/21 10:50 ABG pO2 52.9 mm Hg (80.0-90.0) L 06/19/21 10:50 ABG HCO3 26.5 mmol/L (20.0-26.0) H 06/19/21 10:50 ABG O2 Saturation 85.5 % (95.0-99.0) L 06/19/21 10:50 Calcium 9.0 mg/dL (8.4-10.2) 06/20/21 11:26 Magnesium 2.00 mg/dL (1.7-2.3) 06/20/21 11:26 Medications & Allergies - Medications Allergies/Adverse Reactions: Allergies No Known Allergies Allergy (Verified 06/16/21 23:14) Home Medications: Home Medications Medication Instructions Recorded Confirmed Last Taken Type Aspirin EC [Halfprin EC] 81 mg PO QDAY 30 Days #30 tablet 04/07/21 06/17/21 06/15/21 Rx Furosemide [Lasix TAB] 40 mg PO QDAY 30 Days #30 tablet 04/07/21 06/17/21 Unknown Rx Isosorbide Dinitrate [Isordil] 20 mg PO TID 30 Days #90 tablet 04/07/21 06/17/21 06/15/21 Rx Sodium Bicarbonate 650 mg PO TID 30 Days #90 tablet 04/07/21 06/17/21 06/15/21 Rx Hydralazine HCl 50 mg PO TID 06/20/21 06/20/21 06/15/21 History Spironolactone [Aldactone] 25 mg PO QDAY 06/20/21 06/20/21 06/15/21 History carvediloL [Coreg] 12.5 mg PO BID 06/20/21 06/20/21 06/15/21 History Active Medications: Generic Name Dose Route Start Last Admin Trade Name Freq PRN Reason Stop Dose Admin Acetaminophen 650 mg 06/16/21 13:00 06/18/21 01:32 Acetaminophen 325 Mg Tab PO 650 mg Q6H PRN Administration Pain MILD(1-3)/Fever >100.5/GRANDE Albuterol 2.5 mg 06/21/21 23:15 Albuterol 2.5 Mg/3 Ml Nebu IH Q4HRT PRN Shortness Of Breath Aspirin 81 mg 06/17/21 10:00 06/21/21 10:00 Aspirin Ec 81 Mg Tab PO Not Given QDAY KOLBY Carvedilol 6.25 mg 06/16/21 22:00 06/21/21 23:10 Carvedilol 6.25 Mg Tab PO 6.25 mg BID KOLBY Administration Dextrose 50 ml 06/16/21 10:37 06/16/21 11:58 Dextrose 50% In Water (25gm) 50 Ml Syringe IV 50 ml Q30MIN PRN Administration Hypoglycemia Protocol Guaifenesin 10 ml 06/19/21 19:51 06/21/21 12:41 Guaifenesin Dm 200/20 Mg Oral Liqd 10 Ml PO 10 ml Q4H PRN Administration Cough Hydromorphone HCl 0.5 mg 06/16/21 12:30 Hydromorphone 1 Mg/1 Ml Inj IV Q8H PRN Pain , Severe (7-10) Sodium Chloride 100 mls @ 999 mls/hr 06/19/21 14:00 Nacl 0.9% IV RALPH PRN Hypotension Isosorbide Mononitrate 30 mg 06/21/21 11:00 06/21/21 17:08 Isosorbide Mononitrate Er 30 Mg Tab PO 30 mg QDAY KOLBY Administration Losartan Potassium 25 mg 06/21/21 11:00 06/21/21 17:08 Losartan 25 Mg Tab PO 25 mg QDAY KOLBY Administration Multivitamins/Iron 1 each 06/21/21 11:00 06/21/21 11:00 Fe Fumarate/Fa/Mv, Min Comb#15 Cap (Hemocyte Plus) PO Not Given QDAY KOLBY Oxycodone/Acetaminophen 1 tab 06/16/21 13:00 06/21/21 12:40 Oxycodone /Acetaminophen 5-325mg Tab PO 1 tab Q16H PRN Administration Pain, Moderate (4-6) Sodium Chloride 10 ml 06/16/21 22:00 06/21/21 22:45 Sodium Chloride 0.9% 10 Ml Flush Syringe IV 10 ml BID KOLBY Administration Sodium Chloride 10 ml 06/16/21 12:30 Sodium Chloride 0.9% 10 Ml Flush Syringe IV PRN PRN LINE FLUSH
[2021-06-22] MEDS: ASPIRIN EC 81 MG TAB PO SCH (10:44)
[2021-06-22] MEDS: FE FUMARATE/FA/MV, MIN COMB#15 CAP (HEMOCYTE PLUS) PO SCH (10:44)
[2021-06-22] MEDS: LOSARTAN 25 MG TAB PO SCH (10:46)
[2021-06-22] MEDS: carvediloL 6.25 MG TAB PO SCH ×2 (10:46→21:11)
--- NOTE | 2021-06-22 16:52 | Progress Note ---
Assessment and Plan Acute hypoxemic respiratory failure Probable COPD Acute exacerbation of CHF (congestive heart failure) Acute kidney injury s/p Perm cath Hypertensive emergency Tobacco use disorder Hyponatremia Titrate supplemental oxygen to keep SpO2 88-90% Supportive HD VTE prophylaxis Smoking cessation counselling done at the bedside Blood pressure control Walk test prior to discharge for home oxygen evaluation CXA and ABG as clinically indicated Bronchodilators-ANTHONY/LAMA/ICS ( will need to be discharge on bronchodilators) Out patient pulmonary follow up to optimize pulmonary care and for evaluation of pulmonary physiology Subjective Date of service: 06/22/21 Interval history: Follow up for hypoxic resp failure, probable COPD, Tobacco use disorder Seen and examined. Vitals, albs,medications, chart and imaging reviewed. Discussed with nursing and respiratory staff. He denies any chest pain, has some shortness of breath. No fevers, no chills, no nausea or vomiting. Objective Vital Signs - 12hr 06/22/21 06/22/21 06/22/21 07:28 08:00 10:00 Temperature 98.0 F Pulse Rate 89 94 H Respiratory 20 Rate Blood Pressure 76/48 O2 Sat by Pulse 99 96 Oximetry 06/22/21 06/22/21 06/22/21 11:19 12:00 16:04 Temperature 97.5 F L 97.9 F Pulse Rate 72 94 H 91 H Respiratory 20 20 Rate Blood Pressure 90/66 96/67 O2 Sat by Pulse 92 95 Oximetry Constitutional: no acute distress, alert Eyes: non-icteric ENT: oropharynx moist Neck: supple, no lymphadenopathy, other (Right chest wall perm cath) Effort: mildly labored Ascultation: Bilateral: wheezes (expiratory) Cardiovascular: other (Tachycardia, S1,S2) Gastrointestinal: normoactive bowel sounds, soft, non-tender Integumentary: normal Extremities: no cyanosis, no edema Neurologic: normal mental status, non-focal exam, pupils equal and round, CN II- XII normal, motor strength normal and Psychiatric: mood appropriate, affect normal CBC and BMP: 06/20/21 11:26 06/20/21 11:26 ABG, PT/INR, D-dimer: ABG ABG pH 7.383 pH Units (7.350-7.450) 06/19/21 10:50 ABG pCO2 45.4 mm Hg 06/19/21 10:50 ABG pO2 52.9 mm Hg (80.0-90.0) L 06/19/21 10:50 ABG O2 Saturation 85.5 % (95.0-99.0) L 06/19/21 10:50 PT/INR, D-dimer PT 14.3 Sec. (12.2-14.9) 06/16/21 09:38 INR 1.00 (0.87-1.13) 06/16/21 09:38 Abnormal lab findings: Abnormal Labs 06/16/21 06/16/21 06/16/21 09:38 09:38 09:38 WBC RBC 5.70 H Hgb 11.2 L Hct MCV 63 L MCH 20 L MCHC 31 L RDW 19.0 H Plt Count Lymph % (Auto) [place] % (Auto) Eos % (Auto) [place] # (Auto) Seg Neutrophils % Seg Neuts % (Manual) Lymphocytes % (Manual) Monocytes % (Manual) Monocytes # (Manual) ABG pO2 ABG HCO3 ABG O2 Saturation ABG Hemoglobin Oxyhemoglobin Sodium 127 L Potassium 6.5 H* Chloride 97.7 L Carbon Dioxide 17 L BUN 69 H Creatinine 6.1 H Glucose 152 H POC Glucose Troponin T 0.601 H* NT-Pro-B Natriuret Pep 81536 H Total Protein 11.2 H Albumin 3.8 L Triglycerides 222 H HDL Cholesterol 35 L 06/16/21 06/16/21 06/16/21 10:44 15:40 15:40 WBC RBC 5.43 H Hgb 10.4 L Hct 33.7 L MCV 62 L MCH 19 L MCHC 31 L RDW 18.4 H Plt Count Lymph % (Auto) [place] % (Auto) Eos % (Auto) [place] # (Auto) Seg Neutrophils % Seg Neuts % (Manual) Lymphocytes % (Manual) Monocytes % (Manual) Monocytes # (Manual) ABG pO2 ABG HCO3 ABG O2 Saturation ABG Hemoglobin Oxyhemoglobin Sodium 126 L Potassium 6.2 H* Chloride 96.4 L Carbon Dioxide 15 L BUN 71 H Creatinine 6.2 H Glucose 148 H POC Glucose 142 H Troponin T NT-Pro-B Natriuret Pep Total Protein 11.1 H Albumin 3.6 L Triglycerides HDL Cholesterol 06/17/21 06/17/21 06/17/21 03:52 03:52 13:58 WBC RBC 5.35 H Hgb 10.0 L Hct 33.1 L MCV 62 L MCH 19 L MCHC 30 L RDW 18.3 H Plt Count Lymph % (Auto) 48.7 H [place] % (Auto) 10.0 H Eos % (Auto) [place] # (Auto) Seg Neutrophils % Seg Neuts % (Manual) Lymphocytes % (Manual) Monocytes % (Manual) Monocytes # (Manual) ABG pO2 ABG HCO3 ABG O2 Saturation ABG Hemoglobin Oxyhemoglobin Sodium 131 L Potassium 5.3 H Chloride 97.0 L Carbon Dioxide 18 L BUN 83 H Creatinine 6.8 H Glucose 128 H POC Glucose Troponin T 0.562 H* NT-Pro-B Natriuret Pep Total Protein 10.4 H Albumin 3.7 L Triglycerides HDL Cholesterol 06/18/21 06/19/21 06/19/21 06:57 05:32 05:32 WBC 11.4 H RBC 5.20 H Hgb 10.1 L Hct 32.3 L MCV 62 L MCH 19 L MCHC 31 L RDW 18.2 H Plt Count 132 L Lymph % (Auto) [place] % (Auto) Eos % (Auto) [place] # (Auto) Seg Neutrophils % Seg Neuts % (Manual) 33.0 L Lymphocytes % (Manual) 45.0 H Monocytes % (Manual) 12.0 H Monocytes # (Manual) 1.4 H ABG pO2 ABG HCO3 ABG O2 Saturation ABG Hemoglobin Oxyhemoglobin Sodium 130 L 130 L Potassium 3.4 L Chloride 90.7 L 88.6 L Carbon Dioxide BUN 95 H 99 H Creatinine 7.1 H 6.9 H Glucose 105 H POC Glucose Troponin T NT-Pro-B Natriuret Pep Total Protein Albumin Triglycerides HDL Cholesterol 06/19/21 06/20/21 06/20/21 10:50 05:28 11:26 WBC RBC 5.65 H Hgb 10.9 L Hct 35.2 L MCV 62 L MCH 19 L MCHC 31 L RDW 18.4 H Plt Count 123 L Lymph % (Auto) 44.2 H [place] % (Auto) 12.6 H Eos % (Auto) 4.8 H [place] # (Auto) 1.1 H Seg Neutrophils % 37.5 L Seg Neuts % (Manual) Lymphocytes % (Manual) Monocytes % (Manual) Monocytes # (Manual) ABG pO2 52.9 L ABG HCO3 26.5 H ABG O2 Saturation 85.5 L ABG Hemoglobin 8.5 L Oxyhemoglobin 83.8 L Sodium 128 L Potassium Chloride 87.6 L Carbon Dioxide BUN 84 H Creatinine 7.4 H Glucose 104 H POC Glucose Troponin T NT-Pro-B Natriuret Pep Total Protein Albumin Triglycerides HDL Cholesterol 06/20/21 11:26 WBC RBC Hgb Hct MCV MCH MCHC RDW Plt Count Lymph % (Auto) [place] % (Auto) Eos % (Auto) [place] # (Auto) Seg Neutrophils % Seg Neuts % (Manual) Lymphocytes % (Manual) Monocytes % (Manual) Monocytes # (Manual) ABG pO2 ABG HCO3 ABG O2 Saturation ABG Hemoglobin Oxyhemoglobin Sodium 128 L Potassium 3.5 L Chloride 86.3 L Carbon Dioxide BUN 94 H Creatinine 8.1 H Glucose 111 H POC Glucose Troponin T NT-Pro-B Natriuret Pep Total Protein 11.2 H Albumin 3.7 L Triglycerides HDL Cholesterol Chest x-ray: image reviewed
[2021-06-22] MEDS ORDERED: IPRATROPIUM/ALBUTEROL SULFATE 3 ML AMPUL.NEB IH SCH (20:00)
[2021-06-23] MEDS: IPRATROPIUM 0.02% NEBU 2.5 ML IH SCH ×3 (08:24→20:59)
[2021-06-23] MEDS: BUDESONIDE 0.25 MG/2 ML NEBU IH SCH ×3 (08:25→20:58)
--- NOTE | 2021-06-23 08:41 | Progress Note ---
Subjective Interval history: Patient was seen today for follow-up of multiple renal related issues tolerating dialysis treatment fairly well, Shortness of breath markedly improved Past medical history: Reviewed Family history: Reviewed Social history: Reviewed Allergies: Reviewed Physical examination: Vitals: Reviewed HEENT: No pallor or icterus oral mucosa moist Neck: Supple no JVD no thyromegaly Chest: Bilateral rales wheezes Heart: Regular rate and rhythm S1-S2 heard no S3-S4 Abdomen: Soft nontender no voluntary guarding rigidity rebound Extremity: Dry skin less than 1+ peripheral edema Psychiatric: No evidence of agitation and aggression noted Dermatology: No petechial rashes Labs and x-rays: Reviewed from today Assessment and plan End-stage kidney disease: started on dialysis, this admission per patient insurance 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 As of today hemoglobin is 10.9 better platelet count is stable 123, potassium is 3.5 BUN 94 creatinine is 8.1 Increase treatment time to 3-1/2 hours discontinue losartan blood pressure borderline, Start the patient on lisinopril 2.5 mg once a day Change dialysate potassium bath Outpatient dialysis facility [facility] be at [facility] or [facility], #Severe cardiomyopathy currently on medications for that, please have cardiology evaluate if patient will benefit from defibrillator #Diet and nutrition currently on Nepro as well as multivitamin #Bone mineral disorder and secondary hyperparathyroidism to monitor and follow PTH was in 130 range satisfactory #Anemia in end-stage kidney disease continue to monitor and follow erythropoietin as needed #Overall pending placement at dialysis facility insurance that starts in July, Can be considered for fistula in July, Check with dialysis facility about acceptance, but patient needs cardiac evaluation prior to discharge We'll continue to follow and make recommendation for renal standpoint Objective - Vital Signs Vital signs: Vital Signs - 12hr 06/22/21 06/22/21 06/22/21 21:11 22:00 23:35 Temperature 98.7 F Pulse Rate 46 L 93 H Respiratory 18 Rate Blood Pressure 102/62 104/61 O2 Sat by Pulse 96 94 Oximetry 06/23/21 04:32 Temperature 98.4 F Pulse Rate 89 Respiratory 18 Rate Blood Pressure 107/64 O2 Sat by Pulse 95 Oximetry - Lab 06/20/21 11:26 06/20/21 11:26 Most recent lab results ABG pH 7.383 pH Units (7.350-7.450) 06/19/21 10:50 ABG pCO2 45.4 mm Hg 06/19/21 10:50 ABG pO2 52.9 mm Hg (80.0-90.0) L 06/19/21 10:50 ABG HCO3 26.5 mmol/L (20.0-26.0) H 06/19/21 10:50 ABG O2 Saturation 85.5 % (95.0-99.0) L 06/19/21 10:50 Calcium 9.0 mg/dL (8.4-10.2) 06/20/21 11:26 Magnesium 2.00 mg/dL (1.7-2.3) 06/20/21 11:26 Medications & Allergies - Medications Allergies/Adverse Reactions: Allergies No Known Allergies Allergy (Verified 06/16/21 23:14) Home Medications: Home Medications Medication Instructions Recorded Confirmed Last Taken Type Aspirin EC [Halfprin EC] 81 mg PO QDAY 30 Days #30 tablet 04/07/21 06/17/21 06/15/21 Rx Furosemide [Lasix TAB] 40 mg PO QDAY 30 Days #30 tablet 04/07/21 06/17/21 Unknown Rx Isosorbide Dinitrate [Isordil] 20 mg PO TID 30 Days #90 tablet 04/07/21 06/17/21 06/15/21 Rx Sodium Bicarbonate 650 mg PO TID 30 Days #90 tablet 04/07/21 06/17/21 06/15/21 Rx Hydralazine HCl 50 mg PO TID 06/20/21 06/20/21 06/15/21 History Spironolactone [Aldactone] 25 mg PO QDAY 06/20/21 06/20/21 06/15/21 History carvediloL [Coreg] 12.5 mg PO BID 06/20/21 06/20/21 06/15/21 History Active Medications: Generic Name Dose Route Start Last Admin Trade Name Freq PRN Reason Stop Dose Admin Acetaminophen 650 mg 06/16/21 13:00 06/18/21 01:32 Acetaminophen 325 Mg Tab PO 650 mg Q6H PRN Administration Pain MILD(1-3)/Fever >100.5/GRANDE Albuterol 2.5 mg 06/21/21 23:15 Albuterol 2.5 Mg/3 Ml Nebu IH Q4HRT PRN Shortness Of Breath Aspirin 81 mg 06/17/21 10:00 06/22/21 10:44 Aspirin Ec 81 Mg Tab PO 81 mg QDAY KOLBY Administration Budesonide 0.25 mg 06/22/21 21:00 06/23/21 08:28 Budesonide 0.25 Mg/2 Ml Nebu IH Not Given Q12HRT KOLBY Carvedilol 6.25 mg 06/16/21 22:00 06/22/21 21:11 Carvedilol 6.25 Mg Tab PO Not Given BID KOLBY Dextrose 50 ml 06/16/21 10:37 06/16/21 11:58 Dextrose 50% In Water (25gm) 50 Ml Syringe IV 50 ml Q30MIN PRN Administration Hypoglycemia Protocol Guaifenesin 10 ml 06/19/21 19:51 06/21/21 12:41 Guaifenesin Dm 200/20 Mg Oral Liqd 10 Ml PO 10 ml Q4H PRN Administration Cough Hydromorphone HCl 0.5 mg 06/16/21 12:30 Hydromorphone 1 Mg/1 Ml Inj IV Q8H PRN Pain , Severe (7-10) Sodium Chloride 100 mls @ 999 mls/hr 06/19/21 14:00 Nacl 0.9% IV RALPH PRN Hypotension Ipratropium [place] 0.5 mg 06/23/21 08:00 06/23/21 08:24 Ipratropium 0.02% Nebu 2.5 Ml IH 0.5 mg TIDRT KOLBY Administration Isosorbide Mononitrate 30 mg 06/21/21 11:00 06/22/21 10:45 Isosorbide Mononitrate Er 30 Mg Tab PO 30 mg QDAY KOLBY Administration Losartan Potassium 25 mg 06/21/21 11:00 06/22/21 10:46 Losartan 25 Mg Tab PO Not Given QDAY KOLBY Multivitamins/Iron 1 each 06/21/21 11:00 06/22/21 10:44 Fe Fumarate/Fa/Mv, Min Comb#15 Cap (Hemocyte Plus) PO 1 each QDAY KOLBY Administration Oxycodone/Acetaminophen 1 tab 06/16/21 13:00 06/21/21 12:40 Oxycodone /Acetaminophen 5-325mg Tab PO 1 tab Q16H PRN Administration Pain, Moderate (4-6) Sodium Chloride 10 ml 06/16/21 22:00 06/22/21 21:13 Sodium Chloride 0.9% 10 Ml Flush Syringe IV 10 ml BID KOLBY Administration Sodium Chloride 10 ml 06/16/21 12:30 Sodium Chloride 0.9% 10 Ml Flush Syringe IV PRN PRN LINE FLUSH
[2021-06-23] MEDS: ASPIRIN EC 81 MG TAB PO SCH (12:14)
[2021-06-23] MEDS: FE FUMARATE/FA/MV, MIN COMB#15 CAP (HEMOCYTE PLUS) PO SCH (12:15)
[2021-06-23] MEDS: LISINOPRIL 5 MG TAB PO SCH (12:15)
[2021-06-23] MEDS: carvediloL 6.25 MG TAB PO SCH ×2 (12:15→22:02)
--- NOTE | 2021-06-23 16:00 | Progress Note ---
Subjective Date of service: 06/23/21 Interval history: Follow up for hypoxic resp failure, probable COPD, Tobacco use disorder Seen and examined. Vitals, albs,medications, chart and imaging reviewed. Discussed with nursing and respiratory staff. He denies any chest pain, has some shortness of breath. No fevers, no chills, no nausea or vomiting. Objective Vital Signs - 12hr 06/23/21 06/23/21 06/23/21 04:32 08:26 09:03 Temperature 98.4 F 98.5 F Pulse Rate 89 98 H Respiratory 18 18 Rate Blood Pressure 107/64 145/100 O2 Sat by Pulse 95 97 95 Oximetry O2 Sat by Pulse Oximetry [ Anterior Bilateral Throughout] 06/23/21 06/23/21 06/23/21 09:30 09:45 10:00 Temperature 98.5 F Pulse Rate 92 H 93 H 93 H Respiratory 18 Rate Blood Pressure 125/74 109/79 111/77 O2 Sat by Pulse 96 Oximetry O2 Sat by Pulse 100 Oximetry [ Anterior Bilateral Throughout] 06/23/21 06/23/21 06/23/21 10:15 10:30 10:45 Temperature Pulse Rate 93 H 91 H 90 Respiratory Rate Blood Pressure 113/76 114/69 117/82 O2 Sat by Pulse Oximetry O2 Sat by Pulse Oximetry [ Anterior Bilateral Throughout] 06/23/21 06/23/21 06/23/21 11:00 11:15 11:30 Temperature Pulse Rate 89 89 88 Respiratory Rate Blood Pressure 132/76 116/80 116/82 O2 Sat by Pulse Oximetry O2 Sat by Pulse Oximetry [ Anterior Bilateral Throughout] 06/23/21 11:45 Temperature 98.4 F Pulse Rate 90 Respiratory 18 Rate Blood Pressure 130/78 O2 Sat by Pulse Oximetry O2 Sat by Pulse 100 Oximetry [ Anterior Bilateral Throughout] Constitutional: no acute distress, alert Eyes: non-icteric ENT: oropharynx moist Neck: supple, no lymphadenopathy, other (Right chest wall perm cath) Effort: mildly labored Ascultation: Bilateral: wheezes (expiratory), rales Cardiovascular: other (Tachycardia, S1,S2) Gastrointestinal: normoactive bowel sounds, soft, non-tender Integumentary: normal Extremities: no cyanosis, no edema Neurologic: normal mental status, non-focal exam, pupils equal and round, CN II- XII normal, motor strength normal and Psychiatric: mood appropriate, affect normal CBC and BMP: 06/20/21 11:26 06/20/21 11:26 ABG, PT/INR, D-dimer: ABG ABG pH 7.383 pH Units (7.350-7.450) 06/19/21 10:50 ABG pCO2 45.4 mm Hg 06/19/21 10:50 ABG pO2 52.9 mm Hg (80.0-90.0) L 06/19/21 10:50 ABG O2 Saturation 85.5 % (95.0-99.0) L 06/19/21 10:50 PT/INR, D-dimer PT 14.3 Sec. (12.2-14.9) 06/16/21 09:38 INR 1.00 (0.87-1.13) 06/16/21 09:38 Abnormal lab findings: Abnormal Labs 06/16/21 06/16/21 06/16/21 09:38 09:38 09:38 WBC RBC 5.70 H Hgb 11.2 L Hct MCV 63 L MCH 20 L MCHC 31 L RDW 19.0 H Plt Count Lymph % (Auto) [place] % (Auto) Eos % (Auto) [place] # (Auto) Seg Neutrophils % Seg Neuts % (Manual) Lymphocytes % (Manual) Monocytes % (Manual) Monocytes # (Manual) ABG pO2 ABG HCO3 ABG O2 Saturation ABG Hemoglobin Oxyhemoglobin Sodium 127 L Potassium 6.5 H* Chloride 97.7 L Carbon Dioxide 17 L BUN 69 H Creatinine 6.1 H Glucose 152 H POC Glucose Troponin T 0.601 H* NT-Pro-B Natriuret Pep 21049 H Total Protein 11.2 H Albumin 3.8 L Triglycerides 222 H HDL Cholesterol 35 L 06/16/21 06/16/21 06/16/21 10:44 15:40 15:40 WBC RBC 5.43 H Hgb 10.4 L Hct 33.7 L MCV 62 L MCH 19 L MCHC 31 L RDW 18.4 H Plt Count Lymph % (Auto) [place] % (Auto) Eos % (Auto) [place] # (Auto) Seg Neutrophils % Seg Neuts % (Manual) Lymphocytes % (Manual) Monocytes % (Manual) Monocytes # (Manual) ABG pO2 ABG HCO3 ABG O2 Saturation ABG Hemoglobin Oxyhemoglobin Sodium 126 L Potassium 6.2 H* Chloride 96.4 L Carbon Dioxide 15 L BUN 71 H Creatinine 6.2 H Glucose 148 H POC Glucose 142 H Troponin T NT-Pro-B Natriuret Pep Total Protein 11.1 H Albumin 3.6 L Triglycerides HDL Cholesterol 06/17/21 06/17/21 06/17/21 03:52 03:52 13:58 WBC RBC 5.35 H Hgb 10.0 L Hct 33.1 L MCV 62 L MCH 19 L MCHC 30 L RDW 18.3 H Plt Count Lymph % (Auto) 48.7 H [place] % (Auto) 10.0 H Eos % (Auto) [place] # (Auto) Seg Neutrophils % Seg Neuts % (Manual) Lymphocytes % (Manual) Monocytes % (Manual) Monocytes # (Manual) ABG pO2 ABG HCO3 ABG O2 Saturation ABG Hemoglobin Oxyhemoglobin Sodium 131 L Potassium 5.3 H Chloride 97.0 L Carbon Dioxide 18 L BUN 83 H Creatinine 6.8 H Glucose 128 H POC Glucose Troponin T 0.562 H* NT-Pro-B Natriuret Pep Total Protein 10.4 H Albumin 3.7 L Triglycerides HDL Cholesterol 06/18/21 06/19/21 06/19/21 06:57 05:32 05:32 WBC 11.4 H RBC 5.20 H Hgb 10.1 L Hct 32.3 L MCV 62 L MCH 19 L MCHC 31 L RDW 18.2 H Plt Count 132 L Lymph % (Auto) [place] % (Auto) Eos % (Auto) [place] # (Auto) Seg Neutrophils % Seg Neuts % (Manual) 33.0 L Lymphocytes % (Manual) 45.0 H Monocytes % (Manual) 12.0 H Monocytes # (Manual) 1.4 H ABG pO2 ABG HCO3 ABG O2 Saturation ABG Hemoglobin Oxyhemoglobin Sodium 130 L 130 L Potassium 3.4 L Chloride 90.7 L 88.6 L Carbon Dioxide BUN 95 H 99 H Creatinine 7.1 H 6.9 H Glucose 105 H POC Glucose Troponin T NT-Pro-B Natriuret Pep Total Protein Albumin Triglycerides HDL Cholesterol 06/19/21 06/20/21 06/20/21 10:50 05:28 11:26 WBC RBC 5.65 H Hgb 10.9 L Hct 35.2 L MCV 62 L MCH 19 L MCHC 31 L RDW 18.4 H Plt Count 123 L Lymph % (Auto) 44.2 H [place] % (Auto) 12.6 H Eos % (Auto) 4.8 H [place] # (Auto) 1.1 H Seg Neutrophils % 37.5 L Seg Neuts % (Manual) Lymphocytes % (Manual) Monocytes % (Manual) Monocytes # (Manual) ABG pO2 52.9 L ABG HCO3 26.5 H ABG O2 Saturation 85.5 L ABG Hemoglobin 8.5 L Oxyhemoglobin 83.8 L Sodium 128 L Potassium Chloride 87.6 L Carbon Dioxide BUN 84 H Creatinine 7.4 H Glucose 104 H POC Glucose Troponin T NT-Pro-B Natriuret Pep Total Protein Albumin Triglycerides HDL Cholesterol 06/20/21 11:26 WBC RBC Hgb Hct MCV MCH MCHC RDW Plt Count Lymph % (Auto) [place] % (Auto) Eos % (Auto) [place] # (Auto) Seg Neutrophils % Seg Neuts % (Manual) Lymphocytes % (Manual) Monocytes % (Manual) Monocytes # (Manual) ABG pO2 ABG HCO3 ABG O2 Saturation ABG Hemoglobin Oxyhemoglobin Sodium 128 L Potassium 3.5 L Chloride 86.3 L Carbon Dioxide BUN 94 H Creatinine 8.1 H Glucose 111 H POC Glucose Troponin T NT-Pro-B Natriuret Pep Total Protein 11.2 H Albumin 3.7 L Triglycerides HDL Cholesterol
--- NOTE | 2021-06-23 19:51 | Progress Note ---
Assessment and Plan Assessment and plan: 56 YO Male with Systolic CHF(EF 15%), HTN, CKD, Medication Noncompliance, Asthma presents to ED for evaluation. Patient knowledges shortness of breath over the past 1 week with worsening symptoms over the past few days. The patient was found to be using accessory muscles to breathe, unable to speak in complete sentences, tripoding, with a pulse oximetry of 86% on room air which is consistent with acute hypoxemic respiratory failure. Patient also found to have clinical symptoms consistent with congestive heart failure, cardiorenal syndrome, acidosis, hyponatremia. Patient admitted to IMCU due to increased risk of worsening symptoms. Patient placed on supplemental oxygen with improvement in symptoms and was subsequently initiated on noninvasive positive pressure ventilation with mild improvement in symptoms. No reports of fever, chills, chest pain, palpitation, skin rash, recent ill contacts, and known exposure to COVID-19. #Heart failure with reduced ejection fraction #Acute CHF exacerbation -EF 15% per TTE in March -NT proBNP 10,359 -will continue beta-teddy, bidil -Continue Lasix 100 mg IV twice daily -Strict I's/O's, fluid restriction to less than 1.5 L #Acute hypoxic respiratory failure -stable on nasal cannula, will wean to RA as tolerated -CXR showed cardiomegaly and mild interstitial edema -Continue diuresis #NSTEMI type II -Troponin 0.601 -> 0.5 -EKG without acute ST changes -Likely secondary to ESRD #ROMAN on CKD -Scr 6.9 today -Likely secondary to vasomotor nephropathy/cardiorenal -Nephrology consulted, assistance appreciated -Permcath placement today by Vascular Surgery, plan for HD -sodium bicarbonate for acidosis -will continue to monitor #Hypertension -controlled -will continue to monitor #Microcytic anemia -Baseline hemoglobin 10 -Likely secondary to ESRD -will transfuse for hemoglobin less than 7 #Hyponatremia -Likely hypervolemic hyponatremia secondary to CHF vs CKD -should improve with continued diuresis #Hyperkalemia-resolved -will continue to monitor Hospitalist Physical - Constitutional Vitals: Temp Pulse Resp BP Pulse Ox 97.8 F 96 H 18 81/52 93 06/23/21 15:49 06/23/21 15:49 06/23/21 15:49 06/23/21 15:49 06/23/21 15:49 General appearance: Present: no acute distress HEART Score - HEART Score Troponin: Troponin T 0.562 ng/mL (0.00-0.029) H* 06/17/21 13:58 Results - Labs CBC & Chem 7: 06/20/21 11:26 06/20/21 11:26 Labs: Laboratory Last Values WBC 8.9 K/mm3 (4.5-11.0) 06/20/21 11:26 RBC 5.65 M/mm3 (3.65-5.03) H 06/20/21 11:26 Hgb 10.9 gm/dl (11.8-15.2) L 06/20/21 11:26 Hct 35.2 % (35.5-45.6) L 06/20/21 11:26 MCV 62 fl (84-94) L 06/20/21 11:26 MCH 19 pg (28-32) L 06/20/21 11:26 MCHC 31 % (32-34) L 06/20/21 11:26 RDW 18.4 % (13.2-15.2) H 06/20/21 11:26 Plt Count 123 K/mm3 (140-440) L 06/20/21 11:26 Lymph % (Auto) 44.2 % (13.4-35.0) H 06/20/21 11:26 [place] % (Auto) 12.6 % (0.0-7.3) H 06/20/21 11:26 Eos % (Auto) 4.8 % (0.0-4.3) H 06/20/21 11:26 Baso % (Auto) 0.9 % (0.0-1.8) 06/20/21 11:26 Lymph # (Auto) 3.9 K/mm3 (1.2-5.4) 06/20/21 11:26 [place] # (Auto) 1.1 K/mm3 (0.0-0.8) H 06/20/21 11:26 Eos # (Auto) 0.4 K/mm3 (0.0-0.4) 06/20/21 11:26 Baso # (Auto) 0.1 K/mm3 (0.0-0.1) 06/20/21 11:26 Add Manual Diff Complete 06/19/21 05:32 Total Counted 100 06/19/21 05:32 Seg Neutrophils % 37.5 % (40.0-70.0) L 06/20/21 11:26 Seg Neuts % (Manual) 33.0 % (40.0-70.0) L 06/19/21 05:32 Band Neutrophils % 7.0 % 06/19/21 05:32 Lymphocytes % (Manual) 45.0 % (13.4-35.0) H 06/19/21 05:32 Reactive Lymphs % (Man) 2.0 % 06/16/21 09:38 Monocytes % (Manual) 12.0 % (0.0-7.3) H 06/19/21 05:32 Eosinophils % (Manual) 2.0 % (0.0-4.3) 06/19/21 05:32 Metamyelocytes % 1.0 % 06/19/21 05:32 Myelocytes % 4.0 % 06/16/21 09:38 Promyelocytes % 2.0 % 06/16/21 09:38 Nucleated RBC % Not Reportable 06/19/21 05:32 Seg Neutrophils # 3.3 K/mm3 (1.8-7.7) 06/20/21 11:26 Seg Neutrophils # Man 3.8 K/mm3 (1.8-7.7) 06/19/21 05:32 Band Neutrophils # 0.8 K/mm3 06/19/21 05:32 Lymphocytes # (Manual) 5.1 K/mm3 (1.2-5.4) 06/19/21 05:32 Abs React Lymphs (Man) 0.0 K/mm3 06/19/21 05:32 Monocytes # (Manual) 1.4 K/mm3 (0.0-0.8) H 06/19/21 05:32 Eosinophils # (Manual) 0.2 K/mm3 (0.0-0.4) 06/19/21 05:32 Basophils # (Manual) 0.0 K/mm3 (0.0-0.1) 06/19/21 05:32 Metamyelocytes # 0.1 K/mm3 06/19/21 05:32 Myelocytes # 0.0 K/mm3 06/19/21 05:32 Promyelocytes # 0.0 K/mm3 06/19/21 05:32 Blast Cells # 0.0 K/mm3 06/19/21 05:32 WBC Morphology Not Reportable 06/19/21 05:32 Hypersegmented Neuts Not Reportable 06/19/21 05:32 Hyposegmented Neuts Not Reportable 06/19/21 05:32 Hypogranular Neuts Not Reportable 06/19/21 05:32 Smudge Cells Not Reportable 06/19/21 05:32 Toxic Granulation Not Reportable 06/19/21 05:32 Toxic Vacuolation Not Reportable 06/19/21 05:32 Dohle Bodies Not Reportable 06/19/21 05:32 Pelger-Huet Anomaly Not Reportable 06/19/21 05:32 Marianne Rods Not Reportable 06/19/21 05:32 Platelet Estimate Consistent w auto 06/19/21 05:32 Clumped Platelets Not Reportable 06/19/21 05:32 Plt Clumps, EDTA Not Reportable 06/19/21 05:32 Large Platelets Not Reportable 06/19/21 05:32 Giant Platelets Not Reportable 06/19/21 05:32 Platelet Satelliting Not Reportable 06/19/21 05:32 Plt Morphology Comment Not Reportable 06/19/21 05:32 RBC Morphology Not Reportable 06/19/21 05:32 Dimorphic RBCs Not Reportable 06/19/21 05:32 Polychromasia Not Reportable 06/19/21 05:32 Hypochromasia 2+ 06/19/21 05:32 Poikilocytosis Not Reportable 06/19/21 05:32 Anisocytosis 1+ 06/19/21 05:32 Microcytosis 2+ 06/19/21 05:32 Macrocytosis Not Reportable 06/19/21 05:32 Spherocytes Not Reportable 06/19/21 05:32 Pappenheimer Bodies Not Reportable 06/19/21 05:32 Sickle Cells Not Reportable 06/19/21 05:32 Target Cells 1+ 06/19/21 05:32 Tear Drop Cells Not Reportable 06/19/21 05:32 Ovalocytes Not Reportable 06/19/21 05:32 Helmet Cells Not Reportable 06/19/21 05:32 Sapp-[place] Bodies Not Reportable 06/19/21 05:32 [place] Rings Not Reportable 06/19/21 05:32 Carrie Cells Not Reportable 06/19/21 05:32 Bite Cells Not Reportable 06/19/21 05:32 Crenated Cell Not Reportable 06/19/21 05:32 Elliptocytes Not Reportable 06/19/21 05:32 Acanthocytes (Spur) Not Reportable 06/19/21 05:32 Rouleaux Not Reportable 06/19/21 05:32 Hemoglobin C Crystals Not Reportable 06/19/21 05:32 Schistocytes Not Reportable 06/19/21 05:32 Malaria parasites Not Reportable 06/19/21 05:32 Maurisio Bodies Not Reportable 06/19/21 05:32 Hem Pathologist Commnt No 06/19/21 05:32 PT 14.3 Sec. (12.2-14.9) 06/16/21 09:38 INR 1.00 (0.87-1.13) 06/16/21 09:38 ABG pH 7.383 pH Units (7.350-7.450) 06/19/21 10:50 ABG pCO2 45.4 mm Hg 06/19/21 10:50 ABG pO2 52.9 mm Hg (80.0-90.0) L 06/19/21 10:50 ABG HCO3 26.5 mmol/L (20.0-26.0) H 06/19/21 10:50 ABG O2 Saturation 85.5 % (95.0-99.0) L 06/19/21 10:50 ABG O2 Content 10.0 (0.0-44) 06/19/21 10:50 ABG Base Excess 1.2 mmol/L (-2.0-3.0) 06/19/21 10:50 ABG Hemoglobin 8.5 gm/dl (14.0-18.0) L 06/19/21 10:50 ABG Carboxyhemoglobin 1.5 % (0.0-5.0) 06/19/21 10:50 ABG Methemoglobin 0.4 % (0.0-1.5) 06/19/21 10:50 Oxyhemoglobin 83.8 % (95.0-99.0) L 06/19/21 10:50 FiO2 21 % 06/19/21 10:50 Sodium 128 mmol/L (137-145) L 06/20/21 11:26 Potassium 3.5 mmol/L (3.6-5.0) L 06/20/21 11:26 Chloride 86.3 mmol/L (98-107) L 06/20/21 11:26 Carbon Dioxide 25 mmol/L (22-30) 06/20/21 11:26 Anion Gap 20 mmol/L 06/20/21 11:26 BUN 94 mg/dL (9-20) H 06/20/21 11:26 Creatinine 8.1 mg/dL (0.8-1.3) H 06/20/21 11:26 Estimated GFR 8 ml/min 06/20/21 11:26 BUN/Creatinine Ratio 12 % 06/20/21 11:26 Glucose 111 mg/dL (75-100) H 06/20/21 11:26 POC Glucose 142 mg/dL (70-105) H 06/16/21 10:44 Lactic Acid 0.80 mmol/L (0.7-2.0) 06/20/21 11:26 Calcium 9.0 mg/dL (8.4-10.2) 06/20/21 11:26 Magnesium 2.00 mg/dL (1.7-2.3) 06/20/21 11:26 Total Bilirubin 0.70 mg/dL (0.1-1.2) 06/20/21 11:26 AST 19 units/L (5-40) 06/20/21 11:26 ALT 9 units/L (7-56) 06/20/21 11:26 Alkaline Phosphatase 70 units/L (35-129) 06/20/21 11:26 Troponin T 0.562 ng/mL (0.00-0.029) H* 06/17/21 13:58 NT-Pro-B Natriuret Pep 33401 pg/mL (0-900) H 06/16/21 09:38 Total Protein 11.2 g/dL (6.3-8.2) H 06/20/21 11:26 Albumin 3.7 g/dL (3.9-5) L 06/20/21 11:26 Albumin/Globulin Ratio 0.5 % 06/20/21 11:26 Triglycerides 222 mg/dL (2-149) H 06/16/21 09:38 Cholesterol 179 mg/dL (50-199) 06/16/21 09:38 LDL Cholesterol Direct 102 mg/dL (50-130) 06/16/21 09:38 HDL Cholesterol 35 mg/dL (40-59) L 06/16/21 09:38 Cholesterol/HDL Ratio 5.11 % 06/16/21 09:38 Procalcitonin 0.76 ng/mL (<0.15) 06/20/21 11:26 Coronavirus (PCR) Negative (Negative) 06/22/21 Unknown Hepatitis A IgM Ab Non-reactive (NonReactive) 06/17/21 13:42 Hep Bs Antigen Nonreactive (Negative) 06/17/21 13:42 Hep B Core IgM Ab Non-reactive (NonReactive) 06/17/21 13:42 Hepatitis C Antibody Non-reactive (NonReactive) 06/17/21 13:42 Microbiology: Microbiology 06/20/21 11:53 Peripheral/Venous Blood Culture - Preliminary NO GROWTH AFTER 72 HOURS 06/20/21 11:26 Peripheral/Venous Blood Culture - Preliminary NO GROWTH AFTER 72 HOURS Dang/IV: Voiding Method Toilet Active Medications - Current Medications Current Medications: Generic Name Dose Route Start Last Admin Trade Name Freq PRN Reason Stop Dose Admin Acetaminophen 650 mg 06/16/21 13:00 06/18/21 01:32 Acetaminophen 325 Mg Tab PO 650 mg Q6H PRN Administration Pain MILD(1-3)/Fever >100.5/GRANDE Albuterol 2.5 mg 06/21/21 23:15 Albuterol 2.5 Mg/3 Ml Nebu IH Q4HRT PRN Shortness Of Breath Aspirin 81 mg 06/17/21 10:00 06/23/21 12:14 Aspirin Ec 81 Mg Tab PO 81 mg QDAY KOLBY Administration Budesonide 0.25 mg 06/22/21 21:00 06/23/21 08:28 Budesonide 0.25 Mg/2 Ml Nebu IH Not Given Q12HRT KOLBY Carvedilol 6.25 mg 06/16/21 22:00 06/23/21 12:15 Carvedilol 6.25 Mg Tab PO 6.25 mg BID KOLBY Administration Dextrose 50 ml 06/16/21 10:37 06/16/21 11:58 Dextrose 50% In Water (25gm) 50 Ml Syringe IV 50 ml Q30MIN PRN Administration Hypoglycemia Protocol Guaifenesin 10 ml 06/19/21 19:51 06/21/21 12:41 Guaifenesin Dm 200/20 Mg Oral Liqd 10 Ml PO 10 ml Q4H PRN Administration Cough Hydromorphone HCl 0.5 mg 06/16/21 12:30 Hydromorphone 1 Mg/1 Ml Inj IV Q8H PRN Pain , Severe (7-10) Sodium Chloride 100 mls @ 999 mls/hr 06/19/21 14:00 Nacl 0.9% IV RALPH PRN Hypotension Ipratropium [place] 0.5 mg 06/23/21 08:00 06/23/21 13:42 Ipratropium 0.02% Nebu 2.5 Ml IH Not Given TIDRT KOLBY Isosorbide Mononitrate 30 mg 06/21/21 11:00 06/23/21 12:14 Isosorbide Mononitrate Er 30 Mg Tab PO 30 mg QDAY KOLBY Administration Lisinopril 2.5 mg 06/23/21 10:00 06/23/21 12:15 Lisinopril 5 Mg Tab PO 2.5 mg QDAY KOLBY Administration Multivitamins/Iron 1 each 06/21/21 11:00 06/23/21 12:15 Fe Fumarate/Fa/Mv, Min Comb#15 Cap (Hemocyte Plus) PO 1 each QDAY KOLBY Administration Oxycodone/Acetaminophen 1 tab 06/16/21 13:00 06/21/21 12:40 Oxycodone /Acetaminophen 5-325mg Tab PO 1 tab Q16H PRN Administration Pain, Moderate (4-6) Sodium Chloride 10 ml 06/16/21 22:00 06/23/21 12:15 Sodium Chloride 0.9% 10 Ml Flush Syringe IV 10 ml BID KOLBY Administration Sodium Chloride 10 ml 06/16/21 12:30 Sodium Chloride 0.9% 10 Ml Flush Syringe IV PRN PRN LINE FLUSH Nutrition/Malnutrition Assess - Dietary Evaluation Nutrition/Malnutrition Findings: Nutrition Notes Start: 06/17/21 09:45 Freq: Status: Active Protocol: Document 06/21/21 17:43 KATHARINA (Rec: 06/21/21 17:49 KATHARINA [id number]) Nutrition Notes Initial or Follow up Brief Note Current Diagnosis Acute Kidney Injury,CKD (stage V CKD),Hypertension,Heart Failure,Respiratory Failure Other Pertinent Diagnosis CKD adv to ESRD+HD, CHF exacerbation, Asthma. Current Diet Renal (since B 06/19). Height 6 ft 1 in Weight 70.3 kg [place] Body Weight (kg) 83.63 BMI 20.4 Weight change and time frame No body weight change reported . Weight Status Appropriate Subjective/Other Information RD consult for routine F/U on Dietary advancement. Diet advanced to PO and %PO intake of meals is at 100%. Percent of energy/protein needs met: Prescribed Renal Diet provides for energy/protein needs (2, 072 Kcal/77 g) during LOS. Current % PO Good (75-100%) Nutrition Intervention Change Diet Order: Continue Renal Diet. Goal #1 Maintain body weight within +/ -3% of admission BWt during LOS. Goal #2 Reach and maintain acceptable chemistry lab values during LOS. Follow-Up By: 06/28/21 Additional Comments Continue monitoring Hydration, and BM; when pertinent, food tolerance and %PO intake of meals.
--- NOTE | 2021-06-23 19:51 | Progress Note ---
Assessment and Plan Assessment and plan: 56 YO Male with Systolic CHF(EF 15%), HTN, CKD, Medication Noncompliance, COPD presents to ED for evaluation. Patient knowledges shortness of breath over the past 1 week with worsening symptoms over the past few days. The patient was found to be using accessory muscles to breathe, unable to speak in complete sentences, tripoding, with a pulse oximetry of 86% on room air which is consistent with acute hypoxemic respiratory failure. Patient also found to have clinical symptoms consistent with congestive heart failure, cardiorenal syndrome, acidosis, hyponatremia. Patient admitted to IMCU due to increased risk of worsening symptoms. Patient placed on supplemental oxygen with improvement in symptoms and was subsequently initiated on noninvasive positive pressure ventilation with mild improvement in symptoms. No reports of fever, chills, chest pain, palpitation, skin rash, recent ill contacts, and known exposure to COVID-19. #Heart failure with reduced ejection fraction #Acute CHF exacerbation in the setting of renal failure -EF 15% per TTE and stress test negative in March -NT proBNP 10,359 -Volume overload improved with initiation of dialysis -Lasix discontinued -Currently appears to be euvolemic -Continue carvedilol, ARB/ACEI as tolerated -Strict I's/O's, fluid restriction to less than 1.5 L -No ventricular arrhythmia reported on telemetry Consulted for follow-up/discussed with Dr. Brush, cardiology with regard to the need for LifeVest prior to discharge #Acute hypoxic respiratory failure, resolving -Likely from volume overload/renal failure Stable on nasal cannula, will wean to RA as tolerated -CXR showed cardiomegaly and mild interstitial edema at the time of admission, resolved after dialysis COPD, tobacco smoking Counseled to quit tobacco smoking Likely contributing to dyspnea Not in acute exacerbation Refusing neb therapy #Mild troponin elevation in the setting of renal failure -Troponin 0.601 -> 0.5 -EKG without acute ST changes -Likely secondary to ESRD #ROMAN on CKD, dialysis initiated -Nephrology consulted and dialysis initiated -Patient is currently euvolemic -CM arranging for outpatient dialysis #Hypertension -controlled -will continue to monitor #Microcytic anemia -Baseline hemoglobin 10 -Likely secondary to ESRD -will transfuse for hemoglobin less than 7 #Hyponatremia -Likely hypervolemic hyponatremia secondary to CHF vs CKD -Nephrology following #Hyperkalemia from renal failure, resolved -will continue to monitor Disposition: Patient will be discharged once outpatient dialysis arrangements completed and cardiology addresses the need for a LifeVest. Discussed with cardiology today as well as dependency case manager and patient History Interval history: Patient is lying flat in bed without acute distress. He still feels chest congestion but refuses neb treatments stating his breathing is fine. He has COPD. BP soft. Cardiology consulted for follow-up on heart failure. CM dialysis making arrangements for outpatient dialysis. Patient denies chest pains, palpitations, dyspnea, lightheadedness/dizziness. Hospitalist Physical - Constitutional Vitals: Temp Pulse Resp BP Pulse Ox 97.8 F 96 H 18 81/52 93 06/23/21 15:49 06/23/21 15:49 06/23/21 15:49 06/23/21 15:49 06/23/21 15:49 General appearance: Present: no acute distress, disheveled - EENT Eyes: Present: PERRL, EOM intact ENT: clear oral mucosa - Neck Neck: Present: supple - Respiratory Respiratory effort: normal Respiratory: bilateral: diminished, wheezing (Minimal wheezes, poor air movement) - Cardiovascular Rhythm: regular - Extremities Extremities: No edema - Abdominal General gastrointestinal: soft, non-tender, non-distended - Integumentary Integumentary: Absent: rash - Psychiatric Psychiatric: appropriate mood/affect - Neurologic Neurologic: no focal deficits, moves all extremities HEART Score - HEART Score Troponin: Troponin T 0.562 ng/mL (0.00-0.029) H* 06/17/21 13:58 Results - Labs CBC & Chem 7: 06/20/21 11:26 06/20/21 11:26 Labs: Laboratory Last Values WBC 8.9 K/mm3 (4.5-11.0) 06/20/21 11:26 RBC 5.65 M/mm3 (3.65-5.03) H 06/20/21 11:26 Hgb 10.9 gm/dl (11.8-15.2) L 06/20/21 11:26 Hct 35.2 % (35.5-45.6) L 06/20/21 11:26 MCV 62 fl (84-94) L 06/20/21 11:26 MCH 19 pg (28-32) L 06/20/21 11:26 MCHC 31 % (32-34) L 06/20/21 11:26 RDW 18.4 % (13.2-15.2) H 06/20/21 11:26 Plt Count 123 K/mm3 (140-440) L 06/20/21 11:26 Lymph % (Auto) 44.2 % (13.4-35.0) H 06/20/21 11:26 [place] % (Auto) 12.6 % (0.0-7.3) H 06/20/21 11:26 Eos % (Auto) 4.8 % (0.0-4.3) H 06/20/21 11:26 Baso % (Auto) 0.9 % (0.0-1.8) 06/20/21 11:26 Lymph # (Auto) 3.9 K/mm3 (1.2-5.4) 06/20/21 11:26 [place] # (Auto) 1.1 K/mm3 (0.0-0.8) H 06/20/21 11:26 Eos # (Auto) 0.4 K/mm3 (0.0-0.4) 06/20/21 11:26 Baso # (Auto) 0.1 K/mm3 (0.0-0.1) 06/20/21 11:26 Add Manual Diff Complete 06/19/21 05:32 Total Counted 100 06/19/21 05:32 Seg Neutrophils % 37.5 % (40.0-70.0) L 06/20/21 11:26 Seg Neuts % (Manual) 33.0 % (40.0-70.0) L 06/19/21 05:32 Band Neutrophils % 7.0 % 06/19/21 05:32 Lymphocytes % (Manual) 45.0 % (13.4-35.0) H 06/19/21 05:32 Reactive Lymphs % (Man) 2.0 % 06/16/21 09:38 Monocytes % (Manual) 12.0 % (0.0-7.3) H 06/19/21 05:32 Eosinophils % (Manual) 2.0 % (0.0-4.3) 06/19/21 05:32 Metamyelocytes % 1.0 % 06/19/21 05:32 Myelocytes % 4.0 % 06/16/21 09:38 Promyelocytes % 2.0 % 06/16/21 09:38 Nucleated RBC % Not Reportable 06/19/21 05:32 Seg Neutrophils # 3.3 K/mm3 (1.8-7.7) 06/20/21 11:26 Seg Neutrophils # Man 3.8 K/mm3 (1.8-7.7) 06/19/21 05:32 Band Neutrophils # 0.8 K/mm3 06/19/21 05:32 Lymphocytes # (Manual) 5.1 K/mm3 (1.2-5.4) 06/19/21 05:32 Abs React Lymphs (Man) 0.0 K/mm3 06/19/21 05:32 Monocytes # (Manual) 1.4 K/mm3 (0.0-0.8) H 06/19/21 05:32 Eosinophils # (Manual) 0.2 K/mm3 (0.0-0.4) 06/19/21 05:32 Basophils # (Manual) 0.0 K/mm3 (0.0-0.1) 06/19/21 05:32 Metamyelocytes # 0.1 K/mm3 06/19/21 05:32 Myelocytes # 0.0 K/mm3 06/19/21 05:32 Promyelocytes # 0.0 K/mm3 06/19/21 05:32 Blast Cells # 0.0 K/mm3 06/19/21 05:32 WBC Morphology Not Reportable 06/19/21 05:32 Hypersegmented Neuts Not Reportable 06/19/21 05:32 Hyposegmented Neuts Not Reportable 06/19/21 05:32 Hypogranular Neuts Not Reportable 06/19/21 05:32 Smudge Cells Not Reportable 06/19/21 05:32 Toxic Granulation Not Reportable 06/19/21 05:32 Toxic Vacuolation Not Reportable 06/19/21 05:32 Dohle Bodies Not Reportable 06/19/21 05:32 Pelger-Huet Anomaly Not Reportable 06/19/21 05:32 Marianne Rods Not Reportable 06/19/21 05:32 Platelet Estimate Consistent w auto 06/19/21 05:32 Clumped Platelets Not Reportable 06/19/21 05:32 Plt Clumps, EDTA Not Reportable 06/19/21 05:32 Large Platelets Not Reportable 06/19/21 05:32 Giant Platelets Not Reportable 06/19/21 05:32 Platelet Satelliting Not Reportable 06/19/21 05:32 Plt Morphology Comment Not Reportable 06/19/21 05:32 RBC Morphology Not Reportable 06/19/21 05:32 Dimorphic RBCs Not Reportable 06/19/21 05:32 Polychromasia Not Reportable 06/19/21 05:32 Hypochromasia 2+ 06/19/21 05:32 Poikilocytosis Not Reportable 06/19/21 05:32 Anisocytosis 1+ 06/19/21 05:32 Microcytosis 2+ 06/19/21 05:32 Macrocytosis Not Reportable 06/19/21 05:32 Spherocytes Not Reportable 06/19/21 05:32 Pappenheimer Bodies Not Reportable 06/19/21 05:32 Sickle Cells Not Reportable 06/19/21 05:32 Target Cells 1+ 06/19/21 05:32 Tear Drop Cells Not Reportable 06/19/21 05:32 Ovalocytes Not Reportable 06/19/21 05:32 Helmet Cells Not Reportable 06/19/21 05:32 Sapp-Maramec Bodies Not Reportable 06/19/21 05:32 [place] Rings Not Reportable 06/19/21 05:32 Carrie Cells Not Reportable 06/19/21 05:32 Bite Cells Not Reportable 06/19/21 05:32 Crenated Cell Not Reportable 06/19/21 05:32 Elliptocytes Not Reportable 06/19/21 05:32 Acanthocytes (Spur) Not Reportable 06/19/21 05:32 Rouleaux Not Reportable 06/19/21 05:32 Hemoglobin C Crystals Not Reportable 06/19/21 05:32 Schistocytes Not Reportable 06/19/21 05:32 Malaria parasites Not Reportable 06/19/21 05:32 Maurisio Bodies Not Reportable 06/19/21 05:32 Hem Pathologist Commnt No 06/19/21 05:32 PT 14.3 Sec. (12.2-14.9) 06/16/21 09:38 INR 1.00 (0.87-1.13) 06/16/21 09:38 ABG pH 7.383 pH Units (7.350-7.450) 06/19/21 10:50 ABG pCO2 45.4 mm Hg 06/19/21 10:50 ABG pO2 52.9 mm Hg (80.0-90.0) L 06/19/21 10:50 ABG HCO3 26.5 mmol/L (20.0-26.0) H 06/19/21 10:50 ABG O2 Saturation 85.5 % (95.0-99.0) L 06/19/21 10:50 ABG O2 Content 10.0 (0.0-44) 06/19/21 10:50 ABG Base Excess 1.2 mmol/L (-2.0-3.0) 06/19/21 10:50 ABG Hemoglobin 8.5 gm/dl (14.0-18.0) L 06/19/21 10:50 ABG Carboxyhemoglobin 1.5 % (0.0-5.0) 06/19/21 10:50 ABG Methemoglobin 0.4 % (0.0-1.5) 06/19/21 10:50 Oxyhemoglobin 83.8 % (95.0-99.0) L 06/19/21 10:50 FiO2 21 % 06/19/21 10:50 Sodium 128 mmol/L (137-145) L 06/20/21 11:26 Potassium 3.5 mmol/L (3.6-5.0) L 06/20/21 11:26 Chloride 86.3 mmol/L (98-107) L 06/20/21 11:26 Carbon Dioxide 25 mmol/L (22-30) 06/20/21 11:26 Anion Gap 20 mmol/L 06/20/21 11:26 BUN 94 mg/dL (9-20) H 06/20/21 11:26 Creatinine 8.1 mg/dL (0.8-1.3) H 06/20/21 11:26 Estimated GFR 8 ml/min 06/20/21 11:26 BUN/Creatinine Ratio 12 % 06/20/21 11:26 Glucose 111 mg/dL (75-100) H 06/20/21 11:26 POC Glucose 142 mg/dL (70-105) H 06/16/21 10:44 Lactic Acid 0.80 mmol/L (0.7-2.0) 06/20/21 11:26 Calcium 9.0 mg/dL (8.4-10.2) 06/20/21 11:26 Magnesium 2.00 mg/dL (1.7-2.3) 06/20/21 11:26 Total Bilirubin 0.70 mg/dL (0.1-1.2) 06/20/21 11:26 AST 19 units/L (5-40) 06/20/21 11:26 ALT 9 units/L (7-56) 06/20/21 11:26 Alkaline Phosphatase 70 units/L (35-129) 06/20/21 11:26 Troponin T 0.562 ng/mL (0.00-0.029) H* 06/17/21 13:58 NT-Pro-B Natriuret Pep 93756 pg/mL (0-900) H 06/16/21 09:38 Total Protein 11.2 g/dL (6.3-8.2) H 06/20/21 11:26 Albumin 3.7 g/dL (3.9-5) L 06/20/21 11:26 Albumin/Globulin Ratio 0.5 % 06/20/21 11:26 Triglycerides 222 mg/dL (2-149) H 06/16/21 09:38 Cholesterol 179 mg/dL (50-199) 06/16/21 09:38 LDL Cholesterol Direct 102 mg/dL (50-130) 06/16/21 09:38 HDL Cholesterol 35 mg/dL (40-59) L 06/16/21 09:38 Cholesterol/HDL Ratio 5.11 % 06/16/21 09:38 Procalcitonin 0.76 ng/mL (<0.15) 06/20/21 11:26 Coronavirus (PCR) Negative (Negative) 06/22/21 Unknown Hepatitis A IgM Ab Non-reactive (NonReactive) 06/17/21 13:42 Hep Bs Antigen Nonreactive (Negative) 06/17/21 13:42 Hep B Core IgM Ab Non-reactive (NonReactive) 06/17/21 13:42 Hepatitis C Antibody Non-reactive (NonReactive) 06/17/21 13:42 Microbiology: Microbiology 06/20/21 11:53 Peripheral/Venous Blood Culture - Preliminary NO GROWTH AFTER 72 HOURS 06/20/21 11:26 Peripheral/Venous Blood Culture - Preliminary NO GROWTH AFTER 72 HOURS Dang/IV: Voiding Method Toilet Active Medications - Current Medications Current Medications: Generic Name Dose Route Start Last Admin Trade Name Freq PRN Reason Stop Dose Admin Acetaminophen 650 mg 06/16/21 13:00 06/18/21 01:32 Acetaminophen 325 Mg Tab PO 650 mg Q6H PRN Administration Pain MILD(1-3)/Fever >100.5/GRANDE Albuterol 2.5 mg 06/21/21 23:15 Albuterol 2.5 Mg/3 Ml Nebu IH Q4HRT PRN Shortness Of Breath Aspirin 81 mg 06/17/21 10:00 06/23/21 12:14 Aspirin Ec 81 Mg Tab PO 81 mg QDAY KOLBY Administration Budesonide 0.25 mg 06/22/21 21:00 06/23/21 08:28 Budesonide 0.25 Mg/2 Ml Nebu IH Not Given Q12HRT KOLBY Carvedilol 6.25 mg 06/16/21 22:00 06/23/21 12:15 Carvedilol 6.25 Mg Tab PO 6.25 mg BID KOLBY Administration Dextrose 50 ml 06/16/21 10:37 06/16/21 11:58 Dextrose 50% In Water (25gm) 50 Ml Syringe IV 50 ml Q30MIN PRN Administration Hypoglycemia Protocol Guaifenesin 10 ml 06/19/21 19:51 06/21/21 12:41 Guaifenesin Dm 200/20 Mg Oral Liqd 10 Ml PO 10 ml Q4H PRN Administration Cough Hydromorphone HCl 0.5 mg 06/16/21 12:30 Hydromorphone 1 Mg/1 Ml Inj IV Q8H PRN Pain , Severe (7-10) Sodium Chloride 100 mls @ 999 mls/hr 06/19/21 14:00 Nacl 0.9% IV RALPH PRN Hypotension Ipratropium [place] 0.5 mg 06/23/21 08:00 06/23/21 13:42 Ipratropium 0.02% Nebu 2.5 Ml IH Not Given TIDRT KOLBY Isosorbide Mononitrate 30 mg 06/21/21 11:00 06/23/21 12:14 Isosorbide Mononitrate Er 30 Mg Tab PO 30 mg QDAY KOLBY Administration Lisinopril 2.5 mg 06/23/21 10:00 06/23/21 12:15 Lisinopril 5 Mg Tab PO 2.5 mg QDAY OK[place]BY Administration Multivitamins/Iron 1 each 06/21/21 11:00 06/23/21 12:15 Fe Fumarate/Fa/Mv, Min Comb#15 Cap (Hemocyte Plus) PO 1 each QDAY KOLBY Administration Oxycodone/Acetaminophen 1 tab 06/16/21 13:00 06/21/21 12:40 Oxycodone /Acetaminophen 5-325mg Tab PO 1 tab Q16H PRN Administration Pain, Moderate (4-6) Sodium Chloride 10 ml 06/16/21 22:00 06/23/21 12:15 Sodium Chloride 0.9% 10 Ml Flush Syringe IV 10 ml BID KOLBY Administration Sodium Chloride 10 ml 06/16/21 12:30 Sodium Chloride 0.9% 10 Ml Flush Syringe IV PRN PRN LINE FLUSH Nutrition/Malnutrition Assess - Dietary Evaluation Nutrition/Malnutrition Findings: Nutrition Notes Start: 06/17/21 09:45 Freq: Status: Active Protocol: Document 06/21/21 17:43 KATHARINA (Rec: 06/21/21 17:49 KATHARINA [id number]) Nutrition Notes Initial or Follow up Brief Note Current Diagnosis Acute Kidney Injury,CKD (stage V CKD),Hypertension,Heart Failure,Respiratory Failure Other Pertinent Diagnosis CKD adv to ESRD+HD, CHF exacerbation, Asthma. Current Diet Renal (since B 06/19). Height 6 ft 1 in Weight 70.3 kg [place] Body Weight (kg) 83.63 BMI 20.4 Weight change and time frame No body weight change reported . Weight Status Appropriate Subjective/Other Information RD consult for routine F/U on Dietary advancement. Diet advanced to PO and %PO intake of meals is at 100%. Percent of energy/protein needs met: Prescribed Renal Diet provides for energy/protein needs (2, 072 Kcal/77 g) during LOS. Current % PO Good (75-100%) Nutrition Intervention Change Diet Order: Continue Renal Diet. Goal #1 Maintain body weight within +/ -3% of admission BWt during LOS. Goal #2 Reach and maintain acceptable chemistry lab values during LOS. Follow-Up By: 06/28/21 Additional Comments Continue monitoring Hydration, and BM; when pertinent, food tolerance and %PO intake of meals.
[2021-06-24] MEDS: BUDESONIDE 0.25 MG/2 ML NEBU IH SCH (08:37)
[2021-06-24] MEDS: IPRATROPIUM 0.02% NEBU 2.5 ML IH SCH (08:37)
[2021-06-24] MEDS: FE FUMARATE/FA/MV, MIN COMB#15 CAP (HEMOCYTE PLUS) PO SCH (10:18)
[2021-06-24] MEDS: carvediloL 6.25 MG TAB PO SCH ×2 (10:18→22:28)
[2021-06-24] MEDS: LISINOPRIL 5 MG TAB PO SCH (10:18)
[2021-06-24] MEDS: ASPIRIN EC 81 MG TAB PO SCH (10:18)
--- NOTE | 2021-06-24 13:35 | Consultation ---
History of Present Illness Consult date: 06/24/21 Consult reason: congestive heart failure History of present illness: Patient is a 56-year-old man with multiple comorbidities including chronic systolic left ventricular failure, progressive renal failure. On the previous admission 3 months ago, echocardiogram showed left ventricular ejection fraction 15%. Subsequent Lexiscan thallium stress test showed normal perfusion, establishing a diagnosis of a nonischemic cardiomyopathy. The patient is poorly compliant with medical therapy and outpatient doctor follow-ups. He was readmitted to the hospital a week ago, with fluid overload and end-stage renal failure. He had dialysis access placed and has been started on hemodialysis. Cardiology consultation at this time for follow-up and management of his chronic systolic left ventricular failure. Patient has no chest pain, no shortness of breath, at this time is resting comfortably supine in bed. EKG sinus with poor R wave progression, no acute ischemic changes. Past History Past Medical History: diabetes, heart failure, hypertension, renal failure Past Surgical History: No surgical history Social history: no significant social history Family history: no significant family history Medications and Allergies Allergies Allergy/AdvReac Type Severity Reaction Status Date / Time No Known Allergies Allergy Verified 06/16/21 23:14 Home Medications Medication Instructions Recorded Confirmed Last Taken Type Aspirin EC [Halfprin EC] 81 mg PO QDAY 30 Days #30 tablet 04/07/21 06/17/21 06/15/21 Rx Furosemide [Lasix TAB] 40 mg PO QDAY 30 Days #30 tablet 04/07/21 06/17/21 Unknown Rx Isosorbide Dinitrate [Isordil] 20 mg PO TID 30 Days #90 tablet 04/07/21 06/17/21 06/15/21 Rx Sodium Bicarbonate 650 mg PO TID 30 Days #90 tablet 04/07/21 06/17/21 06/15/21 Rx Hydralazine HCl 50 mg PO TID 06/20/21 06/20/21 06/15/21 History Spironolactone [Aldactone] 25 mg PO QDAY 06/20/21 06/20/21 06/15/21 History carvediloL [Coreg] 12.5 mg PO BID 06/20/21 06/20/21 06/15/21 History Active Meds: Active Medications Acetaminophen (Acetaminophen 325 Mg Tab) 650 mg PO Q6H PRN PRN Reason: Pain MILD(1-3)/Fever >100.5/GRANDE Last Admin: 06/18/21 01:32 Dose: 650 mg Documented by: Albuterol (Albuterol 2.5 Mg/3 Ml Nebu) 2.5 mg IH Q4HRT PRN PRN Reason: Shortness Of Breath Aspirin (Aspirin Ec 81 Mg Tab) 81 mg PO QDAY [facility] Last Admin: 06/24/21 10:18 Dose: 81 mg Documented by: Budesonide (Budesonide 0.25 Mg/2 Ml Nebu) 0.25 mg IH Q12HRT [facility] Last Admin: 06/24/21 08:37 Dose: Not Given Documented by: Carvedilol (Carvedilol 6.25 Mg Tab) 6.25 mg PO BID [facility] Last Admin: 06/24/21 10:18 Dose: 6.25 mg Documented by: Dextrose (Dextrose 50% In Water (25gm) 50 Ml Syringe) 50 ml IV Q30MIN PRN; Protocol PRN Reason: Hypoglycemia Last Admin: 06/16/21 11:58 Dose: 50 ml Documented by: Guaifenesin (Guaifenesin Dm 200/20 Mg Oral Liqd 10 Ml) 10 ml PO Q4H PRN PRN Reason: Cough Last Admin: 06/21/21 12:41 Dose: 10 ml Documented by: Sodium Chloride (Nacl 0.9%) 100 mls @ 999 mls/hr IV RALPH PRN PRN Reason: Hypotension Isosorbide Mononitrate (Isosorbide Mononitrate Er 30 Mg Tab) 30 mg PO QDAY [facility] Last Admin: 06/24/21 10:18 Dose: 30 mg Documented by: Lisinopril (Lisinopril 5 Mg Tab) 2.5 mg PO QDAY [facility] Last Admin: 06/24/21 10:18 Dose: 2.5 mg Documented by: Multivitamins/Iron (Fe Fumarate/Fa/Mv, Min Comb#15 Cap (Hemocyte Plus)) 1 each PO QDAY [facility] Last Admin: 06/24/21 10:18 Dose: 1 each Documented by: Sodium Chloride (Sodium Chloride 0.9% 10 Ml Flush Syringe) 10 ml IV BID [facility] Last Admin: 06/24/21 10:19 Dose: 10 ml Documented by: Sodium Chloride (Sodium Chloride 0.9% 10 Ml Flush Syringe) 10 ml IV PRN PRN PRN Reason: LINE FLUSH Review of Systems Cardiovascular: shortness of breath, no chest pain, no orthopnea, no palpitations, no rapid/irregular heart beat, no edema, no syncope, no lightheadedness Physical Examination Vital Signs Pulse Resp BP Pulse Ox 117 H 31 H 197/141 98 06/16/21 09:32 06/16/21 09:32 06/16/21 09:32 06/16/21 09:32 General appearance: no acute distress HEENT: Positive: PERRL Neck: Positive: neck supple Cardiac: Positive: Reg Rate and Rhythm Lungs: Positive: Decreased Breath Sounds Neuro: Positive: Grossly Intact Abdomen: Positive: Soft Male genitourinary: Positive: deferred Skin: Positive: Clear Extremities: Absent: edema Results 06/20/21 11:26 06/20/21 11:26 EKG interpretations - Telemetry EKG Rhythm: Sinus Rhythm Assessment and Plan - Patient Problems (1) Acute exacerbation of CHF (congestive heart failure) Current Visit: Yes Status: Acute Qualifiers: Heart failure type: systolic Qualified Code(s): I50.23 - Acute on chronic systolic (congestive) heart failure Plan to address problem: Patient has underlying severe nonischemic cardiomyopathy, presents with fluid overload and acute on chronic systolic heart failure, due to worsening renal function and noncompliance with medical therapy and dietary salt restrictions. Now on hemodialysis for fluid and electrolyte management, we will continue guideline directed medical therapy for chronic systolic left ventricular failure.
--- NOTE | 2021-06-24 17:20 | Progress Note ---
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 MWF await outpatient placement, ok to tn once arranged Outpatient dialysis facility [facility] at [facility] or [facility], #Severe cardiomyopathy currently on medications for that #Diet and nutrition currently on Nepro as well as multivitamin #Bone mineral disorder and secondary hyperparathyroidism to monitor and follow PTH was in 130 range satisfactory #Anemia in end-stage kidney disease continue to monitor and follow erythropoietin as needed #Overall pending placement at dialysis facility insurance that starts in July, Can be considered for fistula in July, Check with dialysis facility about acceptance, but patient needs cardiac evaluation prior to discharge We'll continue to follow and make recommendation for renal standpoint HPI labs and chart reviewed tolerating dialysis treatment fairly well, Shortness of breath markedly improved Past medical history: Reviewed Family history: Reviewed Social history: Reviewed Allergies: Reviewed Physical examination: Vitals: Reviewed HEENT: No pallor or icterus oral mucosa moist Neck: Supple no JVD no thyromegaly Chest: Bilateral rales wheezes Heart: Regular rate and rhythm S1-S2 heard no S3-S4 Abdomen: Soft nontender no voluntary guarding rigidity rebound Extremity: Dry skin less than 1+ peripheral edema Psychiatric: No evidence of agitation and aggression noted Dermatology: No petechial rashes Objective - Vital Signs Vital signs: Vital Signs - 12hr 06/24/21 06/24/21 06/24/21 06:38 07:11 08:39 Temperature 98.1 F Pulse Rate 87 89 Respiratory 18 Rate Blood Pressure 96/56 O2 Sat by Pulse 97 98 Oximetry 06/24/21 06/24/21 14:00 14:54 Temperature Pulse Rate 84 Respiratory Rate Blood Pressure O2 Sat by Pulse 97 Oximetry - Lab 06/20/21 11:26 06/20/21 11:26 Most recent lab results ABG pH 7.383 pH Units (7.350-7.450) 06/19/21 10:50 ABG pCO2 45.4 mm Hg 06/19/21 10:50 ABG pO2 52.9 mm Hg (80.0-90.0) L 06/19/21 10:50 ABG HCO3 26.5 mmol/L (20.0-26.0) H 06/19/21 10:50 ABG O2 Saturation 85.5 % (95.0-99.0) L 06/19/21 10:50 Calcium 9.0 mg/dL (8.4-10.2) 06/20/21 11:26 Magnesium 2.00 mg/dL (1.7-2.3) 06/20/21 11:26 Medications & Allergies - Medications Allergies/Adverse Reactions: Allergies No Known Allergies Allergy (Verified 06/16/21 23:14) Home Medications: Home Medications Medication Instructions Recorded Confirmed Last Taken Type Aspirin EC [Halfprin EC] 81 mg PO QDAY 30 Days #30 tablet 04/07/21 06/17/21 06/15/21 Rx Furosemide [Lasix TAB] 40 mg PO QDAY 30 Days #30 tablet 04/07/21 06/17/21 Unknown Rx Isosorbide Dinitrate [Isordil] 20 mg PO TID 30 Days #90 tablet 04/07/21 06/17/21 06/15/21 Rx Sodium Bicarbonate 650 mg PO TID 30 Days #90 tablet 04/07/21 06/17/21 06/15/21 Rx Hydralazine HCl 50 mg PO TID 06/20/21 06/20/21 06/15/21 History Spironolactone [Aldactone] 25 mg PO QDAY 06/20/21 06/20/21 06/15/21 History carvediloL [Coreg] 12.5 mg PO BID 06/20/21 06/20/21 06/15/21 History Active Medications: Generic Name Dose Route Start Last Admin Trade Name Freq PRN Reason Stop Dose Admin Acetaminophen 650 mg 06/16/21 13:00 06/18/21 01:32 Acetaminophen 325 Mg Tab PO 650 mg Q6H PRN Administration Pain MILD(1-3)/Fever >100.5/GRANDE Albuterol 2.5 mg 06/21/21 23:15 Albuterol 2.5 Mg/3 Ml Nebu IH Q4HRT PRN Shortness Of Breath Aspirin 81 mg 06/17/21 10:00 06/24/21 10:18 Aspirin Ec 81 Mg Tab PO 81 mg QDAY KOLBY Administration Budesonide 0.25 mg 06/22/21 21:00 06/24/21 08:37 Budesonide 0.25 Mg/2 Ml Nebu IH Not Given Q12HRT KOLBY Carvedilol 6.25 mg 06/16/21 22:00 06/24/21 10:18 Carvedilol 6.25 Mg Tab PO 6.25 mg BID KOLBY Administration Dextrose 50 ml 06/16/21 10:37 06/16/21 11:58 Dextrose 50% In Water (25gm) 50 Ml Syringe IV 50 ml Q30MIN PRN Administration Hypoglycemia Protocol Guaifenesin 10 ml 06/19/21 19:51 06/21/21 12:41 Guaifenesin Dm 200/20 Mg Oral Liqd 10 Ml PO 10 ml Q4H PRN Administration Cough Sodium Chloride 100 mls @ 999 mls/hr 06/19/21 14:00 Nacl 0.9% IV RALPH PRN Hypotension Isosorbide Mononitrate 30 mg 06/21/21 11:00 06/24/21 10:18 Isosorbide Mononitrate Er 30 Mg Tab PO 30 mg QDAY KOLBY Administration Lisinopril 2.5 mg 06/23/21 10:00 06/24/21 10:18 Lisinopril 5 Mg Tab PO 2.5 mg QDAY KOLBY Administration Multivitamins/Iron 1 each 06/21/21 11:00 06/24/21 10:18 Fe Fumarate/Fa/Mv, Min Comb#15 Cap (Hemocyte Plus) PO 1 each QDAY KOLBY Administration Sodium Chloride 10 ml 06/16/21 22:00 06/24/21 10:19 Sodium Chloride 0.9% 10 Ml Flush Syringe IV 10 ml BID KOLBY Administration Sodium Chloride 10 ml 06/16/21 12:30 Sodium Chloride 0.9% 10 Ml Flush Syringe IV PRN PRN LINE FLUSH
--- NOTE | 2021-06-24 18:32 | Progress Note ---
Subjective Date of service: 06/24/21 Principal diagnosis: esrd Interval history: Follow up for hypoxic resp failure, probable COPD, Tobacco use disorder Seen and examined. Vitals, albs,medications, chart and imaging reviewed. Discussed with nursing and respiratory staff. He denies any chest pain, has some shortness of breath. No fevers, no chills, no nausea or vomiting. Objective Vital Signs - 12hr 06/24/21 06/24/21 06/24/21 06:38 07:11 08:39 Temperature 98.1 F Pulse Rate 87 89 Respiratory 18 Rate Blood Pressure 96/56 O2 Sat by Pulse 97 98 Oximetry 06/24/21 06/24/21 14:00 14:54 Temperature Pulse Rate 84 Respiratory Rate Blood Pressure O2 Sat by Pulse 97 Oximetry Constitutional: no acute distress, alert Eyes: non-icteric ENT: oropharynx moist Neck: supple, no lymphadenopathy, other (Right chest wall perm cath) Effort: mildly labored Ascultation: Bilateral: wheezes (expiratory), rales Cardiovascular: other (Tachycardia, S1,S2) Gastrointestinal: normoactive bowel sounds, soft, non-tender Integumentary: normal Extremities: no cyanosis, no edema Neurologic: normal mental status, non-focal exam, pupils equal and round, CN II- XII normal, motor strength normal and Psychiatric: mood appropriate, affect normal CBC and BMP: 06/20/21 11:26 06/20/21 11:26 ABG, PT/INR, D-dimer: ABG ABG pH 7.383 pH Units (7.350-7.450) 06/19/21 10:50 ABG pCO2 45.4 mm Hg 06/19/21 10:50 ABG pO2 52.9 mm Hg (80.0-90.0) L 06/19/21 10:50 ABG O2 Saturation 85.5 % (95.0-99.0) L 06/19/21 10:50 PT/INR, D-dimer PT 14.3 Sec. (12.2-14.9) 06/16/21 09:38 INR 1.00 (0.87-1.13) 06/16/21 09:38 Abnormal lab findings: Abnormal Labs 06/16/21 06/16/21 06/16/21 09:38 09:38 09:38 WBC RBC 5.70 H Hgb 11.2 L Hct MCV 63 L MCH 20 L MCHC 31 L RDW 19.0 H Plt Count Lymph % (Auto) [place] % (Auto) Eos % (Auto) [place] # (Auto) Seg Neutrophils % Seg Neuts % (Manual) Lymphocytes % (Manual) Monocytes % (Manual) Monocytes # (Manual) ABG pO2 ABG HCO3 ABG O2 Saturation ABG Hemoglobin Oxyhemoglobin Sodium 127 L Potassium 6.5 H* Chloride 97.7 L Carbon Dioxide 17 L BUN 69 H Creatinine 6.1 H Glucose 152 H POC Glucose Troponin T 0.601 H* NT-Pro-B Natriuret Pep 02490 H Total Protein 11.2 H Albumin 3.8 L Triglycerides 222 H HDL Cholesterol 35 L 06/16/21 06/16/21 06/16/21 10:44 15:40 15:40 WBC RBC 5.43 H Hgb 10.4 L Hct 33.7 L MCV 62 L MCH 19 L MCHC 31 L RDW 18.4 H Plt Count Lymph % (Auto) [place] % (Auto) Eos % (Auto) [place] # (Auto) Seg Neutrophils % Seg Neuts % (Manual) Lymphocytes % (Manual) Monocytes % (Manual) Monocytes # (Manual) ABG pO2 ABG HCO3 ABG O2 Saturation ABG Hemoglobin Oxyhemoglobin Sodium 126 L Potassium 6.2 H* Chloride 96.4 L Carbon Dioxide 15 L BUN 71 H Creatinine 6.2 H Glucose 148 H POC Glucose 142 H Troponin T NT-Pro-B Natriuret Pep Total Protein 11.1 H Albumin 3.6 L Triglycerides HDL Cholesterol 06/17/21 06/17/21 06/17/21 03:52 03:52 13:58 WBC RBC 5.35 H Hgb 10.0 L Hct 33.1 L MCV 62 L MCH 19 L MCHC 30 L RDW 18.3 H Plt Count Lymph % (Auto) 48.7 H [place] % (Auto) 10.0 H Eos % (Auto) [place] # (Auto) Seg Neutrophils % Seg Neuts % (Manual) Lymphocytes % (Manual) Monocytes % (Manual) Monocytes # (Manual) ABG pO2 ABG HCO3 ABG O2 Saturation ABG Hemoglobin Oxyhemoglobin Sodium 131 L Potassium 5.3 H Chloride 97.0 L Carbon Dioxide 18 L BUN 83 H Creatinine 6.8 H Glucose 128 H POC Glucose Troponin T 0.562 H* NT-Pro-B Natriuret Pep Total Protein 10.4 H Albumin 3.7 L Triglycerides HDL Cholesterol 06/18/21 06/19/21 06/19/21 06:57 05:32 05:32 WBC 11.4 H RBC 5.20 H Hgb 10.1 L Hct 32.3 L MCV 62 L MCH 19 L MCHC 31 L RDW 18.2 H Plt Count 132 L Lymph % (Auto) [place] % (Auto) Eos % (Auto) [place] # (Auto) Seg Neutrophils % Seg Neuts % (Manual) 33.0 L Lymphocytes % (Manual) 45.0 H Monocytes % (Manual) 12.0 H Monocytes # (Manual) 1.4 H ABG pO2 ABG HCO3 ABG O2 Saturation ABG Hemoglobin Oxyhemoglobin Sodium 130 L 130 L Potassium 3.4 L Chloride 90.7 L 88.6 L Carbon Dioxide BUN 95 H 99 H Creatinine 7.1 H 6.9 H Glucose 105 H POC Glucose Troponin T NT-Pro-B Natriuret Pep Total Protein Albumin Triglycerides HDL Cholesterol 06/19/21 06/20/21 06/20/21 10:50 05:28 11:26 WBC RBC 5.65 H Hgb 10.9 L Hct 35.2 L MCV 62 L MCH 19 L MCHC 31 L RDW 18.4 H Plt Count 123 L Lymph % (Auto) 44.2 H [place] % (Auto) 12.6 H Eos % (Auto) 4.8 H [place] # (Auto) 1.1 H Seg Neutrophils % 37.5 L Seg Neuts % (Manual) Lymphocytes % (Manual) Monocytes % (Manual) Monocytes # (Manual) ABG pO2 52.9 L ABG HCO3 26.5 H ABG O2 Saturation 85.5 L ABG Hemoglobin 8.5 L Oxyhemoglobin 83.8 L Sodium 128 L Potassium Chloride 87.6 L Carbon Dioxide BUN 84 H Creatinine 7.4 H Glucose 104 H POC Glucose Troponin T NT-Pro-B Natriuret Pep Total Protein Albumin Triglycerides HDL Cholesterol 06/20/21 11:26 WBC RBC Hgb Hct MCV MCH MCHC RDW Plt Count Lymph % (Auto) [place] % (Auto) Eos % (Auto) [place] # (Auto) Seg Neutrophils % Seg Neuts % (Manual) Lymphocytes % (Manual) Monocytes % (Manual) Monocytes # (Manual) ABG pO2 ABG HCO3 ABG O2 Saturation ABG Hemoglobin Oxyhemoglobin Sodium 128 L Potassium 3.5 L Chloride 86.3 L Carbon Dioxide BUN 94 H Creatinine 8.1 H Glucose 111 H POC Glucose Troponin T NT-Pro-B Natriuret Pep Total Protein 11.2 H Albumin 3.7 L Triglycerides HDL Cholesterol
[2021-06-24] MEDS: BUDESONIDE 0.5 MG/2 ML NEBU IH SCH (19:19)
--- NOTE | 2021-06-24 21:38 | Progress Note ---
Hospitalist Physical - Constitutional Vitals: Temp Pulse Resp BP Pulse Ox 98.1 F 89 18 96/56 93 06/24/21 07:11 06/24/21 19:22 06/24/21 19:22 06/24/21 07:11 06/24/21 19:20 General appearance: Present: no acute distress HEART Score - HEART Score Troponin: Troponin T 0.562 ng/mL (0.00-0.029) H* 06/17/21 13:58 Results - Labs CBC & Chem 7: 06/20/21 11:26 06/20/21 11:26 Labs: Laboratory Last Values WBC 8.9 K/mm3 (4.5-11.0) 06/20/21 11:26 RBC 5.65 M/mm3 (3.65-5.03) H 06/20/21 11:26 Hgb 10.9 gm/dl (11.8-15.2) L 06/20/21 11:26 Hct 35.2 % (35.5-45.6) L 06/20/21 11:26 MCV 62 fl (84-94) L 06/20/21 11:26 MCH 19 pg (28-32) L 06/20/21 11:26 MCHC 31 % (32-34) L 06/20/21 11:26 RDW 18.4 % (13.2-15.2) H 06/20/21 11:26 Plt Count 123 K/mm3 (140-440) L 06/20/21 11:26 Lymph % (Auto) 44.2 % (13.4-35.0) H 06/20/21 11:26 [place] % (Auto) 12.6 % (0.0-7.3) H 06/20/21 11:26 Eos % (Auto) 4.8 % (0.0-4.3) H 06/20/21 11:26 Baso % (Auto) 0.9 % (0.0-1.8) 06/20/21 11:26 Lymph # (Auto) 3.9 K/mm3 (1.2-5.4) 06/20/21 11:26 [place] # (Auto) 1.1 K/mm3 (0.0-0.8) H 06/20/21 11:26 Eos # (Auto) 0.4 K/mm3 (0.0-0.4) 06/20/21 11:26 Baso # (Auto) 0.1 K/mm3 (0.0-0.1) 06/20/21 11:26 Add Manual Diff Complete 06/19/21 05:32 Total Counted 100 06/19/21 05:32 Seg Neutrophils % 37.5 % (40.0-70.0) L 06/20/21 11:26 Seg Neuts % (Manual) 33.0 % (40.0-70.0) L 06/19/21 05:32 Band Neutrophils % 7.0 % 06/19/21 05:32 Lymphocytes % (Manual) 45.0 % (13.4-35.0) H 06/19/21 05:32 Reactive Lymphs % (Man) 2.0 % 06/16/21 09:38 Monocytes % (Manual) 12.0 % (0.0-7.3) H 06/19/21 05:32 Eosinophils % (Manual) 2.0 % (0.0-4.3) 06/19/21 05:32 Metamyelocytes % 1.0 % 06/19/21 05:32 Myelocytes % 4.0 % 06/16/21 09:38 Promyelocytes % 2.0 % 06/16/21 09:38 Nucleated RBC % Not Reportable 06/19/21 05:32 Seg Neutrophils # 3.3 K/mm3 (1.8-7.7) 06/20/21 11:26 Seg Neutrophils # Man 3.8 K/mm3 (1.8-7.7) 06/19/21 05:32 Band Neutrophils # 0.8 K/mm3 06/19/21 05:32 Lymphocytes # (Manual) 5.1 K/mm3 (1.2-5.4) 06/19/21 05:32 Abs React Lymphs (Man) 0.0 K/mm3 06/19/21 05:32 Monocytes # (Manual) 1.4 K/mm3 (0.0-0.8) H 06/19/21 05:32 Eosinophils # (Manual) 0.2 K/mm3 (0.0-0.4) 06/19/21 05:32 Basophils # (Manual) 0.0 K/mm3 (0.0-0.1) 06/19/21 05:32 Metamyelocytes # 0.1 K/mm3 06/19/21 05:32 Myelocytes # 0.0 K/mm3 06/19/21 05:32 Promyelocytes # 0.0 K/mm3 06/19/21 05:32 Blast Cells # 0.0 K/mm3 06/19/21 05:32 WBC Morphology Not Reportable 06/19/21 05:32 Hypersegmented Neuts Not Reportable 06/19/21 05:32 Hyposegmented Neuts Not Reportable 06/19/21 05:32 Hypogranular Neuts Not Reportable 06/19/21 05:32 Smudge Cells Not Reportable 06/19/21 05:32 Toxic Granulation Not Reportable 06/19/21 05:32 Toxic Vacuolation Not Reportable 06/19/21 05:32 Dohle Bodies Not Reportable 06/19/21 05:32 Pelger-Huet Anomaly Not Reportable 06/19/21 05:32 Marianne Rods Not Reportable 06/19/21 05:32 Platelet Estimate Consistent w auto 06/19/21 05:32 Clumped Platelets Not Reportable 06/19/21 05:32 Plt Clumps, EDTA Not Reportable 06/19/21 05:32 Large Platelets Not Reportable 06/19/21 05:32 Giant Platelets Not Reportable 06/19/21 05:32 Platelet Satelliting Not Reportable 06/19/21 05:32 Plt Morphology Comment Not Reportable 06/19/21 05:32 RBC Morphology Not Reportable 06/19/21 05:32 Dimorphic RBCs Not Reportable 06/19/21 05:32 Polychromasia Not Reportable 06/19/21 05:32 Hypochromasia 2+ 06/19/21 05:32 Poikilocytosis Not Reportable 06/19/21 05:32 Anisocytosis 1+ 06/19/21 05:32 Microcytosis 2+ 06/19/21 05:32 Macrocytosis Not Reportable 06/19/21 05:32 Spherocytes Not Reportable 06/19/21 05:32 Pappenheimer Bodies Not Reportable 06/19/21 05:32 Sickle Cells Not Reportable 06/19/21 05:32 Target Cells 1+ 06/19/21 05:32 Tear Drop Cells Not Reportable 06/19/21 05:32 Ovalocytes Not Reportable 06/19/21 05:32 Helmet Cells Not Reportable 06/19/21 05:32 Sapp-[place] Bodies Not Reportable 06/19/21 05:32 [place] Rings Not Reportable 06/19/21 05:32 [place] Cells Not Reportable 06/19/21 05:32 Bite Cells Not Reportable 06/19/21 05:32 Crenated Cell Not Reportable 06/19/21 05:32 Elliptocytes Not Reportable 06/19/21 05:32 Acanthocytes (Spur) Not Reportable 06/19/21 05:32 Rouleaux Not Reportable 06/19/21 05:32 Hemoglobin C Crystals Not Reportable 06/19/21 05:32 Schistocytes Not Reportable 06/19/21 05:32 Malaria parasites Not Reportable 06/19/21 05:32 Maurisio Bodies Not Reportable 06/19/21 05:32 Hem Pathologist Commnt No 06/19/21 05:32 PT 14.3 Sec. (12.2-14.9) 06/16/21 09:38 INR 1.00 (0.87-1.13) 06/16/21 09:38 ABG pH 7.383 pH Units (7.350-7.450) 06/19/21 10:50 ABG pCO2 45.4 mm Hg 06/19/21 10:50 ABG pO2 52.9 mm Hg (80.0-90.0) L 06/19/21 10:50 ABG HCO3 26.5 mmol/L (20.0-26.0) H 06/19/21 10:50 ABG O2 Saturation 85.5 % (95.0-99.0) L 06/19/21 10:50 ABG O2 Content 10.0 (0.0-44) 06/19/21 10:50 ABG Base Excess 1.2 mmol/L (-2.0-3.0) 06/19/21 10:50 ABG Hemoglobin 8.5 gm/dl (14.0-18.0) L 06/19/21 10:50 ABG Carboxyhemoglobin 1.5 % (0.0-5.0) 06/19/21 10:50 ABG Methemoglobin 0.4 % (0.0-1.5) 06/19/21 10:50 Oxyhemoglobin 83.8 % (95.0-99.0) L 06/19/21 10:50 FiO2 21 % 06/19/21 10:50 Sodium 128 mmol/L (137-145) L 06/20/21 11:26 Potassium 3.5 mmol/L (3.6-5.0) L 06/20/21 11:26 Chloride 86.3 mmol/L (98-107) L 06/20/21 11:26 Carbon Dioxide 25 mmol/L (22-30) 06/20/21 11:26 Anion Gap 20 mmol/L 06/20/21 11:26 BUN 94 mg/dL (9-20) H 06/20/21 11:26 Creatinine 8.1 mg/dL (0.8-1.3) H 06/20/21 11:26 Estimated GFR 8 ml/min 06/20/21 11:26 BUN/Creatinine Ratio 12 % 06/20/21 11:26 Glucose 111 mg/dL (75-100) H 06/20/21 11:26 POC Glucose 142 mg/dL (70-105) H 06/16/21 10:44 Lactic Acid 0.80 mmol/L (0.7-2.0) 06/20/21 11:26 Calcium 9.0 mg/dL (8.4-10.2) 06/20/21 11:26 Magnesium 2.00 mg/dL (1.7-2.3) 06/20/21 11:26 Total Bilirubin 0.70 mg/dL (0.1-1.2) 06/20/21 11:26 AST 19 units/L (5-40) 06/20/21 11:26 ALT 9 units/L (7-56) 06/20/21 11:26 Alkaline Phosphatase 70 units/L (35-129) 06/20/21 11:26 Troponin T 0.562 ng/mL (0.00-0.029) H* 06/17/21 13:58 NT-Pro-B Natriuret Pep 99392 pg/mL (0-900) H 06/16/21 09:38 Total Protein 11.2 g/dL (6.3-8.2) H 06/20/21 11:26 Albumin 3.7 g/dL (3.9-5) L 06/20/21 11:26 Albumin/Globulin Ratio 0.5 % 06/20/21 11:26 Triglycerides 222 mg/dL (2-149) H 06/16/21 09:38 Cholesterol 179 mg/dL (50-199) 06/16/21 09:38 LDL Cholesterol Direct 102 mg/dL (50-130) 06/16/21 09:38 HDL Cholesterol 35 mg/dL (40-59) L 06/16/21 09:38 Cholesterol/HDL Ratio 5.11 % 06/16/21 09:38 Procalcitonin 0.76 ng/mL (<0.15) 06/20/21 11:26 Coronavirus (PCR) Negative (Negative) 06/22/21 Unknown Hepatitis A IgM Ab Non-reactive (NonReactive) 06/17/21 13:42 Hep Bs Antigen Nonreactive (Negative) 06/17/21 13:42 Hep B Core IgM Ab Non-reactive (NonReactive) 06/17/21 13:42 Hepatitis C Antibody Non-reactive (NonReactive) 06/17/21 13:42 Microbiology: Microbiology 06/20/21 11:53 Peripheral/Venous Blood Culture - Preliminary NO GROWTH AFTER 4 DAYS 06/20/21 11:26 Peripheral/Venous Blood Culture - Preliminary NO GROWTH AFTER 4 DAYS Dang/IV: Voiding Method Urinal Active Medications - Current Medications Current Medications: Generic Name Dose Route Start Last Admin Trade Name Freq PRN Reason Stop Dose Admin Acetaminophen 650 mg 06/16/21 13:00 06/18/21 01:32 Acetaminophen 325 Mg Tab PO 650 mg Q6H PRN Administration Pain MILD(1-3)/Fever >100.5/GRANDE Albuterol 2.5 mg 06/21/21 23:15 Albuterol 2.5 Mg/3 Ml Nebu IH Q4HRT PRN Shortness Of Breath Aspirin 81 mg 06/17/21 10:00 06/24/21 10:18 Aspirin Ec 81 Mg Tab PO 81 mg QDAY KOLBY Administration Budesonide 0.5 mg 06/24/21 20:00 06/24/21 19:19 Budesonide 0.5 Mg/2 Ml Nebu IH 0.5 mg Q12HRT KOLBY Administration Carvedilol 6.25 mg 06/16/21 22:00 06/24/21 10:18 Carvedilol 6.25 Mg Tab PO 6.25 mg BID KOLBY Administration Dextrose 50 ml 06/16/21 10:37 06/16/21 11:58 Dextrose 50% In Water (25gm) 50 Ml Syringe IV 50 ml Q30MIN PRN Administration Hypoglycemia Protocol Guaifenesin 10 ml 06/19/21 19:51 06/21/21 12:41 Guaifenesin Dm 200/20 Mg Oral Liqd 10 Ml PO 10 ml Q4H PRN Administration Cough Sodium Chloride 100 mls @ 999 mls/hr 06/19/21 14:00 Nacl 0.9% IV RALPH PRN Hypotension Isosorbide Mononitrate 30 mg 06/21/21 11:00 06/24/21 10:18 Isosorbide Mononitrate Er 30 Mg Tab PO 30 mg QDAY KOLBY Administration Lisinopril 2.5 mg 06/23/21 10:00 06/24/21 10:18 Lisinopril 5 Mg Tab PO 2.5 mg QDAY KOLBY Administration Multivitamins/Iron 1 each 06/21/21 11:00 06/24/21 10:18 Fe Fumarate/Fa/Mv, Min Comb#15 Cap (Hemocyte Plus) PO 1 each QDAY KOLBY Administration Sodium Chloride 10 ml 06/16/21 22:00 06/24/21 10:19 Sodium Chloride 0.9% 10 Ml Flush Syringe IV 10 ml BID KOLBY Administration Sodium Chloride 10 ml 06/16/21 12:30 Sodium Chloride 0.9% 10 Ml Flush Syringe IV PRN PRN LINE FLUSH Nutrition/Malnutrition Assess - Dietary Evaluation Nutrition/Malnutrition Findings: Nutrition Notes Start: 06/17/21 09:45 Freq: Status: Active Protocol: Document 06/21/21 17:43 KATHARINA (Rec: 06/21/21 17:49 KATHARINA [id number]) Nutrition Notes Initial or Follow up Brief Note Current Diagnosis Acute Kidney Injury,CKD (stage V CKD),Hypertension,Heart Failure,Respiratory Failure Other Pertinent Diagnosis CKD adv to ESRD+HD, CHF exacerbation, Asthma. Current Diet Renal (since B 06/19). Height 6 ft 1 in Weight 70.3 kg [place] Body Weight (kg) 83.63 BMI 20.4 Weight change and time frame No body weight change reported . Weight Status Appropriate Subjective/Other Information RD consult for routine F/U on Dietary advancement. Diet advanced to PO and %PO intake of meals is at 100%. Percent of energy/protein needs met: Prescribed Renal Diet provides for energy/protein needs (2, 072 Kcal/77 g) during LOS. Current % PO Good (75-100%) Nutrition Intervention Change Diet Order: Continue Renal Diet. Goal #1 Maintain body weight within +/ -3% of admission BWt during LOS. Goal #2 Reach and maintain acceptable chemistry lab values during LOS. Follow-Up By: 06/28/21 Additional Comments Continue monitoring Hydration, and BM; when pertinent, food tolerance and %PO intake of meals.
[2021-06-25 06:28] LABS: Basophils # (Auto) 0.1 K/mm3 (0.0-0.1); Basophils % (Auto) 1.2 % (0.0-1.8); Eosinophils # (Auto) 0.8 K/mm3 (0.0-0.4); Eosinophils % (Auto) 9.4 % (0.0-4.3); Hematocrit 33.3 % (35.5-45.6); Hemoglobin 10.2 gm/dl (11.8-15.2); Lymphocytes # (Auto) 2.7 K/mm3 (1.2-5.4); Lymphocytes % (Auto) 32.5 % (13.4-35.0); Mean Corpuscular HGB Conc 31 % (32-34); Monocytes % (Auto) 11.7 % (0.0-7.3); Red Blood Count 5.29 M/mm3 (3.65-5.03); Red Cell Distribution Width 18.2 % (13.2-15.2)
[2021-06-25 06:32] LABS: Mean Corpuscular Volume 63 fl (84-94); Platelet Count 167 K/mm3 (140-440)
[2021-06-25 06:40] LABS: Calcium 9.2 mg/dL (8.4-10.2)
[2021-06-25] MEDS ORDERED: IPRATROPIUM/ALBUTEROL SULFATE 3 ML AMPUL.NEB IH ONE (08:07)
[2021-06-25] MEDS: BUDESONIDE 0.5 MG/2 ML NEBU IH SCH ×2 (08:33→21:02)
[2021-06-25] MEDS: ASPIRIN EC 81 MG TAB PO SCH (10:29)
[2021-06-25] MEDS: LISINOPRIL 5 MG TAB PO SCH (10:29)
[2021-06-25] MEDS: FE FUMARATE/FA/MV, MIN COMB#15 CAP (HEMOCYTE PLUS) PO SCH (10:29)
[2021-06-25] MEDS: carvediloL 6.25 MG TAB PO SCH ×2 (10:30→21:28)
--- NOTE | 2021-06-25 12:59 | Progress Note ---
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 await outpatient placement, ok to dc once arranged Outpatient dialysis facility [facility] at [facility] or [facility], #Severe cardiomyopathy currently on medications for that #Diet and nutrition currently on Nepro as well as multivitamin #Bone mineral disorder and secondary hyperparathyroidism to monitor and follow PTH was in 130 range satisfactory #Anemia in end-stage kidney disease continue to monitor and follow erythropoietin as needed #Overall pending placement at dialysis facility insurance that starts in July, Can be considered for fistula in July, Check with dialysis facility about acceptance, but patient needs cardiac evaluation prior to discharge We'll continue to follow and make recommendation for renal standpoint HPI labs and chart reviewed tolerating dialysis treatment fairly well, Shortness of breath markedly improved Past medical history: Reviewed Family history: Reviewed Social history: Reviewed Allergies: Reviewed Physical examination: Vitals: Reviewed HEENT: No pallor or icterus oral mucosa moist Neck: Supple no JVD no thyromegaly Chest: Bilateral rales wheezes Heart: Regular rate and rhythm S1-S2 heard no S3-S4 Abdomen: Soft nontender no voluntary guarding rigidity rebound Extremity: Dry skin less than 1+ peripheral edema Psychiatric: No evidence of agitation and aggression noted Dermatology: No petechial rashes Objective - Vital Signs Vital signs: Vital Signs - 12hr 06/25/21 06/25/21 06/25/21 03:24 05:15 07:56 Temperature 98.2 F 98.8 F Pulse Rate 86 82 Pulse Rate [ Anterior Bilateral Throughout] Respiratory 18 Rate Respiratory Rate [Anterior Bilateral Throughout] Blood Pressure 102/66 [Left] O2 Sat by Pulse 96 Oximetry 06/25/21 06/25/21 06/25/21 08:10 08:33 12:00 Temperature 98.5 F Pulse Rate 88 Pulse Rate [ 86 Anterior Bilateral Throughout] Respiratory 17 Rate Respiratory 18 Rate [Anterior Bilateral Throughout] Blood Pressure 111/62 [Left] O2 Sat by Pulse 98 96 98 Oximetry 06/25/21 12:25 Temperature Pulse Rate 88 Pulse Rate [ Anterior Bilateral Throughout] Respiratory Rate Respiratory Rate [Anterior Bilateral Throughout] Blood Pressure [Left] O2 Sat by Pulse Oximetry - Lab 06/25/21 05:14 06/25/21 05:14 Most recent lab results ABG pH 7.383 pH Units (7.350-7.450) 06/19/21 10:50 ABG pCO2 45.4 mm Hg 06/19/21 10:50 ABG pO2 52.9 mm Hg (80.0-90.0) L 06/19/21 10:50 ABG HCO3 26.5 mmol/L (20.0-26.0) H 06/19/21 10:50 ABG O2 Saturation 85.5 % (95.0-99.0) L 06/19/21 10:50 Calcium 9.2 mg/dL (8.4-10.2) 06/25/21 05:14 Magnesium 2.00 mg/dL (1.7-2.3) 06/20/21 11:26 Medications & Allergies - Medications Allergies/Adverse Reactions: Allergies No Known Allergies Allergy (Verified 06/16/21 23:14) Home Medications: Home Medications Medication Instructions Recorded Confirmed Last Taken Type Aspirin EC [Halfprin EC] 81 mg PO QDAY 30 Days #30 tablet 04/07/21 06/17/21 06/15/21 Rx Furosemide [Lasix TAB] 40 mg PO QDAY 30 Days #30 tablet 04/07/21 06/17/21 Unknown Rx Isosorbide Dinitrate [Isordil] 20 mg PO TID 30 Days #90 tablet 04/07/21 06/17/21 06/15/21 Rx Sodium Bicarbonate 650 mg PO TID 30 Days #90 tablet 04/07/21 06/17/21 06/15/21 Rx Hydralazine HCl 50 mg PO TID 06/20/21 06/20/21 06/15/21 History Spironolactone [Aldactone] 25 mg PO QDAY 06/20/21 06/20/21 06/15/21 History carvediloL [Coreg] 12.5 mg PO BID 06/20/21 06/20/21 06/15/21 History Active Medications: Generic Name Dose Route Start Last Admin Trade Name Freq PRN Reason Stop Dose Admin Acetaminophen 650 mg 06/16/21 13:00 06/18/21 01:32 Acetaminophen 325 Mg Tab PO 650 mg Q6H PRN Administration Pain MILD(1-3)/Fever >100.5/GRADNE Albuterol 2.5 mg 06/21/21 23:15 Albuterol 2.5 Mg/3 Ml Nebu IH Q4HRT PRN Shortness Of Breath Aspirin 81 mg 06/17/21 10:00 06/25/21 10:29 Aspirin Ec 81 Mg Tab PO 81 mg QDAY KOLBY Administration Budesonide 0.5 mg 06/24/21 20:00 06/25/21 08:33 Budesonide 0.5 Mg/2 Ml Nebu IH 0.5 mg Q12HRT KOLBY Administration Carvedilol 6.25 mg 06/16/21 22:00 06/25/21 10:30 Carvedilol 6.25 Mg Tab PO 6.25 mg BID KOLBY Administration Dextrose 50 ml 06/16/21 10:37 06/16/21 11:58 Dextrose 50% In Water (25gm) 50 Ml Syringe IV 50 ml Q30MIN PRN Administration Hypoglycemia Protocol Guaifenesin 10 ml 06/19/21 19:51 06/21/21 12:41 Guaifenesin Dm 200/20 Mg Oral Liqd 10 Ml PO 10 ml Q4H PRN Administration Cough Sodium Chloride 100 mls @ 999 mls/hr 06/19/21 14:00 Nacl 0.9% IV RALPH PRN Hypotension Isosorbide Mononitrate 30 mg 06/21/21 11:00 06/25/21 10:29 Isosorbide Mononitrate Er 30 Mg Tab PO 30 mg QDAY KOLBY Administration Lisinopril 2.5 mg 06/23/21 10:00 06/25/21 10:29 Lisinopril 5 Mg Tab PO 2.5 mg QDAY KOLBY Administration Multivitamins/Iron 1 each 06/21/21 11:00 06/25/21 10:29 Fe Fumarate/Fa/Mv, Min Comb#15 Cap (Hemocyte Plus) PO 1 each QDAY KOLBY Administration Sodium Chloride 10 ml 06/16/21 22:00 06/25/21 10:30 Sodium Chloride 0.9% 10 Ml Flush Syringe IV 10 ml BID KOLBY Administration Sodium Chloride 10 ml 06/16/21 12:30 Sodium Chloride 0.9% 10 Ml Flush Syringe IV PRN PRN LINE FLUSH
--- NOTE | 2021-06-25 13:20 | Progress Note ---
Assessment and Plan - Patient Problems (1) Acute exacerbation of CHF (congestive heart failure) Current Visit: Yes Status: Acute Qualifiers: Heart failure type: systolic Qualified Code(s): I50.23 - Acute on chronic systolic (congestive) heart failure Plan to address problem: Patient has underlying severe nonischemic cardiomyopathy, presents with fluid overload and acute on chronic systolic heart failure, due to worsening renal function and noncompliance with medical therapy and dietary salt restrictions. Now on hemodialysis for fluid and electrolyte management, we will continue guideline directed medical therapy for chronic systolic left ventricular failure. Subjective Date of service: 06/25/21 Principal diagnosis: esrd Interval history: Patient is comfortable, no new cardiac complaints. Objective Vital Signs Temp Pulse Pulse Resp Resp BP BP 06/25/21 12:25 88 06/25/21 12:00 06/25/21 08:33 86 18 06/25/21 08:10 98.5 F 88 17 111/62 06/25/21 07:56 98.8 F 06/25/21 05:15 98.2 F 82 18 102/66 06/25/21 03:24 86 06/24/21 23:45 98.0 F 83 18 100/70 06/24/21 22:00 06/24/21 20:24 98.7 F 84 20 94/65 06/24/21 19:22 89 18 06/24/21 19:20 06/24/21 17:36 98.4 F 85 20 96/51 06/24/21 14:54 84 06/24/21 14:00 Pulse Ox 06/25/21 12:25 06/25/21 12:00 98 06/25/21 08:33 96 06/25/21 08:10 98 06/25/21 07:56 06/25/21 05:15 96 06/25/21 03:24 06/24/21 23:45 96 06/24/21 22:00 98 06/24/21 20:24 94 06/24/21 19:22 06/24/21 19:20 93 06/24/21 17:36 93 06/24/21 14:54 06/24/21 14:00 97 - Physical Examination General: No Apparent Distress HEENT: Positive: PERRL Neck: Positive: neck supple Cardiac: Positive: Reg Rate and Rhythm Lungs: Positive: Decreased Breath Sounds Neuro: Positive: Grossly Intact Abdomen: Positive: Soft Skin: Positive: Clear Extremities: Absent: edema - Labs and Meds CBC 06/25/21 Range/Units 05:14 WBC 8.4 (4.5-11.0) K/mm3 RBC 5.29 H (3.65-5.03) M/mm3 Hgb 10.2 L (11.8-15.2) gm/dl Hct 33.3 L (35.5-45.6) % Plt Count 167 (140-440) K/mm3 Lymph # (Auto) 2.7 (1.2-5.4) K/mm3 [place] # (Auto) 1.0 H (0.0-0.8) K/mm3 Eos # (Auto) 0.8 H (0.0-0.4) K/mm3 Baso # (Auto) 0.1 (0.0-0.1) K/mm3 Comprehensive Metabolic Panel 06/25/21 Range/Units 05:14 Sodium 125 L (137-145) mmol/L Potassium 4.3 D (3.6-5.0) mmol/L Chloride 89.0 L (98-107) mmol/L Carbon Dioxide 18 L D (22-30) mmol/L BUN 94 H (9-20) mg/dL Creatinine 9.5 H (0.8-1.3) mg/dL Glucose 100 (75-100) mg/dL Calcium 9.2 (8.4-10.2) mg/dL
--- NOTE | 2021-06-25 14:05 | Progress Note ---
Assessment and Plan 56 YO Male with Systolic CHF(EF 15%), HTN, CKD, Medication Noncompliance, Asthma presents to ED for evaluation. Patient reports "I am short of breath". Patient speaks in short and incomplete sentences due to shortness of breath. Patient knowledges shortness of breath over the past 1 week with worsening symptoms over the past few days. EMS was notified and upon arrival the patient was found to be in distress and subsequently transported to [facility] for further care and evaluation of the aforementioned symptoms. The patient was seen and evaluated in the emergency department. All lab and imaging studies reviewed. The patient was found to be using accessory muscles to breathe, unable to speak in complete sentences, tripoding, with a pulse oximetry of 86% on room air which is consistent with acute hypoxemic respiratory failure. Patient also found to have clinical symptoms consistent with congestive heart failure, cardiorenal sy ndrome, acidosis, hyponatremia. Patient admitted to IMCU due to increased risk of worsening symptoms. Patient placed on supplemental oxygen with improvement in symptoms and was subsequently initiated on noninvasive positive pressure ventilation with mild improvement in symptoms. No reports of fever, chills, chest pain, palpitation, skin rash, recent ill contacts, and known exposure to COVID-19. Patient has history of smoking. 4 cigaretts a day x 16 years. Drinks alcohol. Denies drug abuse. Worked in [employer]. Not and has two children. No known drug allergies Patient alert, awake. Resting on 1 litres O2 . O2 saturation 98% . Patient says shortness of breath and chest pain and cough is better now. BIPAP 24/12,rate 22,FIO2 30% stand by in the room. ABG done on room air ABG pH 7.383 pH Units (7.350-7.450) 06/19/21 10:50 ABG pCO2 45.4 mm Hg 06/19/21 10:50 ABG pO2 52.9 mm Hg (80.0-90.0) L 06/19/21 10:50 ABG O2 Saturation 85.5 % (95.0-99.0) L 06/19/21 10:50 Patient is candidate for home O2. Recommend home O2 2 to 3 litres via nasal canula. Patient afebrile. No leukocytosis. Blood pressure 111/62, Pulse 84, respirations 18. Chest xray done 06/16/21 reported mild congestive heart failure. Chest xray 06/20/21 reported no acute findings. Patient is on Albuterol, Budesonide aerosol treatments. Recommend DVT and GI prophylaxis. Adding Robitussin DM for cough. - Patient Problems (1) Acute hypoxemic respiratory failure Current Visit: Yes Status: Acute Plan to address problem: O2 2 litres via nasal canula. BIPAP 24/12, rate 22, FIO2 30% stand by in the room. Recommend DVT and GI Prophylaxis. Budesonide aerosol treatments q 12 hours. Recommend xopenex inhaler 2 puffs q 8 hours prn for shortness of breath. (2) Acute exacerbation of CHF (congestive heart failure) Current Visit: Yes Status: Acute Qualifiers: Heart failure type: systolic Qualified Code(s): I50.23 - Acute on chronic systolic (congestive) heart failure Plan to address problem: Patient is on lasix, Aspirin and Coreg, Imadur and restoril. Management as per cardiology. (3) Acute kidney injury Current Visit: No Status: Acute Plan to address problem: Management as per nephrology. (4) Hypertensive emergency Current Visit: Yes Status: Acute Plan to address problem: Management as per primary care and cardiology. (5) Tobacco use disorder Current Visit: Yes Status: Acute Plan to address problem: Counseled to stop smoking. PFTs as out patient. Subjective Date of service: 06/25/21 Principal diagnosis: esrd Interval history: 56 YO Male with Systolic CHF(EF 15%), HTN, CKD, Medication Noncompliance, Asthma presents to ED for evaluation. Patient reports "I am short of breath". Patient speaks in short and incomplete sentences due to shortness of breath. Patient knowledges shortness of breath over the past 1 week with worsening symptoms over the past few days. EMS was notified and upon arrival the patient was found to be in distress and subsequently transported to [facility] for further care and evaluation of the aforementioned symptoms. The patient was seen and evaluated in the emergency department. All lab and imaging studies reviewed. The patient was found to be using accessory muscles to breathe, unable to speak in complete sentences, tripoding, with a pulse oximetry of 86% on room air which is consistent with acute hypoxemic respiratory failure. Patient also found to have clinical symptoms consistent with congestive heart failure, cardiorenal syndrome, acidosis, hyponatremia. Patient admitted to [facility] due to increased risk of worsening symptoms. Patient placed on supplemental oxygen with improvement in symptoms and was subsequently initiated on noninvasive positive pressure ventilation with mild improvement in symptoms. No reports of fever, chills, chest pain, palpitation, skin rash, recent ill contacts, and known exposure to COVID-19. Patient has history of smoking. 4 cigaretts a day x 16 years. Drinks alcohol. Denies drug abuse. Worked in [employer] house. Not and has two children. No known drug allergies Patient alert, awake. Resting on 1 litres O2 . O2 saturation 98% . Patient says shortness of breath and chest pain and cough is better now. BIPAP /,rate 22,FIO2 30% stand by in the room. ABG done on room air ABG pH 7.383 pH Units (7.350-7.450) 06/19/21 10:50 ABG pCO2 45.4 mm Hg 06/19/21 10:50 ABG pO2 52.9 mm Hg (80.0-90.0) L 06/19/21 10:50 ABG O2 Saturation 85.5 % (95.0-99.0) L 06/19/21 10:50 Patient is candidate for home O2. Recommend home O2 2 to 3 litres via nasal canula. Patient afebrile. No leukocytosis. Blood pressure 111/62, Pulse 84, respirations 18. Chest xray done 06/16/21 reported mild congestive heart failure. Chest xray 06/20/21 reported no acute findings. Patient is on Albuterol, Budesonide aerosol treatments. Recommend DVT and GI prophylaxis. Adding Robitussin DM for cough. Objective Vital Signs - 12hr 06/25/21 06/25/21 06/25/21 03:24 05:15 07:56 Temperature 98.2 F 98.8 F Pulse Rate 86 82 Pulse Rate [ Anterior Bilateral Throughout] Respiratory 18 Rate Respiratory Rate [Anterior Bilateral Throughout] Blood Pressure 102/66 [Left] O2 Sat by Pulse 96 Oximetry 06/25/21 06/25/21 06/25/21 08:10 08:33 12:00 Temperature 98.5 F Pulse Rate 88 Pulse Rate [ 86 Anterior Bilateral Throughout] Respiratory 17 Rate Respiratory 18 Rate [Anterior Bilateral Throughout] Blood Pressure 111/62 [Left] O2 Sat by Pulse 98 96 98 Oximetry 06/25/21 12:25 Temperature Pulse Rate 88 Pulse Rate [ Anterior Bilateral Throughout] Respiratory Rate Respiratory Rate [Anterior Bilateral Throughout] Blood Pressure [Left] O2 Sat by Pulse Oximetry Constitutional: no acute distress, alert Eyes: non-icteric ENT: oropharynx moist Neck: supple, no lymphadenopathy, other (Right chest wall perm cath) Effort: mildly labored Ascultation: Bilateral: wheezes (expiratory), rales Cardiovascular: other (Tachycardia, S1,S2) Gastrointestinal: normoactive bowel sounds, soft, non-tender Integumentary: normal Extremities: no cyanosis, no edema Neurologic: normal mental status, non-focal exam, pupils equal and round, CN II- XII normal, motor strength normal and Psychiatric: mood appropriate, affect normal CBC and BMP: 06/26/21 05:11 06/26/21 05:11 ABG, PT/INR, D-dimer: ABG ABG pH 7.383 pH Units (7.350-7.450) 06/19/21 10:50 ABG pCO2 45.4 mm Hg 06/19/21 10:50 ABG pO2 52.9 mm Hg (80.0-90.0) L 06/19/21 10:50 ABG O2 Saturation 85.5 % (95.0-99.0) L 06/19/21 10:50 PT/INR, D-dimer PT 14.3 Sec. (12.2-14.9) 06/16/21 09:38 INR 1.00 (0.87-1.13) 06/16/21 09:38 Abnormal lab findings: Abnormal Labs 06/16/21 06/16/21 06/16/21 09:38 09:38 09:38 WBC RBC 5.70 H Hgb 11.2 L Hct MCV 63 L MCH 20 L MCHC 31 L RDW 19.0 H Plt Count Lymph % (Auto) [place] % (Auto) Eos % (Auto) [place] # (Auto) Eos # (Auto) Seg Neutrophils % Seg Neuts % (Manual) Lymphocytes % (Manual) Monocytes % (Manual) Monocytes # (Manual) ABG pO2 ABG HCO3 ABG O2 Saturation ABG Hemoglobin Oxyhemoglobin Sodium 127 L Potassium 6.5 H* Chloride 97.7 L Carbon Dioxide 17 L BUN 69 H Creatinine 6.1 H Glucose 152 H POC Glucose Troponin T 0.601 H* NT-Pro-B Natriuret Pep 84942 H Total Protein 11.2 H Albumin 3.8 L Triglycerides 222 H HDL Cholesterol 35 L 06/16/21 06/16/21 06/16/21 10:44 15:40 15:40 WBC RBC 5.43 H Hgb 10.4 L Hct 33.7 L MCV 62 L MCH 19 L MCHC 31 L RDW 18.4 H Plt Count Lymph % (Auto) [place] % (Auto) Eos % (Auto) [place] # (Auto) Eos # (Auto) Seg Neutrophils % Seg Neuts % (Manual) Lymphocytes % (Manual) Monocytes % (Manual) Monocytes # (Manual) ABG pO2 ABG HCO3 ABG O2 Saturation ABG Hemoglobin Oxyhemoglobin Sodium 126 L Potassium 6.2 H* Chloride 96.4 L Carbon Dioxide 15 L BUN 71 H Creatinine 6.2 H Glucose 148 H POC Glucose 142 H Troponin T NT-Pro-B Natriuret Pep Total Protein 11.1 H Albumin 3.6 L Triglycerides HDL Cholesterol 06/17/21 06/17/21 06/17/21 03:52 03:52 13:58 WBC RBC 5.35 H Hgb 10.0 L Hct 33.1 L MCV 62 L MCH 19 L MCHC 30 L RDW 18.3 H Plt Count Lymph % (Auto) 48.7 H [place] % (Auto) 10.0 H Eos % (Auto) [place] # (Auto) Eos # (Auto) Seg Neutrophils % Seg Neuts % (Manual) Lymphocytes % (Manual) Monocytes % (Manual) Monocytes # (Manual) ABG pO2 ABG HCO3 ABG O2 Saturation ABG Hemoglobin Oxyhemoglobin Sodium 131 L Potassium 5.3 H Chloride 97.0 L Carbon Dioxide 18 L BUN 83 H Creatinine 6.8 H Glucose 128 H POC Glucose Troponin T 0.562 H* NT-Pro-B Natriuret Pep Total Protein 10.4 H Albumin 3.7 L Triglycerides HDL Cholesterol 06/18/21 06/19/21 06/19/21 06:57 05:32 05:32 WBC 11.4 H RBC 5.20 H Hgb 10.1 L Hct 32.3 L MCV 62 L MCH 19 L MCHC 31 L RDW 18.2 H Plt Count 132 L Lymph % (Auto) [place] % (Auto) Eos % (Auto) [place] # (Auto) Eos # (Auto) Seg Neutrophils % Seg Neuts % (Manual) 33.0 L Lymphocytes % (Manual) 45.0 H Monocytes % (Manual) 12.0 H Monocytes # (Manual) 1.4 H ABG pO2 ABG HCO3 ABG O2 Saturation ABG Hemoglobin Oxyhemoglobin Sodium 130 L 130 L Potassium 3.4 L Chloride 90.7 L 88.6 L Carbon Dioxide BUN 95 H 99 H Creatinine 7.1 H 6.9 H Glucose 105 H POC Glucose Troponin T NT-Pro-B Natriuret Pep Total Protein Albumin Triglycerides HDL Cholesterol 06/19/21 06/20/21 06/20/21 10:50 05:28 11:26 WBC RBC 5.65 H Hgb 10.9 L Hct 35.2 L MCV 62 L MCH 19 L MCHC 31 L RDW 18.4 H Plt Count 123 L Lymph % (Auto) 44.2 H [place] % (Auto) 12.6 H Eos % (Auto) 4.8 H [place] # (Auto) 1.1 H Eos # (Auto) Seg Neutrophils % 37.5 L Seg Neuts % (Manual) Lymphocytes % (Manual) Monocytes % (Manual) Monocytes # (Manual) ABG pO2 52.9 L ABG HCO3 26.5 H ABG O2 Saturation 85.5 L ABG Hemoglobin 8.5 L Oxyhemoglobin 83.8 L Sodium 128 L Potassium Chloride 87.6 L Carbon Dioxide BUN 84 H Creatinine 7.4 H Glucose 104 H POC Glucose Troponin T NT-Pro-B Natriuret Pep Total Protein Albumin Triglycerides HDL Cholesterol 06/20/21 06/25/21 06/25/21 11:26 05:14 05:14 WBC RBC 5.29 H Hgb 10.2 L Hct 33.3 L MCV 63 L MCH 19 L MCHC 31 L RDW 18.2 H Plt Count Lymph % (Auto) [place] % (Auto) 11.7 H Eos % (Auto) 9.4 H [place] # (Auto) 1.0 H Eos # (Auto) 0.8 H Seg Neutrophils % Seg Neuts % (Manual) Lymphocytes % (Manual) Monocytes % (Manual) Monocytes # (Manual) ABG pO2 ABG HCO3 ABG O2 Saturation ABG Hemoglobin Oxyhemoglobin Sodium 128 L 125 L Potassium 3.5 L Chloride 86.3 L 89.0 L Carbon Dioxide 18 L D BUN 94 H 94 H Creatinine 8.1 H 9.5 H Glucose 111 H POC Glucose Troponin T NT-Pro-B Natriuret Pep Total Protein 11.2 H Albumin 3.7 L Triglycerides HDL Cholesterol Additional Studies: DOPPLER ULTRASOUND UPPER EXTREMITY VENOUS MAPPING, BILATERAL 06/20/21 INDICATION / CLINICAL INFORMATION: vein mapping for esrd TECHNIQUE: Grayscale, color and spectral Doppler imaging of the venous system of the right and left upper extremities was performed. COMPARISON: None available. FINDINGS: RIGHT UPPER EXTREMITY: Radial Artery (Diameter, in cm): 0.28 Basilic Vein (Diameter, in cm): - Upper Arm: 0.65 - Mid Arm: 0.52 - Lower Arm: 0.42 - Antecubital: 0.29 - Upper Forearm: 0.16 - Mid Forearm: 0.18 - Distal Forearm: 0.17 Cephalic Vein (Diameter, in cm): - Upper Arm: 0.22 - Mid Arm: 0.15 - Lower Arm: 0.13 - Antecubital: 0.28 - Upper Forearm: 0.44 - Mid Forearm: 0.24 - Distal Forearm: 0.25 LEFT UPPER EXTREMITY: Radial Artery (Diameter, in cm): 0.28 Basilic Vein (Diameter, in cm): - Upper Arm: 0.74 - Mid Arm: 0.50 - Lower Arm: 0.58 - Antecubital: 0.45 - Upper Forearm: 0.27 - Mid Forearm: 0.19 - Distal Forearm: 0.24 Cephalic Vein (Diameter, in cm): - Upper Arm: 0.30 - Mid Arm: 0.16 - Lower Arm: 0.15 - Antecubital: 0.22 - Upper Forearm: 0.36 - Mid Forearm: 0.28 - Distal Forearm: 0.24 Additional Findings: None. IMPRESSION: 1. Upper extremity venous mapping as above.
--- NOTE | 2021-06-25 22:37 | Progress Note ---
Assessment and Plan Assessment and plan: 56 YO Male with Systolic CHF(EF 15%), HTN, CKD, Medication Noncompliance, COPD presents to ED for evaluation. Patient knowledges shortness of breath over the past 1 week with worsening symptoms over the past few days. The patient was found to be using accessory muscles to breathe, unable to speak in complete sentences, tripoding, with a pulse oximetry of 86% on room air which is consistent with acute hypoxemic respiratory failure. Patient also found to have clinical symptoms consistent with congestive heart failure, cardiorenal syndrome, acidosis, hyponatremia. Patient admitted to IMCU due to increased risk of worsening symptoms. Patient placed on supplemental oxygen with improvement in symptoms and was subsequently initiated on noninvasive positive pressure ventilation with mild improvement in symptoms. No reports of fever, chills, chest pain, palpitation, skin rash, recent ill contacts, and known exposure to COVID-19. #Heart failure with reduced ejection fraction #Acute CHF exacerbation in the setting of renal failure -EF 15% per TTE and stress test negative in March -NT proBNP 10,359 -Volume overload improved with initiation of dialysis -Lasix discontinued -Currently appears to be euvolemic -Continue carvedilol, ARB/ACEI as tolerated -Strict I's/O's, fluid restriction to less than 1.5 L -No ventricular arrhythmia reported on telemetry Consulted for follow-up/discussed with Dr. Brush, cardiology with regard to the need for LifeVest prior to discharge #Acute hypoxic respiratory failure, resolving -Likely from volume overload/renal failure Stable on nasal cannula, will wean to RA as tolerated -CXR showed cardiomegaly and mild interstitial edema at the time of admission, resolved after dialysis COPD, tobacco smoking Counseled to quit tobacco smoking Likely contributing to dyspnea Not in acute exacerbation Refusing neb therapy #Mild troponin elevation in the setting of renal failure -Troponin 0.601 -> 0.5 -EKG without acute ST changes -Likely secondary to ESRD #ROMAN on CKD, dialysis initiated -Nephrology consulted and dialysis initiated -Patient is currently euvolemic -CM arranging for outpatient dialysis #Hypertension -controlled -will continue to monitor #Microcytic anemia -Baseline hemoglobin 10 -Likely secondary to ESRD -will transfuse for hemoglobin less than 7 #Hyponatremia -Likely hypervolemic hyponatremia secondary to CHF vs CKD -Nephrology following #Hyperkalemia from renal failure, resolved -will continue to monitor Disposition: Patient will be discharged once outpatient dialysis arrangements completed and cardiology addresses the need for a LifeVest. Discussed with cardiology today as well as case management specialist and patient Hospitalist Physical - Constitutional Vitals: Temp Pulse Resp BP Pulse Ox 97.9 F 82 20 103/63 98 06/25/21 19:26 06/25/21 21:28 06/25/21 21:07 06/25/21 21:28 06/25/21 22:00 General appearance: Present: no acute distress HEART Score - HEART Score Troponin: Troponin T 0.562 ng/mL (0.00-0.029) H* 06/17/21 13:58 Results - Labs CBC & Chem 7: 06/25/21 05:14 06/25/21 05:14 Labs: Laboratory Last Values WBC 8.4 K/mm3 (4.5-11.0) 06/25/21 05:14 RBC 5.29 M/mm3 (3.65-5.03) H 06/25/21 05:14 Hgb 10.2 gm/dl (11.8-15.2) L 06/25/21 05:14 Hct 33.3 % (35.5-45.6) L 06/25/21 05:14 MCV 63 fl (84-94) L 06/25/21 05:14 MCH 19 pg (28-32) L 06/25/21 05:14 MCHC 31 % (32-34) L 06/25/21 05:14 RDW 18.2 % (13.2-15.2) H 06/25/21 05:14 Plt Count 167 K/mm3 (140-440) 06/25/21 05:14 Lymph % (Auto) 32.5 % (13.4-35.0) 06/25/21 05:14 [place] % (Auto) 11.7 % (0.0-7.3) H 06/25/21 05:14 Eos % (Auto) 9.4 % (0.0-4.3) H 06/25/21 05:14 Baso % (Auto) 1.2 % (0.0-1.8) 06/25/21 05:14 Lymph # (Auto) 2.7 K/mm3 (1.2-5.4) 06/25/21 05:14 [place] # (Auto) 1.0 K/mm3 (0.0-0.8) H 06/25/21 05:14 Eos # (Auto) 0.8 K/mm3 (0.0-0.4) H 06/25/21 05:14 Baso # (Auto) 0.1 K/mm3 (0.0-0.1) 06/25/21 05:14 Add Manual Diff Complete 06/19/21 05:32 Total Counted 100 06/19/21 05:32 Seg Neutrophils % 45.2 % (40.0-70.0) 06/25/21 05:14 Seg Neuts % (Manual) 33.0 % (40.0-70.0) L 06/19/21 05:32 Band Neutrophils % 7.0 % 06/19/21 05:32 Lymphocytes % (Manual) 45.0 % (13.4-35.0) H 06/19/21 05:32 Reactive Lymphs % (Man) 2.0 % 06/16/21 09:38 Monocytes % (Manual) 12.0 % (0.0-7.3) H 06/19/21 05:32 Eosinophils % (Manual) 2.0 % (0.0-4.3) 06/19/21 05:32 Metamyelocytes % 1.0 % 06/19/21 05:32 Myelocytes % 4.0 % 06/16/21 09:38 Promyelocytes % 2.0 % 06/16/21 09:38 Nucleated RBC % Not Reportable 06/19/21 05:32 Seg Neutrophils # 3.8 K/mm3 (1.8-7.7) 06/25/21 05:14 Seg Neutrophils # Man 3.8 K/mm3 (1.8-7.7) 06/19/21 05:32 Band Neutrophils # 0.8 K/mm3 06/19/21 05:32 Lymphocytes # (Manual) 5.1 K/mm3 (1.2-5.4) 06/19/21 05:32 Abs React Lymphs (Man) 0.0 K/mm3 06/19/21 05:32 Monocytes # (Manual) 1.4 K/mm3 (0.0-0.8) H 06/19/21 05:32 Eosinophils # (Manual) 0.2 K/mm3 (0.0-0.4) 06/19/21 05:32 Basophils # (Manual) 0.0 K/mm3 (0.0-0.1) 06/19/21 05:32 Metamyelocytes # 0.1 K/mm3 06/19/21 05:32 Myelocytes # 0.0 K/mm3 06/19/21 05:32 Promyelocytes # 0.0 K/mm3 06/19/21 05:32 Blast Cells # 0.0 K/mm3 06/19/21 05:32 WBC Morphology Not Reportable 06/19/21 05:32 Hypersegmented Neuts Not Reportable 06/19/21 05:32 Hyposegmented Neuts Not Reportable 06/19/21 05:32 Hypogranular Neuts Not Reportable 06/19/21 05:32 Smudge Cells Not Reportable 06/19/21 05:32 Toxic Granulation Not Reportable 06/19/21 05:32 Toxic Vacuolation Not Reportable 06/19/21 05:32 Dohle Bodies Not Reportable 06/19/21 05:32 Pelger-Huet Anomaly Not Reportable 06/19/21 05:32 Marianne Rods Not Reportable 06/19/21 05:32 Platelet Estimate Consistent w auto 06/19/21 05:32 Clumped Platelets Not Reportable 06/19/21 05:32 Plt Clumps, EDTA Not Reportable 06/19/21 05:32 Large Platelets Not Reportable 06/19/21 05:32 Giant Platelets Not Reportable 06/19/21 05:32 Platelet Satelliting Not Reportable 06/19/21 05:32 Plt Morphology Comment Not Reportable 06/19/21 05:32 RBC Morphology Not Reportable 06/19/21 05:32 Dimorphic RBCs Not Reportable 06/19/21 05:32 Polychromasia Not Reportable 06/19/21 05:32 Hypochromasia 2+ 06/19/21 05:32 Poikilocytosis Not Reportable 06/19/21 05:32 Anisocytosis 1+ 06/19/21 05:32 Microcytosis 2+ 06/19/21 05:32 Macrocytosis Not Reportable 06/19/21 05:32 Spherocytes Not Reportable 06/19/21 05:32 Pappenheimer Bodies Not Reportable 06/19/21 05:32 Sickle Cells Not Reportable 06/19/21 05:32 Target Cells 1+ 06/19/21 05:32 Tear Drop Cells Not Reportable 06/19/21 05:32 Ovalocytes Not Reportable 06/19/21 05:32 Helmet Cells Not Reportable 06/19/21 05:32 [place] Bodies Not Reportable 06/19/21 05:32 [place] Rings Not Reportable 06/19/21 05:32 [place] Cells Not Reportable 06/19/21 05:32 Bite Cells Not Reportable 06/19/21 05:32 Crenated Cell Not Reportable 06/19/21 05:32 Elliptocytes Not Reportable 06/19/21 05:32 Acanthocytes (Spur) Not Reportable 06/19/21 05:32 Rouleaux Not Reportable 06/19/21 05:32 Hemoglobin C Crystals Not Reportable 06/19/21 05:32 Schistocytes Not Reportable 06/19/21 05:32 Malaria parasites Not Reportable 06/19/21 05:32 Maurisio Bodies Not Reportable 06/19/21 05:32 Hem Pathologist Commnt No 06/19/21 05:32 PT 14.3 Sec. (12.2-14.9) 06/16/21 09:38 INR 1.00 (0.87-1.13) 06/16/21 09:38 ABG pH 7.383 pH Units (7.350-7.450) 06/19/21 10:50 ABG pCO2 45.4 mm Hg 06/19/21 10:50 ABG pO2 52.9 mm Hg (80.0-90.0) L 06/19/21 10:50 ABG HCO3 26.5 mmol/L (20.0-26.0) H 06/19/21 10:50 ABG O2 Saturation 85.5 % (95.0-99.0) L 06/19/21 10:50 ABG O2 Content 10.0 (0.0-44) 06/19/21 10:50 ABG Base Excess 1.2 mmol/L (-2.0-3.0) 06/19/21 10:50 ABG Hemoglobin 8.5 gm/dl (14.0-18.0) L 06/19/21 10:50 ABG Carboxyhemoglobin 1.5 % (0.0-5.0) 06/19/21 10:50 ABG Methemoglobin 0.4 % (0.0-1.5) 06/19/21 10:50 Oxyhemoglobin 83.8 % (95.0-99.0) L 06/19/21 10:50 FiO2 21 % 06/19/21 10:50 Sodium 125 mmol/L (137-145) L 06/25/21 05:14 Potassium 4.3 mmol/L (3.6-5.0) D 06/25/21 05:14 Chloride 89.0 mmol/L (98-107) L 06/25/21 05:14 Carbon Dioxide 18 mmol/L (22-30) L D 06/25/21 05:14 Anion Gap 22 mmol/L 06/25/21 05:14 BUN 94 mg/dL (9-20) H 06/25/21 05:14 Creatinine 9.5 mg/dL (0.8-1.3) H 06/25/21 05:14 Estimated GFR 7 ml/min 06/25/21 05:14 BUN/Creatinine Ratio 10 % 06/25/21 05:14 Glucose 100 mg/dL (75-100) 06/25/21 05:14 POC Glucose 142 mg/dL (70-105) H 06/16/21 10:44 Lactic Acid 0.80 mmol/L (0.7-2.0) 06/20/21 11:26 Calcium 9.2 mg/dL (8.4-10.2) 06/25/21 05:14 Magnesium 2.00 mg/dL (1.7-2.3) 06/20/21 11:26 Total Bilirubin 0.70 mg/dL (0.1-1.2) 06/20/21 11:26 AST 19 units/L (5-40) 06/20/21 11:26 ALT 9 units/L (7-56) 06/20/21 11:26 Alkaline Phosphatase 70 units/L (35-129) 06/20/21 11:26 Troponin T 0.562 ng/mL (0.00-0.029) H* 06/17/21 13:58 NT-Pro-B Natriuret Pep 93397 pg/mL (0-900) H 06/16/21 09:38 Total Protein 11.2 g/dL (6.3-8.2) H 06/20/21 11:26 Albumin 3.7 g/dL (3.9-5) L 06/20/21 11:26 Albumin/Globulin Ratio 0.5 % 06/20/21 11:26 Triglycerides 222 mg/dL (2-149) H 06/16/21 09:38 Cholesterol 179 mg/dL (50-199) 06/16/21 09:38 LDL Cholesterol Direct 102 mg/dL (50-130) 06/16/21 09:38 HDL Cholesterol 35 mg/dL (40-59) L 06/16/21 09:38 Cholesterol/HDL Ratio 5.11 % 06/16/21 09:38 Procalcitonin 0.76 ng/mL (<0.15) 06/20/21 11:26 Coronavirus (PCR) Negative (Negative) 06/22/21 Unknown Hepatitis A IgM Ab Non-reactive (NonReactive) 06/17/21 13:42 Hep Bs Antigen Nonreactive (Negative) 06/17/21 13:42 Hep B Core IgM Ab Non-reactive (NonReactive) 06/17/21 13:42 Hepatitis C Antibody Non-reactive (NonReactive) 06/17/21 13:42 Microbiology: Microbiology 06/20/21 11:53 Peripheral/Venous Blood Culture - Final NO GROWTH AFTER 5 DAYS 06/20/21 11:26 Peripheral/Venous Blood Culture - Final NO GROWTH AFTER 5 DAYS Dang/IV: Voiding Method Urinal Active Medications - Current Medications Current Medications: Generic Name Dose Route Start Last Admin Trade Name Freq PRN Reason Stop Dose Admin Acetaminophen 650 mg 06/16/21 13:00 06/18/21 01:32 Acetaminophen 325 Mg Tab PO 650 mg Q6H PRN Administration Pain MILD(1-3)/Fever >100.5/GRANDE Albuterol 2.5 mg 06/21/21 23:15 Albuterol 2.5 Mg/3 Ml Nebu IH Q4HRT PRN Shortness Of Breath Aspirin 81 mg 06/17/21 10:00 06/25/21 10:29 Aspirin Ec 81 Mg Tab PO 81 mg QDAY KOLBY Administration Budesonide 0.5 mg 06/24/21 20:00 06/25/21 21:02 Budesonide 0.5 Mg/2 Ml Nebu IH 0.5 mg Q12HRT KOLBY Administration Carvedilol 6.25 mg 06/16/21 22:00 06/25/21 21:28 Carvedilol 6.25 Mg Tab PO 6.25 mg BID KOLBY Administration Dextrose 50 ml 06/16/21 10:37 06/16/21 11:58 Dextrose 50% In Water (25gm) 50 Ml Syringe IV 50 ml Q30MIN PRN Administration Hypoglycemia Protocol Guaifenesin 10 ml 06/19/21 19:51 06/21/21 12:41 Guaifenesin Dm 200/20 Mg Oral Liqd 10 Ml PO 10 ml Q4H PRN Administration Cough Sodium Chloride 100 mls @ 999 mls/hr 06/19/21 14:00 Nacl 0.9% IV RALPH PRN Hypotension Isosorbide Mononitrate 30 mg 06/21/21 11:00 06/25/21 10:29 Isosorbide Mononitrate Er 30 Mg Tab PO 30 mg QDAY KOLBY Administration Lisinopril 2.5 mg 06/23/21 10:00 06/25/21 10:29 Lisinopril 5 Mg Tab PO 2.5 mg QDAY KOLBY Administration Multivitamins/Iron 1 each 06/21/21 11:00 06/25/21 10:29 Fe Fumarate/Fa/Mv, Min Comb#15 Cap (Hemocyte Plus) PO 1 each QDAY KOLBY Administration Sodium Chloride 10 ml 06/16/21 22:00 06/25/21 21:28 Sodium Chloride 0.9% 10 Ml Flush Syringe IV 10 ml BID KOLBY Administration Sodium Chloride 10 ml 06/16/21 12:30 Sodium Chloride 0.9% 10 Ml Flush Syringe IV PRN PRN LINE FLUSH Nutrition/Malnutrition Assess - Dietary Evaluation Nutrition/Malnutrition Findings: Nutrition Notes Start: 06/17/21 09:45 Freq: Status: Active Protocol: Document 06/21/21 17:43 KATHARINA (Rec: 06/21/21 17:49 KATHARINA [id number]) Nutrition Notes Initial or Follow up Brief Note Current Diagnosis Acute Kidney Injury,CKD (stage V CKD),Hypertension,Heart Failure,Respiratory Failure Other Pertinent Diagnosis CKD adv to ESRD+HD, CHF exacerbation, Asthma. Current Diet Renal (since 06/19). Height 6 ft 1 in Weight 70.3 kg [place] Body Weight (kg) 83.63 BMI 20.4 Weight change and time frame No body weight change reported . Weight Status Appropriate Subjective/Other Information RD consult for routine F/U on Dietary advancement. Diet advanced to PO and %PO intake of meals is at 100%. Percent of energy/protein needs met: Prescribed Renal Diet provides for energy/protein needs (2, 072 Kcal/77 g) during LOS. Current % PO Good (75-100%) Nutrition Intervention Change Diet Order: Continue Renal Diet. Goal #1 Maintain body weight within +/ -3% of admission BWt during LOS. Goal #2 Reach and maintain acceptable chemistry lab values during LOS. Follow-Up By: 06/28/21 Additional Comments Continue monitoring Hydration, and BM; when pertinent, food tolerance and %PO intake of meals.
[2021-06-26 07:02] LABS: Basophils # (Auto) 0.1 K/mm3 (0.0-0.1); Basophils % (Auto) 0.9 % (0.0-1.8); Eosinophils # (Auto) 0.8 K/mm3 (0.0-0.4); Eosinophils % (Auto) 10.8 % (0.0-4.3); Hematocrit 30.6 % (35.5-45.6); Hemoglobin 9.4 gm/dl (11.8-15.2); Lymphocytes # (Auto) 2.5 K/mm3 (1.2-5.4); Lymphocytes % (Auto) 35.3 % (13.4-35.0); Mean Corpuscular HGB Conc 31 % (32-34); Monocytes # (Auto) 0.8 K/mm3 (0.0-0.8); Monocytes % (Auto) 11.3 % (0.0-7.3); Red Blood Count 4.97 M/mm3 (3.65-5.03); Red Cell Distribution Width 18.2 % (13.2-15.2)
[2021-06-26 07:18] LABS: Calcium 8.9 mg/dL (8.4-10.2)
[2021-06-26 07:44] LABS: Mean Corpuscular Volume 62 fl (84-94)
[2021-06-26 08:17] LABS: Platelet Count 196 K/mm3 (140-440)
[2021-06-26] MEDS: BUDESONIDE 0.5 MG/2 ML NEBU IH SCH ×2 (09:08→21:30)
--- NOTE | 2021-06-26 09:47 | Progress Note ---
Assessment and Plan Assessment: End stage renal disease Nonischemic cardiomyopathy HFrEF Type II DM Hypertension Plan: Awaiting outpatient HD clinic placement Continue HD MWF UF as tolerated Cardiology recommendations noted Dose medications for renal function Epogen TIW prn Renal diet Subjective Date of service: 06/26/21 Principal diagnosis: esrd Interval history: Patient reports SOB improved. Objective - Vital Signs Vital signs: Vital Signs - 12hr 06/25/21 06/26/21 06/26/21 22:00 00:47 00:50 Temperature 98.3 F Pulse Rate 83 81 Pulse Rate [ Anterior Bilateral Throughout] Respiratory 16 Rate Respiratory Rate [Anterior Bilateral Throughout] Blood Pressure 108/72 O2 Sat by Pulse 98 95 Oximetry 06/26/21 06/26/21 06/26/21 07:36 09:08 09:09 Temperature 97.4 F L Pulse Rate 83 Pulse Rate [ 83 Anterior Bilateral Throughout] Respiratory 20 Rate Respiratory 20 Rate [Anterior Bilateral Throughout] Blood Pressure 109/70 O2 Sat by Pulse 95 96 Oximetry - General Appearance General appearance: well-developed, well-nourished EENT: ATNC Respiratory: Present: Decreased Breath Sounds. Absent: Rales, Ronchi, Wheezes Cardiology: regular, S1S2 Gastrointestinal: normal, no tenderness, no distended Psychiatric: cooperative - Lab 06/26/21 05:11 06/26/21 05:11 Most recent lab results ABG pH 7.383 pH Units (7.350-7.450) 06/19/21 10:50 ABG pCO2 45.4 mm Hg 06/19/21 10:50 ABG pO2 52.9 mm Hg (80.0-90.0) L 06/19/21 10:50 ABG HCO3 26.5 mmol/L (20.0-26.0) H 06/19/21 10:50 ABG O2 Saturation 85.5 % (95.0-99.0) L 06/19/21 10:50 Calcium 8.9 mg/dL (8.4-10.2) 06/26/21 05:11 Magnesium 2.00 mg/dL (1.7-2.3) 06/20/21 11:26 Medications & Allergies - Medications Allergies/Adverse Reactions: Allergies No Known Allergies Allergy (Verified 06/16/21 23:14) Home Medications: Home Medications Medication Instructions Recorded Confirmed Last Taken Type Aspirin EC [Halfprin EC] 81 mg PO QDAY 30 Days #30 tablet 04/07/21 06/17/21 06/15/21 Rx Furosemide [Lasix TAB] 40 mg PO QDAY 30 Days #30 tablet 04/07/21 06/17/21 Unknown Rx Isosorbide Dinitrate [Isordil] 20 mg PO TID 30 Days #90 tablet 04/07/21 06/17/21 06/15/21 Rx Sodium Bicarbonate 650 mg PO TID 30 Days #90 tablet 04/07/21 06/17/21 06/15/21 Rx Hydralazine HCl 50 mg PO TID 06/20/21 06/20/21 06/15/21 History Spironolactone [Aldactone] 25 mg PO QDAY 06/20/21 06/20/21 06/15/21 History carvediloL [Coreg] 12.5 mg PO BID 06/20/21 06/20/21 06/15/21 History Active Medications: Generic Name Dose Route Start Last Admin Trade Name Freq PRN Reason Stop Dose Admin Acetaminophen 650 mg 06/16/21 13:00 06/18/21 01:32 Acetaminophen 325 Mg Tab PO 650 mg Q6H PRN Administration Pain MILD(1-3)/Fever >100.5/GRANDE Albuterol 2.5 mg 06/21/21 23:15 Albuterol 2.5 Mg/3 Ml Nebu IH Q4HRT PRN Shortness Of Breath Aspirin 81 mg 06/17/21 10:00 06/25/21 10:29 Aspirin Ec 81 Mg Tab PO 81 mg QDAY KOLBY Administration Budesonide 0.5 mg 06/24/21 20:00 06/26/21 09:08 Budesonide 0.5 Mg/2 Ml Nebu IH 0.5 mg Q12HRT KOLBY Administration Carvedilol 6.25 mg 06/16/21 22:00 06/25/21 21:28 Carvedilol 6.25 Mg Tab PO 6.25 mg BID KOLBY Administration Dextrose 50 ml 06/16/21 10:37 06/16/21 11:58 Dextrose 50% In Water (25gm) 50 Ml Syringe IV 50 ml Q30MIN PRN Administration Hypoglycemia Protocol Guaifenesin 10 ml 06/19/21 19:51 06/21/21 12:41 Guaifenesin Dm 200/20 Mg Oral Liqd 10 Ml PO 10 ml Q4H PRN Administration Cough Sodium Chloride 100 mls @ 999 mls/hr 06/19/21 14:00 Nacl 0.9% IV RALPH PRN Hypotension Isosorbide Mononitrate 30 mg 06/21/21 11:00 06/25/21 10:29 Isosorbide Mononitrate Er 30 Mg Tab PO 30 mg QDAY KOLBY Administration Lisinopril 2.5 mg 06/23/21 10:00 06/25/21 10:29 Lisinopril 5 Mg Tab PO 2.5 mg QDAY KOLBY Administration Multivitamins/Iron 1 each 06/21/21 11:00 06/25/21 10:29 Fe Fumarate/Fa/Mv, Min Comb#15 Cap (Hemocyte Plus) PO 1 each QDAY KOLBY Administration Sodium Chloride 10 ml 06/16/21 22:00 06/25/21 21:28 Sodium Chloride 0.9% 10 Ml Flush Syringe IV 10 ml BID KOLBY Administration Sodium Chloride 10 ml 06/16/21 12:30 Sodium Chloride 0.9% 10 Ml Flush Syringe IV PRN PRN LINE FLUSH
--- NOTE | 2021-06-26 13:35 | Progress Note ---
Assessment and Plan - Patient Problems (1) Acute exacerbation of CHF (congestive heart failure) Current Visit: Yes Status: Acute Qualifiers: Heart failure type: systolic Qualified Code(s): I50.23 - Acute on chronic systolic (congestive) heart failure Plan to address problem: Patient has underlying severe nonischemic cardiomyopathy, presents with fluid overload and acute on chronic systolic heart failure, due to worsening renal function and noncompliance with medical therapy and dietary salt restrictions. Now on hemodialysis for fluid and electrolyte management, we will continue guideline directed medical therapy for chronic systolic left ventricular failure. Subjective Date of service: 06/26/21 Principal diagnosis: esrd Interval history: No cardiac complaints, no new cardiac events reported. Objective Vital Signs Temp Pulse Pulse Resp Resp BP Pulse Ox 06/26/21 09:09 96 06/26/21 09:08 83 20 06/26/21 07:36 97.4 F L 83 20 109/70 95 06/26/21 00:50 98.3 F 81 16 108/72 95 06/26/21 00:47 83 06/25/21 22:00 98 06/25/21 21:28 82 103/63 06/25/21 21:07 82 20 97 06/25/21 19:26 97.9 F 86 18 103/63 91 - Physical Examination General: No Apparent Distress HEENT: Positive: PERRL Neck: Positive: neck supple Cardiac: Positive: Irregularly Regular Lungs: Positive: Decreased Breath Sounds Neuro: Positive: Grossly Intact Abdomen: Positive: Soft Skin: Positive: Clear Extremities: Absent: edema - Labs and Meds CBC 06/26/21 Range/Units 05:11 WBC 7.0 (4.5-11.0) K/mm3 RBC 4.97 (3.65-5.03) M/mm3 Hgb 9.4 L (11.8-15.2) gm/dl Hct 30.6 L (35.5-45.6) % Plt Count 196 (140-440) K/mm3 Lymph # (Auto) 2.5 (1.2-5.4) K/mm3 [place] # (Auto) 0.8 (0.0-0.8) K/mm3 Eos # (Auto) 0.8 H (0.0-0.4) K/mm3 Baso # (Auto) 0.1 (0.0-0.1) K/mm3 Comprehensive Metabolic Panel 06/26/21 Range/Units 05:11 Sodium 128 L (137-145) mmol/L Potassium 4.3 (3.6-5.0) mmol/L Chloride 90.7 L (98-107) mmol/L Carbon Dioxide 16 L (22-30) mmol/L BUN 109 H (9-20) mg/dL Creatinine 9.4 H (0.8-1.3) mg/dL Glucose 95 (75-100) mg/dL Calcium 8.9 (8.4-10.2) mg/dL
[2021-06-26] MEDS: carvediloL 6.25 MG TAB PO SCH ×2 (14:58→21:30)
--- NOTE | 2021-06-26 16:54 | Progress Note ---
Assessment and Plan 56 YO Male with Systolic CHF(EF 15%), HTN, CKD, Medication Noncompliance, Asthma presents to ED for evaluation. Patient reports "I am short of breath". Patient speaks in short and incomplete sentences due to shortness of breath. Patient knowledges shortness of breath over the past 1 week with worsening symptoms over the past few days. EMS was notified and upon arrival the patient was found to be in distress and subsequently transported to [facility] for further care and evaluation of the aforementioned symptoms. The patient was seen and evaluated in the emergency department. All lab and imaging studies reviewed. The patient was found to be using accessory muscles to breathe, unable to speak in complete sentences, tripoding, with a pulse oximetry of 86% on room air which is consistent with acute hypoxemic respiratory failure. Patient also found to have clinical symptoms consistent with congestive heart failure, cardiorenal sy ndrome, acidosis, hyponatremia. Patient admitted to IMCU due to increased risk of worsening symptoms. Patient placed on supplemental oxygen with improvement in symptoms and was subsequently initiated on noninvasive positive pressure ventilation with mild improvement in symptoms. No reports of fever, chills, chest pain, palpitation, skin rash, recent ill contacts, and known exposure to COVID-19. Patient has history of smoking. 4 cigaretts a day x 16 years. Drinks alcohol. Denies drug abuse. Worked in [employer]. Not and has two children. No known drug allergies Patient alert, awake. Resting on 1 litres O2 . O2 saturation 98% . Patient says shortness of breath and chest pain and cough is better now. BIPAP 24/12,rate 22,FIO2 30% stand by in the room. ABG done on room air ABG pH 7.383 pH Units (7.350-7.450) 06/19/21 10:50 ABG pCO2 45.4 mm Hg 06/19/21 10:50 ABG pO2 52.9 mm Hg (80.0-90.0) L 06/19/21 10:50 ABG O2 Saturation 85.5 % (95.0-99.0) L 06/19/21 10:50 Patient is candidate for home O2. Recommend home O2 2 to 3 litres via nasal canula. Patient afebrile. No leukocytosis. Blood pressure 111/62, Pulse 84, respirations 18. Chest xray done 06/16/21 reported mild congestive heart failure. Chest xray 06/20/21 reported no acute findings. Patient is on Albuterol, Budesonide aerosol treatments. Recommend DVT and GI prophylaxis. Adding Robitussin DM for cough. - Patient Problems (1) Acute hypoxemic respiratory failure Current Visit: Yes Status: Acute Plan to address problem: O2 2 litres via nasal canula. BIPAP 24/12, rate 22, FIO2 30% stand by in the room. Recommend DVT and GI Prophylaxis. Budesonide aerosol treatments q 12 hours. Recommend xopenex inhaler 2 puffs q 8 hours prn for shortness of breath. (2) Acute exacerbation of CHF (congestive heart failure) Current Visit: Yes Status: Acute Qualifiers: Heart failure type: systolic Qualified Code(s): I50.23 - Acute on chronic systolic (congestive) heart failure Plan to address problem: Patient is on lasix, Aspirin and Coreg, Imadur and restoril. Management as per cardiology. (3) Acute kidney injury Current Visit: No Status: Acute Plan to address problem: Management as per nephrology. (4) Hypertensive emergency Current Visit: Yes Status: Acute Plan to address problem: Management as per primary care and cardiology. (5) Tobacco use disorder Current Visit: Yes Status: Acute Plan to address problem: Counseled to stop smoking. PFTs as out patient. Subjective Date of service: 06/26/21 Principal diagnosis: esrd Interval history: 56 YO Male with Systolic CHF(EF 15%), HTN, CKD, Medication Noncompliance, Asthma presents to ED for evaluation. Patient reports "I am short of breath". Patient speaks in short and incomplete sentences due to shortness of breath. Patient knowledges shortness of breath over the past 1 week with worsening symptoms over the past few days. EMS was notified and upon arrival the patient was found to be in distress and subsequently transported to [facility] for further care and evaluation of the aforementioned symptoms. The patient was seen and evaluated in the emergency department. All lab and imaging studies reviewed. The patient was found to be using accessory muscles to breathe, unable to speak in complete sentences, tripoding, with a pulse oximetry of 86% on room air which is consistent with acute hypoxemic respiratory failure. Patient also found to have clinical symptoms consistent with congestive heart failure, cardiorenal syndrome, acidosis, hyponatremia. Patient admitted to [facility] due to increased risk of worsening symptoms. Patient placed on supplemental oxygen with improvement in symptoms and was subsequently initiated on noninvasive positive pressure ventilation with mild improvement in symptoms. No reports of fever, chills, chest pain, palpitation, skin rash, recent ill contacts, and known exposure to COVID-19. Patient has history of smoking. 4 cigaretts a day x 16 years. Drinks alcohol. Denies drug abuse. Worked in [employer] house. Not and has two children. No known drug allergies Patient alert, awake. Resting on 1 litres O2 . O2 saturation 98% . Patient says shortness of breath and chest pain and cough is better now. BIPAP 24/,rate 22,FIO2 30% stand by in the room. ABG done on room air ABG pH 7.383 pH Units (7.350-7.450) 06/19/21 10:50 ABG pCO2 45.4 mm Hg 06/19/21 10:50 ABG pO2 52.9 mm Hg (80.0-90.0) L 06/19/21 10:50 ABG O2 Saturation 85.5 % (95.0-99.0) L 06/19/21 10:50 Patient is candidate for home O2. Recommend home O2 2 to 3 litres via nasal canula. Patient afebrile. No leukocytosis. Blood pressure 111/62, Pulse 84, respirations 18. Chest xray done 06/16/21 reported mild congestive heart failure. Chest xray 06/20/21 reported no acute findings. Patient is on Albuterol, Budesonide aerosol treatments. Recommend DVT and GI prophylaxis. Adding Robitussin DM for cough. Objective Vital Signs - 12hr 06/26/21 06/26/21 06/26/21 07:36 09:08 09:09 Temperature 97.4 F L Pulse Rate 83 Pulse Rate [ 83 Anterior Bilateral Throughout] Respiratory 20 Rate Respiratory 20 Rate [Anterior Bilateral Throughout] Blood Pressure 109/70 O2 Sat by Pulse 95 96 Oximetry 06/26/21 06/26/21 12:00 15:26 Temperature 98.3 F Pulse Rate 83 94 H Pulse Rate [ Anterior Bilateral Throughout] Respiratory 20 Rate Respiratory Rate [Anterior Bilateral Throughout] Blood Pressure 117/73 O2 Sat by Pulse 96 Oximetry Constitutional: no acute distress, alert Eyes: non-icteric ENT: oropharynx moist Neck: supple, no lymphadenopathy, other (Right chest wall perm cath) Effort: mildly labored Ascultation: Bilateral: wheezes (expiratory), rales Cardiovascular: other (Tachycardia, S1,S2) Gastrointestinal: normoactive bowel sounds, soft, non-tender Integumentary: normal Extremities: no cyanosis, no edema Neurologic: normal mental status, non-focal exam, pupils equal and round, CN II- XII normal, motor strength normal and Psychiatric: mood appropriate, affect normal CBC and BMP: 06/26/21 05:11 06/26/21 05:11 ABG, PT/INR, D-dimer: ABG ABG pH 7.383 pH Units (7.350-7.450) 06/19/21 10:50 ABG pCO2 45.4 mm Hg 06/19/21 10:50 ABG pO2 52.9 mm Hg (80.0-90.0) L 06/19/21 10:50 ABG O2 Saturation 85.5 % (95.0-99.0) L 06/19/21 10:50 PT/INR, D-dimer PT 14.3 Sec. (12.2-14.9) 06/16/21 09:38 INR 1.00 (0.87-1.13) 06/16/21 09:38 Abnormal lab findings: Abnormal Labs 06/16/21 06/16/21 06/16/21 09:38 09:38 09:38 WBC RBC 5.70 H Hgb 11.2 L Hct MCV 63 L MCH 20 L MCHC 31 L RDW 19.0 H Plt Count Lymph % (Auto) [place] % (Auto) Eos % (Auto) [place] # (Auto) Eos # (Auto) Seg Neutrophils % Seg Neuts % (Manual) Lymphocytes % (Manual) Monocytes % (Manual) Monocytes # (Manual) ABG pO2 ABG HCO3 ABG O2 Saturation ABG Hemoglobin Oxyhemoglobin Sodium 127 L Potassium 6.5 H* Chloride 97.7 L Carbon Dioxide 17 L BUN 69 H Creatinine 6.1 H Glucose 152 H POC Glucose Troponin T 0.601 H* NT-Pro-B Natriuret Pep 15861 H Total Protein 11.2 H Albumin 3.8 L Triglycerides 222 H HDL Cholesterol 35 L 06/16/21 06/16/21 06/16/21 10:44 15:40 15:40 WBC RBC 5.43 H Hgb 10.4 L Hct 33.7 L MCV 62 L MCH 19 L MCHC 31 L RDW 18.4 H Plt Count Lymph % (Auto) [place] % (Auto) Eos % (Auto) [place] # (Auto) Eos # (Auto) Seg Neutrophils % Seg Neuts % (Manual) Lymphocytes % (Manual) Monocytes % (Manual) Monocytes # (Manual) ABG pO2 ABG HCO3 ABG O2 Saturation ABG Hemoglobin Oxyhemoglobin Sodium 126 L Potassium 6.2 H* Chloride 96.4 L Carbon Dioxide 15 L BUN 71 H Creatinine 6.2 H Glucose 148 H POC Glucose 142 H Troponin T NT-Pro-B Natriuret Pep Total Protein 11.1 H Albumin 3.6 L Triglycerides HDL Cholesterol 06/17/21 06/17/21 06/17/21 03:52 03:52 13:58 WBC RBC 5.35 H Hgb 10.0 L Hct 33.1 L MCV 62 L MCH 19 L MCHC 30 L RDW 18.3 H Plt Count Lymph % (Auto) 48.7 H [place] % (Auto) 10.0 H Eos % (Auto) [place] # (Auto) Eos # (Auto) Seg Neutrophils % Seg Neuts % (Manual) Lymphocytes % (Manual) Monocytes % (Manual) Monocytes # (Manual) ABG pO2 ABG HCO3 ABG O2 Saturation ABG Hemoglobin Oxyhemoglobin Sodium 131 L Potassium 5.3 H Chloride 97.0 L Carbon Dioxide 18 L BUN 83 H Creatinine 6.8 H Glucose 128 H POC Glucose Troponin T 0.562 H* NT-Pro-B Natriuret Pep Total Protein 10.4 H Albumin 3.7 L Triglycerides HDL Cholesterol 06/18/21 06/19/21 06/19/21 06:57 05:32 05:32 WBC 11.4 H RBC 5.20 H Hgb 10.1 L Hct 32.3 L MCV 62 L MCH 19 L MCHC 31 L RDW 18.2 H Plt Count 132 L Lymph % (Auto) [place] % (Auto) Eos % (Auto) [place] # (Auto) Eos # (Auto) Seg Neutrophils % Seg Neuts % (Manual) 33.0 L Lymphocytes % (Manual) 45.0 H Monocytes % (Manual) 12.0 H Monocytes # (Manual) 1.4 H ABG pO2 ABG HCO3 ABG O2 Saturation ABG Hemoglobin Oxyhemoglobin Sodium 130 L 130 L Potassium 3.4 L Chloride 90.7 L 88.6 L Carbon Dioxide BUN 95 H 99 H Creatinine 7.1 H 6.9 H Glucose 105 H POC Glucose Troponin T NT-Pro-B Natriuret Pep Total Protein Albumin Triglycerides HDL Cholesterol 06/19/21 06/20/21 06/20/21 10:50 05:28 11:26 WBC RBC 5.65 H Hgb 10.9 L Hct 35.2 L MCV 62 L MCH 19 L MCHC 31 L RDW 18.4 H Plt Count 123 L Lymph % (Auto) 44.2 H [place] % (Auto) 12.6 H Eos % (Auto) 4.8 H [place] # (Auto) 1.1 H Eos # (Auto) Seg Neutrophils % 37.5 L Seg Neuts % (Manual) Lymphocytes % (Manual) Monocytes % (Manual) Monocytes # (Manual) ABG pO2 52.9 L ABG HCO3 26.5 H ABG O2 Saturation 85.5 L ABG Hemoglobin 8.5 L Oxyhemoglobin 83.8 L Sodium 128 L Potassium Chloride 87.6 L Carbon Dioxide BUN 84 H Creatinine 7.4 H Glucose 104 H POC Glucose Troponin T NT-Pro-B Natriuret Pep Total Protein Albumin Triglycerides HDL Cholesterol 06/20/21 06/25/21 06/25/21 11:26 05:14 05:14 WBC RBC 5.29 H Hgb 10.2 L Hct 33.3 L MCV 63 L MCH 19 L MCHC 31 L RDW 18.2 H Plt Count Lymph % (Auto) [place] % (Auto) 11.7 H Eos % (Auto) 9.4 H [place] # (Auto) 1.0 H Eos # (Auto) 0.8 H Seg Neutrophils % Seg Neuts % (Manual) Lymphocytes % (Manual) Monocytes % (Manual) Monocytes # (Manual) ABG pO2 ABG HCO3 ABG O2 Saturation ABG Hemoglobin Oxyhemoglobin Sodium 128 L 125 L Potassium 3.5 L Chloride 86.3 L 89.0 L Carbon Dioxide 18 L D BUN 94 H 94 H Creatinine 8.1 H 9.5 H Glucose 111 H POC Glucose Troponin T NT-Pro-B Natriuret Pep Total Protein 11.2 H Albumin 3.7 L Triglycerides HDL Cholesterol 06/26/21 06/26/21 05:11 05:11 WBC RBC Hgb 9.4 L Hct 30.6 L MCV 62 L MCH 19 L MCHC 31 L RDW 18.2 H Plt Count Lymph % (Auto) 35.3 H [place] % (Auto) 11.3 H Eos % (Auto) 10.8 H [place] # (Auto) Eos # (Auto) 0.8 H Seg Neutrophils % Seg Neuts % (Manual) Lymphocytes % (Manual) Monocytes % (Manual) Monocytes # (Manual) ABG pO2 ABG HCO3 ABG O2 Saturation ABG Hemoglobin Oxyhemoglobin Sodium 128 L Potassium Chloride 90.7 L Carbon Dioxide 16 L BUN 109 H Creatinine 9.4 H Glucose POC Glucose Troponin T NT-Pro-B Natriuret Pep Total Protein Albumin Triglycerides HDL Cholesterol
[2021-06-26] MEDS: LISINOPRIL 5 MG TAB PO SCH (19:43)
[2021-06-26] MEDS: FE FUMARATE/FA/MV, MIN COMB#15 CAP (HEMOCYTE PLUS) PO SCH (19:43)
[2021-06-26] MEDS: ASPIRIN EC 81 MG TAB PO SCH (19:43)
--- NOTE | 2021-06-26 19:49 | Progress Note ---
Assessment and Plan Assessment and plan: 56 YO Male with Systolic CHF(EF 15%), HTN, CKD, Medication Noncompliance, COPD presents to ED for evaluation. Patient knowledges shortness of breath over the past 1 week with worsening symptoms over the past few days. The patient was found to be using accessory muscles to breathe, unable to speak in complete sentences, tripoding, with a pulse oximetry of 86% on room air which is consistent with acute hypoxemic respiratory failure. Patient also found to have clinical symptoms consistent with congestive heart failure, cardiorenal syndrome, acidosis, hyponatremia. Patient admitted to IMCU due to increased risk of worsening symptoms. Patient placed on supplemental oxygen with improvement in symptoms and was subsequently initiated on noninvasive positive pressure ventilation with mild improvement in symptoms. No reports of fever, chills, chest pain, palpitation, skin rash, recent ill contacts, and known exposure to COVID-19. #Heart failure with reduced ejection fraction #Acute CHF exacerbation in the setting of renal failure -EF 15% per TTE and stress test negative in March -NT proBNP [id number] -Volume overload improved with initiation of dialysis -Lasix discontinued -Currently appears to be euvolemic -Continue carvedilol, ARB/ACEI as tolerated -Strict I's/O's, fluid restriction to less than 1.5 L -No ventricular arrhythmia reported on telemetry Consulted for follow-up/discussed with Dr. Brush, cardiology, no need for LifeVest prior to discharge since ventricular ischemia not reported. #Acute hypoxic respiratory failure, resolving -Likely from volume overload/renal failure Stable on nasal cannula, will wean to RA as tolerated -CXR showed cardiomegaly and mild interstitial edema at the time of admission, resolved after dialysis COPD, tobacco smoking Counseled to quit tobacco smoking Likely contributing to dyspnea Not in acute exacerbation Chest congestion better with nebs #Mild troponin elevation in the setting of renal failure -Troponin 0.601 -> 0.5 -EKG without acute ST changes -Likely secondary to ESRD #ROMAN on CKD, dialysis initiated -Nephrology consulted and dialysis initiated -Patient is currently euvolemic -CM arranging for outpatient dialysis #Hypertension -controlled -will continue to monitor #Microcytic anemia -Baseline hemoglobin 10 -Likely secondary to ESRD -will transfuse for hemoglobin less than 7 #Hyponatremia -Likely hypervolemic hyponatremia secondary to CHF vs CKD -Nephrology following #Hyperkalemia from renal failure, resolved -will continue to monitor Disposition: Patient will be discharged once outpatient dialysis arrangements completed, likely tomorrow History Interval history: Patient is lying flat in bed without acute distress. Patient reports chest congestion better with the nebs. He has COPD. BP remains soft from low EF 15%. Received dialysis today. Patient denies chest pains, palpitations, dyspnea, lightheadedness/dizziness. Hospitalist Physical - Constitutional Vitals: Temp Pulse Resp BP Pulse Ox 98.3 F 94 H 20 117/73 98 06/26/21 15:26 06/26/21 15:26 06/26/21 15:26 06/26/21 15:26 06/26/21 18:00 General appearance: Present: no acute distress, disheveled (Chronically ill- appearing), other (Alert and oriented) - EENT Eyes: Present: PERRL, EOM intact ENT: hearing intact, clear oral mucosa - Neck Neck: Present: supple - Respiratory Respiratory effort: normal Respiratory: bilateral: diminished (Due to COPD), wheezing (Mild wheezes) - Cardiovascular Rhythm: regular Heart Sounds: Present: systolic murmur - Extremities Extremities: No edema - Abdominal General gastrointestinal: soft, non-tender - Integumentary Integumentary: Present: warm. Absent: rash - Psychiatric Psychiatric: cooperative, other (Flat mood) - Neurologic Neurologic: no focal deficits, moves all extremities HEART Score - HEART Score Troponin: Troponin T 0.562 ng/mL (0.00-0.029) H* 06/17/21 13:58 Results - Labs CBC & Chem 7: 06/27/21 05:13 06/27/21 05:13 Labs: Laboratory Last Values WBC 7.0 K/mm3 (4.5-11.0) 06/26/21 05:11 RBC 4.97 M/mm3 (3.65-5.03) 06/26/21 05:11 Hgb 9.4 gm/dl (11.8-15.2) L 06/26/21 05:11 Hct 30.6 % (35.5-45.6) L 06/26/21 05:11 MCV 62 fl (84-94) L 06/26/21 05:11 MCH 19 pg (28-32) L 06/26/21 05:11 MCHC 31 % (32-34) L 06/26/21 05:11 RDW 18.2 % (13.2-15.2) H 06/26/21 05:11 Plt Count 196 K/mm3 (140-440) 06/26/21 05:11 Lymph % (Auto) 35.3 % (13.4-35.0) H 06/26/21 05:11 [place] % (Auto) 11.3 % (0.0-7.3) H 06/26/21 05:11 Eos % (Auto) 10.8 % (0.0-4.3) H 06/26/21 05:11 Baso % (Auto) 0.9 % (0.0-1.8) 06/26/21 05:11 Lymph # (Auto) 2.5 K/mm3 (1.2-5.4) 06/26/21 05:11 [place] # (Auto) 0.8 K/mm3 (0.0-0.8) 06/26/21 05:11 Eos # (Auto) 0.8 K/mm3 (0.0-0.4) H 06/26/21 05:11 Baso # (Auto) 0.1 K/mm3 (0.0-0.1) 06/26/21 05:11 Add Manual Diff Complete 06/19/21 05:32 Total Counted 100 06/19/21 05:32 Seg Neutrophils % 41.7 % (40.0-70.0) 06/26/21 05:11 Seg Neuts % (Manual) 33.0 % (40.0-70.0) L 06/19/21 05:32 Band Neutrophils % 7.0 % 06/19/21 05:32 Lymphocytes % (Manual) 45.0 % (13.4-35.0) H 06/19/21 05:32 Reactive Lymphs % (Man) 2.0 % 06/16/21 09:38 Monocytes % (Manual) 12.0 % (0.0-7.3) H 06/19/21 05:32 Eosinophils % (Manual) 2.0 % (0.0-4.3) 06/19/21 05:32 Metamyelocytes % 1.0 % 06/19/21 05:32 Myelocytes % 4.0 % 06/16/21 09:38 Promyelocytes % 2.0 % 06/16/21 09:38 Nucleated RBC % Not Reportable 06/19/21 05:32 Seg Neutrophils # 2.9 K/mm3 (1.8-7.7) 06/26/21 05:11 Seg Neutrophils # Man 3.8 K/mm3 (1.8-7.7) 06/19/21 05:32 Band Neutrophils # 0.8 K/mm3 06/19/21 05:32 Lymphocytes # (Manual) 5.1 K/mm3 (1.2-5.4) 06/19/21 05:32 Abs React Lymphs (Man) 0.0 K/mm3 06/19/21 05:32 Monocytes # (Manual) 1.4 K/mm3 (0.0-0.8) H 06/19/21 05:32 Eosinophils # (Manual) 0.2 K/mm3 (0.0-0.4) 06/19/21 05:32 Basophils # (Manual) 0.0 K/mm3 (0.0-0.1) 06/19/21 05:32 Metamyelocytes # 0.1 K/mm3 06/19/21 05:32 Myelocytes # 0.0 K/mm3 06/19/21 05:32 Promyelocytes # 0.0 K/mm3 06/19/21 05:32 Blast Cells # 0.0 K/mm3 06/19/21 05:32 WBC Morphology Not Reportable 06/19/21 05:32 Hypersegmented Neuts Not Reportable 06/19/21 05:32 Hyposegmented Neuts Not Reportable 06/19/21 05:32 Hypogranular Neuts Not Reportable 06/19/21 05:32 Smudge Cells Not Reportable 06/19/21 05:32 Toxic Granulation Not Reportable 06/19/21 05:32 Toxic Vacuolation Not Reportable 06/19/21 05:32 Dohle Bodies Not Reportable 06/19/21 05:32 Pelger-Huet Anomaly Not Reportable 06/19/21 05:32 Marianne Rods Not Reportable 06/19/21 05:32 Platelet Estimate Consistent w auto 06/19/21 05:32 Clumped Platelets Not Reportable 06/19/21 05:32 Plt Clumps, EDTA Not Reportable 06/19/21 05:32 Large Platelets Not Reportable 06/19/21 05:32 Giant Platelets Not Reportable 06/19/21 05:32 Platelet Satelliting Not Reportable 06/19/21 05:32 Plt Morphology Comment Not Reportable 06/19/21 05:32 RBC Morphology Not Reportable 06/19/21 05:32 Dimorphic RBCs Not Reportable 06/19/21 05:32 Polychromasia Not Reportable 06/19/21 05:32 Hypochromasia 2+ 06/19/21 05:32 Poikilocytosis Not Reportable 06/19/21 05:32 Anisocytosis 1+ 06/19/21 05:32 Microcytosis 2+ 06/19/21 05:32 Macrocytosis Not Reportable 06/19/21 05:32 Spherocytes Not Reportable 06/19/21 05:32 Pappenheimer Bodies Not Reportable 06/19/21 05:32 Sickle Cells Not Reportable 06/19/21 05:32 Target Cells 1+ 06/19/21 05:32 Tear Drop Cells Not Reportable 06/19/21 05:32 Ovalocytes Not Reportable 06/19/21 05:32 Helmet Cells Not Reportable 06/19/21 05:32 Sapp-[place] Bodies Not Reportable 06/19/21 05:32 Weston Rings Not Reportable 06/19/21 05:32 Carrie Cells Not Reportable 06/19/21 05:32 Bite Cells Not Reportable 06/19/21 05:32 Crenated Cell Not Reportable 06/19/21 05:32 Elliptocytes Not Reportable 06/19/21 05:32 Acanthocytes (Spur) Not Reportable 06/19/21 05:32 Rouleaux Not Reportable 06/19/21 05:32 Hemoglobin C Crystals Not Reportable 06/19/21 05:32 Schistocytes Not Reportable 06/19/21 05:32 Malaria parasites Not Reportable 06/19/21 05:32 Maurisio Bodies Not Reportable 06/19/21 05:32 Hem Pathologist Commnt No 06/19/21 05:32 PT 14.3 Sec. (12.2-14.9) 06/16/21 09:38 INR 1.00 (0.87-1.13) 06/16/21 09:38 ABG pH 7.383 pH Units (7.350-7.450) 06/19/21 10:50 ABG pCO2 45.4 mm Hg 06/19/21 10:50 ABG pO2 52.9 mm Hg (80.0-90.0) L 06/19/21 10:50 ABG HCO3 26.5 mmol/L (20.0-26.0) H 06/19/21 10:50 ABG O2 Saturation 85.5 % (95.0-99.0) L 06/19/21 10:50 ABG O2 Content 10.0 (0.0-44) 06/19/21 10:50 ABG Base Excess 1.2 mmol/L (-2.0-3.0) 06/19/21 10:50 ABG Hemoglobin 8.5 gm/dl (14.0-18.0) L 06/19/21 10:50 ABG Carboxyhemoglobin 1.5 % (0.0-5.0) 06/19/21 10:50 ABG Methemoglobin 0.4 % (0.0-1.5) 06/19/21 10:50 Oxyhemoglobin 83.8 % (95.0-99.0) L 06/19/21 10:50 FiO2 21 % 06/19/21 10:50 Sodium 128 mmol/L (137-145) L 06/26/21 05:11 Potassium 4.3 mmol/L (3.6-5.0) 06/26/21 05:11 Chloride 90.7 mmol/L (98-107) L 06/26/21 05:11 Carbon Dioxide 16 mmol/L (22-30) L 06/26/21 05:11 Anion Gap 26 mmol/L 06/26/21 05:11 BUN 109 mg/dL (9-20) H 06/26/21 05:11 Creatinine 9.4 mg/dL (0.8-1.3) H 06/26/21 05:11 Estimated GFR 7 ml/min 06/26/21 05:11 BUN/Creatinine Ratio 12 % 06/26/21 05:11 Glucose 95 mg/dL (75-100) 06/26/21 05:11 POC Glucose 142 mg/dL (70-105) H 06/16/21 10:44 Lactic Acid 0.80 mmol/L (0.7-2.0) 06/20/21 11:26 Calcium 8.9 mg/dL (8.4-10.2) 06/26/21 05:11 Magnesium 2.00 mg/dL (1.7-2.3) 06/20/21 11:26 Total Bilirubin 0.70 mg/dL (0.1-1.2) 06/20/21 11:26 AST 19 units/L (5-40) 06/20/21 11:26 ALT 9 units/L (7-56) 06/20/21 11:26 Alkaline Phosphatase 70 units/L (35-129) 06/20/21 11:26 Troponin T 0.562 ng/mL (0.00-0.029) H* 06/17/21 13:58 NT-Pro-B Natriuret Pep 85155 pg/mL (0-900) H 06/16/21 09:38 Total Protein 11.2 g/dL (6.3-8.2) H 06/20/21 11:26 Albumin 3.7 g/dL (3.9-5) L 06/20/21 11:26 Albumin/Globulin Ratio 0.5 % 06/20/21 11:26 Triglycerides 222 mg/dL (2-149) H 06/16/21 09:38 Cholesterol 179 mg/dL (50-199) 06/16/21 09:38 LDL Cholesterol Direct 102 mg/dL (50-130) 06/16/21 09:38 HDL Cholesterol 35 mg/dL (40-59) L 06/16/21 09:38 Cholesterol/HDL Ratio 5.11 % 06/16/21 09:38 Procalcitonin 0.76 ng/mL (<0.15) 06/20/21 11:26 Coronavirus (PCR) Negative (Negative) 06/22/21 Unknown Hepatitis A IgM Ab Non-reactive (NonReactive) 06/17/21 13:42 Hep Bs Antigen Nonreactive (Negative) 06/17/21 13:42 Hep B Core IgM Ab Non-reactive (NonReactive) 06/17/21 13:42 Hepatitis C Antibody Non-reactive (NonReactive) 06/17/21 13:42 Dang/IV: Voiding Method Toilet Active Medications - Current Medications Current Medications: Generic Name Dose Route Start Last Admin Trade Name Freq PRN Reason Stop Dose Admin Acetaminophen 650 mg 06/16/21 13:00 06/18/21 01:32 Acetaminophen 325 Mg Tab PO 650 mg Q6H PRN Administration Pain MILD(1-3)/Fever >100.5/GRANDE Albuterol 2.5 mg 06/21/21 23:15 Albuterol 2.5 Mg/3 Ml Nebu IH Q4HRT PRN Shortness Of Breath Aspirin 81 mg 06/17/21 10:00 06/26/21 19:43 Aspirin Ec 81 Mg Tab PO Not Given QDAY KOLBY Budesonide 0.5 mg 06/24/21 20:00 06/26/21 09:08 Budesonide 0.5 Mg/2 Ml Nebu IH 0.5 mg Q12HRT KOLBY Administration Carvedilol 6.25 mg 06/16/21 22:00 06/26/21 14:58 Carvedilol 6.25 Mg Tab PO Not Given BID KOLBY Dextrose 50 ml 06/16/21 10:37 06/16/21 11:58 Dextrose 50% In Water (25gm) 50 Ml Syringe IV 50 ml Q30MIN PRN Administration Hypoglycemia Protocol Guaifenesin 10 ml 06/19/21 19:51 06/21/21 12:41 Guaifenesin Dm 200/20 Mg Oral Liqd 10 Ml PO 10 ml Q4H PRN Administration Cough Sodium Chloride 100 mls @ 999 mls/hr 06/19/21 14:00 Nacl 0.9% IV RALPH PRN Hypotension Isosorbide Mononitrate 30 mg 06/21/21 11:00 06/26/21 19:43 Isosorbide Mononitrate Er 30 Mg Tab PO Not Given QDAY [facility] Lisinopril 2.5 mg 06/23/21 10:00 06/26/21 19:43 Lisinopril 5 Mg Tab PO Not Given QDAY [facility] Multivitamins/Iron 1 each 06/21/21 11:00 06/26/21 19:43 Fe Fumarate/Fa/Mv, Min Comb#15 Cap (Hemocyte Plus) PO Not Given QDAY KOLBY Sodium Chloride 10 ml 06/16/21 22:00 06/26/21 14:58 Sodium Chloride 0.9% 10 Ml Flush Syringe IV Not Given BID KOLBY Sodium Chloride 10 ml 06/16/21 12:30 Sodium Chloride 0.9% 10 Ml Flush Syringe IV PRN PRN LINE FLUSH Nutrition/Malnutrition Assess - Dietary Evaluation Nutrition/Malnutrition Findings: Nutrition Notes Start: 06/17/21 09:45 Freq: Status: Active Protocol: Document 06/21/21 17:43 KATHARINA (Rec: 06/21/21 17:49 KATHARINA [id number]) Nutrition Notes Initial or Follow up Brief Note Current Diagnosis Acute Kidney Injury,CKD (stage V CKD),Hypertension,Heart Failure,Respiratory Failure Other Pertinent Diagnosis CKD adv to ESRD+HD, CHF exacerbation, Asthma. Current Diet Renal (since B 06/19). Height 6 ft 1 in Weight 70.3 kg [place] Body Weight (kg) 83.63 BMI 20.4 Weight change and time frame No body weight change reported . Weight Status Appropriate Subjective/Other Information RD consult for routine F/U on Dietary advancement. Diet advanced to PO and %PO intake of meals is at 100%. Percent of energy/protein needs met: Prescribed Renal Diet provides for energy/protein needs (2, 072 Kcal/77 g) during LOS. Current % PO Good (75-100%) Nutrition Intervention Change Diet Order: Continue Renal Diet. Goal #1 Maintain body weight within +/ -3% of admission BWt during LOS. Goal #2 Reach and maintain acceptable chemistry lab values during LOS. Follow-Up By: 06/28/21 Additional Comments Continue monitoring Hydration, and BM; when pertinent, food tolerance and %PO intake of meals.
[2021-06-26] MEDS: guaiFENesin DM 200/20 MG ORAL LIQD 10 ML PO PRN (21:30)
[2021-06-26] MEDS ORDERED: oxyCODONE /ACETAMINOPHEN 5-325MG TAB PO ONE (22:24)
[2021-06-27 06:19] LABS: Basophils # (Auto) 0.1 K/mm3 (0.0-0.1); Basophils % (Auto) 1.2 % (0.0-1.8); Eosinophils # (Auto) 0.5 K/mm3 (0.0-0.4); Eosinophils % (Auto) 6.3 % (0.0-4.3); Hemoglobin 9.7 gm/dl (11.8-15.2); Lymphocytes # (Auto) 2.7 K/mm3 (1.2-5.4); Lymphocytes % (Auto) 33.7 % (13.4-35.0); Mean Corpuscular HGB Conc 31 % (32-34); Monocytes # (Auto) 1.1 K/mm3 (0.0-0.8); Monocytes % (Auto) 13.4 % (0.0-7.3); Platelet Count 190 K/mm3 (140-440); Red Blood Count 4.97 M/mm3 (3.65-5.03)
[2021-06-27 06:24] LABS: Mean Corpuscular Volume 62 fl (84-94)
[2021-06-27 06:30] LABS: Calcium 9.3 mg/dL (8.4-10.2)
[2021-06-27] MEDS: BUDESONIDE 0.5 MG/2 ML NEBU IH SCH (08:13)
--- NOTE | 2021-06-27 09:08 | Progress Note ---
Assessment and Plan Assessment: End stage renal disease Nonischemic cardiomyopathy HFrEF Type II DM Hypertension Hyponatermia Plan: Awaiting outpatient HD clinic placement Continue HD MWF UF as tolerated Cardiology recommendations noted Dose medications for renal function Epogen TIW prn Renal diet Restrict fluid intake to 1 liter per day Subjective Date of service: 06/27/21 Principal diagnosis: esrd Interval history: Patient has no complaints Objective - Vital Signs Vital signs: Vital Signs - 12hr 06/26/21 06/26/21 06/26/21 21:30 21:37 22:00 Temperature Pulse Rate 85 Pulse Rate [ 94 H Anterior Bilateral Throughout] Respiratory Rate Respiratory 16 Rate [Anterior Bilateral Throughout] Blood Pressure O2 Sat by Pulse 95 98 Oximetry 06/26/21 06/27/21 06/27/21 23:00 03:57 08:25 Temperature 97.7 F 98.1 F Pulse Rate 97 H 81 Pulse Rate [ Anterior Bilateral Throughout] Respiratory 18 16 Rate Respiratory Rate [Anterior Bilateral Throughout] Blood Pressure 93/57 97/58 O2 Sat by Pulse 97 96 97 Oximetry - General Appearance General appearance: well-developed, well-nourished EENT: ATNC Respiratory: Present: Decreased Breath Sounds Cardiology: regular, S1S2 Gastrointestinal: normal, no tenderness, no distended Integumentary: no rash, warm and dry Neurologic: alert and oriented x3 Psychiatric: cooperative - Lab 06/27/21 05:13 06/27/21 05:13 Most recent lab results ABG pH 7.383 pH Units (7.350-7.450) 06/19/21 10:50 ABG pCO2 45.4 mm Hg 06/19/21 10:50 ABG pO2 52.9 mm Hg (80.0-90.0) L 06/19/21 10:50 ABG HCO3 26.5 mmol/L (20.0-26.0) H 06/19/21 10:50 ABG O2 Saturation 85.5 % (95.0-99.0) L 06/19/21 10:50 Calcium 9.3 mg/dL (8.4-10.2) 06/27/21 05:13 Magnesium 2.00 mg/dL (1.7-2.3) 06/20/21 11:26 Medications & Allergies - Medications Allergies/Adverse Reactions: Allergies No Known Allergies Allergy (Verified 06/16/21 23:14) Home Medications: Home Medications Medication Instructions Recorded Confirmed Last Taken Type Aspirin EC [Halfprin EC] 81 mg PO QDAY 30 Days #30 tablet 04/07/21 06/17/21 06/15/21 Rx Furosemide [Lasix TAB] 40 mg PO QDAY 30 Days #30 tablet 04/07/21 06/17/21 Unknown Rx Isosorbide Dinitrate [Isordil] 20 mg PO TID 30 Days #90 tablet 04/07/21 06/17/21 06/15/21 Rx Sodium Bicarbonate 650 mg PO TID 30 Days #90 tablet 04/07/21 06/17/21 06/15/21 Rx Hydralazine HCl 50 mg PO TID 06/20/21 06/20/21 06/15/21 History Spironolactone [Aldactone] 25 mg PO QDAY 06/20/21 06/20/21 06/15/21 History carvediloL [Coreg] 12.5 mg PO BID 06/20/21 06/20/21 06/15/21 History Active Medications: Generic Name Dose Route Start Last Admin Trade Name Freq PRN Reason Stop Dose Admin Acetaminophen 650 mg 06/16/21 13:00 06/18/21 01:32 Acetaminophen 325 Mg Tab PO 650 mg Q6H PRN Administration Pain MILD(1-3)/Fever >100.5/GRANDE Albuterol 2.5 mg 06/21/21 23:15 Albuterol 2.5 Mg/3 Ml Nebu IH Q4HRT PRN Shortness Of Breath Aspirin 81 mg 06/17/21 10:00 06/26/21 19:43 Aspirin Ec 81 Mg Tab PO Not Given QDAY KOLBY Budesonide 0.5 mg 06/24/21 20:00 06/27/21 08:13 Budesonide 0.5 Mg/2 Ml Nebu IH Not Given Q12HRT KOLBY Carvedilol 6.25 mg 06/16/21 22:00 06/26/21 21:30 Carvedilol 6.25 Mg Tab PO 6.25 mg BID KOLBY Administration Dextrose 50 ml 06/16/21 10:37 06/16/21 11:58 Dextrose 50% In Water (25gm) 50 Ml Syringe IV 50 ml Q30MIN PRN Administration Hypoglycemia Protocol Guaifenesin 10 ml 06/19/21 19:51 06/26/21 21:30 Guaifenesin Dm 200/20 Mg Oral Liqd 10 Ml PO 10 ml Q4H PRN Administration Cough Sodium Chloride 100 mls @ 999 mls/hr 06/19/21 14:00 Nacl 0.9% IV RALPH PRN Hypotension Isosorbide Mononitrate 30 mg 06/21/21 11:00 06/26/21 19:43 Isosorbide Mononitrate Er 30 Mg Tab PO Not Given QDAY KOLBY Lisinopril 2.5 mg 06/23/21 10:00 06/26/21 19:43 Lisinopril 5 Mg Tab PO Not Given QDAY KOLBY Multivitamins/Iron 1 each 06/21/21 11:00 06/26/21 19:43 Fe Fumarate/Fa/Mv, Min Comb#15 Cap (Hemocyte Plus) PO Not Given QDAY KOLBY Sodium Chloride 10 ml 06/16/21 22:00 06/26/21 21:31 Sodium Chloride 0.9% 10 Ml Flush Syringe IV 10 ml BID KOLBY Administration Sodium Chloride 10 ml 06/16/21 12:30 Sodium Chloride 0.9% 10 Ml Flush Syringe IV PRN PRN LINE FLUSH
[2021-06-27] MEDS: ASPIRIN EC 81 MG TAB PO SCH (10:10)
[2021-06-27] MEDS: FE FUMARATE/FA/MV, MIN COMB#15 CAP (HEMOCYTE PLUS) PO SCH (10:10)
[2021-06-27] MEDS: carvediloL 6.25 MG TAB PO SCH (10:10)
[2021-06-27] MEDS: LISINOPRIL 5 MG TAB PO SCH (10:11)
--- NOTE | 2021-06-27 10:35 | Discharge Summary ---
Providers - Providers Date of Admission: 06/16/21 12:21 Date of discharge: 06/27/21 Attending physician: EMIL STANLEY 06/16/21 10:37 Consult to Physician [CONS] Urgent Comment: Consulting Provider: DEVEN CHAMBERS Physician Instructions: Reason For Exam: roman hyperkalemia fluid overload 06/16/21 11:00 Consult to Physician [CONS] Urgent Comment: Consulting Provider: MARLEE MURPHY Physician Instructions: Reason For Exam: HD catherter 06/18/21 14:07 Consult to Physician [CONS] Routine Comment: Consulting Provider: LIVAN HOLLAND Physician Instructions: Reason For Exam: PermCath placement in a.m. 06/20/21 10:22 Consult to Physician [CONS] Routine Comment: Consulting Provider: DEMI SORENSEN Physician Instructions: Reason For Exam: hf,ef 15% 06/20/21 11:36 Consult to Case Management [CONS] Routine Services Needed at Discharge: Other Notified:: cm notified Comment:: discuss medicaid as secondary for patient ; see if candidate 06/23/21 13:33 Consult to Physician [CONS] Routine Comment: Consulting Provider: MAG AUSTIN Physician Instructions: Reason For Exam: HF, EF 15% Primary care physician: [employer] Hospitalization Condition: Fair Pertinent studies: Chest x-ray, upper extremity artery duplex scan, right internal jugular hemodialysis catheter placement Hospital course: 56 YO Male with Systolic CHF(EF 15%), HTN, CKD, Medication Noncompliance, COPD presents to ED for shortness of breath over the past 1 week. The patient was found to be using accessory muscles to breathe, unable to speak in complete sentences, tripoding, with a pulse oximetry of 86% on room air which is consistent with acute hypoxemic respiratory failure. Patient also found to have clinical symptoms consistent with congestive heart failure, cardiorenal syndrome, acidosis, hyponatremia. Patient admitted to IMCU due to increased risk of worsening symptoms. Patient placed on supplemental oxygen with improvement in symptoms and was subsequently initiated on noninvasive positive pressure ventilation with mild improvement in symptoms. Patient was also initiated on hemodialysis for worsening renal function and volume overload. There was no reports of fever, chills, chest pain, palpitation, skin rash, recent ill contacts, and known exposure to COVID-19. Mx per problem list: #Heart failure with reduced ejection fraction #Acute CHF exacerbation in the setting of renal failure -EF 15% per TTE and stress test negative in March -NT proBNP 359 -Volume overload improved with initiation of dialysis -Lasix discontinued -Currently appears to be euvolemic -Continue carvedilol, ARB/ACEI as tolerated -Strict I's/O's, fluid restriction to less than 1.5 L -No ventricular arrhythmia reported on telemetry Consulted for follow-up/discussed with Dr. Austin, cardiology, no need for LifeVest prior to discharge since ventricular ischemia not reported. #Acute hypoxic respiratory failure, resolved -Likely from volume overload/renal failure Stable on nasal cannula, will wean to RA as tolerated -CXR showed cardiomegaly and mild interstitial edema at the time of admission, resolved after dialysis #COPD, tobacco smoking Counseled to quit tobacco smoking Likely contributing to dyspnea Not in acute exacerbation Chest congestion better with nebs #Mild troponin elevation in the setting of renal failure -Troponin 0.601 -> 0.5 -EKG without acute ST changes -Likely secondary to ESRD Consulted for follow-up/discussed with Dr. Austin, cardiology #ROMAN on CKD, dialysis initiated -Nephrology consulted and dialysis initiated -Patient is currently euvolemic -CM arranged for outpatient dialysis #Hypertension -controlled with current meds #Microcytic anemia -Baseline hemoglobin 10 -Likely secondary to ESRD #Hyponatremia, improved -Likely hypervolemic hyponatremia secondary to CHF vs CKD #Hyperkalemia from renal failure, resolved with HD Disposition: HOME / SELF CARE / HOMELESS Final Discharge Diagnosis (Prints w/discharge instructions): #Heart failure with reduced ejection fraction. #Acute CHF exacerbation in the setting of renal failure. #Acute hypoxic respiratory failure, resolved. #COPD, tobacco smoking. #Mild troponin elevation in the setting of renal failure. #ROMAN on CKD, dialysis initiated. #Hypertension. #Microcytic anemia. #Hyponatremia. #Hyperkalemia from renal failure, resolved Time spent for discharge: 34 minutes Core Measure Documentation - Palliative Care Palliative Care/ Comfort Measures: Not Applicable - Core Measures Any of the following diagnoses?: none Exam - Physical Exam Narrative exam: General appearance: Present: no acute distress, disheveled (Chronically ill- appearing), other (Alert and oriented) - EENT Eyes: Present: PERRL, EOM intact ENT: hearing intact, clear oral mucosa - Neck Neck: Present: supple - Respiratory Respiratory effort: normal Respiratory: bilateral: diminished (Due to COPD), wheezing (Mild wheezes) - Cardiovascular Rhythm: regular Heart Sounds: Present: systolic murmur - Extremities Extremities: No edema - Abdominal General gastrointestinal: soft, non-tender - Integumentary Integumentary: Present: warm. Absent: rash - Psychiatric Psychiatric: cooperative, other (Flat mood) - Neurologic Neurologic: no focal deficits, moves all extremities - Constitutional Vitals: Temp Pulse Resp BP Pulse Ox 97.5 F L 74 17 99/74 98 06/27/21 10:07 06/27/21 10:10 06/27/21 10:07 06/27/21 10:10 06/27/21 10:07 Plan Activity: advance as tolerated Weight Bearing Status: Weight Bear as Tolerated Diet: renal Additional Instructions: Compliant with HD Follow up with: PRIMARY CAREMD [Primary Care Provider] - 3-5 Days CATHERINE DC MD [Staff Physician] - 7 Days Prescriptions: carvediloL [Coreg] 3.125 mg PO BID #60 tablet guaiFENesin DM [Guaifenesin Dm Syrup] 10 ml PO Q4H PRN #1 oral.liqd PRN Reason: Cough Fe Fumarate/FA/Mv, Min Comb#15 [Hemocyte Plus] 1 each PO QDAY #30 capsule ISOSORBIDE MONOnitrate [Imdur ER] 30 mg PO QDAY #30 tablet Budesonide/Formoterol Fumarate [Symbicort 160-4.5 Mcg Inhaler] 10.2 gm IH BID #1 hfa.aer.ad lisinopriL [Zestril TAB] 2.5 mg PO QDAY #30 tablet
[2021-06-27 12:11] VITALS: BP 102/77
--- NOTE | 2021-06-27 12:24 | Progress Note ---
Assessment and Plan 56 YO Male with Systolic CHF(EF 15%), HTN, CKD, Medication Noncompliance, Asthma presents to ED for evaluation. Patient reports "I am short of breath". Patient speaks in short and incomplete sentences due to shortness of breath. Patient knowledges shortness of breath over the past 1 week with worsening symptoms over the past few days. EMS was notified and upon arrival the patient was found to be in distress and subsequently transported to [facility] for further care and evaluation of the aforementioned symptoms. The patient was seen and evaluated in the emergency department. All lab and imaging studies reviewed. The patient was found to be using accessory muscles to breathe, unable to speak in complete sentences, tripoding, with a pulse oximetry of 86% on room air which is consistent with acute hypoxemic respiratory failure. Patient also found to have clinical symptoms consistent with congestive heart failure, cardiorenal sy ndrome, acidosis, hyponatremia. Patient admitted to IMCU due to increased risk of worsening symptoms. Patient placed on supplemental oxygen with improvement in symptoms and was subsequently initiated on noninvasive positive pressure ventilation with mild improvement in symptoms. No reports of fever, chills, chest pain, palpitation, skin rash, recent ill contacts, and known exposure to COVID-19. Patient has history of smoking. 4 cigaretts a day x 16 years. Drinks alcohol. Denies drug abuse. Worked in [employer]. Not and has two children. No known drug allergies Patient alert, awake. Resting on 1 litres O2 . O2 saturation 98% . Patient says shortness of breath and chest pain and cough is better now. BIPAP 24/12,rate 22,FIO2 30% stand by in the room. ABG done on room air ABG pH 7.383 pH Units (7.350-7.450) 06/19/21 10:50 ABG pCO2 45.4 mm Hg 06/19/21 10:50 ABG pO2 52.9 mm Hg (80.0-90.0) L 06/19/21 10:50 ABG O2 Saturation 85.5 % (95.0-99.0) L 06/19/21 10:50 Patient is candidate for home O2. Recommend home O2 2 to 3 litres via nasal canula. Patient afebrile. No leukocytosis. Blood pressure 111/62, Pulse 84, respirations 18. Chest xray done 06/16/21 reported mild congestive heart failure. Chest xray 06/20/21 reported no acute findings. Patient is on Albuterol, Budesonide aerosol treatments. Recommend DVT and GI prophylaxis. Adding Robitussin DM for cough. - Patient Problems (1) Acute hypoxemic respiratory failure Current Visit: Yes Status: Acute Plan to address problem: O2 2 litres via nasal canula. BIPAP 24/12, rate 22, FIO2 30% stand by in the room. Recommend DVT and GI Prophylaxis. Budesonide aerosol treatments q 12 hours. Recommend xopenex inhaler 2 puffs q 8 hours prn for shortness of breath. (2) Acute exacerbation of CHF (congestive heart failure) Current Visit: Yes Status: Acute Qualifiers: Heart failure type: systolic Qualified Code(s): I50.23 - Acute on chronic systolic (congestive) heart failure Plan to address problem: Patient is on lasix, Aspirin and Coreg, Imadur and restoril. Management as per cardiology. (3) Acute kidney injury Current Visit: No Status: Acute Plan to address problem: Management as per nephrology. (4) Hypertensive emergency Current Visit: Yes Status: Acute Plan to address problem: Management as per primary care and cardiology. (5) Tobacco use disorder Current Visit: Yes Status: Acute Plan to address problem: Counseled to stop smoking. PFTs as out patient. Subjective Date of service: 06/27/21 Principal diagnosis: esrd Interval history: 56 YO Male with Systolic CHF(EF 15%), HTN, CKD, Medication Noncompliance, Asthma presents to ED for evaluation. Patient reports "I am short of breath". Patient speaks in short and incomplete sentences due to shortness of breath. Patient knowledges shortness of breath over the past 1 week with worsening symptoms over the past few days. EMS was notified and upon arrival the patient was found to be in distress and subsequently transported to [facility] for further care and evaluation of the aforementioned symptoms. The patient was seen and evaluated in the emergency department. All lab and imaging studies reviewed. The patient was found to be using accessory muscles to breathe, unable to speak in complete sentences, tripoding, with a pulse oximetry of 86% on room air which is consistent with acute hypoxemic respiratory failure. Patient also found to have clinical symptoms consistent with congestive heart failure, cardiorenal syndrome, acidosis, hyponatremia. Patient admitted to [facility] due to increased risk of worsening symptoms. Patient placed on supplemental oxygen with improvement in symptoms and was subsequently initiated on noninvasive positive pressure ventilation with mild improvement in symptoms. No reports of fever, chills, chest pain, palpitation, skin rash, recent ill contacts, and known exposure to COVID-19. Patient has history of smoking. 4 cigaretts a day x 16 years. Drinks alcohol. Denies drug abuse. Worked in [employer]. Not and has two children. No known drug allergies Patient alert, awake. Resting on 1 litres O2 . O2 saturation 98% . Patient says shortness of breath and chest pain and cough is better now. BIPAP 24/,rate 22,FIO2 30% stand by in the room. ABG done on room air ABG pH 7.383 pH Units (7.350-7.450) 06/19/21 10:50 ABG pCO2 45.4 mm Hg 06/19/21 10:50 ABG pO2 52.9 mm Hg (80.0-90.0) L 06/19/21 10:50 ABG O2 Saturation 85.5 % (95.0-99.0) L 06/19/21 10:50 Patient is candidate for home O2. Recommend home O2 2 to 3 litres via nasal canula. Patient afebrile. No leukocytosis. Blood pressure 111/62, Pulse 84, respirations 18. Chest xray done 06/16/21 reported mild congestive heart failure. Chest xray 06/20/21 reported no acute findings. Patient is on Albuterol, Budesonide aerosol treatments. Recommend DVT and GI prophylaxis. Adding Robitussin DM for cough. Objective Vital Signs - 12hr 06/27/21 06/27/21 06/27/21 03:57 08:25 10:00 Temperature 98.1 F Pulse Rate 81 Pulse Rate [ 71 Right Dorsalis Pedis] Respiratory 16 Rate Blood Pressure 97/58 Blood Pressure [Left] O2 Sat by Pulse 96 97 98 Oximetry 06/27/21 06/27/21 06/27/21 10:07 10:10 12:10 Temperature 97.5 F L 98.1 F Pulse Rate 74 74 89 Pulse Rate [ Right Dorsalis Pedis] Respiratory 17 17 Rate Blood Pressure 99/74 Blood Pressure 99/74 102/77 [Left] O2 Sat by Pulse 98 96 Oximetry Constitutional: no acute distress, alert Eyes: non-icteric ENT: oropharynx moist Neck: supple, no lymphadenopathy, other (Right chest wall perm cath) Effort: mildly labored Ascultation: Bilateral: wheezes (expiratory), rales Cardiovascular: other (Tachycardia, S1,S2) Gastrointestinal: normoactive bowel sounds, soft, non-tender Integumentary: normal Extremities: no cyanosis, no edema Neurologic: normal mental status, non-focal exam, pupils equal and round, CN II- XII normal, motor strength normal and Psychiatric: mood appropriate, affect normal CBC and BMP: 06/27/21 05:13 06/27/21 05:13 ABG, PT/INR, D-dimer: ABG ABG pH 7.383 pH Units (7.350-7.450) 06/19/21 10:50 ABG pCO2 45.4 mm Hg 06/19/21 10:50 ABG pO2 52.9 mm Hg (80.0-90.0) L 06/19/21 10:50 ABG O2 Saturation 85.5 % (95.0-99.0) L 06/19/21 10:50 PT/INR, D-dimer PT 14.3 Sec. (12.2-14.9) 06/16/21 09:38 INR 1.00 (0.87-1.13) 06/16/21 09:38 Abnormal lab findings: Abnormal Labs 06/16/21 06/16/21 06/16/21 09:38 09:38 09:38 WBC RBC 5.70 H Hgb 11.2 L Hct MCV 63 L MCH 20 L MCHC 31 L RDW 19.0 H Plt Count Lymph % (Auto) [place] % (Auto) Eos % (Auto) [place] # (Auto) Eos # (Auto) Seg Neutrophils % Seg Neuts % (Manual) Lymphocytes % (Manual) Monocytes % (Manual) Monocytes # (Manual) ABG pO2 ABG HCO3 ABG O2 Saturation ABG Hemoglobin Oxyhemoglobin Sodium 127 L Potassium 6.5 H* Chloride 97.7 L Carbon Dioxide 17 L BUN 69 H Creatinine 6.1 H Glucose 152 H POC Glucose Troponin T 0.601 H* NT-Pro-B Natriuret Pep 86921 H Total Protein 11.2 H Albumin 3.8 L Triglycerides 222 H HDL Cholesterol 35 L 06/16/21 06/16/21 06/16/21 10:44 15:40 15:40 WBC RBC 5.43 H Hgb 10.4 L Hct 33.7 L MCV 62 L MCH 19 L MCHC 31 L RDW 18.4 H Plt Count Lymph % (Auto) [place] % (Auto) Eos % (Auto) [place] # (Auto) Eos # (Auto) Seg Neutrophils % Seg Neuts % (Manual) Lymphocytes % (Manual) Monocytes % (Manual) Monocytes # (Manual) ABG pO2 ABG HCO3 ABG O2 Saturation ABG Hemoglobin Oxyhemoglobin Sodium 126 L Potassium 6.2 H* Chloride 96.4 L Carbon Dioxide 15 L BUN 71 H Creatinine 6.2 H Glucose 148 H POC Glucose 142 H Troponin T NT-Pro-B Natriuret Pep Total Protein 11.1 H Albumin 3.6 L Triglycerides HDL Cholesterol 06/17/21 06/17/21 06/17/21 03:52 03:52 13:58 WBC RBC 5.35 H Hgb 10.0 L Hct 33.1 L MCV 62 L MCH 19 L MCHC 30 L RDW 18.3 H Plt Count Lymph % (Auto) 48.7 H [place] % (Auto) 10.0 H Eos % (Auto) [place] # (Auto) Eos # (Auto) Seg Neutrophils % Seg Neuts % (Manual) Lymphocytes % (Manual) Monocytes % (Manual) Monocytes # (Manual) ABG pO2 ABG HCO3 ABG O2 Saturation ABG Hemoglobin Oxyhemoglobin Sodium 131 L Potassium 5.3 H Chloride 97.0 L Carbon Dioxide 18 L BUN 83 H Creatinine 6.8 H Glucose 128 H POC Glucose Troponin T 0.562 H* NT-Pro-B Natriuret Pep Total Protein 10.4 H Albumin 3.7 L Triglycerides HDL Cholesterol 06/18/21 06/19/21 06/19/21 06:57 05:32 05:32 WBC 11.4 H RBC 5.20 H Hgb 10.1 L Hct 32.3 L MCV 62 L MCH 19 L MCHC 31 L RDW 18.2 H Plt Count 132 L Lymph % (Auto) [place] % (Auto) Eos % (Auto) [place] # (Auto) Eos # (Auto) Seg Neutrophils % Seg Neuts % (Manual) 33.0 L Lymphocytes % (Manual) 45.0 H Monocytes % (Manual) 12.0 H Monocytes # (Manual) 1.4 H ABG pO2 ABG HCO3 ABG O2 Saturation ABG Hemoglobin Oxyhemoglobin Sodium 130 L 130 L Potassium 3.4 L Chloride 90.7 L 88.6 L Carbon Dioxide BUN 95 H 99 H Creatinine 7.1 H 6.9 H Glucose 105 H POC Glucose Troponin T NT-Pro-B Natriuret Pep Total Protein Albumin Triglycerides HDL Cholesterol 06/19/21 06/20/21 06/20/21 10:50 05:28 11:26 WBC RBC 5.65 H Hgb 10.9 L Hct 35.2 L MCV 62 L MCH 19 L MCHC 31 L RDW 18.4 H Plt Count 123 L Lymph % (Auto) 44.2 H Irwin % (Auto) 12.6 H Eos % (Auto) 4.8 H [place] # (Auto) 1.1 H Eos # (Auto) Seg Neutrophils % 37.5 L Seg Neuts % (Manual) Lymphocytes % (Manual) Monocytes % (Manual) Monocytes # (Manual) ABG pO2 52.9 L ABG HCO3 26.5 H ABG O2 Saturation 85.5 L ABG Hemoglobin 8.5 L Oxyhemoglobin 83.8 L Sodium 128 L Potassium Chloride 87.6 L Carbon Dioxide BUN 84 H Creatinine 7.4 H Glucose 104 H POC Glucose Troponin T NT-Pro-B Natriuret Pep Total Protein Albumin Triglycerides HDL Cholesterol 06/20/21 06/25/21 06/25/21 11:26 05:14 05:14 WBC RBC 5.29 H Hgb 10.2 L Hct 33.3 L MCV 63 L MCH 19 L MCHC 31 L RDW 18.2 H Plt Count Lymph % (Auto) [place] % (Auto) 11.7 H Eos % (Auto) 9.4 H [place] # (Auto) 1.0 H Eos # (Auto) 0.8 H Seg Neutrophils % Seg Neuts % (Manual) Lymphocytes % (Manual) Monocytes % (Manual) Monocytes # (Manual) ABG pO2 ABG HCO3 ABG O2 Saturation ABG Hemoglobin Oxyhemoglobin Sodium 128 L 125 L Potassium 3.5 L Chloride 86.3 L 89.0 L Carbon Dioxide 18 L D BUN 94 H 94 H Creatinine 8.1 H 9.5 H Glucose 111 H POC Glucose Troponin T NT-Pro-B Natriuret Pep Total Protein 11.2 H Albumin 3.7 L Triglycerides HDL Cholesterol 06/26/21 06/26/21 06/27/21 05:11 05:11 05:13 WBC RBC Hgb 9.4 L 9.7 L Hct 30.6 L 31.0 L MCV 62 L 62 L MCH 19 L 19 L MCHC 31 L 31 L RDW 18.2 H 18.0 H Plt Count Lymph % (Auto) 35.3 H Irwin % (Auto) 11.3 H 13.4 H Eos % (Auto) 10.8 H 6.3 H [place]win # (Auto) 1.1 H Eos # (Auto) 0.8 H 0.5 H Seg Neutrophils % Seg Neuts % (Manual) Lymphocytes % (Manual) Monocytes % (Manual) Monocytes # (Manual) ABG pO2 ABG HCO3 ABG O2 Saturation ABG Hemoglobin Oxyhemoglobin Sodium 128 L Potassium Chloride 90.7 L Carbon Dioxide 16 L BUN 109 H Creatinine 9.4 H Glucose POC Glucose Troponin T NT-Pro-B Natriuret Pep Total Protein Albumin Triglycerides HDL Cholesterol 06/27/21 05:13 WBC RBC Hgb Hct MCV MCH MCHC RDW Plt Count Lymph % (Auto) [place]win % (Auto) Eos % (Auto) [place] # (Auto) Eos # (Auto) Seg Neutrophils % Seg Neuts % (Manual) Lymphocytes % (Manual) Monocytes % (Manual) Monocytes # (Manual) ABG pO2 ABG HCO3 ABG O2 Saturation ABG Hemoglobin Oxyhemoglobin Sodium 128 L Potassium Chloride 90.6 L Carbon Dioxide BUN 64 H Creatinine 6.9 H Glucose 102 H POC Glucose Troponin T NT-Pro-B Natriuret Pep Total Protein Albumin Triglycerides HDL Cholesterol
--- NOTE | 2021-06-27 12:32 | Progress Note ---
Assessment and Plan - Patient Problems (1) Acute exacerbation of CHF (congestive heart failure) Current Visit: Yes Status: Acute Qualifiers: Heart failure type: systolic Qualified Code(s): I50.23 - Acute on chronic systolic (congestive) heart failure Plan to address problem: Patient has underlying severe nonischemic cardiomyopathy, presents with fluid overload and acute on chronic systolic heart failure, due to worsening renal function and noncompliance with medical therapy and dietary salt restrictions. Now on hemodialysis for fluid and electrolyte management, we will continue guideline directed medical therapy for chronic systolic left ventricular failure. Subjective Date of service: 06/27/21 Principal diagnosis: esrd Interval history: No cardiac complaints, no new cardiac events reported. Objective Vital Signs Temp Pulse Pulse Pulse Resp Resp BP 06/27/21 12:10 98.1 F 89 17 06/27/21 10:10 74 99/74 06/27/21 10:07 97.5 F L 74 17 06/27/21 10:00 71 06/27/21 08:25 06/27/21 03:57 98.1 F 81 16 97/58 06/26/21 23:00 97.7 F 97 H 18 93/57 06/26/21 22:00 06/26/21 21:37 06/26/21 21:30 85 94 H 16 06/26/21 20:04 97.9 F 89 16 104/65 06/26/21 18:00 06/26/21 15:26 98.3 F 94 H 20 117/73 06/26/21 14:30 98.0 F 87 18 152/96 06/26/21 14:15 84 140/90 06/26/21 14:00 86 141/93 06/26/21 13:45 86 128/94 06/26/21 13:30 78 117/84 06/26/21 13:15 85 125/79 06/26/21 13:00 84 123/84 06/26/21 12:45 78 114/86 BP Pulse Ox Pulse Ox 06/27/21 12:10 102/77 96 06/27/21 10:10 06/27/21 10:07 99/74 98 06/27/21 10:00 98 06/27/21 08:25 97 06/27/21 03:57 96 06/26/21 23:00 97 06/26/21 22:00 98 06/26/21:37 95 06/26/21 21:30 06/26/21 20:04 95 06/26/21 18:00 98 06/26/21 15:26 96 06/26/21 14:30 100 06/26/21 14:15 06/26/21 14:00 06/26/21 13:45 06/26/21 13:30 06/26/21 13:15 06/26/21 13:00 06/26/21 12:45 - Physical Examination General: No Apparent Distress HEENT: Positive: PERRL Neck: Positive: neck supple Cardiac: Positive: Reg Rate and Rhythm Lungs: Positive: Decreased Breath Sounds Neuro: Positive: Grossly Intact Abdomen: Positive: Soft Skin: Positive: Clear Extremities: Absent: edema - Labs and Meds CBC 06/27/21 Range/Units 05:13 WBC 7.9 (4.5-11.0) K/mm3 RBC 4.97 (3.65-5.03) M/mm3 Hgb 9.7 L (11.8-15.2) gm/dl Hct 31.0 L (35.5-45.6) % Plt Count 190 (140-440) K/mm3 Lymph # (Auto) 2.7 (1.2-5.4) K/mm3 [place] # (Auto) 1.1 H (0.0-0.8) K/mm3 Eos # (Auto) 0.5 H (0.0-0.4) K/mm3 Baso # (Auto) 0.1 (0.0-0.1) K/mm3 Comprehensive Metabolic Panel 06/27/21 Range/Units 05:13 Sodium 128 L (137-145) mmol/L Potassium 4.2 (3.6-5.0) mmol/L Chloride 90.6 L (98-107) mmol/L Carbon Dioxide 22 (22-30) mmol/L BUN 64 H (9-20) mg/dL Creatinine 6.9 H (0.8-1.3) mg/dL Glucose 102 H (75-100) mg/dL Calcium 9.3 (8.4-10.2) mg/dL
== END 2021-06-27 13:16 | disposition home or self-care (01) | DRG 280 ==
LOC: ED 09:08 → CC1 12:21 → IMCU 14:26 → CC1 20:54 → 4A 06-17 16:05
PROVIDERS: ADMIT Internal Medicine; ATTEND Internal Medicine
PROC: 5A09457 Assistance with Respiratory Ventilation, 24-96 Consecutive Hours, Continuous Positive Airway Pressure (ICD-10-PCS; 2021-06-16)
PROC: 02H633Z Insertion of Infusion Device into Right Atrium, Percutaneous Approach (ICD-10-PCS; principal; 2021-06-19)
PROC: B5181ZA Fluoroscopy of Superior Vena Cava using Low Osmolar Contrast, Guidance (ICD-10-PCS; 2021-06-19)
PROC: B548ZZA Ultrasonography of Superior Vena Cava, Guidance (ICD-10-PCS; 2021-06-19)
PROC: 4A033R1 Measurement of Arterial Saturation, Peripheral, Percutaneous Approach (ICD-10-PCS; 2021-06-19)
PROC: 5A1D70Z Performance of Urinary Filtration, Intermittent, Less than 6 Hours Per Day (ICD-10-PCS; 2021-06-19)
PROC: 5A1D70Z Performance of Urinary Filtration, Intermittent, Less than 6 Hours Per Day (ICD-10-PCS; 2021-06-20)
PROC: 5A1D70Z Performance of Urinary Filtration, Intermittent, Less than 6 Hours Per Day (ICD-10-PCS; 2021-06-21)
PROC: 5A1D70Z Performance of Urinary Filtration, Intermittent, Less than 6 Hours Per Day (ICD-10-PCS; 2021-06-23)
PROC: 5A1D70Z Performance of Urinary Filtration, Intermittent, Less than 6 Hours Per Day (ICD-10-PCS; 2021-06-26)
DX: I13.2 Hypertensive heart and chronic kidney disease with heart failure and with stage 5 chronic kidney disease, or end stage renal disease (principal); I50.21 Acute systolic (congestive) heart failure; I21.A1 Myocardial infarction type 2; J96.01 Acute respiratory failure with hypoxia; N18.6 End stage renal disease; E87.1 Hypo-osmolality and hyponatremia; E87.2 Acidosis; I16.1 Hypertensive emergency; N17.9 Acute kidney failure, unspecified; I42.9 Cardiomyopathy, unspecified; D63.1 Anemia in chronic kidney disease; E87.5 Hyperkalemia; Z83.3 Family history of diabetes mellitus; Z82.49 Family history of ischemic heart disease and other diseases of the circulatory system; Z87.891 Personal history of nicotine dependence
CPT/HCPCS: 36415; 36558; 36600; 71045; 77001; 80048; 80053; 80061; 80074; 82140; 82803; 82962; 83735; 83880; 84145; 84484; 85007; 85025; 85610; 87040; 93005; 93970; 94640; 94660; 94760; 99291; 99406; G0378; J3490; Q9967; C1750; J0690; J1200; J1644; J1815; J1940; J2250; J3010; J7050; U0003

== ENCOUNTER 2021-06-30 14:59 | Observation (INO) | payer SELFPAY ==
[2021-06-30 16:10] LABS: Basophils # (Auto) 0.1 K/mm3 (0.0-0.1); Basophils % (Auto) 1.4 % (0.0-1.8); Eosinophils # (Auto) 0.6 K/mm3 (0.0-0.4); Eosinophils % (Auto) 10.4 % (0.0-4.3); Hematocrit 32.5 % (35.5-45.6); Hemoglobin 10.1 gm/dl (11.8-15.2); Lymphocytes # (Auto) 2.4 K/mm3 (1.2-5.4); Lymphocytes % (Auto) 39.7 % (13.4-35.0); Mean Corpuscular HGB Conc 31 % (32-34); Monocytes # (Auto) 0.6 K/mm3 (0.0-0.8); Monocytes % (Auto) 10.5 % (0.0-7.3); Platelet Count 258 K/mm3 (140-440); Red Blood Count 5.23 M/mm3 (3.65-5.03); Red Cell Distribution Width 18.4 % (13.2-15.2)
[2021-06-30 16:25] LABS: Mean Corpuscular Volume 62 fl (84-94)
[2021-06-30 16:50] LABS: Calcium 9.8 mg/dL (8.4-10.2)
[2021-06-30] MEDS ORDERED: ONDANSETRON 4 MG ODT TAB PO ONE (17:52)
--- NOTE | 2021-06-30 17:52 | Emergency Department Report ---
HPI - General Chief Complaint: Medical Clearance Time Seen by Provider: 06/30/21 17:31 - HPI HPI: 56-year-old -[place] male presents to the emergency department with complaint of some nausea with vomiting, a lingering mixed dry and productive cough, and missing his dialysis session. Patient says that he was set up to get dialysis at [facility] in [place] but he has transportation issues and missed his last dialysis session on , yesterday. He denies any shortness of breath. He follows with Dr. Davison for nephrology. He denies any fever, lower extremity swelling, chest pain. ED Past Medical Hx - Past Medical History Hx Hypertension: Yes Hx Congestive Heart Failure: Yes Hx Diabetes: No Hx Asthma: Yes Hx COPD: No - Social History Smoking Status: Current Every Day Smoker - Medications Home Medications: Home Medications Medication Instructions Recorded Confirmed Last Taken Type Aspirin EC [Halfprin EC] 81 mg PO QDAY 30 Days #30 tablet 04/07/21 06/17/21 06/15/21 Rx Budesonide/Formoterol Fumarate 10.2 gm IH BID #1 hfa.aer.ad 06/27/21 Unknown Rx [Symbicort 160-4.5 Mcg Inhaler] Fe Fumarate/FA/Mv, Min Comb#15 1 each PO QDAY #30 capsule 06/27/21 Unknown Rx [Hemocyte Plus] ISOSORBIDE MONOnitrate [Imdur ER] 30 mg PO QDAY #30 tablet 06/27/21 Unknown Rx carvediloL [Coreg] 3.125 mg PO BID #60 tablet 06/27/21 Unknown Rx guaiFENesin DM [Guaifenesin Dm 10 ml PO Q4H PRN #1 oral.liqd 06/27/21 Unknown Rx Syrup] lisinopriL [Zestril TAB] 2.5 mg PO QDAY #30 tablet 06/27/21 Unknown Rx ED Review of Systems ROS: Stated complaint: DAILYSIS Other details as noted in HPI Comment: All other systems reviewed and negative Constitutional: denies: chills, fever Eyes: denies: eye pain, vision change ENT: denies: ear pain, throat pain Respiratory: cough. denies: shortness of breath Cardiovascular: denies: chest pain, edema Gastrointestinal: nausea, vomiting. denies: abdominal pain Genitourinary: denies: dysuria, discharge Musculoskeletal: denies: back pain, arthralgia Skin: denies: rash, lesions Neurological: denies: headache, weakness Physical Exam - Physical Exam Vital Signs: Vital Signs 06/30/21 15:35 Temperature 98.4 F Pulse Rate 89 Respiratory 20 Rate Blood Pressure 93/58 O2 Sat by Pulse 90 Oximetry Physical Exam: GENERAL: The patient is well-developed well-nourished. HENT: Normocephalic. Atraumatic. Patient has moist mucous membranes. EYES: Extraocular motions are intact. NECK: Supple. Trachea is midline. CHEST/LUNGS: Clear to auscultation. There is no respiratory distress noted. Right-sided chest dialysis catheter. HEART/CARDIOVASCULAR: Regular. There is no tachycardia. There is no murmur. ABDOMEN: Abdomen is soft, nontender. Patient has normal bowel sounds. SKIN: Skin is warm and dry. NEURO: The patient is awake, alert, and oriented. The patient is cooperative. The patient has no focal neurologic deficits. Normal speech. MUSCULOSKELETAL: There is no tenderness or deformity. There is no limitation range of motion. ED Course Vital Signs 06/30/21 15:35 Temperature 98.4 F Pulse Rate 89 Respiratory 20 Rate Blood Pressure 93/58 O2 Sat by Pulse 90 Oximetry - Consultations Consultation #1: 06/30/21 18:[address] Stokes, fruit farmworker on-call and on-call for [facility] nephrology. She is aware of this patient from his recent admission. The patient lives in [place] but was set up by case management for dialysis in [place] and this is an issue for him as he does not have any means of transportation. Dr. Stokes will set up the patient for dialysis and will consult on the patient, but requests case management see this patient for either transportation to the [place] dialysis clinic, or switching dialysis clinics. ED Medical Decision Making - Lab Data Result diagrams: 06/30/21 15:55 06/30/21 15:55 - Radiology Data Radiology results: image reviewed interpreted by me: Chest x-ray does not show any acute process. There are no pleural effusions, obvious pneumonia and there is no pneumothorax. No widened mediastinum. - Medical Decision Making This patient presents to the emergency department with complaint of some nausea vomiting and missing his last dialysis session. Chest x-ray does not show any volume overload, pneumonia, pneumothorax, wide mediastinum. Labs show hyperkalemia with a potassium level of 5.4, BUN greater than 100 and renal insufficiency consistent with his end-stage renal disease needing hemodialysis. Nephrology was contacted and consulted. The patient will be admitted to the hospital for further evaluation and treatment and was accepted for admission by the hospitalist, Dr. Thrasher. Critical Care Time: No Critical care attestation.: If time is entered above; I have spent that time in minutes in the direct care of this critically ill patient, excluding procedure time. ED Disposition Clinical Impression: ESRD needing dialysis, Hyperkalemia, Missed dialysis Disposition: ADMITTED INPATIENT Is pt being admited?: Yes Condition: Fair Time of Disposition: 21:15
--- NOTE | 2021-06-30 18:14 | History and Physical Report ---
History of Present Illness Chief complaint: I need dialysis History of present illness: 56 YO Male with Systolic CHF(EF 15%), HTN, ESRD on HD(T,R,Sa), Medication Noncompliance, Asthma, Nicotine Dependence presents to ED for evaluation. Patient reports "I need dialysis". Patient states that he is experienced nausea, an episode of vomiting, dry cough and "not feeling well" over the past 1 day. Patient states that he missed his last dialysis session and is unable to get outpatient dialysis. Patient transported to [facility] via private vehicle for further care and evaluation of the aforementioned symptoms. The patient was seen and evaluated in the emergency department. All lab and imaging studies reviewed. Patient found to have end-stage renal disease in need of dialysis. Nephrology team consulted in ED. Patient placed in observation status and admitted to medical floor due to increased risk of worsening symptoms. Patient denies fever, chills, chest pain, palpitation, adductive cough, skin rash, recent contact, or known exposure to COVID-19. Prior admission on 06/16/2021 reviewed. All medication listed at time of admission has been reconciled. Advanced care planning conducted in ED. Past History Past Medical History: ESRD, heart failure, hypertension Past Surgical History: Other (Dialysis access) Social history: single, smoking. denies: alcohol abuse, prescription drug abuse Family history: diabetes, hypertension Medications and Allergies Allergies Allergy/AdvReac Type Severity Reaction Status Date / Time No Known Allergies Allergy Verified 06/30/21 15:32 Home Medications Medication Instructions Recorded Confirmed Last Taken Type Aspirin EC [Halfprin EC] 81 mg PO QDAY 30 Days #30 tablet 04/07/21 06/17/21 06/15/21 Rx Budesonide/Formoterol Fumarate 10.2 gm IH BID #1 hfa.aer.ad 06/27/21 Unknown Rx [Symbicort 160-4.5 Mcg Inhaler] Fe Fumarate/FA/Mv, Min Comb#15 1 each PO QDAY #30 capsule 06/27/21 Unknown Rx [Hemocyte Plus] ISOSORBIDE MONOnitrate [Imdur ER] 30 mg PO QDAY #30 tablet 06/27/21 Unknown Rx carvediloL [Coreg] 3.125 mg PO BID #60 tablet 06/27/21 Unknown Rx guaiFENesin DM [Guaifenesin Dm 10 ml PO Q4H PRN #1 oral.liqd 12/21/21 Unknown Rx Syrup] lisinopriL [Zestril TAB] 2.5 mg PO QDAY #30 tablet 06/27/21 Unknown Rx Review of Systems Constitutional: weakness, no weight loss, no weight gain, no fever, no chills Ears, nose, mouth and throat: no ear pain, no ear discharge, no tinnitis, no nasal congestion, no nasal discharge Cardiovascular: no chest pain, no orthopnea, no palpitations, no rapid/irregular heart beat, no syncope Respiratory: no cough, no cough with sputum, no excessive sputum Gastrointestinal: nausea, no abdominal pain, no hematemesis Genitourinary Male: no hematuria, no flank pain, no discharge, no urinary frequency, no urinary hesitancy Rectal: no pain, no incontinence, no bleeding Musculoskeletal: no neck stiffness, no neck pain, no shooting arm pain, no arm numbness/tingling, no shooting leg pain Integumentary: no rash, no pruritis, no redness, no sores, no wounds, no jaundice Neurological: no head injury, no transient paralysis, no weakness, no parathesias, no numbness, no syncope Psychiatric: no anxiety, no change in sleep habits, no sleep disturbances, no hypersomnia, no change in appetite, no hallucinations Endocrine: no cold intolerance, no polyphagia, no excessive thirst, no polyuria, no excessive sweating, no flushing Hematologic/Lymphatic: no easy bruising, no easy bleeding Allergic/Immunologic: no urticaria, no wheezing Exam - Constitutional Vitals: Temp Pulse Resp BP Pulse Ox 98.4 F 89 20 93/58 90 06/30/21 15:35 06/30/21 15:35 06/30/21 15:35 06/30/21 15:35 06/30/21 15:35 General appearance: Present: mild distress - EENT Eyes: Present: PERRL ENT: hearing intact, clear oral mucosa - Neck Neck: Present: supple, normal ROM - Respiratory Respiratory effort: normal Respiratory: bilateral: CTA - Cardiovascular Heart Sounds: Present: S1 & S2. Absent: rub, click - Extremities Extremities: pulses symmetrical, No edema Peripheral Pulses: within normal limits - Abdominal General gastrointestinal: Present: soft, non-tender, non-distended, normal bowel sounds Male genitourinary: Present: normal - Integumentary Integumentary: Present: clear, warm, dry - Musculoskeletal Musculoskeletal: gait normal, strength equal bilaterally - Psychiatric Psychiatric: appropriate mood/affect, intact judgment & insight - Neurologic Neurologic: CNII-XII intact, moves all extremities Results - Labs CBC & Chem 7: 06/30/21 15:55 06/30/21 15:55 Labs: Abnormal lab results 06/30/21 06/30/21 Range/Units 15:55 15:55 RBC 5.23 H (3.65-5.03) M/mm3 Hgb 10.1 L (11.8-15.2) gm/dl Hct 32.5 L (35.5-45.6) % MCV 62 L (84-94) fl MCH 19 L (28-32) pg MCHC 31 L (32-34) % RDW 18.4 H (13.2-15.2) % Lymph % (Auto) 39.7 H (13.4-35.0) % [place] % (Auto) 10.5 H (0.0-7.3) % Eos % (Auto) 10.4 H (0.0-4.3) % Eos # (Auto) 0.6 H (0.0-0.4) K/mm3 Seg Neutrophils % 38.0 L (40.0-70.0) % Potassium 5.4 H D (3.6-5.0) mmol/L Chloride 94.5 L (98-107) mmol/L Carbon Dioxide 19 L (22-30) mmol/L BUN 108 H (9-20) mg/dL Creatinine 10.5 H D (0.8-1.3) mg/dL Assessment and Plan - Patient Problems (1) End stage renal disease Current Visit: Yes Status: Acute Plan to address problem: Strict I/O, monitor fluid balance, avoid nephrotoxic agents, dialysis team consulted in ED. Dialysis as per renal team. (2) Acidosis, metabolic Current Visit: Yes Status: Acute Plan to address problem: Supportive care, urgent dialysis. Repeat BMP in a.m. (3) Noncompliance Current Visit: Yes Status: Acute Plan to address problem: Patient counseled regarding noncompliance with outpatient dialysis. Patient knowledges understanding risk of worsening symptoms. (4) Nicotine dependence Current Visit: Yes Status: Acute Qualifiers: Nicotine product type: cigarettes Substance use status: in withdrawal Qualified Code(s): F17.213 - Nicotine dependence, cigarettes, with withdrawal Plan to address problem: Smoking cessation counseling, supportive care. Behavior change counseling, +15 minutes. (5) CHF (congestive heart failure) Current Visit: Yes Status: Acute Qualifiers: Heart failure chronicity: chronic Plan to address problem: Strict I's/O, monitor blood pressure every shift, daily weight, afterload reduction, blood pressure management, no acute exacerbation at this time (6) DVT prophylaxis Current Visit: No Status: Acute Plan to address problem: SCD to bilateral lower extremities while in bed (7) Advance care planning Current Visit: No Status: Acute Plan to address problem: Disease education conducted, care plan discussed, diagnoses discussed, prognosis discussed, patient is full code, patient knowledges understanding and agreement with care plan, +30 minutes.
[2021-06-30] MEDS ORDERED: ONDANSETRON 4 MG/2 ML INJ IV PRN (18:15)
[2021-06-30] MEDS ORDERED: oxyCODONE /ACETAMINOPHEN 5-325MG TAB PO PRN (18:15)
[2021-06-30] MEDS ORDERED: ALBUTEROL 2.5 MG/3 ML NEBU IH PRN (18:15)
[2021-06-30] MEDS ORDERED: ACETAMINOPHEN 325 MG TAB PO PRN (18:15)
[2021-06-30] MEDS ORDERED: HYDROmorphone 1 MG/1 ML INJ IV PRN (18:15)
[2021-06-30] MEDS ORDERED: guaiFENesin DM 200/20 MG ORAL LIQD 10 ML PO PRN (18:17)
--- NOTE | 2021-06-30 18:29 | XRay Report ---
CHEST 2 VIEWS INDICATION / CLINICAL INFORMATION: cough X 1 WEEK. COMPARISON: 06/20/2021 FINDINGS: SUPPORT DEVICES: Right internal jugular dialysis catheter again has tip in right atrium HEART / MEDIASTINUM: No significant abnormality. LUNGS / PLEURA: No significant pulmonary or pleural abnormality. No pneumothorax. ADDITIONAL FINDINGS: No significant additional findings. IMPRESSION: 1. No acute findings. Signer Name: Garrett Posey MD Signed: 06/30/2021 6:25 PM Workstation Name: [id number]
[2021-06-30] MEDS ORDERED: SODIUM CHLORIDE 0.9% 100 ML IV PRN (18:48)
[2021-07-01] MEDS: carvediloL 3.125 MG TAB PO SCH ×2 (03:30→09:58)
[2021-07-01 05:32] LABS: Calcium 8.7 mg/dL (8.4-10.2)
--- NOTE | 2021-07-01 08:01 | Discharge Summary ---
Providers - Providers Date of Admission: 06/30/21 18:15 Date of discharge: 07/01/21 Attending physician: INGA SHER MD 06/30/21 18:11 Consult to Physician [CONS] Routine Comment: Consulting Provider: DEVEN CHAMBERS Physician Instructions: Reason For Exam: ESRD needing dialysis Primary care physician: PAIRER Hospitalization Reason for admission: Missed dialysis Condition: Fair Hospital course: 56-year-old male history of ESRD, heart failure reduced ejection fraction who was admitted after missing outpatient dialysis. Patient recently discharged with instructions to follow-up outpatient at dialysis center Saturday, Saturday, Saturday. He did not show up due to lack of transportation. Nephrology was consulted and he was dialyzed inpatient. His laboratory values improved and patient symptoms resolved. He was discharged home with instructions to follow- up with outpatient dialysis on Saturday or go to the nearest emergency department if he is unable to find transportation. Disposition: HOME / SELF CARE / HOMELESS Final Discharge Diagnosis (Prints w/discharge instructions): ESRD on dialysis, missed dialysis Time spent for discharge: 25 minutes Core Measure Documentation - Palliative Care Palliative Care/ Comfort Measures: Not Applicable - Core Measures Any of the following diagnoses?: none Exam - Physical Exam Narrative exam: GENERAL: Well-developed well-nourished. Sitting on the side of the bed in no acute distress. HEENT: Normocephalic. Atraumatic. CHEST/LUNGS: Right-sided permacath. CTAB on room air HEART/CARDIOVASCULAR: RRR. No murmur, rubs or gallops appreciated. ABDOMEN: +BS. NT/ND. NEURO: No focal motor deficit. Follows all commands and is ambulatory. EXTREMITIES: No cyanosis or edema. PSYCH: Cooperative. - Constitutional Vitals: Temp Pulse Resp BP Pulse Ox 98.2 F 85 21 86/54 96 07/01/21 06:32 07/01/21 07:24 07/01/21 07:24 07/01/21 07:24 07/01/21 07:24 Plan Care Plan Goals: Please make sure you report to [facility] this Saturday at 11:15am with your social security card. You are scheduled to have dialysis here every Saturday, Saturday and Saturday at that time. [facility] is located at: [address] [place] [address] Your insurance can provide you with transportation, you have to call at least a day ahead of time. Assessment: Patient reports after missed dialysis session. Patient was dialyzed with improvement in symptoms. Once stable discharged home. Follow up with: PRIMARY CARE, [Primary Care Provider] - 3-5 Days Prescriptions: guaiFENesin/DEXTROMETHORPHAN [Mucosa Dm 400-20 mg Tablet] 1 each PO DAILY PRN 30 Days #30 tablet PRN Reason: Cough
[2021-07-01] MEDS ORDERED: LISINOPRIL 5 MG TAB PO SCH (10:00)
[2021-07-01] MEDS ORDERED: ASPIRIN EC 81 MG TAB PO SCH (10:00)
[2021-07-01] MEDS ORDERED: FE FUMARATE/FA/MV, MIN COMB#15 CAP (HEMOCYTE PLUS) PO SCH (10:00)
[2021-07-01 10:35] VITALS: BP 111/67
--- NOTE | 2021-07-01 11:26 | Consultation ---
History of Present Illness - Reason for Consult Consult date: 07/01/21 end stage renal disease - History of Present Illness Mr. Alvarez is a 56yo with ESRD on HD who presents to the ED requesting dialysis. Patient has not dialyzed since discharge due to transportation difficulty. 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 However, patient was placed at this facility. Today, patient has no complaints. He is s/p hemodialysis. Past History Past Medical History: ESRD, heart failure, hypertension Past Surgical History: Other (Dialysis access) Social history: single, smoking. denies: alcohol abuse, prescription drug abuse Family history: diabetes, hypertension Medications and Allergies Allergies Allergy/AdvReac Type Severity Reaction Status Date / Time No Known Allergies Allergy Verified 06/30/21 15:32 Home Medications Medication Instructions Recorded Confirmed Last Taken Type Aspirin EC [Halfprin EC] 81 mg PO QDAY 30 Days #30 tablet 04/07/21 06/17/21 06/15/21 Rx Budesonide/Formoterol Fumarate 10.2 gm IH BID #1 hfa.aer.ad 06/27/21 Unknown Rx [Symbicort 160-4.5 Mcg Inhaler] Fe Fumarate/FA/Mv, Min Comb#15 1 each PO QDAY #30 capsule 06/27/21 Unknown Rx [Hemocyte Plus] ISOSORBIDE MONOnitrate [Imdur ER] 30 mg PO QDAY #30 tablet 06/27/21 Unknown Rx carvediloL [Coreg] 3.125 mg PO BID #60 tablet 06/27/21 Unknown Rx lisinopriL [Zestril TAB] 2.5 mg PO QDAY #30 tablet 06/27/21 Unknown Rx guaiFENesin/DEXTROMETHORPHAN 1 each PO DAILY PRN 30 Days #30 07/01/21 Unknown Rx [Mucosa Dm 400-20 mg Tablet] tablet Active Meds: Active Medications Acetaminophen (Acetaminophen 325 Mg Tab) 650 mg PO Q4H PRN PRN Reason: Pain MILD(1-3)/Fever >100.5/GRANDE Albuterol (Albuterol 2.5 Mg/3 Ml Nebu) 2.5 mg IH Q4HRT PRN PRN Reason: Shortness Of Breath Aspirin (Aspirin Ec 81 Mg Tab) 81 mg PO QDAY KOLBY Last Admin: 07/01/21 09:58 Dose: 81 mg Documented by: Carvedilol (Carvedilol 3.125 Mg Tab) 3.125 mg PO BID [facility] Last Admin: 07/01/21 09:58 Dose: Not Given Documented by: Guaifenesin (Guaifenesin Dm 200/20 Mg Oral Liqd 10 Ml) 10 ml PO Q4H PRN PRN Reason: Cough Hydromorphone HCl (Hydromorphone 1 Mg/1 Ml Inj) 0.5 mg IV Q23H PRN PRN Reason: Pain , Severe (7-10) Sodium Chloride (Nacl 0.9%) 100 mls @ 999 mls/hr IV RALPH PRN PRN Reason: Hypotension Isosorbide Mononitrate (Isosorbide Mononitrate Er 30 Mg Tab) 30 mg PO QDAY [facility] Lisinopril (Lisinopril 5 Mg Tab) 2.5 mg PO QDAY [facility] Last Admin: 07/01/21 09:58 Dose: Not Given Documented by: Multivitamins/Iron (Fe Fumarate/Fa/Mv, Min Comb#15 Cap (Hemocyte Plus)) 1 each PO QDAY [facility] Last Admin: 07/01/21 10:33 Dose: 1 each Documented by: Ondansetron HCl (Ondansetron 4 Mg/2 Ml Inj) 4 mg IV Q8H PRN PRN Reason: Nausea And Vomiting Oxycodone/Acetaminophen (Oxycodone /Acetaminophen 5-325mg Tab) 1 tab PO Q16H PRN PRN Reason: Pain, Moderate (4-6) Sodium Chloride (Sodium Chloride 0.9% 10 Ml Flush Syringe) 10 ml IV BID [facility] Last Admin: 07/01/21 09:46 Dose: Not Given Documented by: Sodium Chloride (Sodium Chloride 0.9% 10 Ml Flush Syringe) 10 ml IV PRN PRN PRN Reason: LINE FLUSH Review of Systems All systems: negative Exam - Vital Signs Vital signs: Vital Signs Temp Pulse Resp BP Pulse Ox 98.4 F 89 20 93/58 90 06/30/21 15:35 06/30/21 15:35 06/30/21 15:35 06/30/21 15:35 06/30/21 15:35 - General Appearance General appearance: well-developed, well-nourished EENT: ATNC Respiratory: Clear to Ascultation Heart: regular, S1S2 Gastrointestinal: Present: normal Integumentary: no rash, warm and dry Neurologic: no focal deficit, alert and oriented x3 Psychiatric: cooperative Results - Lab Results 06/30/21 15:55 07/01/21 04:04 Most recent lab results Calcium 8.7 mg/dL (8.4-10.2) 07/01/21 04:04 Assessment and Plan Assessment: * End stage renal disease * Nonischemic cardiomyopathy * HFrEF * Type II DM * Hypertension Plan: * Patient is s/p HD yesterday. * Note plans for discharge * Resume outpatient MWF schedule. * Unfortunately, patient may need to come to the ED for HD until case management places patient at a more accessible clinic. He is a [facility] resident - suggest placement at a clinic in [facility] so that he can be transported via public transportation
== END 2021-07-01 13:50 | disposition home or self-care (01) ==
LOC: ED 14:59 → 3A 18:15
PROVIDERS: ADMIT Internal Medicine; ATTEND Student in an Organized Health Care Education/Training Program
DX: I13.2 Hypertensive heart and chronic kidney disease with heart failure and with stage 5 chronic kidney disease, or end stage renal disease (principal); I50.20 Unspecified systolic (congestive) heart failure; N18.6 End stage renal disease; E87.2 Acidosis; I42.8 Other cardiomyopathies; E87.5 Hyperkalemia; F17.213 Nicotine dependence, cigarettes, with withdrawal; Z91.15 Patient's noncompliance with renal dialysis; Z99.2 Dependence on renal dialysis; Z79.82 Long term (current) use of aspirin
CPT/HCPCS: 36415; 71046; 80048; 85025; 99284; G0378; J3490; Q0162

== ENCOUNTER 2021-07-05 15:47 | Emergency (ER) | payer SELFPAY | END 2021-07-05 15:50 | disposition left against medical advice (07) | LOC: ED 15:47 | DX: Z00.00 Encounter for general adult medical examination without abnormal findings (principal); Z53.21 Procedure and treatment not carried out due to patient leaving prior to being seen by health care provider ==

== ENCOUNTER 2021-07-11 17:45 | Emergency (ER) | payer OTHER ==
[2021-07-11 18:46] LABS: Calcium 9.4 mg/dL (8.4-10.2)
--- NOTE | 2021-07-11 19:10 | Emergency Department Report ---
ED General Adult HPI - General Chief complaint: Nausea/Vomiting/Diarrhea Stated complaint: NEED DIALYSIS Time Seen by Provider: 07/11/21 17:56 Source: patient Mode of arrival: Ambulatory Limitations: No Limitations - History of Present Illness Initial comments: Patient presents requesting dialysis. He has had nausea with vomiting. He has had some occasional vomiting. He has more persistent nausea. No diarrhea associate with this. He was last dialyzed on [place]. He states that he could not make it to any other facility for outpatient dialysis. He came here instead. He has not been dialyzed since that time. He does not have any chest pain or shortness of breath. He actually states that he feels well other than nausea. He just came in because he knew he needed to be dialyzed. He has had no pain or swelling in the legs out of the ordinary. There is no pain or swelling in the hands of the ordinary. He still making urine. - Related Data Previous Rx's Medication Instructions Recorded Last Taken Type Aspirin EC [Halfprin EC] 81 mg PO QDAY 30 Days #30 tablet 04/07/21 06/15/21 Rx Budesonide/Formoterol Fumarate 10.2 gm IH BID #1 hfa.aer.ad 06/27/21 Unknown Rx [Symbicort 160-4.5 Mcg Inhaler] Fe Fumarate/FA/Mv, Min Comb#15 1 each PO QDAY #30 capsule 06/27/21 Unknown Rx [Hemocyte Plus] ISOSORBIDE MONOnitrate [Imdur ER] 30 mg PO QDAY #30 tablet 06/27/21 Unknown Rx carvediloL [Coreg] 3.125 mg PO BID #60 tablet 06/27/21 Unknown Rx lisinopriL [Zestril TAB] 2.5 mg PO QDAY #30 tablet 06/27/21 Unknown Rx guaiFENesin/DEXTROMETHORPHAN 1 each PO DAILY PRN 30 Days #30 07/01/21 Unknown Rx [Mucosa Dm 400-20 mg Tablet] tablet Metoclopramide [Reglan] 10 mg PO TID #30 tab 07/11/21 Unknown Rx Allergies Allergy/AdvReac Type Severity Reaction Status Date / Time No Known Allergies Allergy Verified 06/30/21 15:32 ED Review of Systems ROS: Stated complaint: NEED DIALYSIS Other details as noted in HPI Comment: All other systems reviewed and negative Constitutional: denies: fever Eyes: denies: vision change ENT: denies: epistaxis Respiratory: denies: shortness of breath Cardiovascular: denies: chest pain Endocrine: denies: unexplained weight loss Gastrointestinal: denies: abdominal pain Genitourinary: denies: dysuria Musculoskeletal: denies: back pain Skin: denies: rash Neurological: denies: headache Hematological/Lymphatic: denies: easy bruising ED Past Medical Hx - Past Medical History Hx Hypertension: Yes Hx Congestive Heart Failure: Yes Hx Diabetes: No Hx Asthma: Yes Hx COPD: No - Family History Family history: hypertension - Social History Smoking Status: Current Every Day Smoker (We discussed tobacco cessation x3 minutes) - Medications Home Medications: Home Medications Medication Instructions Recorded Confirmed Last Taken Type Aspirin EC [Halfprin EC] 81 mg PO QDAY 30 Days #30 tablet 04/07/21 06/17/21 06/15/21 Rx Budesonide/Formoterol Fumarate 10.2 gm IH BID #1 hfa.aer.ad 06/27/21 Unknown Rx [Symbicort 160-4.5 Mcg Inhaler] Fe Fumarate/FA/Mv, Min Comb#15 1 each PO QDAY #30 capsule 06/27/21 Unknown Rx [Hemocyte Plus] ISOSORBIDE MONOnitrate [Imdur ER] 30 mg PO QDAY #30 tablet 06/27/21 Unknown Rx carvediloL [Coreg] 3.125 mg PO BID #60 tablet 06/27/21 Unknown Rx lisinopriL [Zestril TAB] 2.5 mg PO QDAY #30 tablet 06/27/21 Unknown Rx guaiFENesin/DEXTROMETHORPHAN 1 each PO DAILY PRN 30 Days #30 07/01/21 Unknown Rx [Mucosa Dm 400-20 mg Tablet] tablet Metoclopramide [Reglan] 10 mg PO TID #30 tab 07/11/21 Unknown Rx ED Physical Exam - General Limitations: No Limitations, Other (Pulse ox noted and normal) General appearance: alert, in no apparent distress - Head Head exam: Present: atraumatic, normocephalic - Eye Eye exam: Present: normal appearance, EOMI - ENT ENT exam: Present: normal orophraynx, normal external ear exam - Neck Neck exam: Present: normal inspection. Absent: meningismus - Respiratory Respiratory exam: Present: normal lung sounds bilaterally. Absent: respiratory distress - Cardiovascular Cardiovascular Exam: Present: regular rate, normal rhythm. Absent: JVD - GI/Abdominal GI/Abdominal exam: Present: soft. Absent: tenderness - Extremities Exam Extremities exam: Present: normal capillary refill. Absent: pedal edema - Back Exam Back exam: Absent: CVA tenderness (R), CVA tenderness (L) - Neurological Exam Neurological exam: Present: alert, oriented X3, CN II-XII intact, normal gait. Absent: motor sensory deficit - Psychiatric Psychiatric exam: Present: normal affect, normal mood - Skin Skin exam: Present: warm, dry ED Course Vital Signs 07/11/21 17:57 Temperature 98.3 F Pulse Rate 101 H Respiratory 16 Rate Blood Pressure 179/121 O2 Sat by Pulse 98 Oximetry - Reevaluation(s) Reevaluation #1: 07/11/21 19:09 Labs have been ordered. Old records noted. Case management was involved. They have given him information and resources for outpatient follow-up. Reevaluation #2: 07/11/21 19:44 Electrolytes were noted. Patient was treated for his mild hypokalemia and discharged. He was discharged with the referrals as provided by shoe repairman. ED Medical Decision Making - Lab Data Result diagrams: 07/11/21 18:15 - Medical Decision Making Patient presented secondary to possible need for dialysis. He had mild hyperkalemia. His BUN and creatinine were not significantly changed from baseline. The mild hyperkalemia was in fact mild. Patient was asymptomatic. He was given medication here to bring his potassium down. Case management had seen him and given him the ability to follow-up for dialysis tomorrow or the next day. I do believe this is appropriate. There is no evidence of significant volume overload. He is in no distress. He is not hypoxic. There is no evidence of pulmonary edema. I do not believe admission is required for emergent dialysis at this time. Critical Care Time: No Critical care attestation.: If time is entered above; I have spent that time in minutes in the direct care of this critically ill patient, excluding procedure time. ED Disposition Clinical Impression: Noncompliance, Nausea, ESRD on dialysis, Hyperkalemia Disposition: 01 HOME / SELF CARE / HOMELESS Is pt being admited?: No Condition: Stable Instructions: Dialysis, Hyperkalemia, Nausea, Adult, [id number] Additional Instructions: Have a bland diet. Drink plenty water. Return for problems. Follow-up as directed and discussed. Follow-up for dialysis as discussed. Prescriptions: Metoclopramide [Reglan] 10 mg PO TID #30 tab Referrals: PRIMARY CARE, [Primary Care Provider] - 3-5 Days LIVAN LAZO MD [Staff Physician] - 3-5 Days
[2021-07-11] MEDS ORDERED: ALBUTEROL 2.5 MG/3 ML NEBU IH ONE (19:42)
[2021-07-11] MEDS ORDERED: SODIUM BICARB 8.4% 50 MEQ/50 ML SYRINGE IV ONE (19:42)
[2021-07-11] MEDS ORDERED: SODIUM POLYSTYRENE 15 GM/60 ML ORAL LIQD PO ONE (19:43)
[2021-07-11] MEDS ORDERED: CALCIUM GLUCONATE 1,000 MG in SODIUM CHLORIDE 0.9% 100 ML IV ONE (20:00)
[2021-07-11 21:14] VITALS: BP 164/114
== END 2021-07-11 20:40 | disposition home or self-care (01) ==
LOC: ED 17:45
DX: E87.5 Hyperkalemia (principal); R11.2 Nausea with vomiting, unspecified; Z99.2 Dependence on renal dialysis; J45.909 Unspecified asthma, uncomplicated; F17.200 Nicotine dependence, unspecified, uncomplicated; I13.2 Hypertensive heart and chronic kidney disease with heart failure and with stage 5 chronic kidney disease, or end stage renal disease; N18.6 End stage renal disease; I50.9 Heart failure, unspecified
CPT/HCPCS: 36415; 80048; 83735; 99283; J0610